=== PATIENT | female | born 1950 | race Caucasian/White ===

== ENCOUNTER 2016-12-02 14:44 | Observation (INO) | payer MEDICARE, BC ==
[2016-12-02] MEDS: DILAUDID 2 MG INJECTION IV PRN ×2 (15:20→20:28)
[2016-12-02] MEDS ORDERED: Ventolin Hfa MDI IH PRN (15:27)
[2016-12-02] MEDS ORDERED: PROVENTIL COMMON CANISTER IH PRN (15:29)
[2016-12-02] MEDS: Sodium Chloride 0.9% 1000 ML 1,000 ML IV SCH (15:41)
--- NOTE | 2016-12-02 16:14 | XRAY ---
Indication: Right sciatica. Multiple contiguous axial images obtained through the lumbar spine without contrast. Sagittal and coronal reformatted images obtained. Comparison: August 28, 2012. Axial images again negative for acute fracture or suspicious bony lesions. Stable small left paracentral disc bulge at the L5-S1 level again without spinal canal or foraminal compromise. Stable minimal L5-S1 degenerative facet arthropathy. Remaining T12-L5 disc levels negative for disc herniation, spinal canal, or foraminal stenosis. Facets are symmetric. Sagittal and coronal reformatted images again demonstrate normal lumbar alignment/lordosis with mild L5-S1 disc space narrowing. Again no acute fracture, subluxation, or suspicious bony lesions. Visualized noncontrasted soft tissues again demonstrates mild aortoiliac calcifications without AAA and sigmoidectomy diverticulosis. Impression: 1. Again negative for acute fracture, disc herniation, or spinal canal stenosis. 2. Stable L5-S1 degenerative disc disease. 2. Stable sigmoid diverticulosis. CTDI 72.76
[2016-12-02] MEDS: Advair Hfa 115/21 Common canister IH SCH (17:00)
[2016-12-02] MEDS ORDERED: ADVAIR 250-50 DISKUS 14 DOSE IH SCH (22:00)
[2016-12-02] MEDS: Klonopin 0.5 MG PO SCH (22:23)
[2016-12-02] MEDS: Zanaflex 4 MG PO SCH (22:23)
[2016-12-02] MEDS ORDERED: NORVASC 5 MG ONE (22:37)
[2016-12-03] MEDS: DILAUDID 2 MG INJECTION IV PRN ×3 (05:15→18:00)
[2016-12-03] MEDS: Advair Hfa 115/21 Common canister IH SCH ×2 (06:45→19:36)
[2016-12-03] MEDS: Klonopin 0.5 MG PO SCH ×2 (09:57→22:35)
[2016-12-03] MEDS: Sodium Chloride 0.9% 1000 ML 1,000 ML IV SCH (09:57)
[2016-12-03] MEDS: Mobic 7.5 MG PO SCH (09:57)
[2016-12-03] MEDS: Zanaflex 4 MG PO SCH ×2 (09:57→22:35)
[2016-12-03] MEDS ORDERED: PREVNAR 13 SYRINGE IM ONE (10:00)
--- NOTE | 2016-12-03 12:26 | PCM.NOTE ---
Date and Time: 12/03/16 1225 Subjective Assessment: pain is improving - Review of Systems Constitutional: No Fever, No Chills Eyes: No Symptoms Ears, Nose, & Throat: No Symptoms Respiratory: No Cough, No Short Of Breath Cardiac: No Chest Pain, No Edema, No Syncope Abdominal/Gastrointestinal: No Abdominal Pain, No Nausea, No Vomiting, No Diarrhea Genitourinary Symptoms: No Dysuria Musculoskeletal: No Back Pain, No Neck Pain Skin: No Rash Neurological: No Dizziness, No Focal Weakness, No Sensory Changes Psychological: No Symptoms Endocrine: No Symptoms Hematologic/Lymphatic: No Symptoms Immunological/Allergic: No Symptoms Objective Exam General Appearance: no apparent distress, alert Neurologic Exam: alert, oriented x 3, cooperative, normal mood/affect, nml cerebellar function, sensation nml, No motor deficits Skin Exam: normal color, warm, dry Eye Exam: PERRL, EOMI, eyes nml inspection Ears, Nose, Throat Exam: normal ENT inspection, pharynx normal, moist mucous membranes Neck Exam: normal inspection, non-tender, supple, full range of motion Respiratory Exam: normal breath sounds, lungs clear, No respiratory distress Cardiovascular Exam: regular rate/rhythm, normal heart sounds Gastrointestinal/Abdomen Exam: soft, No tenderness, No mass Extremity Exam: normal inspection, normal range of motion Back Exam: normal inspection, normal range of motion, No CVA tenderness, No vertebral tenderness Pelvic Exam: deferred Rectal Exam: deferred OBJECTIVE DATA Vital Signs: Vital Signs - 24 hr Temp Pulse Resp BP Pulse Ox 12/03/16 07:49 98.3 F 60 20 132/58 93 L 12/03/16 06:45 73 16 96 12/03/16 04:00 98.2 F 67 18 134/60 97 12/02/16 23:48 98.4 F 66 20 98/53 96 12/02/16 20:00 98.0 F 68 22 133/72 98 12/02/16 17:25 70 20 97 12/02/16 15:46 59 L 20 95 12/02/16 15:12 98.9 F 66 20 135/81 94 L Pain Assessment - Last Documented Pain Intensity 8 Pain Scale Used 0-10 Pain Scale Intake and Output: Intake & Output 12/01/16 12/02/16 12/03/16 12/04/16 11:59 11:59 11:59 11:59 Intake Total 1429 Balance 1429 Weight 95.368 kg Radiology Exams: Radiology Procedures Category Date Time Status LUMBAR SPINE W/O [CT] Routine Exams 12/02/16 15:12 Completed Assessment/Plan (1) Sciatic neuralgia Current Visit: Yes Status: Acute Qualifiers: Laterality: right Qualified Code(s): M54.31 - Sciatica, right side Code(s): M54.30 - SCIATICA, UNSPECIFIED SIDE
--- NOTE | 2016-12-04 07:09 | PCM.DS ---
Discharge Summary Date of Admission: 12/02/16 14:44 Admitting Physician: DAVID MORFIN Primary Care Provider: DAVID MORFIN Allergies Allergies No Known Drug Allergies Allergy (Unverified 12/02/16 14:51) Hospital Summary - Hospital Course Hospital Course: Chief Complaint Diagnosis sciatic pain Allergies Allergy/AdvReac Type Severity Reaction Status Date / Time No Known Drug Allergies Allergy Unverified 12/02/16 14:51 Vital Signs (Last 24 hours) Temp Pulse Resp BP Pulse Ox 12/04/16 03:55 98.4 F 72 17 125/68 94 L 12/04/16 00:00 98.4 F 61 18 94/52 93 L 12/03/16 19:48 98.5 F 69 19 124/59 93 L 12/03/16 19:36 68 18 93 L 12/03/16 16:00 99 F 63 20 126/73 91 L 12/03/16 12:00 98.4 F 74 20 113/69 93 L 12/03/16 07:49 98.3 F 60 20 132/58 93 L Home Medications Medication Instructions Recorded Confirmed Last Taken Type Meloxicam 7.5 mg [Mobic 7.5 7.5 mg PO DAILY 12/02/16 12/02/16 12/02/16 History MG] Tizanidine HCl 4 mg [Zanaflex 4 4 mg PO BID 12/02/16 12/02/16 12/02/16 History MG] Current Medications Generic Name Dose Route Start Last Admin Trade Name Freq PRN Reason Stop Dose Admin Albuterol Sulfate 2 puff 12/02/16 15:29 Proventil Common Canister IH 01/01/17 15:28 Q4H PRN PRN BREATHING Clonazepam 0.5 mg 12/02/16 22:00 12/03/16 22:35 Klonopin 0.5 Mg PO 01/01/17 21:59 0.5 mg BID ASIYA Administration Hydromorphone HCl 0.5 mg 12/02/16 15:09 12/03/16 18:00 Dilaudid 2 Mg Injection IV 12/07/16 15:08 0.5 mg Q4H PRN PRN Administration PAIN Sodium Chloride 1,000 mls @ 40 mls/hr 12/02/16 15:15 12/03/16 09:57 Sodium Chloride 0.9% 1000 Ml IV 01/01/17 15:14 40 mls/hr .Q24H ASIYA Administration Meloxicam 7.5 mg 12/03/16 10:00 12/03/16 09:57 Mobic 7.5 Mg PO 01/02/17 09:59 7.5 mg DAILY ASIYA Administration Fluticasone/Salmeterol 2 puff 12/02/16 19:00 12/03/16 19:36 Advair Hfa 115/21 Common Canister* IH 01/01/17 18:59 2 puff BIDRT ASIYA Administration Tizanidine HCl 4 mg 12/02/16 22:00 12/03/16 22:35 Zanaflex 4 Mg PO 01/01/17 21:59 4 mg BID ASIYA Administration Discontinued Medications Generic Name Dose Route Start Last Admin Trade Name Freq PRN Reason Stop Dose Admin Pneumococcal 13-Valent Conj Vacc 0.5 ml 12/03/16 10:00 12/03/16 09:59 Prevnar 13 Syringe IM 12/03/16 10:01 0.5 ml .ONCE ONE Administration Intake & Output (Last 24 hours) 12/01/16 12/02/16 12/03/16 12/04/16 11:59 11:59 11:59 11:59 Intake Total 1429 2139 Balance 1429 2139 Weight 95.368 kg Orders (Last 24 hours) Category Date Time Status Meloxicam 7.5 mg [Mobic 7.5 MG] Med 12/03/16 10:00 Active 7.5 mg PO DAILY Pneumoc 13-Noemí Conj-Dip Crm/Pf [Prevnar 13 Syringe] Med 12/03/16 10:00 Discontinued 0.5 ml IM .ONCE ONE PT Eval & Treat ( Order) ROUTINE PT 12/03/16 10:30 Completed - Vitals & Intake/Output Vital Signs: Vital Signs Temperature 98.4 F 12/04/16 03:55 Pulse Rate 72 12/04/16 03:55 Respiratory Rate 17 12/04/16 03:55 Blood Pressure 125/68 12/04/16 03:55 O2 Sat by Pulse Oximetry 94 L 12/04/16 03:55 Intake & Output: Intake & Output 12/01/16 12/02/16 12/03/16 12/04/16 11:59 11:59 11:59 11:59 Intake Total 1429 2139 Balance 1429 2139 Weight 95.368 kg - Radiology Exams Ordered Rad Exams-Entire Visit: Radiology Procedures Category Date Time Status LUMBAR SPINE W/O [CT] Routine Exams 12/02/16 15:12 Completed - Procedures and Test Procedures and Tests throughout Hospitalization: Therapy Orders & Screens 12/02/16 15:46 Respiratory MDI UD Comment: ALBUTEROL MDI Q4PRN Diagnosis: sciatic pain 12/02/16 16:00 OT Screen per Nursing Assess ONCE Comment: Protocol Order Physician Instructions: Greater than 3 points order OT Admission Screening Reason For Exam: Triggered on Admission Diagnosis: sciatic pain Open Wound/Cellutlitis/Pressure Ulcers: No Acute Fx/ORIF/Change in wt bearing status: No Severe MUSCULOSKELETAL pain: Yes ADL Dysfunction: Yes Acute CVA w/Hemiparesis/Hemiplegia: No Decreased Functional Mobility/Strength: No Sprain/Strain: Yes Acute Post-op Mobility Dysfunction: No Total Points: 11 PT Screen per Nursing Assess ONCE Comment: Protocol Order Physician Instructions: Greater than 3 points order PT Admission Screenin Reason For Exam: Triggered on Admission Diagnosis: sciatic pain Open Wound/Cellutlitis/Pressure Ulcers: No Acute Fx/ORIF/Change in wt bearing status: No Severe MUSCULOSKELETAL pain: Yes ADL Dysfunction: Yes Acute CVA w/Hemiparesis/Hemiplegia: No Decreased Functional Mobility/Strength: No Sprain/Strain: Yes Acute Post-op Mobility Dysfunction: No Total Points: 11 12/02/16 19:00 Respiratory MDI BID Comment: ADVAIR 115/ BID Diagnosis: sciatic pain 12/02/16 22:56 BiPap/CPAP Assessment ROUTINE Comment: Diagnosis: sciatic pain 12/03/16 10:30 PT Eval & Treat (MD Order) ROUTINE Evaluate: Yes Treat: Yes Reason for Eval:: sciatic pain Diagnosis: sciatic pain Discharge Exam General Appearance: no apparent distress, alert Neurologic Exam: alert, oriented x 3, cooperative, normal mood/affect, nml cerebellar function, sensation nml, No motor deficits Skin Exam: normal color, warm, dry Eye Exam: PERRL, EOMI, eyes nml inspection Ears, Nose, Throat Exam: normal ENT inspection, pharynx normal, moist mucous membranes Neck Exam: normal inspection, non-tender, supple, full range of motion Respiratory Exam: normal breath sounds, lungs clear, No respiratory distress Cardiovascular Exam: regular rate/rhythm, normal heart sounds Gastrointestinal/Abdomen Exam: soft, No tenderness, No mass Extremity Exam: normal inspection, normal range of motion Back Exam: normal inspection, normal range of motion, No CVA tenderness, No vertebral tenderness Pelvic Exam: deferred Rectal Exam: deferred Final Diagnosis/Problem List - Final Discharge Diagnosis/Problem (1) Sciatic neuralgia Current Visit: Yes Status: Acute Assessment & Plan: Chief Complaint Diagnosis sciatic pain Allergies Allergy/AdvReac Type Severity Reaction Status Date / Time No Known Drug Allergies Allergy Unverified 12/02/16 14:51 Vital Signs (Last 24 hours) Temp Pulse Resp BP Pulse Ox 12/04/16 03:55 98.4 F 72 17 125/68 94 L 12/04/16 00:00 98.4 F 61 18 94/52 93 L 12/03/16 19:48 98.5 F 69 19 124/59 93 L 12/03/16 19:36 68 18 93 L 12/03/16 16:00 99 F 63 20 126/73 91 L 12/03/16 12:00 98.4 F 74 20 113/69 93 L 12/03/16 07:49 98.3 F 60 20 132/58 93 L Home Medications Medication Instructions Recorded Confirmed Last Taken Type Meloxicam 7.5 mg [Mobic 7.5 7.5 mg PO DAILY 12/02/16 12/02/16 12/02/16 History MG] Tizanidine HCl 4 mg [Zanaflex 4 4 mg PO BID 12/02/16 12/02/16 12/02/16 History MG] Current Medications Generic Name Dose Route Start Last Admin Trade Name Freq PRN Reason Stop Dose Admin Albuterol Sulfate 2 puff 12/02/16 15:29 Proventil Common Canister IH 01/01/17 15:28 Q4H PRN PRN BREATHING Clonazepam 0.5 mg 12/02/16 22:00 12/03/16 22:35 Klonopin 0.5 Mg PO 01/01/17 21:59 0.5 mg BID ASIYA Administration Hydromorphone HCl 0.5 mg 12/02/16 15:09 05/05/17 18:00 Dilaudid 2 Mg Injection IV 12/07/16 15:08 0.5 mg Q4H PRN PRN Administration PAIN Sodium Chloride 1,000 mls @ 40 mls/hr 12/02/16 15:15 12/03/16 09:57 Sodium Chloride 0.9% 1000 Ml IV 01/01/17 15:14 40 mls/hr .Q24H ASIYA Administration Meloxicam 7.5 mg 12/03/16 10:00 12/03/16 09:57 Mobic 7.5 Mg PO 01/02/17 09:59 7.5 mg DAILY ASIYA Administration Fluticasone/Salmeterol 2 puff 12/02/16 19:00 12/03/16 19:36 Advair Hfa 115/21 Common Canister* IH 01/01/17 18:59 2 puff BIDRT ASIYA Administration Tizanidine HCl 4 mg 12/02/16 22:00 12/03/16 22:35 Zanaflex 4 Mg PO 01/01/17 21:59 4 mg BID ASIYA Administration Discontinued Medications Generic Name Dose Route Start Last Admin Trade Name Freq PRN Reason Stop Dose Admin Pneumococcal 13-Valent Conj Vacc 0.5 ml 12/03/16 10:00 12/03/16 09:59 Prevnar 13 Syringe IM 12/03/16 10:01 0.5 ml .ONCE ONE Administration Intake & Output (Last 24 hours) 12/01/16 12/02/16 12/03/16 12/04/16 11:59 11:59 11:59 11:59 Intake Total 1429 2139 Balance 1429 2139 Weight 95.368 kg Orders (Last 24 hours) Category Date Time Status Meloxicam 7.5 mg [Mobic 7.5 MG] Med 12/03/16 10:00 Active 7.5 mg PO DAILY Pneumoc 13-Noemí Conj-Dip Crm/Pf [Prevnar 13 Syringe] Med 12/03/16 10:00 Discontinued 0.5 ml IM .ONCE ONE PT Eval & Treat ( Order) ROUTINE PT 12/03/16 10:30 Completed - Discharge Discharge Date: 12/04/16 Disposition: Home, Self-Care Condition: Stable Prescriptions: Continue Fluticasone/Salmeterol Disc [Advair 250-50 Diskus 14 Dose] 1 each IH BID Clonazepam 0.5 mg [Klonopin 0.5 MG] 0.5 mg PO BID Albuterol 8 gm Mdi Hfa [Ventolin Hfa MDI] 8 gm IH Q4-6HPRN PRN PRN Reason: Shortness Of Breath Tizanidine HCl 4 mg [Zanaflex 4 MG] 4 mg PO BID Meloxicam 7.5 mg [Mobic 7.5 MG] 7.5 mg PO DAILY Follow up with: DAVID MORFIN MD [Primary Care Provider] - 1 Week Forms: Patient Portal Information
[2016-12-04] MEDS: Advair Hfa 115/21 Common canister IH SCH (07:41)
[2016-12-04 07:59] VITALS: BP 178/84; PULSE 77; O2SAT 92
[2016-12-04] MEDS: Zanaflex 4 MG PO SCH (11:09)
[2016-12-04] MEDS: Klonopin 0.5 MG PO SCH (11:09)
[2016-12-04] MEDS: Mobic 7.5 MG PO SCH (11:10)
== END 2016-12-04 12:20 | disposition home or self-care (01) ==
LOC: MED SURG 14:44
PROVIDERS: ADMIT General Practice; ATTEND General Practice
DX: G58.8 Other specified mononeuropathies (principal); M54.31 Sciatica, right side; I10 Essential (primary) hypertension; I50.9 Heart failure, unspecified; M19.90 Unspecified osteoarthritis, unspecified site; F41.9 Anxiety disorder, unspecified; J44.9 Chronic obstructive pulmonary disease, unspecified; M79.7 Fibromyalgia; K21.9 Gastro-esophageal reflux disease without esophagitis; K44.9 Diaphragmatic hernia without obstruction or gangrene; G47.33 Obstructive sleep apnea (adult) (pediatric); Z79.899 Other long term (current) drug therapy; M54.9 Dorsalgia, unspecified; Z23 Encounter for immunization
CPT/HCPCS: 72131; 90670; 94640; 94660; 94760; G0009; G0378; J1170; 97110-GP; A9270-GY

== ENCOUNTER 2017-01-03 12:49 | Emergency (ER) | payer MEDICARE, BC ==
[2017-01-03] MEDS ORDERED: NORCO 5/325 MG ONE (14:54)
[2017-01-03] MEDS ORDERED: NORCO 5/325 MG PO ONE (14:59)
--- NOTE | 2017-01-03 15:21 | XRAY ---
Indication: Pain following fall. Comparison: None 3 views of the right knee demonstrates mild osteopenia, mild medial joint space narrowing/spurring, tiny posterior fabella, and faint vascular calcifications. No other bony, articular, or soft tissue abnormalities.
--- NOTE | 2017-01-03 15:43 | ERPHSYRPT ---
- History of Present Illness Time Seen by Provider: 01/03/17 13:30 Source: patient, family Exam Limitations: no limitations Patient Subjective Stated Complaint: pt arriver per wc for right knee pain for almost a month and getting worse, pt twisted knee about a month ago and then ago today, she has seen and has mri for tomorrow,and is taking medication with no relief Triage Nursing Assessment: pt alert, thrashing in bed, no swelling noted to knee , or brusing, pt is able to walk on knee Method of Injury: direct blow, fell Occurred: this morning Quality: constant, sharpness Severity of Pain-Max: moderate Severity of Pain-Current: moderate Lower Extremities Pain: knee: right Modifying Factors: Improves With: movement Associated Symptoms: unable to bear weight Allergies/Adverse Reactions: No Known Drug Allergies Allergy (Verified 01/03/17 13:05) Home Medications: Fluticasone/Salmeterol Disc [Advair 250-50 Diskus 14 Dose] 1 each IH BID 08/01/13 [History] Albuterol 8 gm Mdi Hfa [Ventolin Hfa MDI] 8 gm IH Q4-6HPRN PRN 07/24/15 [ History] Clonazepam 0.5 mg [Klonopin 0.5 MG] 0.5 mg PO BID 07/24/15 [History] Meloxicam 7.5 mg [Mobic 7.5 MG] 7.5 mg PO DAILY 12/02/16 [History] Tizanidine HCl 4 mg [Zanaflex 4 MG] 4 mg PO BID 12/02/16 [History] Hx Tetanus, Diphtheria Vaccination/Date Given: Yes (UP TO DATE) Hx Influenza Vaccination/Date Given: Yes Hx Pneumococcal Vaccination/Date Given: Yes Immunizations Up to Date: Yes - Review of Systems Constitutional: No Symptoms Eyes: No Symptoms Ears, Nose, & Throat: No Symptoms Respiratory: No Symptoms Cardiac: No Symptoms Abdominal/Gastrointestinal: No Symptoms Musculoskeletal: Fall, Joint Pain Skin: No Symptoms Neurological: No Symptoms Psychological: No Symptoms Endocrine: No Symptoms Hematologic/Lymphatic: No Symptoms Immunological/Allergic: No Symptoms - Past Medical History Pertinent Past Medical History: Yes Neurological History: Migraines ENT History: No Pertinent History Cardiac History: Hypertension Respiratory History: COPD, Sleep Apnea Endocrine Medical History: No Pertinent History Musculoskeletal History: Fibromyalgia, Fractures, Osteoarthritis GI Medical History: No Pertinent History History: No Pertinent History Psycho-Social History: No Pertinent History Female Reproductive Disorders: No Pertinent History - Past Surgical History Past Surgical History: Yes Neuro Surgical History: No Pertinent History Cardiac: No Pertinent History Respiratory: No Pertinent History Gastrointestinal: Cholecystectomy Genitourinary: No Pertinent History Musculoskeletal: Orthopedic Surgery Female Surgical History: Hysterectomy Other Surgical History: rotator cuff surgery,eye surgery - Social History Smoking Status: Never smoker Exposure to second hand smoke: No Drug Use: none Patient Lives Alone: No Significant Family History: no pertinent family hx - Female History Hx Last Menstrual Period: post Hx Now: No - Nursing Vital Signs Nursing Vital Signs: Initial Vital Signs Temperature 97.4 F Temperature Source Oral Pulse Rate 72 Respiratory Rate 16 Blood Pressure [Right Arm] 170/88 Pain Intensity 8 - Physical Exam General Appearance: moderate distress Eyes, Ears, Nose, Throat Exam: normal ENT inspection, TMs normal, pharynx normal Neck Exam: normal inspection, non-tender, supple, full range of motion Cardiovascular/Respiratory Exam: chest non-tender, normal breath sounds, heart sounds normal Gastrointestinal/Abdominal Exam: non-tender, soft, no organomegaly Back Exam: normal inspection, normal range of motion Hips Exam: bilateral: non-tender, normal inspection, normal range of motion Legs Exam: bilateral leg: non-tender, normal inspection, normal range of motion Knees Exam: right knee: bone tenderness, pain, soft tissue tenderness, swelling Ankle Exam: bilateral ankle: non-tender, normal inspection, normal range of motion, no evidence of injury Foot Exam: bilateral foot: non-tender, normal inspection, normal range of motion , no evidence of injury DTR - Lower Extremities Exam: ankle (R): 3+, ankle (L): 3+ Neuro/Tendon Exam: normal sensation, normal motor functions, normal tendon functions, responds to pain, no evidence tendon injury Mental Status Exam: alert, oriented x 3, cooperative Skin Exam: normal color, warm, dry SpO2 Interpretation: normal SpO2: 96 Oxygen Delivery: Room Air - Radiology Exams Knee X-ray Interpretation: Teleradiologist Report (Mild osteopenia, mild medeial joint space narrowing/spurring, tiny posterior fabella and faint vascular calcifications.) Ordered Tests: Active Orders 24 hr Category Date Time Status KNEE (3 VIEWS) Stat Exams 01/03/17 14:23 Completed Medication Summary Discontinued Medications Generic Name Dose Route Start Last Admin Trade Name Emma PRN Reason Stop Dose Admin Hydrocodone Bitart/Acetaminophen Confirm 01/03/17 14:54 [place] 5/325 Mg Administered 01/03/17 14:55 Dose 1 tab .ROUTE .STK-MED ONE Hydrocodone Bitart/Acetaminophen 1 tab 01/03/17 14:59 01/03/17 15:05 [place] 5/325 Mg PO 01/03/17 15:00 1 tab STAT ONE Administration - Progress Progress: improved Will see patient in: office (PCP 1 week for ortho referral) Counseled pt/family regarding: diagnosis, need for follow-up, rad results - Departure Time of Disposition: 15:30 Departure Disposition: Home Clinical Impression: Degenerative joint disease of knee, right Qualifiers: Osteoarthritis type: post-traumatic Qualified Code(s): M17.31 - Unilateral post -traumatic osteoarthritis, right knee Condition: Stable Critical Care Time: No Instructions: Knee Pain Prescriptions: Hydrocodone Bit/Acetaminophen [[place] 5-325 Tablet] 1 each PO Q6H PRN PRN #15 tablet PRN Reason: Pain
[2017-01-03 16:19] VITALS: BP 134/70; PULSE 84; O2SAT 100
== END 2017-01-03 16:19 | disposition home or self-care (01) ==
LOC: ED 12:49
DX: M17.31 Unilateral post-traumatic osteoarthritis, right knee (principal)
CPT/HCPCS: 73562; 99283; 99284; L1830; A9270-GY

== ENCOUNTER 2017-02-24 11:58 | Emergency (ER) | payer MEDICARE, BC ==
[2017-02-24] MEDS ORDERED: Sodium Chloride 0.9% 1000 ML 1,000 ML IV SCH (12:15)
--- NOTE | 2017-02-24 12:18 | ERPHSYRPT ---
- History of Present Illness Time Seen by Provider: 02/24/17 12:02 Source: patient, family (daughter) Exam Limitations: no limitations Patient Subjective Stated Complaint: weakness, dizziness, fell out of chair at work, vomiting today. Triage Nursing Assessment: to room per w/c, able to go to bathroom with assist from daughter. slight unsteadiness on feet. Physician History: patient awoke with post AMBROCIO- non-specific; hx of HAs; went to work; collapsed while sitting in chair at work; fell to floor; denies hx; she is unaware if passed out; general weakness; no focal weakness; hx of prior TIAs, none recent; had knee surgery in December on right meniscus; no leg pain; no SOB or CP;no palpatations; no hx dVTs or PEs; no fever; no travel; no exposures; no Hypertension; no LOC per witness; developed N&V immediately after; called daughter who brought her here. Now only complaining of general weakness and post AMBROCIO; Had a Migraine AMBROCIO yesterday with N&V; got better and went shopping; awoke with AMBROCIO today and went to work thinking the same; Hx of Migraines; no incontinence or seizures; no visual disturbance or double vision; some vertigo; AMBROCIO 6/10 Timing/Duration: today (awoke wiht AMBROCIO and went to work), yesterday (Migraine with N&V rsolved), hour(s) (one fell out of chair at work; no injury; AMBROCIO with N &V), intermittent, improved Severity: moderate Modifying Factors: Improves With: nothing Associated Symptoms: nausea, vomiting, headaches, weakness (general), other ( vertigo) Allergies/Adverse Reactions: No Known Drug Allergies Allergy (Verified 02/24/17 12:11) Home Medications: Fluticasone/Salmeterol Disc [Advair 250-50 Diskus 14 Dose] 1 each IH BID 08/01/13 [History] Albuterol 8 gm Mdi Hfa [Ventolin Hfa MDI] 8 gm IH Q4-6HPRN PRN 07/24/15 [ History] Clonazepam 0.5 mg [Klonopin 0.5 MG] 0.5 mg PO BID 07/24/15 [History] Meloxicam 7.5 mg [Mobic 7.5 MG] 7.5 mg PO DAILY 12/02/16 [History] Aspirin [Clarcona Aspirin] 81 mg PO DAILY 02/24/17 [History] Hx Tetanus, Diphtheria Vaccination/Date Given: Yes (UP TO DATE) Hx Influenza Vaccination/Date Given: Yes Hx Pneumococcal Vaccination/Date Given: Yes - Review of Systems Constitutional: Weakness, No Fever, No Night Sweats, No Weight Loss Eyes: No Symptoms Ears, Nose, & Throat: No Symptoms Respiratory: No Cough, No Dyspnea, No Wheezing Cardiac: No Chest Pain, No Palpitations, No Syncope Abdominal/Gastrointestinal: Nausea, Vomiting, No Abdominal Pain, No Diarrhea, No Constipation Genitourinary Symptoms: No Symptoms Musculoskeletal: Arthralgias, Fall (out of cahir from sitting), No Injury Skin: No Symptoms Neurological: Dizziness, Headache, Vertigo, No Focal Weakness, No Paralysis, No Seizure, No Speech Changes Psychological: No Symptoms Endocrine: No Symptoms Hematologic/Lymphatic: No Symptoms Immunological/Allergic: No Symptoms - Past Medical History Pertinent Past Medical History: Yes Neurological History: Migraines, TIA ENT History: No Pertinent History Cardiac History: No Pertinent History Respiratory History: COPD Endocrine Medical History: Hypothyroidism Musculoskeletal History: Arthritis GI Medical History: No Pertinent History History: No Pertinent History Psycho-Social History: No Pertinent History Female Reproductive Disorders: No Pertinent History - Past Surgical History Past Surgical History: Yes Neuro Surgical History: No Pertinent History Cardiac: No Pertinent History Respiratory: No Pertinent History Gastrointestinal: Cholecystectomy Genitourinary: No Pertinent History Musculoskeletal: Orthopedic Surgery Female Surgical History: Hysterectomy Other Surgical History: rotator cuff surgery,eye surgery - Social History Smoking Status: Former smoker Exposure to second hand smoke: No Alcohol Use: None Drug Use: none Patient Lives Alone: No Significant Family History: no pertinent family hx - Female History Hx Now: No - Nursing Vital Signs Nursing Vital Signs: Initial Vital Signs Temperature 98.1 F 02/24/17 12:03 Pulse Rate 66 02/24/17 12:03 Respiratory Rate 18 02/24/17 12:03 Blood Pressure 145/84 02/24/17 12:03 O2 Sat by Pulse Oximetry 98 02/24/17 12:03 Pain Scale Pain Intensity 7 - Physical Exam General Appearance: moderate distress (AMBROCIO and vertigo when moves head lateral), alert, obese Eye Exam: PERRL/EOMI, eyes nml inspection, other (fundi benign; no papiledema; no nystagmus), No photophobia Ears, Nose, Throat Exam: normal ENT inspection, TMs normal, pharynx normal, moist mucous membranes Neck Exam: normal inspection, non-tender, supple, full range of motion, No meningismus, No carotid bruit, No JVD Respiratory Exam: normal breath sounds, lungs clear, airway intact, No chest tenderness, No respiratory distress Cardiovascular Exam: regular rate/rhythm, normal heart sounds, normal peripheral pulses, capillary refill <2 sec, No murmur Gastrointestinal/Abdomen Exam: soft, normal bowel sounds, No tenderness, No guarding, No pulsatile mass, No rebound, No organomegaly Pelvic Exam: deferred Rectal Exam: deferred Back Exam: normal inspection, normal range of motion, No CVA tenderness, No vertebral tenderness, No rash Extremity Exam: normal inspection, normal range of motion, pelvis stable, other (right knee post op; non-tender; no redness; no heat; no effusion), No kelvin's sign, No pedal edema, No swelling, No tenderness Neurologic Exam: alert, oriented x 3, cooperative, tutor coordinator II-XII nml as tested, normal mood/affect, nml cerebellar function, nml station & gait, sensation nml Skin Exam: normal color, warm, dry, No rash, No petechiae, No cyanosis SpO2 Interpretation: normal SpO2: 98 Oxygen Delivery: Room Air - Course Nursing assessment & vital signs reviewed: Yes EKG Interpreted by Me: RATE (56), Sinus Frank, Left Mason Deviation, NORMAL INTERVALS, NORMAL QRS, NORMAL ST-T, Other (uncahnged from 05-16-11) Rhythm Strip: Rate (56), Sinus Bradycardia - Radiology Exams Chest X-ray Interpretation: Reviewed by me, Teleradiologist Report, Negative (acute process) - CT Exams Head CT Interpretation: Tele-radiologist Report, No/Intracranial Hemorrhag, Other ( evidence on comaprison of 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) Chest CT Interpretation: Tele-radiologist Report, No PE Ordered Tests: Active Orders 24 hr Category Date Time Status Accucheck STAT Care 02/24/17 12:09 Active Merchandising Representative STAT Care 02/24/17 12:09 Active EKG-ER Only STAT Care 02/24/17 12:09 Active IV Insertion STAT Care 02/24/17 12:09 Active Orthostatic Vital Signs STAT Care 02/24/17 12:09 Active Pulse Oximetry (ED) STAT Care 02/24/17 12:09 Active CHEST 1 VIEW (PORTABLE) Stat Exams 02/24/17 12:10 Completed CHEST WITH CONTRAST [CT] Stat Exams 02/24/17 14:29 Completed HEAD WITHOUT CONTRAST [CT] Stat Exams 02/24/17 12:10 Completed CBC W DIFF Stat Lab 02/24/17 12:20 Completed CMP Stat Lab 02/24/17 12:20 Completed CULTURE,URINE Stat Lab 02/24/17 12:20 Received D-DIMER QUANTITATION Stat Lab 02/24/17 12:20 Completed MAGNESIUM Stat Lab 02/24/17 12:20 Completed PROTIME WITH INR Stat Lab 02/24/17 12:20 Completed TROPONIN Q3H Lab 02/24/17 12:15 Completed TROPONIN Q3H Lab 02/24/17 15:15 Ordered TROPONIN Q3H Lab 02/24/17 18:15 Ordered TROPONIN Q3H Lab 02/24/17 21:15 Ordered TROPONIN Q3H Lab 02/25/17 00:15 Ordered UA W/ MICROSCOPIC Stat Lab 02/24/17 12:20 Completed Medication Summary Generic Name Dose Route Start Last Admin Trade Name Freq PRN Reason Stop Dose Admin Sodium Chloride 1,000 mls @ 50 mls/hr 02/24/17 12:15 02/24/17 12:26 Sodium Chloride 0.9% 1000 Ml IV 03/26/17 12:14 50 mls/hr .Q20H ASIYA Administration Discontinued Medications Generic Name Dose Route Start Last Admin Trade Name Freq PRN Reason Stop Dose Admin Acetaminophen 500 mg 02/24/17 12:40 02/24/17 12:56 Tylenol Extra Strength 500 Mg PO 02/24/17 12:41 500 mg STAT STA Administration Acetaminophen Confirm 02/24/17 12:46 Tylenol Extra Strength 500 Mg Administered 02/24/17 12:47 Dose 500 mg .ROUTE .STK-MED ONE Ceftriaxone Sodium/Dextrose 1 g in 50 mls @ 100 mls/hr 02/24/17 12:43 13:02 Rocephin 1 Gm-D5w 50 Ml Bag IV 02/24/17 13:12 100 mls/hr STAT ONE Administration Sodium Chloride 250 mls @ 999 mls/hr 02/24/17 12:52 02/24/17 13:15 Sodium Chloride 0.9% 1000 Ml IV 02/24/17 13:07 999 mls/hr .Q16M STA Administration Ceftriaxone Sodium/Dextrose Confirm 02/24/17 12:51 Rocephin 1 Gm-D5w 50 Ml Bag Administered 02/24/17 12:52 Dose 1 g in 50 mls @ ud IV .STK-MED ONE Ondansetron HCl 4 mg 02/24/17 12:40 02/24/17 13:01 Zofran 4 Mg/2 Ml Vial IV 02/24/17 12:41 4 mg STAT ONE Administration Ondansetron HCl Confirm 02/24/17 12:46 Zofran 4 Mg/2 Ml Vial Administered 02/24/17 12:47 Dose 4 mg .ROUTE .STK-MED ONE Scopolamine HBr 1.5 mg 02/24/17 12:41 02/24/17 12:59 Transderm Scop 1.5mg Patch TOP 02/24/17 12:42 1.5 mg STAT ONE Administration Lab/Rad Data: Laboratory Result Diagrams 02/24/17 12:20 02/24/17 12:20 Laboratory Results 02/24/17 02/24/17 02/24/17 Range/Units 12:20 12:20 12:20 WBC (4.0-10.5) K/mm3 RBC (4.1-5.4) M/mm3 Hgb (12.0-16.0) gm/dl Hct (35-47) % MCV (78-100) fl MCH (26-32) pg MCHC (32-36) g/dl RDW (11.5-14.0) % Plt Count (150-450) K/mm3 MPV (6-9.5) fl Gran % (36.0-66.0) % Lymphocytes % (24.0-44.0) % Monocytes % (0.0-12.0) % Eosinophils % (0.00-5.0) % Basophils % (0.0-0.4) % Basophils # (0-0.4) INR 1.01 (0.8-3.0) D-Dimer 876 H* (0-500) ng/mL Sodium 139 (136-145) mEq/L Potassium 4.1 (3.5-5.1) mEq/L Chloride 104 (98-107) mEq/L Carbon Dioxide 27.4 (21-32) mEq/L Anion Gap 11.8 (5-15) MEQ/L BUN 15 (9-20) mg/dL Creatinine 0.71 (0.55-1.30) mg/dl Estimated GFR > 60 ML/MIN Glucose 94 (70-110) MG/DL Calcium 9.4 (8.5-10.1) mg/dL Magnesium 2.1 (1.8-2.4) mg/dL Total Bilirubin 0.40 (0.2-1.0) mg/dL AST 17 (15-37) U/L ALT 21 (12-78) U/L Alkaline Phosphatase 114 (46-116) U/L Troponin I (0.000-0.056) ng/ml Serum Total Protein 7.0 (6.4-8.2) gm/dL Albumin 3.8 (3.4-5.0) g/dL Ur Collection Type Urine Color (YELLOW) Urine Appearance (CLEAR) Urine pH (5-6) Ur Specific [place] (1.005-1.025) Urine Protein (Negative) Urine Ketones (NEGATIVE) Urine Blood (0-5) Sergo/ul Urine Nitrite (NEGATIVE) Urine Bilirubin (NEGATIVE) Urine Urobilinogen (0-1) mg/dL Ur Leukocyte Esterase (NEGATIVE) Urine Microscopic RBC (0-2) /HPF Urine Microscopic WBC (0-5) /HPF Ur Epithelial Cells (FEW) /HPF Urine Bacteria (NEGATIVE) /HPF Urine Glucose (NEGATIVE) mg/dL Specimen Received 02/24/17 02/24/17 02/24/17 Range/Units 12:20 12:20 12:15 WBC 4.1 (4.0-10.5) K/mm3 RBC 5.37 (4.1-5.4) M/mm3 Hgb 15.1 (12.0-16.0) gm/dl Hct 45.8 (35-47) % MCV 85.3 (78-100) fl MCH 28.1 (26-32) pg MCHC 33.0 (32-36) g/dl RDW 14.8 H (11.5-14.0) % Plt Count 198 (150-450) K/mm3 MPV 11.0 H (6-9.5) fl Gran % 47.3 (36.0-66.0) % Lymphocytes % 38.0 (24.0-44.0) % Monocytes % 9.1 (0.0-12.0) % Eosinophils % 4.9 (0.00-5.0) % Basophils % 0.7 (0.0-0.4) % Basophils # 0.03 (0-0.4) INR (0.8-3.0) D-Dimer (0-500) ng/mL Sodium (136-145) mEq/L Potassium (3.5-5.1) mEq/L Chloride (98-107) mEq/L Carbon Dioxide (21-32) mEq/L Anion Gap (5-15) MEQ/L BUN (9-20) mg/dL Creatinine (0.55-1.30) mg/dl Estimated GFR ML/MIN Glucose (70-110) MG/DL Calcium (8.5-10.1) mg/dL Magnesium (1.8-2.4) mg/dL Total Bilirubin (0.2-1.0) mg/dL AST (15-37) U/L ALT (12-78) U/L Alkaline Phosphatase (46-116) U/L Troponin I < 0.017 (0.000-0.056) ng/ml Serum Total Protein (6.4-8.2) gm/dL Albumin (3.4-5.0) g/dL Ur Collection Type VOID Urine Color YELLOW (YELLOW) Urine Appearance CLOUDY (CLEAR) Urine pH 5.0 (5-6) Ur Specific [place] 1.030 (1.005-1.025) Urine Protein TRACE (Negative) Urine Ketones TRACE (NEGATIVE) Urine Blood 250 (0-5) Sergo/ul Urine Nitrite POSITIVE (NEGATIVE) Urine Bilirubin NEGATIVE (NEGATIVE) Urine Urobilinogen 1 (0-1) mg/dL Ur Leukocyte Esterase TRACE (NEGATIVE) Urine Microscopic RBC 25-50 (0-2) /HPF Urine Microscopic WBC 5-10 (0-5) /HPF Ur Epithelial Cells MANY (FEW) /HPF Urine Bacteria PACKED (NEGATIVE) /HPF Urine Glucose NEGATIVE (NEGATIVE) mg/dL Specimen Received 02/24/17 1210 reviewed - Progress Progress: improved, re-examined (after tests) Progress Note: 02/24/17 12:32 family at bedside and confirms story; EKG ok; CT head pending; labs pending; will monitor and recheck; no n&V now; post AMBROCIO 10; not dizz now 02/24/17 12:49 rechecked after RT from CT; still AMBROCIO 01/08; still Nausea without emesis; still vertigo with head motion; family at bedside; VS ok will medicate for symptoms and recheck; CBC wnl; U/a shows infection;will hydrate; labs pending trace leuk ; pos nitrite; tr prot; cloudy; will cover with ATBs and culture;patient and family notified and treatment plan dicussed; CT old changes; no acute changes; CXR chronic only; no OSVS changes; labs pending; EKG ok ; will hydrate 02/24/17 13:05 Trop WNL; BMP wnl renal fx ok; cmp ok; D Dimer and INR pending; patient improving 02/24/17 13:48 rechecked; daughter at bedside; pateint resting comfortably; no AMBROCIO, N&V or Vertigo now; awaiting results of INR and D Dimer for disposition 02/24/17 14:29 D Dimer elevated at 876 and INR n at 1.01; PT ok at 11.4; will get CT to ro PE and recheck 02/24/17 15:[address] ; VS ok; Resting comfortably with family at bedside; CT results penidng 02/24/17 15:[address] shared; instructions \given Counseled pt/family regarding: lab results, diagnosis, need for follow-up, rad results - Departure Time of Disposition: 15:28 Departure Disposition: Home Clinical Impression: Dizziness, Vertigo, Migraine headache, UTI (urinary tract infection) Condition: Stable Critical Care Time: Yes Critical Care Time(excluding separately billable procedures): 30-74 minutes Referrals: DAVID MORFIN MD [Primary Care Provider] - Instructions: Vertigo, Migraine, Urinary Tract Infection (UTI) Additional Instructions: rest; fluids; take meds wear TDS patch 3 days Follow-up with family doctor as directed. Call for appointment. Return if any problems. If you smoke please stop. Call or follow up with your family doctor for assistance if you need it to stop. Please wear your seatbelt when driving. Have a nice day. Thank you for allowing us to participate in your care today. :o) Dr Julius Herman Prescriptions: Cephalexin Mh 250 mg [Keflex 250 mg] 250 mg PO QID #40 capsule
[2017-02-24] MEDS ORDERED: Sodium Chloride 0.9% 1000 ML 1,000 ML ONE ×2 (12:20→19:39)
[2017-02-24 12:32] LABS: ADD URINE CULTURE? YES (NO); Bilirubin NEGATIVE (NEGATIVE); Blood 250 Ery/ul (0-5); COMPLETE URINE MICROSCOPIC? YES; Collection Type VOID; Glucose NEGATIVE (NEGATIVE); Leukocyte Esterase TRACE (NEGATIVE)
[2017-02-24 12:37] LABS: BASOPHIL % 0.7 % (0.0-0.4); Eosinophil % 4.9 % (0.00-5.0); Granulocytes % 47.3 % (36.0-66.0); Mean Cell Volume 85.3 fl (78-100); Mean Corpuscular Hemoglobin 28.1 pg (26-32); Monocytes % 9.1 % (0.0-12.0); Platelet Count 198 K/mm3 (150-450); Red Blood Count 5.37 M/mm3 (4.1-5.4); Red Cell Distribution Width 14.8 % (11.5-14.0); White Blood Count 4.1 K/mm3 (4.0-10.5)
[2017-02-24] MEDS ORDERED: TYLENOL EXTRA STRENGTH 500 MG PO STA ×2 (12:40→15:30)
[2017-02-24] MEDS ORDERED: Zofran 4 MG/2 ML VIAL IV ONE (12:40)
[2017-02-24] MEDS ORDERED: Transderm Scop 1.5MG Patch TOP ONE (12:41)
[2017-02-24] MEDS ORDERED: ROCEPHIN 1 Gm-D5w 50 ml Bag** 1 G/50 ML IVPB IV ONE ×2 (12:43→12:51)
[2017-02-24] MEDS ORDERED: TYLENOL EXTRA STRENGTH 500 MG ONE ×2 (12:46→15:33)
[2017-02-24] MEDS ORDERED: Zofran 4 MG/2 ML VIAL ONE (12:46)
--- NOTE | 2017-02-24 12:51 | XRAY ---
Indication: Headache and syncope. Comparison: February 27, 2014. Portable chest remains clear with incidental scattered calcified granulomas and right hemidiaphragm elevation. Heart and mediastinal structures within normal limits. Bony thorax intact again with mild osteopenia and previous right shoulder surgery. Impression: Stable nonacute chest with chronic features.
[2017-02-24 12:53] LABS: ALBUMIN 3.8 g/dL (3.4-5.0); ALKALINE PHOSPHATASE 114 U/L (46-116); ANION GAP 11.8 MEQ/L (5-15); BLOOD UREA NITROGEN 15 mg/dL (9-20); CHLORIDE 104 mEq/L (98-107); Carbon Dioxide 27.4 mEq/L (21-32); Glucose 94 MG/DL (70-110); Potassium 4.1 mEq/L (3.5-5.1); SGOT/AST 17 U/L (15-37); SGPT/ALT 21 U/L (12-78); SODIUM 139 mEq/L (136-145)
--- NOTE | 2017-02-24 12:54 | XRAY ---
Indication: Headache. Syncope. Multiple contiguous axial images obtained through the head without contrast. Comparison: July 24, 2015. Stable age-appropriate global atrophy, minimal periventricular degenerative micro-ischemia, and small old infarcts in the right cerebellum and right occipital lobe. No acute intracranial hemorrhage, abnormal extra-axial fluid collection, or mass effect. Fourth ventricle is midline without hydrocephalus. Osseous structures intact. Visualized paranasal sinuses and mastoid air cells are clear. 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 CTDI 69.90
[2017-02-24 14:11] LABS: Epithelial Cells MANY /HPF (FEW)
[2017-02-24 14:12] LABS: Bacteria PACKED /HPF (NEGATIVE)
[2017-02-24 14:14] LABS: INR 1.01 (0.8-3.0); PROTIME 11.4 SECONDS (9.95-12.35)
--- NOTE | 2017-02-24 15:23 | XRAY ---
Indication: Headache, nausea, vomiting, and dizziness. Elevated d-dimer. Multiple contiguous axial images obtained through the chest using 80 cc Isovue 370 contrast and PE protocol. Comparison: None There is satisfactory opacification of the pulmonary arteries to include the lobar and segmental branches. No filling defect or pulmonary embolus. Heart is not enlarged. Aorta is minimally arteriosclerotic without aneurysm/dissection. A few right hilar calcified lymph nodes. No pathologic mediastinal/hilar lymphadenopathy. Partially visualized enlarged heterogeneous left thyroid gland measuring 3.9 x 4.2 cm in greatest axial dimension. There is also small hiatal hernia. Examination of lung parenchyma demonstrates minimal bilateral dependent atelectasis, right middle lobe subsegmental atelectasis, and right lower lobe calcified granuloma. 7 mm noncalcified subpleural nodule in the left lower lobe probably granulomatous in this demographic. No infiltrate or effusion. Bony thorax intact with minimal degenerative changes throughout the spine and a few midthoracic Schmorl nodes. Limited upper abdomen demonstrates previous cholecystectomy. Impression: 1. Negative for pulmonary embolus. No acute cardiopulmonary abnormalities. 2. Small hiatal hernia and evidence for old granulomatous disease. 3. Incidental enlarged heterogenous left thyroid gland incompletely visualized. CT DI 23.68
[2017-02-24 15:58] VITALS: BP 134/78; PULSE 70; O2SAT 97
== END 2017-02-24 16:00 | disposition home or self-care (01) ==
LOC: ED 11:58
DX: R42 Dizziness and giddiness (principal); G43.909 Migraine, unspecified, not intractable, without status migrainosus; N39.0 Urinary tract infection, site not specified; W07.XXXA Fall from chair, initial encounter; Y92.69 Other specified industrial and construction area as the place of occurrence of the external cause; Y99.0 Civilian activity done for income or pay; R11.10 Vomiting, unspecified; Z86.73 Personal history of transient ischemic attack (TIA), and cerebral infarction without residual deficits; R11.2 Nausea with vomiting, unspecified; Z79.899 Other long term (current) drug therapy; J44.9 Chronic obstructive pulmonary disease, unspecified; E03.9 Hypothyroidism, unspecified; R53.1 Weakness
CPT/HCPCS: 36000; 36415; 70450; 71010; 71260; 80053; 81000; 82962; 83735; 84484; 85025; 85379; 85610; 87077; 87086; 87186; 93005; 93041; 96360; 96361; 96365; 96374; 99284; J0696; J2405; A9270-GY

== ENCOUNTER 2018-11-08 10:52 | Inpatient (IN) | payer MEDICARE, BC ==
[2018-11-08 13:10] LABS: BASOPHIL % 0.4 % (0.0-0.4); Basophil (Absolute #) 0.02 (0-0.4); Eosinophil % 2.7 % (0.00-5.0); Eosinophil (Absolute #) 0.14 (0-0.5); Granulocyte Absolute (ANC) 3.15 (1.4-6.9); Granulocytes % 61.6 % (36.0-66.0); Hematocrit 47.9 % (35-47); Hemoglobin 15.7 gm/dl (12.0-16.0); Lymphocytes % 27.3 % (24.0-44.0); Mean Cell Volume 86.9 fl (78-100); Mean Corpuscular Hgb Concent. 32.8 g/dl (32-36); Mean Platelet Volume 11.2 fl (6-9.5); Monocyte (Absolute #) 0.41 (0.0-1.3); Platelet Count 222 K/mm3 (150-450); Red Blood Count 5.51 M/mm3 (4.1-5.4); Red Cell Distribution Width 15.7 % (11.5-14.0); White Blood Count 5.1 K/mm3 (4.0-10.5)
[2018-11-08 13:14] LABS: ALBUMIN 4.2 g/dL (3.5-5.0); ALKALINE PHOSPHATASE 97 U/L (38-126); ANION GAP 15.4 MEQ/L (5-15); BLOOD UREA NITROGEN 21 mg/dL (7-17); CHLORIDE 109 mmol/L (98-107); Carbon Dioxide 22 mmol/L (22-30); Creatinine 1 0.63 mg/dL (0.52-1.04); Glucose 92 mg/dL (74-106); Mean Corpuscular Hemoglobin 28.4 pg (26-32); Potassium 4.8 mmol/L (3.5-5.1); SGOT/AST 30 U/L (14-36); SGPT/ALT 28 U/L (0-35); SODIUM 141 mmol/L (137-145); Total Protein 7.3 g/dL (6.3-8.2)
[2018-11-08] MEDS: Sodium Chloride 0.9% 1000 ML 1,000 ML IV SCH (13:48)
[2018-11-08] MEDS: ROCEPHIN 1 Gm-D5w 50 ml Bag** 1 G/50 ML IVPB IV SCH (13:48)
[2018-11-08] MEDS: PROVENTIL COMMON CANISTER IH SCH ×2 (14:19→17:30)
[2018-11-08] MEDS: Zanaflex 4 MG PO SCH ×2 (14:27→22:25)
[2018-11-08] MEDS: MORPHINE SULFATE 2 MG INJ IV PRN (14:48)
[2018-11-08] MEDS: FLAGYL 500 MG IVPB 500 MG/100 ML BAG IV SCH (14:50)
--- NOTE | 2018-11-08 16:30 | XRAY ---
Indication: Rectal bleeding. Multiple contiguous axial images obtained through the abdomen and pelvis prior to and following 80 cc Isovue 300 contrast only. Comparison: March 30, 2013. Lung bases demonstrates mild bibasilar dependent atelectasis. Stable right lower lobe calcified granuloma and right infrahilar calcified nodes. No infiltrate or effusion. Heart is not enlarged Noncontrasted images demonstrate stable tiny calcified splenic granuloma. No new visceral calcification/calculi. Noncontrasted stomach and bowel loops appear nonobstructed. Appendix not seen. Again mild diffuse scattered colonic fecal debris throughout including rectum. Sigmoid colon again demonstrates diverticulosis with new stranding favoring mild diverticulitis. No free fluid/air. Postcontrast images demonstrates normal vessel enhancement and renal excretion. Stable 5 mm right lower pole cortical cyst with new 5 mm left mid renal cortical cyst. Again previous cholecystectomy. Remaining liver, pancreas, spleen, adrenal glands, kidneys, ureters, and bladder appear unremarkable. Again mild aortoiliac calcifications. No AAA or pathologic retroperitoneal lymphadenopathy. Osseous structures intact with mild degenerative changes throughout the spine. No ventral or inguinal hernias. Impression: 1. Negative pathologic visceral calcifications/calculi. 2. Again sigmoid diverticulosis with new mild diverticulitis. No complications. 3. Mild fecal stasis without obstruction. 4. Incidental bilateral renal cysts and evidence for old granulomatous disease. CTDI 23.68
[2018-11-08 16:54] LABS: Appearance CLEAR (CLEAR); Bilirubin NEGATIVE (NEGATIVE); Blood LARGE Ery/ul (0-5); Glucose NEGATIVE (NEGATIVE); Ketones NEGATIVE (NEGATIVE); Leukocyte Esterase NEGATIVE (NEGATIVE); Mucus SLIGHT /HPF (NEGATIVE); Nitrite NEGATIVE (NEGATIVE); Protein,Urine Dip NEGATIVE (Negative); Specific Gravity 1.016 (1.005-1.025); Urobilinogen NEGATIVE mg/dL (0-1)
[2018-11-08] MEDS ORDERED: Ventolin Hfa MDI IH SCH (17:00)
[2018-11-08] MEDS: Advair Hfa 115/21 Common canister IH SCH (17:30)
[2018-11-08] MEDS: Zofran 4 MG/2 ML VIAL IV PRN (19:01)
[2018-11-08] MEDS ORDERED: ADVAIR 250-50 DISKUS 14 DOSE IH SCH (22:00)
[2018-11-08] MEDS: Zestril 5 MG PO SCH (22:24)
[2018-11-08] MEDS: CLARITIN 10 MG PO SCH (22:24)
[2018-11-08] MEDS: Klonopin 0.5 MG PO SCH (22:24)
[2018-11-09] MEDS: FLAGYL 500 MG IVPB 500 MG/100 ML BAG IV SCH ×4 (01:17→17:28)
[2018-11-09] MEDS: MORPHINE SULFATE 2 MG INJ IV PRN ×3 (01:23→16:10)
[2018-11-09] MEDS: Zanaflex 4 MG PO SCH ×3 (06:25→22:36)
[2018-11-09] MEDS: PROVENTIL COMMON CANISTER IH SCH ×4 (07:14→20:15)
[2018-11-09] MEDS: Advair Hfa 115/21 Common canister IH SCH ×2 (07:14→20:15)
--- NOTE | 2018-11-09 09:11 | PCM.NOTE ---
Date and Time: 11/09/18908 Subjective Assessment: has two more episodes of rectal bleed - Review of Systems Constitutional: No Fever, No Chills Eyes: No Symptoms Ears, Nose, & Throat: No Symptoms Respiratory: No Cough, No Short Of Breath Cardiac: No Chest Pain, No Edema, No Syncope Abdominal/Gastrointestinal: No Abdominal Pain, No Nausea, No Vomiting, No Diarrhea Genitourinary Symptoms: No Dysuria Musculoskeletal: No Back Pain, No Neck Pain Skin: No Rash Neurological: No Dizziness, No Focal Weakness, No Sensory Changes Psychological: No Symptoms Endocrine: No Symptoms Hematologic/Lymphatic: No Symptoms Immunological/Allergic: No Symptoms Objective Exam General Appearance: no apparent distress, alert Neurologic Exam: alert, oriented x 3, cooperative, normal mood/affect, nml cerebellar function, sensation nml, No motor deficits Skin Exam: normal color, warm, dry Eye Exam: PERRL, EOMI, eyes nml inspection Ears, Nose, Throat Exam: normal ENT inspection, pharynx normal, moist mucous membranes Neck Exam: normal inspection, non-tender, supple, full range of motion Respiratory Exam: normal breath sounds, lungs clear, No respiratory distress Cardiovascular Exam: regular rate/rhythm, normal heart sounds Gastrointestinal/Abdomen Exam: soft, No tenderness, No mass Extremity Exam: normal inspection, normal range of motion Back Exam: normal inspection, normal range of motion, No CVA tenderness, No vertebral tenderness Pelvic Exam: deferred Rectal Exam: deferred OBJECTIVE DATA Vital Signs: Vital Signs - 24 hr Temp Pulse Resp BP Pulse Ox 11/09/18 07:32 66 14 94 L 11/09/18 07:17 97.8 F 74 20 141/73 99 11/09/18 03:45 98.4 F 68 17 111/66 95 11/08/18 23:56 97.9 F 76 16 115/69 93 L 11/08/18 20:00 98.5 F 90 20 132/81 98 11/08/18 17:31 88 18 95 11/08/18 16:00 98.4 F 70 18 110/52 94 L 11/08/18 14:21 71 16 98 Pain Assessment - Last Documented Pain Intensity 9 Pain Scale Used 0-10 Pain Scale Intake and Output: Intake & Output 11/06/18 11/07/18 11/08/18 11/09/18 11:59 11:59 11:59 11:59 Intake Total 1769 Output Total 1500 Balance 269 Weight 93.1 kg Lab Results: Lab Results-Last 24 Hours 11/08/18 11/08/18 11/08/18 Range/Units 11:25 11:25 14:55 WBC 5.1 (4.0-10.5) K/mm3 RBC 5.51 H (4.1-5.4) M/mm3 Hgb 15.7 (12.0-16.0) gm/dl Hct 47.9 H (35-47) % MCV 86.9 (78-100) fl MCH 28.4 (26-32) pg MCHC 32.8 (32-36) g/dl RDW 15.7 H (11.5-14.0) % Plt Count 222 (150-450) K/mm3 MPV 11.2 H (6-9.5) fl Gran % 61.6 (36.0-66.0) % Eos # (Auto) 0.14 (0-0.5) Absolute Lymphs (auto) 1.40 (1.0-4.6) Absolute Monos (auto) 0.41 (0.0-1.3) Lymphocytes % 27.3 (24.0-44.0) % Monocytes % 8.0 (0.0-12.0) % Eosinophils % 2.7 (0.00-5.0) % Basophils % 0.4 (0.0-0.4) % Absolute Granulocytes 3.15 (1.4-6.9) Basophils # 0.02 (0-0.4) Sodium 141 (137-145) mmol/L Potassium 4.8 (3.5-5.1) mmol/L Chloride 109 H (98-107) mmol/L Carbon Dioxide 22 (22-30) mmol/L Anion Gap 15.4 H (5-15) MEQ/L BUN 21 H (7-17) mg/dL Creatinine 0.63 (0.52-1.04) mg/dL Estimated GFR > 60.0 ML/MIN Glucose 92 (74-106) mg/dL Calcium 10.0 (8.4-10.2) mg/dL Total Bilirubin 0.40 (0.2-1.3) mg/dL AST 30 (14-36) U/L ALT 28 (0-35) U/L Alkaline Phosphatase 97 (38-126) U/L Serum Total Protein 7.3 (6.3-8.2) g/dL Albumin 4.2 (3.5-5.0) g/dL Urine Color YELLOW (YELLOW) Urine Appearance CLEAR (CLEAR) Urine pH 5.0 (5-6) Ur Specific [place] 1.016 (1.005-1.025) Urine Protein NEGATIVE (Negative) Urine Ketones NEGATIVE (NEGATIVE) Urine Blood LARGE (0-5) Sergo/ul Urine Nitrite NEGATIVE (NEGATIVE) Urine Bilirubin NEGATIVE (NEGATIVE) Urine Urobilinogen NEGATIVE (0-1) mg/dL Ur Leukocyte Esterase NEGATIVE (NEGATIVE) Urine WBC (Auto) NONE (0-5) /HPF Urine RBC (Auto) 3-5 (0-2) /HPF U Epithel Cells (Auto) NONE (FEW) /HPF Urine Bacteria (Auto) NONE (NEGATIVE) /HPF Urine Mucus (Auto) SLIGHT (NEGATIVE) /HPF Urine Glucose NEGATIVE (NEGATIVE) mg/dL Stool Occult Bld Scrn (NEGATIVE) 11/08/18 Range/Units 18:50 WBC (4.0-10.5) K/mm3 RBC (4.1-5.4) M/mm3 Hgb (12.0-16.0) gm/dl Hct (35-47) % MCV (78-100) fl MCH (26-32) pg MCHC (32-36) g/dl RDW (11.5-14.0) % Plt Count (150-450) K/mm3 MPV (6-9.5) fl Gran % (36.0-66.0) % Eos # (Auto) (0-0.5) Absolute Lymphs (auto) (1.0-4.6) Absolute Monos (auto) (0.0-1.3) Lymphocytes % (24.0-44.0) % Monocytes % (0.0-12.0) % Eosinophils % (0.00-5.0) % Basophils % (0.0-0.4) % Absolute Granulocytes (1.4-6.9) Basophils # (0-0.4) Sodium (137-145) mmol/L Potassium (3.5-5.1) mmol/L Chloride (98-107) mmol/L Carbon Dioxide (22-30) mmol/L Anion Gap (5-15) MEQ/L BUN (7-17) mg/dL Creatinine (0.52-1.04) mg/dL Estimated GFR ML/MIN Glucose (74-106) mg/dL Calcium (8.4-10.2) mg/dL Total Bilirubin (0.2-1.3) mg/dL AST (14-36) U/L ALT (0-35) U/L Alkaline Phosphatase (38-126) U/L Serum Total Protein (6.3-8.2) g/dL Albumin (3.5-5.0) g/dL Urine Color (YELLOW) Urine Appearance (CLEAR) Urine pH (5-6) Ur Specific [place] (1.005-1.025) Urine Protein (Negative) Urine Ketones (NEGATIVE) Urine Blood (0-5) Sergo/ul Urine Nitrite (NEGATIVE) Urine Bilirubin (NEGATIVE) Urine Urobilinogen (0-1) mg/dL Ur Leukocyte Esterase (NEGATIVE) Urine WBC (Auto) (0-5) /HPF Urine RBC (Auto) (0-2) /HPF U Epithel Cells (Auto) (FEW) /HPF Urine Bacteria (Auto) (NEGATIVE) /HPF Urine Mucus (Auto) (NEGATIVE) /HPF Urine Glucose (NEGATIVE) mg/dL Stool Occult Bld Scrn POSITIVE A (NEGATIVE) Radiology Exams: Radiology Procedures Category Date Time Status ABDOMEN AND PELVIS W&WO CONTRA [CT] Stat Exams 11/08/18 12:54 Completed Assessment/Plan (1) Melena Current Visit: Yes Status: Acute Code(s): K92.1 - MELENA (2) Diverticul disease small and large intestine, no perforati or abscess Current Visit: Yes Status: Acute Assessment & Plan: Last Vital Signs Temp 97.8 F 11/09/18 07:17 Pulse 66 11/09/18 07:32 Resp 14 11/09/18 07:32 BP 141/73 11/09/18 07:17 Pulse Ox 94 L 11/09/18 07:32 Allergies No Known Drug Allergies Allergy (Verified 02/24/17 12:11) Active Medications Albuterol Sulfate (Proventil Common Canister) 2 puff IH QIDRT ASIYA Stop: 12/08/18 14:59 Last Admin: 11/09/18 07:14 Dose: 2 puff Aspirin (Ecotrin 81 Mg) 81 mg PO DAILY [facility] Stop: 12/09/18 09:59 Clonazepam (Klonopin 0.5 Mg) 0.5 mg PO BID [facility] Stop: 12/08/18 21:59 Last Admin: 11/08/18 22:24 Dose: 0.5 mg Ceftriaxone Sodium/Dextrose (Rocephin 1 Gm-D5w 50 Ml Bag) 1 g in 50 mls @ 100 mls/hr IV Q24H10 ASIYA Stop: 12/08/18 13:14 Last Admin: 11/08/18 13:48 Dose: 100 mls/hr Metronidazole (Flagyl 500 Mg Ivpb) 500 mg in 100 mls @ 200 mls/hr IV Q6HT [facility] Stop: 12/08/18 13:59 Last Admin: 11/09/18 06:20 Dose: 200 mls/hr Sodium Chloride (Sodium Chloride 0.9% 1000 Ml) 1,000 mls @ 50 mls/hr IV .Q20H [facility] Stop: 12/08/18 12:59 Last Admin: 11/08/18 13:48 Dose: 50 mls/hr Lisinopril (Zestril 5 Mg) 2.5 mg PO BID [facility] Stop: 12/08/18 21:59 Last Admin: 11/08/18 22:24 Dose: 2.5 mg Loratadine (Claritin 10 Mg) 10 mg PO HS [facility] Stop: 12/08/18 21:59 Last Admin: 11/08/18 22:24 Dose: 10 mg Meloxicam (Mobic 7.5 Mg) 7.5 mg PO DAILY [facility] Stop: 12/09/18 09:59 Montelukast Sodium (Singulair 10 Mg) 10 mg PO DAILY [facility] Stop: 12/09/18 09:59 Morphine Sulfate (Morphine Sulfate 2 Mg Inj) 2 mg IV Q4H PRN PRN PRN Reason: PAIN Stop: 11/13/18 14:15 Last Admin: 11/09/18 07:27 Dose: 2 mg Ondansetron HCl (Zofran 4 Mg/2 Ml Vial) 4 mg IV Q6H PRN PRN PRN Reason: NAUSEA/VOMITING Stop: 12/08/18 14:22 Last Admin: 11/08/18 19:01 Dose: 4 mg Fluticasone/Salmeterol (Advair Hfa 115/21 Common Canister*) 2 puff IH BIDRT [facility] Stop: 12/08/18 18:59 Last Admin: 11/09/18 07:14 Dose: 2 puff Tizanidine HCl (Zanaflex 4 Mg) 4 mg PO Q8HT ASIYA Stop: 12/08/18 13:59 Last Admin: 11/09/18 06:25 Dose: 4 mg Intake & Output 11/08/18 11/09/18 11:59 11:59 Intake Total 1769 Output Total 1500 Balance 269 Weight 93.1 kg Orders 11/08/18 12:50 NPO (ED) STAT Place in Observation ROUTINE 11/08/18 12:51 Up Ad Zakia TOLERATED 11/08/18 13:00 NaCl 0.9% 1000 ml [Sodium Chloride 0.9% 1000 ML] 1,000 ml IV 50 mls/hr 11/08/18 13:15 Ceftriaxone 1 GM/50 ML PREMIX* [ROCEPHIN 1 Gm-D5w 50 ml Bag] 1 g in 50 ml IV Q24H10 11/08/18 13:57 Pulse Oximetry .spot check Respiratory Therapy Assessment DAILY 11/08/18 14:00 Metronidazole 500 mg Premix [Flagyl 500 mg Ivpb] 500 mg in 100 ml IV Q6HT Tizanidine HCl 4 mg [Zanaflex 4 MG] 4 mg PO Q8HT 11/08/18 14:16 Morphine Sulfate 2 mg Inj 2 mg IV Q4H PRN PRN 11/08/18 14:23 Ondansetron HCl 4 mg/2 ml [Zofran 4 MG/2 ML VIAL] 4 mg IV Q6H PRN PRN 11/08/18 15:00 Albuterol Common Canister [Proventil Common Canister] 2 puff IH QIDRT 11/08/18 19:00 Fluticasone/Salmeterol 115/21 [Advair Hfa 115/21 Common canister*] 2 puff IH BIDRT 11/08/18 21:00 BiPap/CPAP ROUTINE 11/08/18 22:00 Clonazepam 0.5 mg [Klonopin 0.5 MG] 0.5 mg PO BID Lisinopril 5 mg [Zestril 5 MG] 2.5 mg PO BID Loratadine 10 mg [Claritin 10 mg] 10 mg PO HS 11/09/18 08:49 Consult Surgery ROUTINE 11/09/18 10:00 Aspirin EC 81 mg [Ecotrin 81 mg] 81 mg PO DAILY Meloxicam 7.5 mg [Mobic 7.5 MG] 7.5 mg PO DAILY Montelukast Sodium 10 mg [Singulair 10 MG] 10 mg PO DAILY 11/09/18 Breakfast Clear Liquid Lab Tests 11/08/18 11/08/18 11/08/18 11:25 11:25 14:55 WBC 5.1 RBC 5.51 H Hgb 15.7 Hct 47.9 H MCV 86.9 MCH 28.4 MCHC 32.8 RDW 15.7 H Plt Count 222 MPV 11.2 H Gran % 61.6 Eos # (Auto) 0.14 Absolute Lymphs (auto) 1.40 Absolute Monos (auto) 0.41 Lymphocytes % 27.3 Monocytes % 8.0 Eosinophils % 2.7 Basophils % 0.4 Absolute Granulocytes 3.15 Basophils # 0.02 Sodium 141 Potassium 4.8 Chloride 109 H Carbon Dioxide 22 Anion Gap 15.4 H BUN 21 H Creatinine 0.63 Estimated GFR > 60.0 Glucose 92 Calcium 10.0 Total Bilirubin 0.40 AST 30 ALT 28 Alkaline Phosphatase 97 Serum Total Protein 7.3 Albumin 4.2 Urine Color YELLOW Urine Appearance CLEAR Urine pH 5.0 Ur Specific [place] 1.016 Urine Protein NEGATIVE Urine Ketones NEGATIVE Urine Blood LARGE Urine Nitrite NEGATIVE Urine Bilirubin NEGATIVE Urine Urobilinogen NEGATIVE Ur Leukocyte Esterase NEGATIVE Urine WBC (Auto) NONE Urine RBC (Auto) 3-5 U Epithel Cells (Auto) NONE Urine Bacteria (Auto) NONE Urine Mucus (Auto) SLIGHT Urine Glucose NEGATIVE Stool Occult Bld Scrn 11/08/18 18:50 WBC RBC Hgb Hct MCV MCH MCHC RDW Plt Count MPV Gran % Eos # (Auto) Absolute Lymphs (auto) Absolute Monos (auto) Lymphocytes % Monocytes % Eosinophils % Basophils % Absolute Granulocytes Basophils # Sodium Potassium Chloride Carbon Dioxide Anion Gap BUN Creatinine Estimated GFR Glucose Calcium Total Bilirubin AST ALT Alkaline Phosphatase Serum Total Protein Albumin Urine Color Urine Appearance Urine pH Ur Specific [place] Urine Protein Urine Ketones Urine Blood Urine Nitrite Urine Bilirubin Urine Urobilinogen Ur Leukocyte Esterase Urine WBC (Auto) Urine RBC (Auto) U Epithel Cells (Auto) Urine Bacteria (Auto) Urine Mucus (Auto) Urine Glucose Stool Occult Bld Scrn POSITIVE A Code(s): K57.50 - DVRTCLOS OF BOTH SM AND LG INT W/O PERF OR ABSCS W/O BLEED
[2018-11-09] MEDS ORDERED: MELOXICAM SUBMICRONIZED 10 MG PO SCH (10:00)
[2018-11-09] MEDS ORDERED: ECOTRIN 81 MG PO SCH (10:00)
[2018-11-09 10:12] LABS: Hematocrit 42.7 % (35-47); Hemoglobin 13.6 gm/dl (12.0-16.0); Mean Cell Volume 88.6 fl (78-100); Mean Corpuscular Hemoglobin 28.2 pg (26-32); Mean Corpuscular Hgb Concent. 31.9 g/dl (32-36); Mean Platelet Volume 10.7 fl (6-9.5); Platelet Count 174 K/mm3 (150-450); Red Blood Count 4.82 M/mm3 (4.1-5.4); Red Cell Distribution Width 15.7 % (11.5-14.0); White Blood Count 4.6 K/mm3 (4.0-10.5)
[2018-11-09] MEDS: PROTONIX 40 MG IV IV SCH (10:51)
[2018-11-09] MEDS: Zestril 5 MG PO SCH ×2 (10:52→22:35)
[2018-11-09] MEDS: Singulair 10 MG PO SCH (10:52)
[2018-11-09] MEDS: Klonopin 0.5 MG PO SCH ×2 (10:52→22:37)
[2018-11-09] MEDS: Mobic 7.5 MG PO SCH (10:53)
[2018-11-09] MEDS: ROCEPHIN 1 Gm-D5w 50 ml Bag** 1 G/50 ML IVPB IV SCH (10:53)
[2018-11-09] MEDS: Sodium Chloride 0.9% 1000 ML 1,000 ML IV SCH (11:41)
[2018-11-09] MEDS ORDERED: Golytely Solution 4000 ML PO ONE (14:00)
[2018-11-09] MEDS: TYLENOL 325 MG PO PRN (14:15)
[2018-11-09] MEDS: Zofran 4 MG/2 ML VIAL IV PRN ×2 (17:31→21:35)
[2018-11-09] MEDS: CLARITIN 10 MG PO SCH (22:36)
[2018-11-10] MEDS: FLAGYL 500 MG IVPB 500 MG/100 ML BAG IV SCH ×5 (00:10→23:51)
[2018-11-10] MEDS: Zanaflex 4 MG PO SCH ×3 (06:33→21:46)
[2018-11-10] MEDS: MORPHINE SULFATE 2 MG INJ IV PRN ×2 (06:39→14:24)
[2018-11-10] MEDS: Sodium Chloride 0.9% 1000 ML 1,000 ML IV SCH ×2 (06:55→23:51)
[2018-11-10] MEDS: Mobic 7.5 MG PO SCH (08:36)
[2018-11-10] MEDS: Singulair 10 MG PO SCH (08:37)
[2018-11-10] MEDS: Klonopin 0.5 MG PO SCH ×2 (08:37→21:46)
[2018-11-10] MEDS: Zestril 5 MG PO SCH ×2 (08:37→21:45)
[2018-11-10] MEDS: PROTONIX 40 MG IV IV SCH (08:39)
[2018-11-10] MEDS: ROCEPHIN 1 Gm-D5w 50 ml Bag** 1 G/50 ML IVPB IV SCH (08:42)
[2018-11-10] MEDS: PROVENTIL COMMON CANISTER IH SCH ×3 (08:56→19:57)
[2018-11-10] MEDS: Advair Hfa 115/21 Common canister IH SCH ×2 (08:56→19:56)
--- NOTE | 2018-11-10 09:42 | CONS ---
CONSULT DATE: 11/09/2018 REASON FOR CONSULT: GI bleed. HISTORY: A 67 year-old presenting with lower GI bleed, bright red blood and clots. She had some nausea but no hematemesis. She has not had any recent endoscopic examination. She has been told she had diverticulosis in the past. I think this is most consistent with a diverticular bleed but there is still a chance of this being upper GI bleed. We will prep her, keep her NPO after midnight and perform both the EGD and colonoscopy tomorrow.
[2018-11-10] MEDS: TYLENOL 325 MG PO PRN (11:27)
[2018-11-10] MEDS ORDERED: Lactated Ringers 1,000 ML IV SCH (11:30)
--- NOTE | 2018-11-10 12:51 | PCM.NOTE ---
Date and Time: 11/10/18 1250 Subjective Assessment: had another episode of bloody stool today - Review of Systems Constitutional: No Fever, No Chills Eyes: No Symptoms Ears, Nose, & Throat: No Symptoms Respiratory: No Cough, No Short Of Breath Cardiac: No Chest Pain, No Edema, No Syncope Abdominal/Gastrointestinal: Hematochezia, Melena, No Abdominal Pain, No Nausea, No Vomiting, No Diarrhea Genitourinary Symptoms: No Dysuria Musculoskeletal: No Back Pain, No Neck Pain Skin: No Rash Neurological: No Dizziness, No Focal Weakness, No Sensory Changes Psychological: No Symptoms Endocrine: No Symptoms Hematologic/Lymphatic: No Symptoms Immunological/Allergic: No Symptoms Objective Exam General Appearance: no apparent distress, alert Neurologic Exam: alert, oriented x 3, cooperative, normal mood/affect, nml cerebellar function, sensation nml, No motor deficits Skin Exam: normal color, warm, dry Eye Exam: PERRL, EOMI, eyes nml inspection Ears, Nose, Throat Exam: normal ENT inspection, pharynx normal, moist mucous membranes Neck Exam: normal inspection, non-tender, supple, full range of motion Respiratory Exam: normal breath sounds, lungs clear, No respiratory distress Cardiovascular Exam: regular rate/rhythm, normal heart sounds Gastrointestinal/Abdomen Exam: soft, No tenderness, No mass Extremity Exam: normal inspection, normal range of motion Back Exam: normal inspection, normal range of motion, No CVA tenderness, No vertebral tenderness Pelvic Exam: deferred Rectal Exam: deferred OBJECTIVE DATA Vital Signs: Vital Signs - 24 hr Temp Pulse Resp BP Pulse Ox 11/10/18 08:57 83 18 97 11/10/18 08:00 98.7 F 75 18 125/59 96 11/10/18 03:47 98.1 F 72 18 114/72 94 L 11/09/18 23:58 97.9 F 74 18 102/59 96 11/09/18 23:56 97.9 F 74 18 102/59 96 11/09/18 20:15 73 22 96 11/09/18 19:48 98.5 F 59 L 17 117/55 95 11/09/18 16:17 98.3 F 61 20 109/54 97 11/09/18 15:12 62 16 93 L Pain Assessment - Last Documented Pain Intensity 9 Pain Scale Used 0-10 Pain Scale Intake and Output: Intake & Output 11/08/18 11/09/18 11/10/18 11/11/18 11:59 11:59 11:59 11:59 Intake Total 1769 5700 Output Total 1650 1950 Balance 119 3750 Weight 93.1 kg Radiology Exams: Radiology Procedures Category Date Time Status ABDOMEN AND PELVIS W&WO CONTRA [CT] Stat Exams 11/08/18 12:54 Completed Assessment/Plan (1) Melena Current Visit: Yes Status: Acute Assessment & Plan: Last Vital Signs Temp 98.7 F 11/10/18 08:00 Pulse 83 11/10/18 08:57 Resp 18 11/10/18 08:57 BP 125/59 11/10/18 08:00 Pulse Ox 97 11/10/18 08:57 Allergies No Known Drug Allergies Allergy (Verified 02/24/17 12:11) Active Medications Acetaminophen (Tylenol 325 Mg) 650 mg PO Q4H PRN PRN PRN Reason: PAIN AND/OR FEVER Stop: 12/09/18 13:53 Last Admin: 11/10/18 11:27 Dose: 650 mg Albuterol Sulfate (Proventil Common Canister) 2 puff IH QIDRT [facility] Stop: 12/08/18 14:59 Last Admin: 11/10/18 08:56 Dose: 2 puff Clonazepam (Klonopin 0.5 Mg) 0.5 mg PO BID [facility] Stop: 12/08/18 21:59 Last Admin: 11/10/18 08:37 Dose: 0.5 mg Ceftriaxone Sodium/Dextrose (Rocephin 1 Gm-D5w 50 Ml Bag) 1 g in 50 mls @ 100 mls/hr IV Q24H10 [facility] Stop: 12/08/18 13:14 Last Admin: 11/10/18 08:42 Dose: 100 mls/hr Metronidazole (Flagyl 500 Mg Ivpb) 500 mg in 100 mls @ 200 mls/hr IV Q6HT [facility] Stop: 12/08/18 13:59 Last Admin: 11/10/18 11:27 Dose: 200 mls/hr Sodium Chloride (Sodium Chloride 0.9% 1000 Ml) 1,000 mls @ 50 mls/hr IV .Q20H [facility] Stop: 12/08/18 12:59 Last Admin: 11/10/18 06:55 Dose: 50 mls/hr Lactated Ringer's (Lactated Ringers) 1,000 mls @ 50 mls/hr IV .Q20H [facility] Stop: 11/11/18 07:29 Lisinopril (Zestril 5 Mg) 2.5 mg PO BID [facility] Stop: 12/08/18 21:59 Last Admin: 11/10/18 08:37 Dose: 2.5 mg Loratadine (Claritin 10 Mg) 10 mg PO HS [facility] Stop: 12/08/18 21:59 Last Admin: 11/09/18 22:36 Dose: 10 mg Meloxicam (Mobic 7.5 Mg) 7.5 mg PO DAILY [facility] Stop: 12/09/18 09:59 Last Admin: 11/10/18 08:36 Dose: 7.5 mg Montelukast Sodium (Singulair 10 Mg) 10 mg PO DAILY [facility] Stop: 12/09/18 09:59 Last Admin: 11/10/18 08:37 Dose: 10 mg Morphine Sulfate (Morphine Sulfate 2 Mg Inj) 2 mg IV Q4H PRN PRN PRN Reason: PAIN Stop: 11/13/18 14:15 Last Admin: 11/10/18 06:39 Dose: 2 mg Ondansetron HCl (Zofran 4 Mg/2 Ml Vial) 4 mg IV Q6H PRN PRN PRN Reason: NAUSEA/VOMITING Stop: 12/08/18 14:22 Last Admin: 11/09/18 21:35 Dose: 4 mg Pantoprazole Sodium (Protonix 40 Mg Iv) 40 mg IV Q24H10 [facility] Stop: 12/09/18 09:59 Last Admin: 11/10/18 08:39 Dose: 40 mg Fluticasone/Salmeterol (Advair Hfa 115/21 Common Canister*) 2 puff IH BIDRT [facility] Stop: 12/08/18 18:59 Last Admin: 11/10/18 08:56 Dose: 2 puff Tizanidine HCl (Zanaflex 4 Mg) 4 mg PO Q8HT [facility] Stop: 12/08/18 13:59 Last Admin: 11/10/18 06:33 Dose: 4 mg Intake & Output 11/10/18 11/11/18 11:59 11:59 Intake Total 5700 Output Total 1950 Balance 3750 Orders 11/09/18 12:00 Admission Status Change [Change to Full Admit] ROUTINE 11/09/18 13:54 Acetaminophen 325 mg [Tylenol 325 mg] 650 mg PO Q4H PRN PRN Code(s): K92.1 - MELENA (2) Diverticul disease small and large intestine, no perforati or abscess Current Visit: Yes Status: Acute Code(s): K57.50 - DVRTCLOS OF BOTH SM AND LG INT W/O PERF OR ABSCS W/O BLEED
[2018-11-10 14:11] LABS: Hematocrit 40.1 % (35-47); Mean Cell Volume 88.5 fl (78-100); Mean Corpuscular Hemoglobin 28.7 pg (26-32); Mean Corpuscular Hgb Concent. 32.4 g/dl (32-36); Mean Platelet Volume 10.4 fl (6-9.5); Platelet Count 153 K/mm3 (150-450); Red Blood Count 4.53 M/mm3 (4.1-5.4); Red Cell Distribution Width 15.7 % (11.5-14.0); White Blood Count 3.8 K/mm3 (4.0-10.5)
[2018-11-10 14:28] LABS: ALBUMIN 3.6 g/dL (3.5-5.0); ALKALINE PHOSPHATASE 87 U/L (38-126); ANION GAP 13.6 MEQ/L (5-15); BLOOD UREA NITROGEN 8 mg/dL (7-17); CHLORIDE 107 mmol/L (98-107); Calcium 9.2 mg/dL (8.4-10.2); Carbon Dioxide 27 mmol/L (22-30); Creatinine 1 0.72 mg/dL (0.52-1.04); Glucose 92 mg/dL (74-106); Potassium 4.7 mmol/L (3.5-5.1); SGOT/AST 36 U/L (14-36); SGPT/ALT 46 U/L (0-35); SODIUM 143 mmol/L (137-145); Total Protein 6.3 g/dL (6.3-8.2)
[2018-11-10] MEDS: CLARITIN 10 MG PO SCH (21:46)
[2018-11-11] MEDS: FLAGYL 500 MG IVPB 500 MG/100 ML BAG IV SCH ×2 (05:38→12:12)
[2018-11-11] MEDS: Zanaflex 4 MG PO SCH (05:38)
[2018-11-11] MEDS: Advair Hfa 115/21 Common canister IH SCH (07:46)
[2018-11-11] MEDS: PROVENTIL COMMON CANISTER IH SCH ×2 (07:47→10:47)
[2018-11-11] MEDS: PROTONIX 40 MG IV IV SCH (10:01)
[2018-11-11] MEDS: Singulair 10 MG PO SCH (10:02)
[2018-11-11] MEDS: Zestril 5 MG PO SCH (10:02)
[2018-11-11] MEDS: Mobic 7.5 MG PO SCH (10:02)
[2018-11-11] MEDS: Klonopin 0.5 MG PO SCH (10:03)
[2018-11-11] MEDS: ROCEPHIN 1 Gm-D5w 50 ml Bag** 1 G/50 ML IVPB IV SCH (10:06)
[2018-11-11 10:50] VITALS: O2SAT 97
--- NOTE | 2018-11-11 11:31 | PCM.DCORD ---
- Discharge Discharge Date: 11/11/18 Disposition: Home, Self-Care Condition: Good Prescriptions: New Cefdinir 300 mg PO BID #8 capsule Metronidazole 500 mg [Flagyl 500 MG] 500 mg PO TID #12 tablet Continue Fluticasone/Salmeterol Disc [Advair 250-50 Diskus 14 Dose] 1 each IH BID Clonazepam 0.5 mg [Klonopin 0.5 MG] 0.5 mg PO BID Aspirin [[place] Aspirin EC] 81 mg PO DAILY Desloratadine [Clarinex] 5 mg PO HS Tizanidine HCl 4 mg [Zanaflex 4 MG] 4 mg PO Q8H Montelukast Sodium 10 mg [Singulair 10 MG] 10 mg PO DAILY Meloxicam, Submicronized [Vivlodex] 10 mg PO DAILY Lisinopril 5 mg [Zestril 5 MG] 2.5 mg PO BID Albuterol Sulfate [Proventil Hfa] 2 puff IH QID Follow up with: DAVID MORFIN MD [Primary Care Provider] - 1 Week
[2018-11-11 12:11] VITALS: BP 136/81; PULSE 80
[2018-11-11] MEDS ORDERED: DIPRIVAN 200 MG/20 ML IV ONE (13:04)
--- NOTE | 2018-11-13 09:47 | OP ---
SURGERY DATE/TIME: 11/10/2018 180 PREOPERATIVE DIAGNOSIS: GI bleed, probable diverticular POSTOPERATIVE DIAGNOSIS: Grade II over III gastroesophageal reflux disease, severe diverticulosis of the sigmoid. PROCEDURES: 1) EGD. 2) Colonoscopy to cecum. SURGEON: Rell La M.D. ANESTHESIA: MAC. COMPLICATIONS: None. CONDITION: Stable. INDICATION: A patient requiring evaluation. FINDINGS: A patient requiring evaluation. DESCRIPTION OF PROCEDURE: Taken to endoscopy. MAC sedation provided. Good anesthesia level present. Upper scope pharyngoesophageal junction normal. Esophagus normal. Grade II over III gastroesophageal reflux disease. No hiatal hernia. Fundus, body, antrum, pylorus, duodenal bulb, second portion normal and there was no blood. Anal digital examination satisfactory. Scope advanced. Inadequate but not exceptional prep. Base of cecum, ileocecal valve satisfactory. Ascending, hepatic, transverse, splenic, descending, sigmoid severe diverticulosis. Large appendicolith measuring 3 cm. No visible blood. I believe this probably was the site. Rectum, anus satisfactory. IMPRESSION: Probable diverticular colonic bleed. PLAN: Treatment per medical, regular diet and discharge.
--- NOTE | 2018-11-13 13:11 | PCM.DS ---
Discharge Summary Date of Admission: 11/09/18 12:00 Date of Discharge: 11/11/18 Admitting Physician: DAVID MORFIN Consults: Consults on Case 11/09/18 08:49 Consult Surgery ROUTINE Primary Care Provider: DAVID MORFIN Allergies Allergies No Known Drug Allergies Allergy (Verified 02/24/17 12:11) Hospital Summary - Hospital Course Hospital Course: Chief Complaint Diagnosis DIVERTICULITIS, FAILED OUTPATIENT Allergies Allergy/AdvReac Type Severity Reaction Status Date / Time No Known Drug Allergies Allergy Verified 02/24/17 12:11 Home Medications Medication Instructions Recorded Confirmed Last Taken Type Albuterol Sulfate [Proventil Hfa] 2 puff IH QID 11/08/18 11/08/18 11/08/18 History Desloratadine [Clarinex] 5 mg PO HS 11/08/18 11/08/18 11/07/18 History Lisinopril 5 mg [Zestril 5 2.5 mg PO BID 11/08/18 11/08/18 11/08/18 History MG] Meloxicam, Submicronized [Vivlodex] 10 mg PO DAILY 11/08/18 11/08/18 11/08/18 History Montelukast Sodium 10 mg 10 mg PO DAILY 11/08/18 11/08/18 11/08/18 History [Singulair 10 MG] Tizanidine HCl 4 mg [Zanaflex 4 4 mg PO Q8H 11/08/18 11/08/18 11/08/18 History MG] Cefdinir 300 mg PO BID #8 capsule 11/11/18 Unknown Rx Metronidazole 500 mg [Flagyl 500 mg PO TID #12 tablet 11/11/18 Unknown Rx 500 MG] Current Medications Discontinued Medications Generic Name Dose Route Start Last Admin Trade Name Freq PRN Reason Stop Dose Admin Acetaminophen 650 mg 11/09/18 13:54 11/10/18 11:27 Tylenol 325 Mg PO 12/09/18 13:53 650 mg Q4H PRN PRN Administration PAIN AND/OR FEVER Albuterol Sulfate 2 puff 11/08/18 15:00 11/11/18 10:47 Proventil Common Canister IH 12/08/18 14:59 2 puff QIDRT ASIYA Administration Aspirin 81 mg 11/09/18 10:00 11/09/18 15:50 Ecotrin 81 Mg PO 12/09/18 09:59 Not Given DAILY ASIYA Clonazepam 0.5 mg 11/08/18 22:00 11/11/18 10:03 Klonopin 0.5 Mg PO 12/08/18 21:59 0.5 mg BID ASIYA Administration Ceftriaxone Sodium/Dextrose 1 g in 50 mls @ 100 mls/hr 11/08/18 13:15 10:06 Rocephin 1 Gm-D5w 50 Ml Bag IV 12/08/18 13:14 100 mls/hr Q24H10 ASIYA Administration Metronidazole 500 mg in 100 mls @ 200 mls/hr 11/08/18 14:00 11/11/18 12:12 Flagyl 500 Mg Ivpb IV 12/08/18 13:59 Not Given Q6HT ASIYA Sodium Chloride 1,000 mls @ 50 mls/hr 11/08/18 13:00 11/10/18 23:51 Sodium Chloride 0.9% 1000 Ml IV 12/08/18 12:59 50 mls/hr .Q20H ASIYA Administration Lactated Ringer's 1,000 mls @ 50 mls/hr 11/10/18 11:30 11/10/18 17:43 Lactated Ringers IV 11/11/18 07:29 50 mls/hr .Q20H ASIYA Administration Lisinopril 2.5 mg 11/08/18 22:00 11/11/18 10:02 Zestril 5 Mg PO 12/08/18 21:59 2.5 mg BID ASIYA Administration Loratadine 10 mg 11/08/18 22:00 11/10/18 21:46 Claritin 10 Mg PO 12/08/18 21:59 10 mg HS ASIYA Administration Meloxicam 7.5 mg 11/09/18 10:00 11/11/18 10:02 Mobic 7.5 Mg PO 12/09/18 09:59 7.5 mg DAILY ASIYA Administration Montelukast Sodium 10 mg 11/09/18 10:00 11/11/18 10:02 Singulair 10 Mg PO 12/09/18 09:59 10 mg DAILY ASIYA Administration Morphine Sulfate 2 mg 11/08/18 14:16 11/10/18 14:24 Morphine Sulfate 2 Mg Inj IV 11/13/18 14:15 2 mg Q4H PRN PRN Administration PAIN Ondansetron HCl 4 mg 11/08/18 14:23 11/09/18 21:35 Zofran 4 Mg/2 Ml Vial IV 12/08/18 14:22 4 mg Q6H PRN PRN Administration NAUSEA/VOMITING Pantoprazole Sodium 40 mg 11/09/18 10:00 11/11/18 10:01 Protonix 40 Mg Iv IV 12/09/18 09:59 40 mg Q24H10 ASIYA Administration Polyethylene Glycol/Electrolytes 4,000 ml 11/09/18 14:00 11/09/18 13:43 Golytely Solution 4000 Ml PO 11/09/18 14:01 4,000 ml ONCE@1400 ONE Administration Fluticasone/Salmeterol 2 puff 11/08/18 19:00 11/11/18 07:46 Advair Hfa 115/21 Common Canister* IH 12/08/18 18:59 2 puff BIDRT ASIYA Administration Tizanidine HCl 4 mg 11/08/18 14:00 11/11/18 05:38 Zanaflex 4 Mg PO 12/08/18 13:59 4 mg Q8HT ASIYA Administration Intake & Output (Last 24 hours) 11/11/18 11/12/18 11/13/18 11/14/18 11:59 11:59 11:59 11:59 Intake Total 1916 420 Output Total 400 900 Balance 1517 -480 Weight 93.1 kg - Vitals & Intake/Output Vital Signs: Vital Signs Temperature 98.3 F 11/11/18 12:10 Pulse Rate 80 11/11/18 12:10 Respiratory Rate 20 11/11/18 12:10 Blood Pressure 136/81 11/11/18 12:10 O2 Sat by Pulse Oximetry 97 11/11/18 12:10 Intake & Output: Intake & Output 11/11/18 11/12/18 11/13/18 11/14/18 11:59 11:59 11:59 11:59 Intake Total 1916 420 Output Total 400 900 Balance 1517 -480 Weight 93.1 kg - Lab Result Diagrams: 11/10/18 14:00 11/10/18 14:05 - Procedures and Test Procedures and Tests throughout Hospitalization: Therapy Orders & Screens 11/08/18 13:57 Respiratory Therapy Assessment DAILY Comment: Diagnosis: Diverticlitus 11/08/18 21:00 BiPap/CPAP ROUTINE Comment: PER HOME SETTINGS Diagnosis: Diverticlitus Discharge Exam General Appearance: no apparent distress, alert Neurologic Exam: alert, oriented x 3, cooperative, normal mood/affect, nml cerebellar function, sensation nml, No motor deficits Skin Exam: normal color, warm, dry Eye Exam: PERRL, EOMI, eyes nml inspection Ears, Nose, Throat Exam: normal ENT inspection, pharynx normal, moist mucous membranes Neck Exam: normal inspection, non-tender, supple, full range of motion Respiratory Exam: normal breath sounds, lungs clear, No respiratory distress Cardiovascular Exam: regular rate/rhythm, normal heart sounds Gastrointestinal/Abdomen Exam: soft, No tenderness, No mass Extremity Exam: normal inspection, normal range of motion Back Exam: normal inspection, normal range of motion, No CVA tenderness, No vertebral tenderness Pelvic Exam: deferred Rectal Exam: deferred Final Diagnosis/Problem List - Final Discharge Diagnosis/Problem (1) Melena Status: Resolved Code(s): K92.1 - MELENA (2) Diverticul disease small and large intestine, no perforati or abscess Status: Acute Code(s): K57.50 - DVRTCLOS OF BOTH SM AND LG INT W/O PERF OR ABSCS W/O BLEED - Discharge Discharge Date: 11/11/18 Disposition: Home, Self-Care Condition: Good Prescriptions: New Cefdinir 300 mg PO BID #8 capsule Metronidazole 500 mg [Flagyl 500 MG] 500 mg PO TID #12 tablet Continue Fluticasone/Salmeterol Disc [Advair 250-50 Diskus 14 Dose] 1 each IH BID Clonazepam 0.5 mg [Klonopin 0.5 MG] 0.5 mg PO BID Aspirin [[place] Aspirin EC] 81 mg PO DAILY Desloratadine [Clarinex] 5 mg PO HS Tizanidine HCl 4 mg [Zanaflex 4 MG] 4 mg PO Q8H Montelukast Sodium 10 mg [Singulair 10 MG] 10 mg PO DAILY Meloxicam, Submicronized [Vivlodex] 10 mg PO DAILY Lisinopril 5 mg [Zestril 5 MG] 2.5 mg PO BID Albuterol Sulfate [Proventil Hfa] 2 puff IH QID Instructions: Acid Reflux (Gastroesophageal Reflux Disease), Adult (DC), Diverticulitis Follow up with: DAVID MORFIN MD [Primary Care Provider] - 1 Week Forms: Discharge Instructions
== END 2018-11-11 13:05 | disposition home or self-care (01) | DRG 392 ==
LOC: MED SURG 11:10 → OBSVTOIN 11-09 12:00
PROVIDERS: ADMIT General Practice; ATTEND General Practice
DX: K57.30 Diverticulosis of large intestine without perforation or abscess without bleeding (principal); K92.1 Melena; K57.10 Diverticulosis of small intestine without perforation or abscess without bleeding; K21.9 Gastro-esophageal reflux disease without esophagitis; I10 Essential (primary) hypertension; J44.9 Chronic obstructive pulmonary disease, unspecified; Z79.899 Other long term (current) drug therapy
CPT/HCPCS: 36415; 43235; 45378; 74178; 80053; 81001; 82270; 85025; 85027; 94640; 94660; 94760; G0378; J0696; J2270; J2405; J2704; A9270-GY

== ENCOUNTER 2019-04-22 11:16 | Emergency (ER) | payer MEDICARE, OTHER ==
--- NOTE | 2019-04-22 11:43 | ERPHSYRPT ---
- History of Present Illness Time Seen by Provider: 04/22/19 11:43 Source: patient Exam Limitations: no limitations Patient Subjective Stated Complaint: Pt states "I have been having a hard time breathing since yesterday. I have been couging quite a bit." Triage Nursing Assessment: Pt presented alert and oriented X 3, skin pwd. Pt ambulates with an upright steady gait, able to speak in clear full sentences. PT intermittantly coughing Timing/Duration: yesterday Cough Quality/Degree: moderate, productive cough Possible Cause: occasional episodes Modifying Factors: Improves With: activity, deep breath, exertion Associated Symptoms: denies symptoms International travel in last 2 weeks: No Allergies/Adverse Reactions: shrimp Allergy (Intermediate, Verified 04/22/19 11:23) Hives contrast dye Allergy (Intermediate, Uncoded 04/22/19 11:23) Hives Home Medications: Clonazepam 0.5 mg [Klonopin 0.5 MG] 0.5 mg PO BID 07/24/15 [History] Aspirin [[place] Aspirin EC] 81 mg PO DAILY 02/24/17 [History] Desloratadine [Clarinex] 5 mg PO HS 11/08/18 [History] Lisinopril 5 mg [Zestril 5 MG] 2.5 mg PO BID 11/08/18 [History] Montelukast Sodium 10 mg [Singulair 10 MG] 10 mg PO DAILY 11/08/18 [History] Tizanidine HCl 4 mg [Zanaflex 4 MG] 4 mg PO Q8H 11/08/18 [History] Diclofenac Sodium 75 mg PO BID 04/22/19 [History] Omeprazole 40 mg PO DAILY 04/22/19 [History] Hx Tetanus, Diphtheria Vaccination/Date Given: No Hx Influenza Vaccination/Date Given: Yes Hx Pneumococcal Vaccination/Date Given: No Immunizations Up to Date: Yes - Review of Systems Constitutional: No Symptoms Eyes: No Symptoms Ears, Nose, & Throat: No Symptoms Respiratory: Cough, Wheezing Cardiac: No Symptoms Abdominal/Gastrointestinal: No Symptoms Genitourinary Symptoms: No Symptoms Musculoskeletal: Arthralgias, Joint Pain (knee pain severe, will have TKR soon) Skin: No Symptoms Neurological: No Symptoms Psychological: No Symptoms Endocrine: No Symptoms Hematologic/Lymphatic: No Symptoms Immunological/Allergic: No Symptoms All Other Systems: Reviewed and Negative - Past Medical History Pertinent Past Medical History: Yes Neurological History: Migraines ENT History: Cataracts Cardiac History: No Pertinent History Respiratory History: COPD, Sleep Apnea Endocrine Medical History: No Pertinent History Musculoskeletal History: Osteoarthritis GI Medical History: Diverticulitis History: No Pertinent History Psycho-Social History: Anxiety Female Reproductive Disorders: No Pertinent History - Past Surgical History Past Surgical History: Yes (hysterectomy, gallbladder, cat) Neuro Surgical History: No Pertinent History Cardiac: Cardiac Catheterization Respiratory: No Pertinent History Gastrointestinal: Cholecystectomy Genitourinary: No Pertinent History Musculoskeletal: No Pertinent History Female Surgical History: Hysterectomy Other Surgical History: rotator cuff surgery,eye surgery - Social History Smoking Status: Former smoker Exposure to second hand smoke: No Alcohol Use: None Drug Use: none Patient Lives Alone: Yes Significant Family History: no pertinent family hx - Female History Hx Now: No - Nursing Vital Signs Nursing Vital Signs: Initial Vital Signs Temperature 97.4 F 04/22/19 11:17 Pulse Rate 95 H 04/22/19 11:17 Respiratory Rate 26 H 04/22/19 11:17 Blood Pressure 129/92 04/22/19 11:17 O2 Sat by Pulse Oximetry 96 04/22/19 11:17 Pain Scale Pain Intensity 0 - Physical Exam General Appearance: mild distress Eye Exam: PERRL/EOMI, eyes nml inspection Ears, Nose, Throat Exam: normal ENT inspection, pharynx normal, moist mucous membranes Neck Exam: normal inspection, non-tender Respiratory Exam: diminished breath sounds, prolonged expirations, rhonchi, wheezing Cardiovascular Exam: regular rate/rhythm, normal heart sounds Gastrointestinal/Abdomen Exam: soft, normal bowel sounds Extremity Exam: normal inspection, limited range of motion, tenderness, other ( OA, leila. knees) Neurologic Exam: alert, oriented x 3, cooperative Skin Exam: normal color SpO2 Interpretation: normal SpO2: 96 O2 Delivery: Room Air - Course Nursing assessment & vital signs reviewed: Yes Ordered Tests: Active Orders 24 hr Category Date Time Status Peak Expiratory Flow Rate ONCE RT 04/22/19 12:29 Active Respiratory Therapy Assessment DAILY RT 04/22/19 12:29 Active Medication Summary Discontinued Medications Generic Name Dose Route Start Last Admin Trade Name Freq PRN Reason Stop Dose Admin Albuterol/Ipratropium 3 ml 04/22/19 11:47 04/22/19 11:50 Duoneb 0.5-3 Mg/3 Ml Neb IH 04/22/19 11:48 3 ml STAT ONE Administration Albuterol/Ipratropium Confirm 04/22/19 11:55 Duoneb 0.5-3 Mg/3 Ml Neb Administered 04/22/19 11:56 Dose 3 ml IH .STK-MED ONE Ceftriaxone Sodium/Dextrose 1 g in 50 mls @ 100 mls/hr 04/22/19 11:47 12:50 Rocephin 1 Gm-D5w 50 Ml Bag IV 04/22/19 12:16 Infused STAT STA Infusion Ceftriaxone Sodium/Dextrose Confirm 04/22/19 12:03 Rocephin 1 Gm-D5w 50 Ml Bag Administered 04/22/19 12:04 Dose 1 g in 50 mls @ ud IV .STK-MED ONE She declined CXR or labs. - Progress Progress: improved Air Movement: good Blood Culture(s) Obtained: No Antibiotics given: Yes Counseled pt/family regarding: diagnosis, need for follow-up - Departure Departure Disposition: Home Clinical Impression: COPD exacerbation Knee osteoarthritis Qualifiers: Osteoarthritis type: primary Laterality: bilateral Qualified Code(s): M17.0 - Bilateral primary osteoarthritis of knee Condition: Stable Critical Care Time: No Referrals: DAVID MORFIN MD [Primary Care Provider] - Instructions: Chronic Obstructive Pulmonary Disease Additional Instructions: Continue your advair. Recheck if not better. Prescriptions: Albuterol 17 gm IH Q4HPRN PRN #1 aerosol PRN Reason: Shortness Of Breath/Wheezing Hydrocodone/APAP 5-325 Tab^^^ [Balsam 5-325 Tablet^^^] 1 tab PO Q6HPRN PRN #12 tablet MDD 4 PRN Reason: Pain Cefuroxime Axetil 500 mg [Ceftin 500 mg] 500 mg PO BID 10 Days #20 tablet
[2019-04-22] MEDS ORDERED: ROCEPHIN 1 Gm-D5w 50 ml Bag** 1 G/50 ML IVPB IV STA (11:47)
[2019-04-22] MEDS ORDERED: DUONEB 0.5-3 MG/3 ml Neb IH ONE ×2 (11:47→11:55)
[2019-04-22] MEDS ORDERED: ROCEPHIN 1 Gm-D5w 50 ml Bag** 1 G/50 ML IVPB IV ONE (12:03)
[2019-04-22 12:20] VITALS: BP 143/90
[2019-04-22 12:31] VITALS: PULSE 86
[2019-04-22 14:33] VITALS: O2SAT 96
== END 2019-04-22 13:16 | disposition home or self-care (01) ==
LOC: ED 11:16
DX: J44.1 Chronic obstructive pulmonary disease with (acute) exacerbation (principal); M17.0 Bilateral primary osteoarthritis of knee
CPT/HCPCS: 36000; 94150; 94640; 96365; 99284; J0696; A9270-GY

== ENCOUNTER 2021-01-15 12:27 | Observation (INO) | payer MEDICARE ==
[2021-01-15 12:45] LABS: Absolute Neutrophil Ct (ANC) 3.76 (1.4-6.9); BASOPHIL % 0.8 % (0.0-0.4); Basophil (Absolute #) 0.05 (0-0.4); Eosinophil % 2.6 % (0.00-5.0); Eosinophil (Absolute #) 0.17 (0-0.5); Hematocrit 48.9 % (35-47); Hemoglobin 15.7 gm/dl (12.0-16.0); Lymphocyte (Absolute #) 1.97 (1.0-4.6); Lymphocytes % 29.6 % (24.0-44.0); Mean Corpuscular Hemoglobin 27.3 pg (26-32); Mean Corpuscular Hgb Concent. 32.1 g/dl (32-36); Mean Platelet Volume 10.7 fl (7.5-11.0); Monocyte (Absolute #) 0.71 (0.0-1.3); Monocytes % 10.7 % (0.0-12.0); Neutrophil % 56.3 % (36.0-66.0); Platelet Count 233 K/mm3 (150-450); Red Blood Count 5.75 M/mm3 (4.1-5.4); Red Cell Distribution Width 14.2 % (11.5-14.0); White Blood Count 6.7 K/mm3 (4.0-10.5)
[2021-01-15] MEDS ORDERED: solu-MEDROL 125 MG IV ONE (13:01)
[2021-01-15] MEDS ORDERED: DUONEB 0.5-3 MG/3 ml Neb IH ONE ×2 (13:01→13:38)
[2021-01-15] MEDS ORDERED: Zithromax 500 MG/ 250 ML NaCl Premix 500 MG/250 ML IVPB IV STA (13:02)
[2021-01-15] MEDS ORDERED: ROCEPHIN 2 Gm-D5w 50ML BAG** 2 G/50 ML IVPB IV STA (13:02)
--- NOTE | 2021-01-15 13:08 | ERPHSYRPT ---
- History of Present Illness Time Seen by Provider: 01/15/21 12:45 Historian: patient Exam Limitations: no limitations Patient Subjective Stated Complaint: Chest pain Triage Nursing Assessment: Patient ambulated back to ED and transferred self to bed. Patient A+O X3. Patient's skin pink, warm and dry. Patient complains of SOB and intermittent chest pain. Patient states she started coughing last night and having trouble catching a deep breath. Patient currently denies pain or discomfort. Lungs diminished throughout. Physician History: Patient is a 70-year-old female presents to emergency department with complaints of progressive shortness of breath and intermittent chest pain. Symptoms started last night. Patient states she has been coughing more frequently over the past couple days. Patient currently has no chest pain. Patient denies associated nausea or vomiting. No diaphoresis. Patient has a history of COPD. Today symptoms are similar. Patient states that she cannot catch her breath. On exam patient's breath sounds are diminished throughout. Patient is in no acute respiratory distress. Symptoms are moderate in intensity. No specific worsening improving factors. Patient is a non-smoker. Patient drove herself in her private vehicle. Patient voices no other complaints or concerns at this time. Timing/Duration: yesterday Activities at Onset: none Quality: aching Location: substernal Severity of Pain-Max: moderate Severity of Pain-Current: mild Modifying Factors: Improves With: coughing (Patient's cough is dry nonproductive.) Associated Symptoms: shortness of breath Prior Chest Pain/Cardiac Workup: no prior chest pain Nitro Today/Relief: no nitro taken today Aspirin Treatment Today: no aspirin today Allergies/Adverse Reactions: shrimp Allergy (Intermediate, Verified 01/15/21 12:31) Hives contrast dye Allergy (Intermediate, Uncoded 01/15/21 12:31) Hives Home Medications: Clonazepam 0.5 mg [Klonopin 0.5 MG] 0.5 mg PO BID 07/24/15 [History] Aspirin [[place] Aspirin EC] 81 mg PO DAILY 02/24/17 [History] Desloratadine [Clarinex] 5 mg PO HS 11/08/18 [History] Lisinopril 5 mg [Zestril 5 MG] 2.5 mg PO BID 11/08/18 [History] Montelukast Sodium 10 mg [Singulair 10 MG] 10 mg PO DAILY 11/08/18 [History] Tizanidine HCl 4 mg [Zanaflex 4 MG] 4 mg PO Q8H 11/08/18 [History] Diclofenac Sodium 75 mg PO BID 04/22/19 [History] Omeprazole 40 mg PO DAILY 04/22/19 [History] Hx Tetanus, Diphtheria Vaccination/Date Given: No Hx Influenza Vaccination/Date Given: Yes Hx Pneumococcal Vaccination/Date Given: No Immunizations Up to Date: Yes Travel Risk - International Travel Have you traveled outside of the country in past 3 weeks: No - Coronavirus Screening Are you exhibiting any of the following symptoms?: No Close contact with a COVID-19 positive Pt in past 14-21 Days: No - Vaccine Status Have you recieved a Covid-19 vaccination: Yes [employer]: Moderna - Vaccination Dates Date of 2cond Vaccination (if applicable): October 2020 - Review of Systems Constitutional: No Symptoms, No Fever, No Chills Eyes: No Symptoms Ears, Nose, & Throat: No Symptoms Respiratory: No Symptoms, No Cough, No Dyspnea Cardiac: No Symptoms, No Chest Pain, No Edema, No Syncope Abdominal/Gastrointestinal: No Symptoms, No Abdominal Pain, No Nausea, No Vomiting, No Diarrhea Genitourinary Symptoms: No Symptoms, No Dysuria Musculoskeletal: No Symptoms, No Back Pain, No Neck Pain Skin: No Symptoms, No Rash Neurological: No Symptoms, No Dizziness, No Focal Weakness, No Sensory Changes Psychological: No Symptoms Endocrine: No Symptoms Hematologic/Lymphatic: No Symptoms Immunological/Allergic: No Symptoms All Other Systems: Reviewed and Negative - Past Medical History Pertinent Past Medical History: Yes Neurological History: TIA ENT History: Cataracts Cardiac History: Hypertension Respiratory History: COPD Endocrine Medical History: No Pertinent History Musculoskeletal History: Osteoarthritis GI Medical History: Diverticulitis History: No Pertinent History Psycho-Social History: Anxiety Female Reproductive Disorders: No Pertinent History - Past Surgical History Past Surgical History: Yes (hysterectomy, gallbladder, cat) Neuro Surgical History: No Pertinent History Cardiac: Cardiac Catheterization Respiratory: No Pertinent History Gastrointestinal: Cholecystectomy Genitourinary: No Pertinent History Musculoskeletal: No Pertinent History Female Surgical History: Hysterectomy Other Surgical History: rotator cuff surgery,eye surgery - Social History Smoking Status: Former smoker Exposure to second hand smoke: No Alcohol Use: None Drug Use: none Patient Lives Alone: Yes Significant Family History: no pertinent family hx - Nursing Vital Signs Nursing Vital Signs: Initial Vital Signs Temperature 98.5 F 01/15/21 12:32 Pulse Rate 114 H 01/15/21 12:32 Respiratory Rate 20 01/15/21 12:32 Blood Pressure 107/83 01/15/21 12:32 O2 Sat by Pulse Oximetry 96 01/15/21 12:32 Pain Scale Pain Intensity 0 - Physical Exam General Appearance: no apparent distress, alert Eye Exam: PERRL/EOMI, eyes nml inspection Ears, Nose, Throat Exam: normal ENT inspection, moist mucous membranes Neck Exam: normal inspection, non-tender, supple, full range of motion Respiratory Exam: diminished breath sounds, other (Diminished breath sounds throughout.) Cardiovascular Exam: regular rate/rhythm, normal heart sounds Gastrointestinal/Abdomen Exam: soft, No tenderness, No mass Back Exam: normal inspection, No CVA tenderness, No vertebral tenderness Extremity Exam: normal inspection, normal range of motion Neurologic Exam: alert, oriented x 3, cooperative, normal mood/affect, sensation nml, No motor deficits Skin Exam: normal color, warm, dry SpO2 Interpretation: normal SpO2: 95 O2 Delivery: Room Air - Course Nursing assessment & vital signs reviewed: Yes EKG Interpreted by Me: RATE, Sinus Tach, NORMAL AXIS, NORMAL INTERVALS - Radiology Exams Chest X-ray Interpretation: Teleradiologist Report (S unchanged. There is a right hemidiaphragm elevation with adjacent atelectasis/scarring and right lung calcified granuloma. Remaining heart and lungs are unremarkable. Bony thorax intact again with mild osteopenia and right shoulder surgery.) Ordered Tests: Active Orders 24 hr Category Date Time Status Nut Grader STAT Care 01/15/21 12:34 Active EKG-ER Only STAT Care 01/15/21 12:33 Active IV Insertion STAT Care 01/15/21 12:33 Active Pulse Oximetry (ED) STAT Care 01/15/21 12:33 Active CHEST 1 VIEW (PORTABLE) Stat Exams 01/15/21 12:34 Completed BLOOD CULTURE Stat Lab 01/15/21 13:20 Received CBC W DIFF Stat Lab 01/15/21 12:42 Completed CMP Stat Lab 01/15/21 12:42 Completed NT PRO BNP Stat Lab 01/15/21 12:42 Completed TROPONIN Q3H Lab 01/15/21 12:42 Completed TROPONIN Q3H Lab 01/15/21 15:10 Received TROPONIN Q3H Lab 01/15/21 18:45 Ordered TROPONIN Q3H Lab 01/15/21 21:45 Ordered TROPONIN Q3H Lab 01/16/21 00:45 Ordered Respiratory Therapy Assessment DAILY RT 01/15/21 13:44 Active Transfer Order Routine Transfer 01/15/21 Ordered Medication Summary Discontinued Medications Generic Name Dose Route Start Last Admin Trade Name Freq PRN Reason Stop Dose Admin Albuterol/Ipratropium 3 ml 01/15/21 13:01 01/15/21 13:41 Duoneb 0.5-3 Mg/3 Ml Neb IH 01/15/21 13:02 3 ml STAT ONE Administration Albuterol/Ipratropium Confirm 01/15/21 13:38 Duoneb 0.5-3 Mg/3 Ml Neb Administered 01/15/21 13:39 Dose 3 ml IH .STK-MED ONE Aspirin 324 mg 01/15/21 13:09 01/15/21 13:19 Baby Aspirin 81 Mg Chew PO 01/15/21 13:10 324 mg STAT ONE Administration Aspirin Confirm 01/15/21 13:18 Baby Aspirin 81 Mg Chew Administered 01/15/21 13:19 Dose 324 mg .ROUTE .STK-MED ONE Azithromycin 500 mg in 250 mls @ 250 mls/hr 01/15/21 13:02 01/15/21 13:44 Zithromax 500 Mg/ 250 Ml Nacl Premix IV 01/15/21 14:01 100 mls/hr STAT STA 100 mls/hr Administration Ceftriaxone Sodium/Dextrose 2 g in 50 mls @ 100 mls/hr 01/15/21 13:02 01/15/21 14:07 Rocephin 2 Gm-D5w 50ml Bag IV 01/15/21 13:31 Infused STAT STA Infusion Azithromycin Confirm 01/15/21 13:11 Zithromax 500 Mg/ 250 Ml Nacl Premix Administered 01/15/21 13:12 Dose 500 mg in 250 mls @ ud IV .STK-MED ONE Ceftriaxone Sodium/Dextrose Confirm 01/15/21 13:11 Rocephin 2 Gm-D5w 50ml Bag Administered 01/15/21 13:12 Dose 2 g in 50 mls @ ud IV .STK-MED ONE Methylprednisolone Sodium Succinate 125 mg 01/15/21 13:01 01/15/21 13:17 Solu-Medrol 125 Mg IV 01/15/21 13:02 125 mg STAT ONE Administration Methylprednisolone Sodium Succinate Confirm 01/15/21 13:11 Solu-Medrol 125 Mg Administered 01/15/21 13:12 Dose 125 mg .ROUTE .STK-MED ONE Nitroglycerin 1 gm 01/15/21 13:09 01/15/21 13:20 Nitro-Bid 2% Ud Packets TOP 01/15/21 13:10 1 gm STAT ONE Administration Nitroglycerin Confirm 01/15/21 13:19 Nitro-Bid 2% Ud Packets Administered 01/15/21 13:20 Dose 1 gm .ROUTE .STK-MED ONE Potassium Chloride 40 meq 01/15/21 13:39 01/15/21 14:28 Klor Con 10 Meq PO 01/15/21 13:40 40 meq STAT ONE Administration Potassium Chloride Confirm 01/15/21 14:27 Klor Con 10 Meq Administered 01/15/21 14:28 Dose 40 meq PO .STK-MED ONE Lab/Rad Data: Laboratory Result Diagrams 01/15/21 12:42 01/15/21 12:42 Laboratory Results 01/15/21 01/15/21 01/15/21 Range/Units 14:02 12:42 12:42 WBC (4.0-10.5) K/mm3 RBC (4.1-5.4) M/mm3 Hgb (12.0-16.0) gm/dl Hct (35-47) % MCV (78-100) fl MCH (26-32) pg MCHC (32-36) g/dl RDW (11.5-14.0) % Plt Count (150-450) K/mm3 MPV (7.5-11.0) fl Gran % (36.0-66.0) % Eos # (Auto) (0-0.5) Absolute Lymphs (auto) (1.0-4.6) Absolute Monos (auto) (0.0-1.3) Lymphocytes % (24.0-44.0) % Monocytes % (0.0-12.0) % Eosinophils % (0.00-5.0) % Basophils % (0.0-0.4) % Absolute Granulocytes (1.4-6.9) Basophils # (0-0.4) Sodium 134 L (137-145) mmol/L Potassium 3.4 L (3.5-5.1) mmol/L Chloride 101 (98-107) mmol/L Carbon Dioxide 22 (22-30) mmol/L Anion Gap 13.9 (5-15) MEQ/L BUN 25 H (7-17) mg/dL Creatinine 0.74 (0.52-1.04) mg/dL Estimated GFR > 60.0 ML/MIN Glucose 126 H (74-106) mg/dL Calcium 9.5 (8.4-10.2) mg/dL Total Bilirubin 0.30 (0.2-1.3) mg/dL AST 24 (14-36) U/L ALT 19 (0-35) U/L Alkaline Phosphatase 116 (38-126) U/L Troponin I < 0.012 (0.000-0.034) ng/mL NT-Pro-B Natriuret Pep 123 (0-900) pg/mL Serum Total Protein 6.9 (6.3-8.2) g/dL Albumin 4.2 (3.5-5.0) g/dL SARS-CoV-2 (PCR) NEGATIVE (NEGATIVE) 01/15/21 Range/Units 12:42 WBC 6.7 (4.0-10.5) K/mm3 RBC 5.75 H (4.1-5.4) M/mm3 Hgb 15.7 (12.0-16.0) gm/dl Hct 48.9 H (35-47) % MCV 85.0 (78-100) fl MCH 27.3 (26-32) pg MCHC 32.1 (32-36) g/dl RDW 14.2 H (11.5-14.0) % Plt Count 233 (150-450) K/mm3 MPV 10.7 (7.5-11.0) fl Gran % 56.3 (36.0-66.0) % Eos # (Auto) 0.17 (0-0.5) Absolute Lymphs (auto) 1.97 (1.0-4.6) Absolute Monos (auto) 0.71 (0.0-1.3) Lymphocytes % 29.6 (24.0-44.0) % Monocytes % 10.7 (0.0-12.0) % Eosinophils % 2.6 (0.00-5.0) % Basophils % 0.8 (0.0-0.4) % Absolute Granulocytes 3.76 (1.4-6.9) Basophils # 0.05 (0-0.4) Sodium (137-145) mmol/L Potassium (3.5-5.1) mmol/L Chloride (98-107) mmol/L Carbon Dioxide (22-30) mmol/L Anion Gap (5-15) MEQ/L BUN (7-17) mg/dL Creatinine (0.52-1.04) mg/dL Estimated GFR ML/MIN Glucose (74-106) mg/dL Calcium (8.4-10.2) mg/dL Total Bilirubin (0.2-1.3) mg/dL AST (14-36) U/L ALT (0-35) U/L Alkaline Phosphatase (38-126) U/L Troponin I (0.000-0.034) ng/mL NT-Pro-B Natriuret Pep (0-900) pg/mL Serum Total Protein (6.3-8.2) g/dL Albumin (3.5-5.0) g/dL SARS-CoV-2 (PCR) (NEGATIVE) - Progress Progress: improved Air Movement: good Progress Note: Patient reassessed. She feels better. Shortness of breath improved. Potassium 3.4. Oral potassium replacement administered. Case discussed with Dr. Morfin who accepts admission to observation. Patient is Covid negative. Plan of care discussed with patient. She agrees to admission [facility] for further evaluation and treatment. 01/15/21 15:27 01/15/21 15:28 Blood Culture(s) Obtained: Yes Antibiotics given: Yes Discussed with : Gomez Will see patient in: hospital (observation) Counseled pt/family regarding: lab results, diagnosis, rad results - Departure Departure Disposition: Home Clinical Impression: COPD exacerbation, Chest pain Condition: Stable Critical Care Time: No Referrals: DAVID MORFIN MD [Primary Care Provider] - Instructions: Chronic Obstructive Pulmonary Disease Additional Instructions: Discharge/Care Plan THEA JACINTO was seen on 01/15/21 in the Emergency Room. The patient was counseled regarding Diagnosis,Lab results, Imaging studies, need for follow up and when to return to the Emergency Room. Prescriptions given: Discharge Note I have spoken with the patient and/or caregivers. I have explained the patient's condition, diagnosis and treatment plan based on the information available to me at this time. I have answered the patient's and/or caregiver's questions and addressed any concerns. The patient and/or caregivers have as good understanding of the patient's diagnosis, condition and treatment plan as can be expected at this point. The vital signs have been stable. The patient's condition is stable and appropriate for discharge from the emergency department. The patient will pursue further outpatient evaluation with the primary care physician or other designated or consulting physician as outlined in the discharge instructions. The patient and/or caregivers are agreeable to this plan of care and follow-up instructions have been explained in detail. The patient and/or caregivers have received these instruction. The patient/and or caregivers are aware that any significant change in condition or worsening of symptoms should prompt an immediate return to this or the closest emergency department or call 911.
[2021-01-15] MEDS ORDERED: NITRO-BID 2% UD PACKETS TOP ONE (13:09)
[2021-01-15] MEDS ORDERED: BABY ASPIRIN 81 MG CHEW PO ONE (13:09)
[2021-01-15] MEDS ORDERED: Zithromax 500 MG/ 250 ML NaCl Premix 500 MG/250 ML IVPB IV ONE (13:11)
[2021-01-15] MEDS ORDERED: solu-MEDROL 125 MG ONE (13:11)
[2021-01-15] MEDS ORDERED: ROCEPHIN 2 Gm-D5w 50ML BAG** 2 G/50 ML IVPB IV ONE (13:11)
[2021-01-15 13:12] LABS: ALBUMIN 4.2 g/dL (3.5-5.0); ALKALINE PHOSPHATASE 116 U/L (38-126); ANION GAP 13.9 MEQ/L (5-15); BLOOD UREA NITROGEN 25 mg/dL (7-17); CHLORIDE 101 mmol/L (98-107); Calcium 9.5 mg/dL (8.4-10.2); Carbon Dioxide 22 mmol/L (22-30); Creatinine 1 0.74 mg/dL (0.52-1.04); EST GLOMERULAR FILTRATION RATE > 60.0 ML/MIN; Glucose 126 mg/dL (74-106); NT PRO BNP 123 pg/mL (0-900); Potassium 3.4 mmol/L (3.5-5.1); SGOT/AST 24 U/L (14-36); SGPT/ALT 19 U/L (0-35); SODIUM 134 mmol/L (137-145); Total Protein 6.9 g/dL (6.3-8.2)
--- NOTE | 2021-01-15 13:13 | XRAY ---
Indication: Short of breath and palpitations. Comparison: January 25, 2017. Portable chest unchanged again demonstrating right hemidiaphragm elevation with adjacent atelectasis/scarring and right lung calcified granulomas. Remaining heart and lungs unremarkable. Bony thorax intact again with mild osteopenia and right shoulder surgery. Impression: Continued nonacute chest with chronic features.
[2021-01-15] MEDS ORDERED: BABY ASPIRIN 81 MG CHEW ONE (13:18)
[2021-01-15] MEDS ORDERED: NITRO-BID 2% UD PACKETS ONE (13:19)
[2021-01-15] MEDS ORDERED: Klor Con 10 MEQ PO ONE ×2 (13:39→14:27)
[2021-01-15] MEDS ORDERED: Zanaflex 4 MG PO SCH (17:00)
[2021-01-15] MEDS: solu-MEDROL 125 MG IV SCH ×2 (17:30→23:13)
--- NOTE | 2021-01-15 17:34 | PCM.HP ---
History of Present Illness - Chief Complaint Chief Complaint: chest pain and shortness of breath for 2-3 days History of Present Illness: is a 70 year old female.presents to emergency department with complaints of progressive shortness of breath and intermittent chest pain. Symptoms started last night. Patient states she has been coughing more frequently over the past couple days. Patient currently has no chest pain. Patient denies associated nausea or vomiting. No diaphoresis. Patient has a history of COPD. Today symptoms are similar. Patient states that she cannot catch her breath. On exam patient's breath sounds are diminished throughout. Patient is in no acute respiratory distress. Symptoms are moderate in intensity. No specific worsening improving factors. Patient is a non-smoker. Patient drove herself in her private vehicle. Patient voices no other comp laints or concerns at this time. Timing/Duration: yesterday Activities at Onset: none Quality: aching Location: substernal Severity of Pain-Max: moderate Severity of Pain-Current: mild Modifying Factors: Improves With: coughing (Patient's cough is dry nonproductive.) Associated Symptoms: shortness of breath Prior Chest Pain/Cardiac Workup: no prior chest pain Nitro Today/Relief: no nitro taken today Aspirin Treatment Today: no aspirin today - Review of Systems Constitutional: No Fever, No Chills Eyes: No Symptoms Ears, Nose, & Throat: No Symptoms Respiratory: Cough, Orthopnea, Short Of Breath, Wheezing Cardiac: Chest Pain, No Edema, No Syncope Abdominal/Gastrointestinal: No Abdominal Pain, No Nausea, No Vomiting, No Diarrhea Genitourinary Symptoms: No Dysuria Musculoskeletal: No Back Pain, No Neck Pain Skin: No Rash Neurological: No Dizziness, No Focal Weakness, No Sensory Changes Psychological: No Symptoms Endocrine: No Symptoms Hematologic/Lymphatic: No Symptoms Immunological/Allergic: No Symptoms Medications & Allergies Home Medications: Home Medication List Clonazepam 0.5 mg [Klonopin 0.5 MG] 0.5 mg PO BID PRN 07/24/15 [History Confirmed 01/15/21] Aspirin [Comal Aspirin EC] 81 mg PO DAILY 02/24/17 [History Confirmed 01/15/21] Desloratadine [Clarinex] 5 mg PO HS 11/08/18 [History Confirmed 01/15/21] Lisinopril 5 mg [Zestril 5 MG] 2.5 mg PO BID 11/08/18 [History Confirmed 01/15/21] Montelukast Sodium 10 mg [Singulair 10 MG] 10 mg PO DAILY 11/08/18 [History Confirmed 01/15/21] Tizanidine HCl 4 mg [Zanaflex 4 MG] 4 mg PO Q8H PRN 11/08/18 [History Confirmed 01/15/21] Albuterol 17 gm IH Q4HPRN PRN #1 aerosol 04/22/19 [Rx Confirmed 01/15/21] Omeprazole 40 mg PO DAILY 04/22/19 [History Confirmed 01/15/21] Amlodipine Besylate 2.5 mg PO DAILY 01/15/21 [History Confirmed 01/15/21] Celecoxib 100 mg [celeBREX 100 MG] 100 mg PO BID 01/15/21 [History Confirmed 01/15/21] Chlorthalidone 25 mg PO DAILY 01/15/21 [History Confirmed 01/15/21] Fluticasone/Umeclidin/Vilanter [Trelegy Ellipta 100-62.5-25] 2 puffs IH DAILY 01/15/21 [History Confirmed 01/15/21] Allergies/Adverse Reactions: Allergies Allergy/AdvReac Type Severity Reaction Status Date / Time shrimp Allergy Intermediate Hives Verified 01/15/21 12:31 contrast dye Allergy Intermediate Hives Uncoded 01/15/21 12:31 - Past Medical History Past Medical History: Yes Neurological History: TIA ENT History: Cataracts Cardiac History: Hypertension Respiratory History: COPD Endocrine Medical History: No Pertinent History Musculoskelatal History: Osteoarthritis GI Medical History: Diverticulitis History: No Pertinent History Pyscho-Social History: Anxiety Reproductive Disorders: No Pertinent History - Female History Are you now?: No - Past Surgical History Past Surgical History: Yes (hysterectomy, gallbladder, cat) Neuro Surgical History: No Pertinent History Cardiac History: Cardiac Catheterization Respiratory Surgery: No Pertinent History GI Surgical History: Cholecystectomy Genitourinary Surgical Hx: No Pertinent History Musculskeletal Surgical Hx: No Pertinent History Female Surgical History: Hysterectomy Other Surgical History: rotator cuff surgery,eye surgery - Social History Smoking Status: Former smoker Exposure to second hand smoke: No Alcohol: None Drug Use: none Significant Family History: no pertinent family hx - Physical Exam Vital Signs: Vital Signs - 24 hr Temp Pulse Resp BP Pulse Ox 01/15/21 16:27 103 H 18 95 01/15/21 15:49 98.3 F 110 H 18 139/73 95 01/15/21 15:28 95 01/15/21 14:31 100 H 18 112/61 98 01/15/21 13:44 94 H 24 97 01/15/21 13:28 95 H 18 126/88 97 01/15/21 12:41 95 01/15/21 12:32 98.5 F 114 H 20 107/83 96 General Appearance: no apparent distress, alert Neurologic Exam: alert, oriented x 3, cooperative, normal mood/affect, nml cerebellar function, nml station & gait, sensation nml, No motor deficits Eye Exam: PERRL/EOMI, eyes nml inspection Ears, Nose, Throat Exam: normal ENT inspection, TMs normal, pharynx normal, moist mucous membranes Neck Exam: normal inspection, non-tender, supple, full range of motion Respiratory Exam: respiratory distress, diminished breath sounds, rhonchi, wheezing Cardiovascular Exam: regular rate/rhythm, normal heart sounds, normal peripheral pulses Gastrointestinal/Abdomen Exam: soft, normal bowel sounds, No tenderness, No mass Back Exam: normal inspection, normal range of motion, No CVA tenderness, No vertebral tenderness Extremity Exam: normal inspection, normal range of motion, pelvis stable Skin Exam: normal color, warm, dry, No rash Lymphatic Exam: No adenopathy Results - Labs Lab/Micro Results: Lab Results-Last 24 Hours 01/15/21 01/15/21 01/15/21 Range/Units 12:42 12:42 12:42 WBC 6.7 (4.0-10.5) K/mm3 RBC 5.75 H (4.1-5.4) M/mm3 Hgb 15.7 (12.0-16.0) gm/dl Hct 48.9 H (35-47) % MCV 85.0 (78-100) fl MCH 27.3 (26-32) pg MCHC 32.1 (32-36) g/dl RDW 14.2 H (11.5-14.0) % Plt Count 233 (150-450) K/mm3 MPV 10.7 (7.5-11.0) fl Gran % 56.3 (36.0-66.0) % Eos # (Auto) 0.17 (0-0.5) Absolute Lymphs (auto) 1.97 (1.0-4.6) Absolute Monos (auto) 0.71 (0.0-1.3) Lymphocytes % 29.6 (24.0-44.0) % Monocytes % 10.7 (0.0-12.0) % Eosinophils % 2.6 (0.00-5.0) % Basophils % 0.8 (0.0-0.4) % Absolute Granulocytes 3.76 (1.4-6.9) Basophils # 0.05 (0-0.4) Sodium 134 L (137-145) mmol/L Potassium 3.4 L (3.5-5.1) mmol/L Chloride 101 (98-107) mmol/L Carbon Dioxide 22 (22-30) mmol/L Anion Gap 13.9 (5-15) MEQ/L BUN 25 H (7-17) mg/dL Creatinine 0.74 (0.52-1.04) mg/dL Estimated GFR > 60.0 ML/MIN Glucose 126 H (74-106) mg/dL Calcium 9.5 (8.4-10.2) mg/dL Total Bilirubin 0.30 (0.2-1.3) mg/dL AST 24 (14-36) U/L ALT 19 (0-35) U/L Alkaline Phosphatase 116 (38-126) U/L Troponin I < 0.012 (0.000-0.034) ng/mL NT-Pro-B Natriuret Pep 123 (0-900) pg/mL Serum Total Protein 6.9 (6.3-8.2) g/dL Albumin 4.2 (3.5-5.0) g/dL SARS-CoV-2 (PCR) (NEGATIVE) 01/15/21 01/15/21 Range/Units 14:02 15:10 WBC (4.0-10.5) K/mm3 RBC (4.1-5.4) M/mm3 Hgb (12.0-16.0) gm/dl Hct (35-47) % MCV (78-100) fl MCH (26-32) pg MCHC (32-36) g/dl RDW (11.5-14.0) % Plt Count (150-450) K/mm3 MPV (7.5-11.0) fl Gran % (36.0-66.0) % Eos # (Auto) (0-0.5) Absolute Lymphs (auto) (1.0-4.6) Absolute Monos (auto) (0.0-1.3) Lymphocytes % (24.0-44.0) % Monocytes % (0.0-12.0) % Eosinophils % (0.00-5.0) % Basophils % (0.0-0.4) % Absolute Granulocytes (1.4-6.9) Basophils # (0-0.4) Sodium (137-145) mmol/L Potassium (3.5-5.1) mmol/L Chloride (98-107) mmol/L Carbon Dioxide (22-30) mmol/L Anion Gap (5-15) MEQ/L BUN (7-17) mg/dL Creatinine (0.52-1.04) mg/dL Estimated GFR ML/MIN Glucose (74-106) mg/dL Calcium (8.4-10.2) mg/dL Total Bilirubin (0.2-1.3) mg/dL AST (14-36) U/L ALT (0-35) U/L Alkaline Phosphatase (38-126) U/L Troponin I < 0.012 (0.000-0.034) ng/mL NT-Pro-B Natriuret Pep (0-900) pg/mL Serum Total Protein (6.3-8.2) g/dL Albumin (3.5-5.0) g/dL SARS-CoV-2 (PCR) NEGATIVE (NEGATIVE) - Radiology Impressions Radiology Exams & Impressions: Radiology Procedures Category Date Time Status CHEST 1 VIEW (PORTABLE) Stat Exams 01/15/21 12:34 Completed RAD/CHEST 1 VIEW (PORTABLE) Indication: Short of breath and palpitations. Comparison: January 25, 2017. Portable chest unchanged again demonstrating right hemidiaphragm elevation with adjacent atelectasis/scarring and right lung calcified granulomas. Remaining heart and lungs unremarkable. Bony thorax intact again with mild osteopenia and right shoulder surgery. Impression: Continued nonacute chest with chronic features. - Other Procedures and Tests Respiratory Therapy 01/15/21 13:44 Respiratory Therapy Assessment DAILY 01/15/21 15:47 Peak Expiratory Flow Rate BEFORE&AFTER NEB TX 01/15/21 21:00 BiPap/CPAP ROUTINE Assessment/Plan (1) COPD exacerbation Current Visit: Yes Status: Acute Assessment & Plan: Chief Complaint Diagnosis exac copd Allergies Allergy/AdvReac Type Severity Reaction Status Date / Time shrimp Allergy Intermediate Hives Verified 01/15/21 12:31 contrast dye Allergy Intermediate Hives Uncoded 01/15/21 12:31 Vital Signs (Last 24 hours) Temp Pulse Resp BP Pulse Ox 01/15/21 16:27 103 H 18 95 01/15/21 15:49 98.3 F 110 H 18 139/73 95 01/15/21 15:28 95 01/15/21 14:31 100 H 18 112/61 98 01/15/21 13:44 94 H 24 97 01/15/21 13:28 95 H 18 126/88 97 01/15/21 12:41 95 01/15/21 12:32 98.5 F 114 H 20 107/83 96 Home Medications Medication Instructions Recorded Confirmed Last Taken Type Amlodipine Besylate 2.5 mg PO DAILY 01/15/21 01/15/21 01/15/21 History Celecoxib 100 mg [celeBREX 100 100 mg PO BID 01/15/21 01/15/21 01/15/21 History MG] Chlorthalidone 25 mg PO DAILY 01/15/21 01/15/21 01/15/21 History Fluticasone/Umeclidin/Vilanter 2 puffs IH DAILY 01/15/21 01/15/21 01/15/21 History [Trelebienvenido Ellipta 100-62.5-25] Current Medications Generic Name Dose Route Start Last Admin Trade Name Freq PRN Reason Stop Dose Admin Albuterol/Ipratropium 3 ml 01/15/21 19:00 Duoneb 0.5-3 Mg/3 Ml Neb IH 02/14/21 18:59 Q4HRT [facility] Amlodipine Besylate 2.5 mg 01/16/21 10:00 Norvasc 5 Mg PO 02/15/21 09:59 DAILY ASIYA Aspirin 81 mg 01/16/21 10:00 Ecotrin 81 Mg PO 02/15/21 09:59 DAILY [facility] Celecoxib 100 mg 01/15/21 22:00 Celebrex 100 Mg PO 02/14/21 21:59 BID ASIYA Clonazepam 0.5 mg 01/15/21 22:00 Clonazepam PO 02/14/21 21:59 BID PRN PRN Lisinopril 2.5 mg 01/15/21 22:00 Zestril 5 Mg PO 02/14/21 21:59 BID ASIYA Loratadine 10 mg 01/15/21 22:00 Claritin 10 Mg PO 02/14/21 21:59 HS ASIYA Methylprednisolone Sodium Succinate 80 mg 01/15/21 18:00 01/15/21 17:30 Solu-Medrol 125 Mg IV 02/14/21 17:59 80 mg Q6HT ASIYA Administration Montelukast Sodium 10 mg 01/16/21 10:00 Singulair 10 Mg PO 02/15/21 09:59 DAILY [facility] Non-Formulary Medication 0 mg 01/16/21 10:00 Chlorthalidone [Chlorthalidone] PO 02/15/21 09:59 DAILY [facility] Pantoprazole Sodium 40 mg 01/16/21 10:00 Protonix 40mg Tablet PO 02/15/21 09:59 DAILY [facility] Fluticasone/Salmeterol 2 puff 01/15/21 19:00 Advair Hfa 115/21 Common Canister* IH 02/14/21 18:59 BIDRT [facility] Tizanidine HCl 4 mg 01/15/21 17:24 Zanaflex 4 Mg PO 02/14/21 17:23 Q8H PRN PRN MUSCLE SPASMS Discontinued Medications Generic Name Dose Route Start Last Admin Trade Name Freq PRN Reason Stop Dose Admin Albuterol Sulfate 2.5 mg 01/15/21 19:00 Proventil 2.5 Mg/3 Ml Neb IH 02/14/21 18:59 Q4HRT [facility] Albuterol/Ipratropium 3 ml 01/15/21 13:01 01/15/21 13:41 Duoneb 0.5-3 Mg/3 Ml Neb IH 01/15/21 13:02 3 ml STAT ONE Administration Albuterol/Ipratropium Confirm 01/15/21 13:38 Duoneb 0.5-3 Mg/3 Ml Neb Administered 01/15/21 13:39 Dose 3 ml IH .STK-MED ONE Aspirin 324 mg 01/15/21 13:09 01/15/21 13:19 Baby Aspirin 81 Mg Chew PO 01/15/21 13:10 324 mg STAT ONE Administration Aspirin Confirm 01/15/21 13:18 Baby Aspirin 81 Mg Chew Administered 01/15/21 13:19 Dose 324 mg .ROUTE .STK-MED ONE Azithromycin 500 mg in 250 mls @ 250 mls/hr 01/15/21 13:02 01/15/21 13:44 Zithromax 500 Mg/ 250 Ml Nacl Premix IV 01/15/21 14:01 100 mls/hr STAT STA 100 mls/hr Administration Ceftriaxone Sodium/Dextrose 2 g in 50 mls @ 100 mls/hr 01/15/21 13:02 01/15/21 14:07 Rocephin 2 Gm-D5w 50ml Bag IV 01/15/21 13:31 Infused STAT STA Infusion Azithromycin Confirm 01/15/21 13:11 Zithromax 500 Mg/ 250 Ml Nacl Premix Administered 01/15/21 13:12 Dose 500 mg in 250 mls @ ud IV .STK-MED ONE Ceftriaxone Sodium/Dextrose Confirm 01/15/21 13:11 Rocephin 2 Gm-D5w 50ml Bag Administered 01/15/21 13:12 Dose 2 g in 50 mls @ ud IV .STK-MED ONE Methylprednisolone Sodium Succinate 125 mg 01/15/21 13:01 01/15/21 13:17 Solu-Medrol 125 Mg IV 01/15/21 13:02 125 mg STAT ONE Administration Methylprednisolone Sodium Succinate Confirm 01/15/21 13:11 Solu-Medrol 125 Mg Administered 01/15/21 13:12 Dose 125 mg .ROUTE .STK-MED ONE Methylprednisolone Sodium Succinate 80 mg 01/15/21 18:00 Solu-Medrol 125 Mg IV 02/14/21 17:59 Q6HT [facility] Methylprednisolone Sodium Succinate 80 mg 01/15/21 20:00 Solu-Medrol 125 Mg IV 02/14/21 19:59 Q6HT [facility] Nitroglycerin 1 gm 01/15/21 13:09 01/15/21 13:20 Nitro-Bid 2% Ud Packets TOP 01/15/21 13:10 1 gm STAT ONE Administration Nitroglycerin Confirm 01/15/21 13:19 Nitro-Bid 2% Ud Packets Administered 01/15/21 13:20 Dose 1 gm .ROUTE .STK-MED ONE Non-Formulary Medication 2 puffs 01/16/21 10:00 Fluticasone/Umeclidin/Vilanter [Trelegy Ellipta 100-62.5-25] 02/15/21 09:59 DAILY ASIYA Patient Own Medication 1 each 01/16/21 07:00 Patient Own Medication 02/15/21 06:59 DAILY [facility] Potassium Chloride 40 meq 01/15/21 13:39 01/15/21 14:28 Klor Con 10 Meq PO 01/15/21 13:40 40 meq STAT ONE Administration Potassium Chloride Confirm 01/15/21 14:27 Klor Con 10 Meq Administered 01/15/21 14:28 Dose 40 meq PO .STK-MED ONE Tizanidine HCl 4 mg 01/15/21 17:00 01/15/21 17:24 Zanaflex 4 Mg PO 02/14/21 16:59 Not Given Q8H [facility] Intake & Output (Last 24 hours) 01/13/21 01/14/21 01/15/21 01/16/21 11:59 11:59 11:59 11:59 Weight 90.8 kg Microbiology Results (Last 24 hours) 01/15/21 13:20 Blood Blood Culture Gram Stain - Pending 01/15/21 13:20 Blood Blood Culture - Pending 01/15/21 13:15 Blood Blood Culture Gram Stain - Pending 01/15/21 13:15 Blood Blood Culture - Pending Laboratory Results (Last 24 hours) 01/15/21 01/15/21 01/15/21 15:10 14:02 12:42 WBC RBC Hgb Hct MCV MCH MCHC RDW Plt Count MPV Gran % Eos # (Auto) Absolute Lymphs (auto) Absolute Monos (auto) Lymphocytes % Monocytes % Eosinophils % Basophils % Absolute Granulocytes Basophils # Sodium Potassium Chloride Carbon Dioxide Anion Gap BUN Creatinine Estimated GFR Glucose Calcium Total Bilirubin AST ALT Alkaline Phosphatase Troponin I < 0.012 < 0.012 NT-Pro-B Natriuret Pep Serum Total Protein Albumin SARS-CoV-2 (PCR) NEGATIVE 01/15/21 01/15/21 12:42 12:42 WBC 6.7 RBC 5.75 H Hgb 15.7 Hct 48.9 H MCV 85.0 MCH 27.3 MCHC 32.1 RDW 14.2 H Plt Count 233 MPV 10.7 Gran % 56.3 Eos # (Auto) 0.17 Absolute Lymphs (auto) 1.97 Absolute Monos (auto) 0.71 Lymphocytes % 29.6 Monocytes % 10.7 Eosinophils % 2.6 Basophils % 0.8 Absolute Granulocytes 3.76 Basophils # 0.05 Sodium 134 L Potassium 3.4 L Chloride 101 Carbon Dioxide 22 Anion Gap 13.9 BUN 25 H Creatinine 0.74 Estimated GFR > 60.0 Glucose 126 H Calcium 9.5 Total Bilirubin 0.30 AST 24 ALT 19 Alkaline Phosphatase 116 Troponin I NT-Pro-B Natriuret Pep 123 Serum Total Protein 6.9 Albumin 4.2 SARS-CoV-2 (PCR) Orders (Last 24 hours) Category Date Time Status Bedrest with BRP/BSC ROUTINE Activity 01/15/21 15:47 Active Insurance Executive STAT Care 01/15/21 12:34 Completed Code Status Order ROUTINE Care 01/15/21 15:47 Active EKG-ER Only STAT Care 01/15/21 12:33 Completed IV Care Q6H Care 01/15/21 15:47 Active IV Insertion STAT Care 01/15/21 12:[address] in Observation ROUTINE Care 01/15/21 15:47 Active Pulse Oximetry (ED) STAT Care 01/15/21 12:33 Completed Selvin Tamayo ROUTINE Care 01/15/21 15:47 Active Telemetry q4h Care 01/15/21 15:47 Active Weight,Daily 0600 Care 01/15/21 15:47 Active Consistent Carbohydrate Diet 1800 Calorie Diet 01/15/21 Dinner Completed House Regular Diet Diet 01/15/21 Dinner Active CHEST 1 VIEW (PORTABLE) Stat Exams 01/15/21 12:34 Completed BLOOD CULTURE Stat Lab 01/15/21 13:20 Received CBC AM.LAB Lab 01/16/21 04:00 Ordered CBC W DIFF Stat Lab 01/15/21 12:42 Completed CMP AM.LAB Lab 01/16/21 04:00 Ordered CMP Stat Lab 01/15/21 12:42 Completed NT PRO BNP Stat Lab 01/15/21 12:42 Completed TROPONIN Q3H Lab 01/15/21 12:42 Completed TROPONIN Q3H Lab 01/15/21 15:10 Completed TROPONIN Q3H Lab 01/15/21 18:45 Ordered TROPONIN Q3H Lab 01/15/21 21:45 Ordered TROPONIN Q3H Lab 01/16/21 00:45 Ordered Albuterol 2.5 mg/3 ml Neb [Proventil 2.5 mg/3 ml Neb Med 01/15/21 19:00 Discontinued ] 2.5 mg IH Q4HRT Albuterol/Ipratropium 3ml Neb* [DUONEB 0.5-3 MG/3 ml Med 01/15/21 13:38 Discontinued Neb] 3 ml IH .STK-MED ONE Albuterol/Ipratropium 3ml Neb* [DUONEB 0.5-3 MG/3 ml Med 01/15/21 19:00 Active Neb] 3 ml IH Q4HRT Albuterol/Ipratropium 3ml Neb* [DUONEB 0.5-3 MG/3 ml Med 01/15/21 13:01 Discontinued Neb] 3 ml IH STAT ONE Amlodipine Besylate 5 mg [Norvasc 5 mg] Med 01/16/21 10:00 Active 2.5 mg PO DAILY Aspirin 81 gm Chew [Baby Aspirin 81 mg Chew] Med 01/15/21 13:18 Discontinued 324 mg .ROUTE .STK-MED ONE Aspirin 81 gm Chew [Baby Aspirin 81 mg Chew] Med 01/15/21 13:09 Discontinued 324 mg PO STAT ONE Aspirin EC 81 mg [Ecotrin 81 mg] Med 01/16/21 10:00 Active 81 mg PO DAILY Azithromycin 500 mg/250 ml [Zithromax 500 MG/ 250 ML Med 01/15/21 13:02 Discontinued NaCl Premix] 500 mg in 250 ml IV STAT Azithromycin 500 mg/250 ml [Zithromax 500 MG/ 250 ML Med 01/15/21 13:11 Discontinued NaCl Premix] 500 mg in 250 ml IV UD Ceftriaxone 2 GM/50 ML PREMIX* [ROCEPHIN 2 Gm-D5w 50ML Med 01/15/21 13:02 Discontinued BAG] 2 g in 50 ml IV STAT Ceftriaxone 2 GM/50 ML PREMIX* [ROCEPHIN 2 Gm-D5w 50ML Med 01/15/21 13:11 Discontinued BAG] 2 g in 50 ml IV UD Celecoxib 100 mg [celeBREX 100 MG] Med 01/15/21 22:00 Active 100 mg PO BID Chlorthalidone [Chlorthalidone] Med 01/16/21 10:00 Active 0 mg PO DAILY Fluticasone/Salmeterol [Advair Hfa 115/ Common Med 01/15/21 19:00 Active canister*] 2 puff IH BIDRT Fluticasone/Umeclidin/Vilanter [Trelegy Ellipta 100-62. Med 01/16/21 10:00 Discontinued 5-25] 2 puffs IH DAILY Lisinopril 5 mg [Zestril 5 MG] Med 01/15/21 22:00 Active 2.5 mg PO BID Loratadine 10 mg [Claritin 10 mg] Med 01/15/21 22:00 Active 10 mg PO HS Methylprednis Sod Succ 125 mg* [solu-MEDROL 125 MG] Med 01/15/21 13:11 Discontinued 125 mg .ROUTE .STK-MED ONE Methylprednis Sod Succ 125 mg* [solu-MEDROL 125 MG] Med 01/15/21 13:01 Discontinued 125 mg IV STAT ONE Methylprednis Sod Succ 125 mg* [solu-MEDROL 125 MG] Med 01/15/21 18:00 Active 80 mg IV Q6HT Methylprednis Sod Succ 125 mg* [solu-MEDROL 125 MG] Med 01/15/21 18:00 Discontinued 80 mg IV Q6HT Methylprednis Sod Succ 125 mg* [solu-MEDROL 125 MG] Med 01/15/21 20:00 Discontinued 80 mg IV Q6HT Montelukast Sodium 10 mg [Singulair 10 MG] Med 01/16/21 10:00 Active 10 mg PO DAILY Nitroglycerin 2 %Ointment [Nitro-Bid 2% Ud Packets Med 01/15/21 13:19 Discontinued *] 1 gm .ROUTE .STK-MED ONE Nitroglycerin 2 %Ointment [Nitro-Bid 2% Ud Packets Med 01/15/21 13:09 Discontinued *] 1 gm TOP STAT ONE PANTOPRAZOLE 40 mg Tablet [Protonix 40MG Tablet] Med 01/16/21 10:00 Active 40 mg PO DAILY Patient Own Med [Patient Own Medication] Med 01/16/21 07:00 Discontinued 1 each IH DAILY Potassium Chloride 10 Meq Tab* [Klor Con 10 MEQ] Med 01/15/21 14:27 Discontinued 40 meq PO .STK-MED ONE Potassium Chloride 10 Meq Tab* [Klor Con 10 MEQ] Med 01/15/21 13:39 Discontinued 40 meq PO STAT ONE Tizanidine HCl 4 mg [Zanaflex 4 MG] Med 01/15/21 17:00 Discontinued 4 mg PO Q8H Tizanidine HCl 4 mg [Zanaflex 4 MG] Med 01/15/21 17:24 Active 4 mg PO Q8H PRN PRN clonazePAM Med 01/15/21 22:00 Active 0.5 mg PO BID PRN PRN BiPap/CPAP ROUTINE RT 01/15/21 21:00 Active Peak Expiratory Flow Rate BEFORE&AFTER NEB TX RT 01/15/21 15:47 Active Pulse Oximetry .continuos RT 01/15/21 15:47 Active Respiratory MDI UD RT 01/16/21 07:00 Completed Respiratory Therapy Assessment DAILY RT 01/15/21 13:44 Active Transfer Order Routine Transfer 01/15/21 Completed Code(s): J44.1 - CHRONIC OBSTRUCTIVE PULMONARY DISEASE W (ACUTE) EXACERBATION (2) Chest pain Current Visit: Yes Status: Acute Qualifiers: Chest pain type: chest pain on breathing Qualified Code(s): R07.1 - Chest pain on breathing; R07.81 - Pleurodynia Assessment & Plan: Last Vital Signs Temp 98.3 F 01/15/21 15:49 Pulse 103 H 01/15/21 16:27 Resp 18 01/15/21 16:27 BP 139/73 01/15/21 15:49 Pulse Ox 95 01/15/21 16:27 Allergies shrimp Allergy (Intermediate, Verified 01/15/21 12:31) Hives contrast dye Allergy (Intermediate, Uncoded 01/15/21 12:31) Hives Active Medications Albuterol/Ipratropium (Duoneb 0.5-3 Mg/3 Ml Neb) 3 ml IH Q4HRT [facility] Stop: 02/14/21 18:59 Amlodipine Besylate (Norvasc 5 Mg) 2.5 mg PO DAILY [facility] Stop: 02/15/21 09:59 Aspirin (Ecotrin 81 Mg) 81 mg PO DAILY [facility] Stop: 02/15/21 09:59 Celecoxib (Celebrex 100 Mg) 100 mg PO BID [facility] Stop: 02/14/21 21:59 Clonazepam (Clonazepam) 0.5 mg PO BID PRN PRN Stop: 02/14/21 21:59 Lisinopril (Zestril 5 Mg) 2.5 mg PO BID [facility] Stop: 02/14/21 21:59 Loratadine (Claritin 10 Mg) 10 mg PO HS [facility] Stop: 02/14/21 21:59 Methylprednisolone Sodium Succinate (Solu-Medrol 125 Mg) 80 mg IV Q6HT [facility] Stop: 02/14/21 17:59 Last Admin: 01/15/21 17:30 Dose: 80 mg Documented by: Montelukast Sodium (Singulair 10 Mg) 10 mg PO DAILY [facility] Stop: 02/15/21 09:59 Non-Formulary Medication (Chlorthalidone [Chlorthalidone]) 0 mg PO DAILY [facility] Stop: 02/15/21 09:59 Pantoprazole Sodium (Protonix 40mg Tablet) 40 mg PO DAILY [facility] Stop: 02/15/21 09:59 Fluticasone/Salmeterol (Advair Hfa 115 Common Canister*) 2 puff IH BIDRT [facility] Stop: 02/14/21 18:59 Tizanidine HCl (Zanaflex 4 Mg) 4 mg PO Q8H PRN PRN PRN Reason: MUSCLE SPASMS Stop: 02/14/21 17:23 Intake & Output 01/15/21 01/16/21 11:59 11:59 Weight 90.8 kg Orders 01/15/21 17:24 Tizanidine HCl 4 mg [Zanaflex 4 MG] 4 mg PO Q8H PRN PRN 01/15/21 18:00 Methylprednis Sod Succ 125 mg* [solu-MEDROL 125 MG] 80 mg IV Q6HT 01/15/21 19:00 Albuterol/Ipratropium 3ml Neb* [DUONEB 0.5-3 MG/3 ml Neb] 3 ml IH Q4HRT Fluticasone/Salmeterol [Advair Hfa 115 Common canister*] 2 puff IH BIDRT 01/15/21 21:00 BiPap/CPAP ROUTINE 01/15/21 22:00 Celecoxib 100 mg [celeBREX 100 MG] 100 mg PO BID Lisinopril 5 mg [Zestril 5 MG] 2.5 mg PO BID Loratadine 10 mg [Claritin 10 mg] 10 mg PO HS clonazePAM 0.5 mg PO BID PRN PRN 01/16/21 10:00 Amlodipine Besylate 5 mg [Norvasc 5 mg] 2.5 mg PO DAILY Aspirin EC 81 mg [Ecotrin 81 mg] 81 mg PO DAILY Chlorthalidone [Chlorthalidone] 0 mg PO DAILY Montelukast Sodium 10 mg [Singulair 10 MG] 10 mg PO DAILY PANTOPRAZOLE 40 mg Tablet [Protonix 40MG Tablet] 40 mg PO DAILY Lab Tests 01/15/21 01/15/21 01/15/21 12:42 12:42 12:42 WBC 6.7 RBC 5.75 H Hgb 15.7 Hct 48.9 H MCV 85.0 MCH 27.3 MCHC 32.1 RDW 14.2 H Plt Count 233 MPV 10.7 Gran % 56.3 Eos # (Auto) 0.17 Absolute Lymphs (auto) 1.97 Absolute Monos (auto) 0.71 Lymphocytes % 29.6 Monocytes % 10.7 Eosinophils % 2.6 Basophils % 0.8 Absolute Granulocytes 3.76 Basophils # 0.05 Sodium 134 L Potassium 3.4 L Chloride 101 Carbon Dioxide 22 Anion Gap 13.9 BUN 25 H Creatinine 0.74 Estimated GFR > 60.0 Glucose 126 H Calcium 9.5 Total Bilirubin 0.30 AST 24 ALT 19 Alkaline Phosphatase 116 Troponin I < 0.012 NT-Pro-B Natriuret Pep 123 Serum Total Protein 6.9 Albumin 4.2 SARS-CoV-2 (PCR) 01/15/21 01/15/21 14:02 15:10 WBC RBC Hgb Hct MCV MCH MCHC RDW Plt Count MPV Gran % Eos # (Auto) Absolute Lymphs (auto) Absolute Monos (auto) Lymphocytes % Monocytes % Eosinophils % Basophils % Absolute Granulocytes Basophils # Sodium Potassium Chloride Carbon Dioxide Anion Gap BUN Creatinine Estimated GFR Glucose Calcium Total Bilirubin AST ALT Alkaline Phosphatase Troponin I < 0.012 NT-Pro-B Natriuret Pep Serum Total Protein Albumin SARS-CoV-2 (PCR) NEGATIVE Code(s): R07.9 - CHEST PAIN, UNSPECIFIED
[2021-01-15] MEDS ORDERED: solu-MEDROL 125 MG IV SCH ×2 (18:00→20:00)
[2021-01-15] MEDS ORDERED: PROVENTIL 2.5 MG/3 ML NEB IH SCH (19:00)
[2021-01-15] MEDS: Advair Hfa 115/21 Common canister IH SCH (19:04)
[2021-01-15] MEDS: DUONEB 0.5-3 MG/3 ml Neb IH SCH ×2 (19:04→22:17)
[2021-01-15] MEDS: Zestril 5 MG PO SCH (20:40)
[2021-01-15] MEDS: celeBREX 100 MG PO SCH (20:40)
[2021-01-15] MEDS: CLARITIN 10 MG PO SCH (20:40)
[2021-01-15] MEDS ORDERED: clonazePAM PO PRN (22:00)
[2021-01-15] MEDS: Zanaflex 4 MG PO PRN (22:36)
[2021-01-16] MEDS: DUONEB 0.5-3 MG/3 ml Neb IH SCH ×6 (02:26→22:03)
[2021-01-16 05:29] LABS: Hematocrit 45.6 % (35-47); Hemoglobin 14.4 gm/dl (12.0-16.0); Mean Cell Volume 86.9 fl (78-100); Mean Corpuscular Hemoglobin 27.4 pg (26-32); Mean Corpuscular Hgb Concent. 31.6 g/dl (32-36); Mean Platelet Volume 10.8 fl (7.5-11.0); Platelet Count 203 K/mm3 (150-450); Red Blood Count 5.25 M/mm3 (4.1-5.4); Red Cell Distribution Width 14.4 % (11.5-14.0); White Blood Count 8.4 K/mm3 (4.0-10.5)
[2021-01-16 05:59] LABS: ALBUMIN 3.9 g/dL (3.5-5.0); ALKALINE PHOSPHATASE 107 U/L (38-126); ANION GAP 18.1 MEQ/L (5-15); BLOOD UREA NITROGEN 23 mg/dL (7-17); CHLORIDE 101 mmol/L (98-107); Calcium 9.5 mg/dL (8.4-10.2); Carbon Dioxide 19 mmol/L (22-30); Creatinine 1 0.65 mg/dL (0.52-1.04); EST GLOMERULAR FILTRATION RATE > 60.0 ML/MIN; Glucose 184 mg/dL (74-106); Potassium 3.7 mmol/L (3.5-5.1); SGOT/AST 34 U/L (14-36); SODIUM 135 mmol/L (137-145); Total Protein 6.4 g/dL (6.3-8.2)
[2021-01-16] MEDS: solu-MEDROL 125 MG IV SCH ×2 (06:01→12:34)
[2021-01-16 06:12] LABS: SGPT/ALT 26 U/L (0-35)
[2021-01-16] MEDS: Advair Hfa 115/21 Common canister IH SCH ×2 (06:45→18:40)
[2021-01-16] MEDS ORDERED: PATIENT OWN MEDICATION IH SCH (07:00)
--- NOTE | 2021-01-16 08:10 | PCM.NOTE ---
Date and Time: 01/16/21 08 Subjective Assessment: doing better. breathing improved. - Review of Systems Constitutional: No Fever, No Chills Eyes: No Symptoms Ears, Nose, & Throat: No Symptoms Respiratory: No Cough, No Short Of Breath Cardiac: No Chest Pain, No Edema, No Syncope Abdominal/Gastrointestinal: No Abdominal Pain, No Nausea, No Vomiting, No Diarrhea Genitourinary Symptoms: No Dysuria Musculoskeletal: No Back Pain, No Neck Pain Skin: No Rash Neurological: No Dizziness, No Focal Weakness, No Sensory Changes Psychological: No Symptoms Endocrine: No Symptoms Hematologic/Lymphatic: No Symptoms Immunological/Allergic: No Symptoms Objective Exam General Appearance: no apparent distress, alert Neurologic Exam: alert, oriented x 3, cooperative, normal mood/affect, nml cerebellar function, sensation nml, No motor deficits Skin Exam: normal color, warm, dry Eye Exam: PERRL, EOMI, eyes nml inspection Ears, Nose, Throat Exam: normal ENT inspection, pharynx normal, moist mucous membranes Neck Exam: normal inspection, non-tender, supple, full range of motion Respiratory Exam: normal breath sounds, lungs clear, No respiratory distress Cardiovascular Exam: regular rate/rhythm, normal heart sounds Gastrointestinal/Abdomen Exam: soft, No tenderness, No mass Extremity Exam: normal inspection, normal range of motion Back Exam: normal inspection, normal range of motion, No CVA tenderness, No vertebral tenderness Pelvic Exam: deferred Rectal Exam: deferred OBJECTIVE DATA Vital Signs: Vital Signs - 24 hr Temp Pulse Resp BP Pulse Ox 01/16/21 06:50 97 H 22 95 01/16/21 04:00 97.8 F 101 H 23 139/69 96 01/16/21 02:26 97 H 16 93 L 01/15/21 23:56 98.1 F 114 H 20 139/76 96 01/15/21 22:18 114 H 20 96 01/15/21 20:59 106 H 20 96 01/15/21 19:50 97.9 F 111 H 22 128/79 96 01/15/21 16:27 103 H 18 95 01/15/21 15:49 98.3 F 110 H 18 139/73 95 01/15/21 15:28 95 01/15/21 14:31 100 H 18 112/61 98 01/15/21 13:44 94 H 24 97 01/15/21 13:28 95 H 18 126/88 97 01/15/21 12:41 95 01/15/21 12:32 98.5 F 114 H 20 107/83 96 Pain Assessment - Last Documented Pain Intensity 1 Intake and Output: Intake & Output 01/13/21 01/14/21 01/15/21 01/16/21 11:59 11:59 11:59 11:59 Intake Total 720 Output Total 900 Balance -180 Weight 90.8 kg Lab Results: Lab Results-Last 24 Hours 01/15/21 01/15/21 01/15/21 Range/Units 12:42 12:42 12:42 WBC 6.7 (4.0-10.5) K/mm3 RBC 5.75 H (4.1-5.4) M/mm3 Hgb 15.7 (12.0-16.0) gm/dl Hct 48.9 H (35-47) % MCV 85.0 (78-100) fl MCH 27.3 (26-32) pg MCHC 32.1 (32-36) g/dl RDW 14.2 H (11.5-14.0) % Plt Count 233 (150-450) K/mm3 MPV 10.7 (7.5-11.0) fl Gran % 56.3 (36.0-66.0) % Eos # (Auto) 0.17 (0-0.5) Absolute Lymphs (auto) 1.97 (1.0-4.6) Absolute Monos (auto) 0.71 (0.0-1.3) Lymphocytes % 29.6 (24.0-44.0) % Monocytes % 10.7 (0.0-12.0) % Eosinophils % 2.6 (0.00-5.0) % Basophils % 0.8 (0.0-0.4) % Absolute Granulocytes 3.76 (1.4-6.9) Basophils # 0.05 (0-0.4) Sodium 134 L (137-145) mmol/L Potassium 3.4 L (3.5-5.1) mmol/L Chloride 101 (98-107) mmol/L Carbon Dioxide 22 (22-30) mmol/L Anion Gap 13.9 (5-15) MEQ/L BUN 25 H (7-17) mg/dL Creatinine 0.74 (0.52-1.04) mg/dL Estimated GFR > 60.0 ML/MIN Glucose 126 H (74-106) mg/dL Calcium 9.5 (8.4-10.2) mg/dL Total Bilirubin 0.30 (0.2-1.3) mg/dL AST 24 (14-36) U/L ALT 19 (0-35) U/L Alkaline Phosphatase 116 (38-126) U/L Troponin I < 0.012 (0.000-0.034) ng/mL NT-Pro-B Natriuret Pep 123 (0-900) pg/mL Serum Total Protein 6.9 (6.3-8.2) g/dL Albumin 4.2 (3.5-5.0) g/dL SARS-CoV-2 (PCR) (NEGATIVE) 01/15/21 01/15/21 01/15/21 Range/Units 14:02 15:10 18:15 WBC (4.0-10.5) K/mm3 RBC (4.1-5.4) M/mm3 Hgb (12.0-16.0) gm/dl Hct (35-47) % MCV (78-100) fl MCH (26-32) pg MCHC (32-36) g/dl RDW (11.5-14.0) % Plt Count (150-450) K/mm3 MPV (7.5-11.0) fl Gran % (36.0-66.0) % Eos # (Auto) (0-0.5) Absolute Lymphs (auto) (1.0-4.6) Absolute Monos (auto) (0.0-1.3) Lymphocytes % (24.0-44.0) % Monocytes % (0.0-12.0) % Eosinophils % (0.00-5.0) % Basophils % (0.0-0.4) % Absolute Granulocytes (1.4-6.9) Basophils # (0-0.4) Sodium (137-145) mmol/L Potassium (3.5-5.1) mmol/L Chloride (98-107) mmol/L Carbon Dioxide (22-30) mmol/L Anion Gap (5-15) MEQ/L BUN (7-17) mg/dL Creatinine (0.52-1.04) mg/dL Estimated GFR ML/MIN Glucose (74-106) mg/dL Calcium (8.4-10.2) mg/dL Total Bilirubin (0.2-1.3) mg/dL AST (14-36) U/L ALT (0-35) U/L Alkaline Phosphatase (38-126) U/L Troponin I < 0.012 < 0.012 (0.000-0.034) ng/mL NT-Pro-B Natriuret Pep (0-900) pg/mL Serum Total Protein (6.3-8.2) g/dL Albumin (3.5-5.0) g/dL SARS-CoV-2 (PCR) NEGATIVE (NEGATIVE) 01/15/21 01/16/21 01/16/21 Range/Units 21:26 00:55 04:15 WBC 8.4 (4.0-10.5) K/mm3 RBC 5.25 (4.1-5.4) M/mm3 Hgb 14.4 (12.0-16.0) gm/dl Hct 45.6 (35-47) % MCV 86.9 (78-100) fl MCH 27.4 (26-32) pg MCHC 31.6 L (32-36) g/dl RDW 14.4 H (11.5-14.0) % Plt Count 203 (150-450) K/mm3 MPV 10.8 (7.5-11.0) fl Gran % (36.0-66.0) % Eos # (Auto) (0-0.5) Absolute Lymphs (auto) (1.0-4.6) Absolute Monos (auto) (0.0-1.3) Lymphocytes % (24.0-44.0) % Monocytes % (0.0-12.0) % Eosinophils % (0.00-5.0) % Basophils % (0.0-0.4) % Absolute Granulocytes (1.4-6.9) Basophils # (0-0.4) Sodium (137-145) mmol/L Potassium (3.5-5.1) mmol/L Chloride (98-107) mmol/L Carbon Dioxide (22-30) mmol/L Anion Gap (5-15) MEQ/L BUN (7-17) mg/dL Creatinine (0.52-1.04) mg/dL Estimated GFR ML/MIN Glucose (74-106) mg/dL Calcium (8.4-10.2) mg/dL Total Bilirubin (0.2-1.3) mg/dL AST (14-36) U/L ALT (0-35) U/L Alkaline Phosphatase (38-126) U/L Troponin I < 0.012 < 0.012 (0.000-0.034) ng/mL NT-Pro-B Natriuret Pep (0-900) pg/mL Serum Total Protein (6.3-8.2) g/dL Albumin (3.5-5.0) g/dL SARS-CoV-2 (PCR) (NEGATIVE) 01/16/21 Range/Units 04:15 WBC (4.0-10.5) K/mm3 RBC (4.1-5.4) M/mm3 Hgb (12.0-16.0) gm/dl Hct (35-47) % MCV (78-100) fl MCH (26-32) pg MCHC (32-36) g/dl RDW (11.5-14.0) % Plt Count (150-450) K/mm3 MPV (7.5-11.0) fl Gran % (36.0-66.0) % Eos # (Auto) (0-0.5) Absolute Lymphs (auto) (1.0-4.6) Absolute Monos (auto) (0.0-1.3) Lymphocytes % (24.0-44.0) % Monocytes % (0.0-12.0) % Eosinophils % (0.00-5.0) % Basophils % (0.0-0.4) % Absolute Granulocytes (1.4-6.9) Basophils # (0-0.4) Sodium 135 L (137-145) mmol/L Potassium 3.7 (3.5-5.1) mmol/L Chloride 101 (98-107) mmol/L Carbon Dioxide 19 L (22-30) mmol/L Anion Gap 18.1 H (5-15) MEQ/L BUN 23 H (7-17) mg/dL Creatinine 0.65 (0.52-1.04) mg/dL Estimated GFR > 60.0 ML/MIN Glucose 184 H (74-106) mg/dL Calcium 9.5 (8.4-10.2) mg/dL Total Bilirubin 0.30 (0.2-1.3) mg/dL AST 34 (14-36) U/L ALT 26 (0-35) U/L Alkaline Phosphatase 107 (38-126) U/L Troponin I (0.000-0.034) ng/mL NT-Pro-B Natriuret Pep (0-900) pg/mL Serum Total Protein 6.4 (6.3-8.2) g/dL Albumin 3.9 (3.5-5.0) g/dL SARS-CoV-2 (PCR) (NEGATIVE) Radiology Exams: Radiology Procedures Category Date Time Status CHEST 1 VIEW (PORTABLE) Stat Exams 01/15/21 12:34 Completed Assessment/Plan (1) COPD exacerbation Current Visit: Yes Status: Acute Assessment & Plan: Chief Complaint Diagnosis chest pain and shortness of breath for 2-3 days Allergies Allergy/AdvReac Type Severity Reaction Status Date / Time shrimp Allergy Intermediate Hives Verified 01/15/21 12:31 contrast dye Allergy Intermediate Hives Uncoded 01/15/21 12:31 Vital Signs (Last 24 hours) Temp Pulse Resp BP Pulse Ox 01/16/21 06:50 97 H 22 95 01/16/21 04:00 97.8 F 101 H 23 139/69 96 01/16/21 02:26 97 H 16 93 L 01/15/21 23:56 98.1 F 114 H 20 139/76 96 01/15/21 22:18 114 H 20 96 01/15/21 20:59 106 H 20 96 01/15/21 19:50 97.9 F 111 H 22 128/79 96 01/15/21 16:27 103 H 18 95 01/15/21 15:49 98.3 F 110 H 18 139/73 95 01/15/21 15:28 95 01/15/21 14:31 100 H 18 112/61 98 01/15/21 13:44 94 H 24 97 01/15/21 13:28 95 H 18 126/88 97 01/15/21 12:41 95 01/15/21 12:32 98.5 F 114 H 20 107/83 96 Home Medications Medication Instructions Recorded Confirmed Last Taken Type Amlodipine Besylate 2.5 mg PO DAILY 01/15/21 01/15/21 01/15/21 History Celecoxib 100 mg [celeBREX 100 100 mg PO BID 01/15/21 01/15/21 01/15/21 History MG] Chlorthalidone 25 mg PO DAILY 01/15/21 01/15/21 01/15/21 History Fluticasone/Umeclidin/Vilanter 2 puffs IH DAILY 01/15/21 01/15/21 01/15/21 History [Cirilo Pettitta 100-62.5-25] Current Medications Generic Name Dose Route Start Last Admin Trade Name Freq PRN Reason Stop Dose Admin Albuterol/Ipratropium 3 ml 01/15/21 19:00 01/16/21 06:45 Duoneb 0.5-3 Mg/3 Ml Neb IH 02/14/21 18:59 3 ml Q4HRT ASIYA Administration Amlodipine Besylate 2.5 mg 01/16/21 10:00 Norvasc 5 Mg PO 02/15/21 09:59 DAILY ASIYA Aspirin 81 mg 01/16/21 10:00 Ecotrin 81 Mg PO 02/15/21 09:59 DAILY ASIYA Celecoxib 100 mg 01/15/21 22:00 01/15/21 20:40 Celebrex 100 Mg PO 02/14/21 21:59 100 mg BID ASIYA Administration Clonazepam 0.5 mg 01/15/21 22:00 01/15/21 20:47 Clonazepam PO 02/14/21 21:59 0.5 mg BID PRN PRN Administration Lisinopril 2.5 mg 01/15/21 22:00 01/15/21 20:40 Zestril 5 Mg PO 02/14/21 21:59 2.5 mg BID ASIYA Administration Loratadine 10 mg 01/15/21 22:00 01/15/21 20:40 Claritin 10 Mg PO 02/14/21 21:59 10 mg HS ASIYA Administration Methylprednisolone Sodium Succinate 80 mg 01/15/21 18:00 01/16/21 06:01 Solu-Medrol 125 Mg IV 02/14/21 17:59 80 mg Q6HT ASIYA Administration Montelukast Sodium 10 mg 01/16/21 10:00 Singulair 10 Mg PO 02/15/21 09:59 DAILY ASIYA Non-Formulary Medication 0 mg 01/16/21 10:00 Chlorthalidone [Chlorthalidone] PO 02/15/21 09:59 DAILY ASIYA Pantoprazole Sodium 40 mg 01/16/21 10:00 Protonix 40mg Tablet PO 02/15/21 09:59 DAILY ASIYA Fluticasone/Salmeterol 2 puff 01/15/21 19:00 01/16/21 06:45 Advair Hfa 115/ Common Canister* IH 02/14/21 18:59 2 puff BIDRT ASIYA Administration Tizanidine HCl 4 mg 01/15/21 17:24 01/15/21 22:36 Zanaflex 4 Mg PO 02/14/21 17:23 4 mg Q8H PRN PRN Administration MUSCLE SPASMS Discontinued Medications Generic Name Dose Route Start Last Admin Trade Name Freq PRN Reason Stop Dose Admin Albuterol Sulfate 2.5 mg 01/15/21 19:00 Proventil 2.5 Mg/3 Ml Neb IH 02/14/21 18:59 Q4HRT ASIYA Albuterol/Ipratropium 3 ml 01/15/21 13:01 01/15/21 13:41 Duoneb 0.5-3 Mg/3 Ml Neb IH 01/15/21 13:02 3 ml STAT ONE Administration Albuterol/Ipratropium Confirm 01/15/21 13:38 Duoneb 0.5-3 Mg/3 Ml Neb Administered 01/15/21 13:39 Dose 3 ml IH .STK-MED ONE Aspirin 324 mg 01/15/21 13:09 01/15/21 13:19 Baby Aspirin 81 Mg Chew PO 01/15/21 13:10 324 mg STAT ONE Administration Aspirin Confirm 01/15/21 13:18 Baby Aspirin 81 Mg Chew Administered 01/15/21 13:19 Dose 324 mg .ROUTE .STK-MED ONE Azithromycin 500 mg in 250 mls @ 250 mls/hr 01/15/21 13:02 01/15/21 13:44 Zithromax 500 Mg/ 250 Ml Nacl Premix IV 01/15/21 14:01 100 mls/hr STAT STA 100 mls/hr Administration Ceftriaxone Sodium/Dextrose 2 g in 50 mls @ 100 mls/hr 01/15/21 13:02 01/15/21 14:07 Rocephin 2 Gm-D5w 50ml Bag IV 01/15/21 13:31 Infused STAT STA Infusion Azithromycin Confirm 01/15/21 13:11 Zithromax 500 Mg/ 250 Ml Nacl Premix Administered 01/15/21 13:12 Dose 500 mg in 250 mls @ ud IV .STK-MED ONE Ceftriaxone Sodium/Dextrose Confirm 01/15/21 13:11 Rocephin 2 Gm-D5w 50ml Bag Administered 01/15/21 13:12 Dose 2 g in 50 mls @ ud IV .STK-MED ONE Methylprednisolone Sodium Succinate 125 mg 01/15/21 13:01 01/15/21 13:17 Solu-Medrol 125 Mg IV 01/15/21 13:02 125 mg STAT ONE Administration Methylprednisolone Sodium Succinate Confirm 01/15/21 13:11 Solu-Medrol 125 Mg Administered 01/15/21 13:12 Dose 125 mg .ROUTE .STK-MED ONE Methylprednisolone Sodium Succinate 80 mg 01/15/21 18:00 Solu-Medrol 125 Mg IV 02/14/21 17:59 Q6HT SAIYA Methylprednisolone Sodium Succinate 80 mg 01/15/21 20:00 Solu-Medrol 125 Mg IV 02/14/21 19:59 Q6HT ASIYA Nitroglycerin 1 gm 01/15/21 13:09 01/15/21 13:20 Nitro-Bid 2% Ud Packets TOP 01/15/21 13:10 1 gm STAT ONE Administration Nitroglycerin Confirm 01/15/21 13:19 Nitro-Bid 2% Ud Packets Administered 01/15/21 13:20 Dose 1 gm .ROUTE .STK-MED ONE Non-Formulary Medication 2 puffs 01/16/21 10:00 Fluticasone/Umeclidin/Vilanter [Trelegy Ellipta 100-62.5-25] 02/15/21 09:59 DAILY ASIYA Patient Own Medication 1 each 01/16/21 07:00 Patient Own Medication 02/15/21 06:59 DAILY ASIYA Potassium Chloride 40 meq 01/15/21 13:39 01/15/21 14:28 Klor Con 10 Meq PO 06/17/21 13:40 40 meq STAT ONE Administration Potassium Chloride Confirm 01/15/21 14:27 Klor Con 10 Meq Administered 01/15/21 14:28 Dose 40 meq PO .STK-MED ONE Tizanidine HCl 4 mg 01/15/21 17:00 01/15/21 17:24 Zanaflex 4 Mg PO 02/14/21 16:59 Not Given Q8H ASIYA Intake & Output (Last 24 hours) 01/13/21 01/14/21 01/15/21 01/16/21 11:59 11:59 11:59 11:59 Intake Total 720 Output Total 900 Balance -180 Weight 90.8 kg Microbiology Results (Last 24 hours) 01/15/21 13:20 Blood Blood Culture Gram Stain - Pending 01/15/21 13:20 Blood Blood Culture - Pending 01/15/21 13:15 Blood Blood Culture Gram Stain - Pending 01/15/21 13:15 Blood Blood Culture - Pending Laboratory Results (Last 24 hours) 01/16/21 01/16/21 01/16/21 04:15 04:15 00:55 WBC 8.4 RBC 5.25 Hgb 14.4 Hct 45.6 MCV 86.9 MCH 27.4 MCHC 31.6 L RDW 14.4 H Plt Count 203 MPV 10.8 Gran % Eos # (Auto) Absolute Lymphs (auto) Absolute Monos (auto) Lymphocytes % Monocytes % Eosinophils % Basophils % Absolute Granulocytes Basophils # Sodium 135 L Potassium 3.7 Chloride 101 Carbon Dioxide 19 L Anion Gap 18.1 H BUN 23 H Creatinine 0.65 Estimated GFR > 60.0 Glucose 184 H Calcium 9.5 Total Bilirubin 0.30 AST 34 ALT 26 Alkaline Phosphatase 107 Troponin I < 0.012 NT-Pro-B Natriuret Pep Serum Total Protein 6.4 Albumin 3.9 SARS-CoV-2 (PCR) 01/15/21 01/15/21 01/15/21 21:26 18:15 15:10 WBC RBC Hgb Hct MCV MCH MCHC RDW Plt Count MPV Gran % Eos # (Auto) Absolute Lymphs (auto) Absolute Monos (auto) Lymphocytes % Monocytes % Eosinophils % Basophils % Absolute Granulocytes Basophils # Sodium Potassium Chloride Carbon Dioxide Anion Gap BUN Creatinine Estimated GFR Glucose Calcium Total Bilirubin AST ALT Alkaline Phosphatase Troponin I < 0.012 < 0.012 < 0.012 NT-Pro-B Natriuret Pep Serum Total Protein Albumin SARS-CoV-2 (PCR) 01/15/21 01/15/21 01/15/21 14:02 12:42 12:42 WBC RBC Hgb Hct MCV MCH MCHC RDW Plt Count MPV Gran % Eos # (Auto) Absolute Lymphs (auto) Absolute Monos (auto) Lymphocytes % Monocytes % Eosinophils % Basophils % Absolute Granulocytes Basophils # Sodium 134 L Potassium 3.4 L Chloride 101 Carbon Dioxide 22 Anion Gap 13.9 BUN 25 H Creatinine 0.74 Estimated GFR > 60.0 Glucose 126 H Calcium 9.5 Total Bilirubin 0.30 AST 24 ALT 19 Alkaline Phosphatase 116 Troponin I < 0.012 NT-Pro-B Natriuret Pep 123 Serum Total Protein 6.9 Albumin 4.2 SARS-CoV-2 (PCR) NEGATIVE 01/15/21 12:42 WBC 6.7 RBC 5.75 H Hgb 15.7 Hct 48.9 H MCV 85.0 MCH 27.3 MCHC 32.1 RDW 14.2 H Plt Count 233 MPV 10.7 Gran % 56.3 Eos # (Auto) 0.17 Absolute Lymphs (auto) 1.97 Absolute Monos (auto) 0.71 Lymphocytes % 29.6 Monocytes % 10.7 Eosinophils % 2.6 Basophils % 0.8 Absolute Granulocytes 3.76 Basophils # 0.05 Sodium Potassium Chloride Carbon Dioxide Anion Gap BUN Creatinine Estimated GFR Glucose Calcium Total Bilirubin AST ALT Alkaline Phosphatase Troponin I NT-Pro-B Natriuret Pep Serum Total Protein Albumin SARS-CoV-2 (PCR) Orders (Last 24 hours) Category Date Time Status Bedrest with BRP/BSC ROUTINE Activity 01/15/21 15:47 Active Sourcing Analyst STAT Care 01/15/21 12:34 Completed Code Status Order ROUTINE Care 01/15/21 15:47 Active EKG-ER Only STAT Care 01/15/21 12:33 Completed IV Care Q6H Care 01/15/21 15:47 Active IV Insertion STAT Care 01/15/21 12:[address] in Observation ROUTINE Care 01/15/21 15:47 Active Pulse Oximetry (ED) STAT Care 01/15/21 12:33 Completed Selvin Tamayo ROUTINE Care 01/15/21 15:47 Active Telemetry q4h Care 01/15/21 15:47 Active Weight,Daily 0600 Care 01/15/21 15:47 Active Consistent Carbohydrate Diet 1800 Calorie Diet 01/15/21 Dinner Completed House Regular Diet Diet 01/15/21 Dinner Active CHEST 1 VIEW (PORTABLE) Stat Exams 01/15/21 12:34 Completed BLOOD CULTURE Stat Lab 01/15/21 13:20 Received CBC AM.LAB Lab 01/16/21 04:15 Completed CBC W DIFF Stat Lab 01/15/21 12:42 Completed CMP AM.LAB Lab 01/16/21 04:15 Completed CMP Stat Lab 01/15/21 12:42 Completed NT PRO BNP Stat Lab 01/15/21 12:42 Completed TROPONIN Q3H Lab 01/15/21 12:42 Completed TROPONIN Q3H Lab 01/15/21 15:10 Completed TROPONIN Q3H Lab 01/15/21 18:15 Completed TROPONIN Q3H Lab 01/15/21 21:26 Completed TROPONIN Q3H Lab 01/16/21 00:55 Completed Albuterol 2.5 mg/3 ml Neb [Proventil 2.5 mg/3 ml Neb Med 01/15/21 19:00 Discontinued ] 2.5 mg IH Q4HRT Albuterol/Ipratropium 3ml Neb* [DUONEB 0.5-3 MG/3 ml Med 01/15/21 13:38 Discontinued Neb] 3 ml IH .STK-MED ONE Albuterol/Ipratropium 3ml Neb* [DUONEB 0.5-3 MG/3 ml Med 01/15/21 19:00 Active Neb] 3 ml IH Q4HRT Albuterol/Ipratropium 3ml Neb* [DUONEB 0.5-3 MG/3 ml Med 01/15/21 13:01 Discontinued Neb] 3 ml IH STAT ONE Amlodipine Besylate 5 mg [Norvasc 5 mg] Med 01/16/21 10:00 Active 2.5 mg PO DAILY Aspirin 81 gm Chew [Baby Aspirin 81 mg Chew] Med 01/15/21 13:18 Discontinued 324 mg .ROUTE .STK-MED ONE Aspirin 81 gm Chew [Baby Aspirin 81 mg Chew] Med 01/15/21 13:09 Discontinued 324 mg PO STAT ONE Aspirin EC 81 mg [Ecotrin 81 mg] Med 01/16/21 10:00 Active 81 mg PO DAILY Azithromycin 500 mg/250 ml [Zithromax 500 MG/ 250 ML Med 01/15/21 13:02 Discontinued NaCl Premix] 500 mg in 250 ml IV STAT Azithromycin 500 mg/250 ml [Zithromax 500 MG/ 250 ML Med 01/15/21 13:11 Discontinued NaCl Premix] 500 mg in 250 ml IV UD Ceftriaxone 2 GM/50 ML PREMIX* [ROCEPHIN 2 Gm-D5w 50ML Med 01/15/21 13:02 Discontinued BAG] 2 g in 50 ml IV STAT Ceftriaxone 2 GM/50 ML PREMIX* [ROCEPHIN 2 Gm-D5w 50ML Med 01/15/21 13:11 Discontinued BAG] 2 g in 50 ml IV UD Celecoxib 100 mg [celeBREX 100 MG] Med 01/15/21 22:00 Active 100 mg PO BID Chlorthalidone [Chlorthalidone] Med 01/16/21 10:00 Active 0 mg PO DAILY Fluticasone/Salmeterol 115/ [Advair Hfa 115/21 Common Med 01/15/21 19:00 Active canister*] 2 puff IH BIDRT Fluticasone/Umeclidin/Vilanter [Trelegy Ellipta 100-62. Med 01/16/21 10:00 Discontinued 5-25] 2 puffs IH DAILY Lisinopril 5 mg [Zestril 5 MG] Med 01/15/21 22:00 Active 2.5 mg PO BID Loratadine 10 mg [Claritin 10 mg] Med 01/15/21 22:00 Active 10 mg PO HS Methylprednis Sod Succ 125 mg* [solu-MEDROL 125 MG] Med 01/15/21 13:11 Discontinued 125 mg .ROUTE .STK-MED ONE Methylprednis Sod Succ 125 mg* [solu-MEDROL 125 MG] Med 01/15/21 13:01 Discontinued 125 mg IV STAT ONE Methylprednis Sod Succ 125 mg* [solu-MEDROL 125 MG] Med 01/15/21 18:00 Active 80 mg IV Q6HT Methylprednis Sod Succ 125 mg* [solu-MEDROL 125 MG] Med 01/15/21 18:00 Discontinued 80 mg IV Q6HT Methylprednis Sod Succ 125 mg* [solu-MEDROL 125 MG] Med 01/15/21 20:00 Discontinued 80 mg IV Q6HT Montelukast Sodium 10 mg [Singulair 10 MG] Med 01/16/21 10:00 Active 10 mg PO DAILY Nitroglycerin 2 %Ointment [Nitro-Bid 2% Ud Packets Med 01/15/21 13:19 Discontinued *] 1 gm .ROUTE .STK-MED ONE Nitroglycerin 2 %Ointment [Nitro-Bid 2% Ud Packets Med 01/15/21 13:09 Discontinued *] 1 gm TOP STAT ONE PANTOPRAZOLE 40 mg Tablet [Protonix 40MG Tablet] Med 01/16/21 10:00 Active 40 mg PO DAILY Patient Own Med [Patient Own Medication] Med 01/16/21 07:00 Discontinued 1 each IH DAILY Potassium Chloride 10 Meq Tab* [Klor Con 10 MEQ] Med 01/15/21 14:27 Discontinued 40 meq PO .STK-MED ONE Potassium Chloride 10 Meq Tab* [Klor Con 10 MEQ] Med 01/15/21 13:39 Discontinued 40 meq PO STAT ONE Tizanidine HCl 4 mg [Zanaflex 4 MG] Med 01/15/21 17:00 Discontinued 4 mg PO Q8H Tizanidine HCl 4 mg [Zanaflex 4 MG] Med 01/15/21 17:24 Active 4 mg PO Q8H PRN PRN clonazePAM Med 01/15/21 22:00 Active 0.5 mg PO BID PRN PRN BiPap/CPAP ROUTINE RT 01/15/21 21:00 Active Peak Expiratory Flow Rate BEFORE&AFTER NEB TX RT 01/15/21 15:47 Completed Pulse Oximetry .continuos RT 01/15/21 15:47 Active Respiratory MDI UD RT 01/16/21 07:00 Completed Respiratory Therapy Assessment DAILY RT 01/15/21 13:44 Active Code(s): J44.1 - CHRONIC OBSTRUCTIVE PULMONARY DISEASE W (ACUTE) EXACERBATION (2) Chest pain Current Visit: Yes Status: Resolved Qualifiers: Chest pain type: chest pain on breathing Qualified Code(s): R07.1 - Chest pain on breathing; R07.81 - Pleurodynia Code(s): R07.9 - CHEST PAIN, UNSPECIFIED
[2021-01-16] MEDS ORDERED: UMECLIDIN IH SCH (10:00)
[2021-01-16] MEDS ORDERED: NON-FORMULARY ITEM (Chlorthalidone [Chlorthalidone] 25 MG) PO SCH (10:00)
[2021-01-16] MEDS ORDERED: [UNRECOGNIZED DRUG - OTHER] IH SCH (10:00)
[2021-01-16] MEDS ORDERED: VILANTER IH SCH (10:00)
[2021-01-16] MEDS ORDERED: Protonix 40MG Tablet PO SCH (10:00)
[2021-01-16] MEDS ORDERED: FLUTICASONE IH SCH (10:00)
[2021-01-16] MEDS ORDERED: ECOTRIN 81 MG PO SCH (10:00)
[2021-01-16] MEDS ORDERED: NON-FORMULARY ITEM (Amlodipine Besylate [Amlodipine Besylate] 2.5 MG) PO SCH (10:00)
[2021-01-16] MEDS ORDERED: Singulair 10 MG PO SCH (10:00)
[2021-01-16] MEDS ORDERED: NON-FORMULARY ITEM (Omeprazole [Omeprazole] 40 MG) PO SCH (10:00)
[2021-01-16] MEDS ORDERED: NORVASC 5 MG PO SCH (10:00)
[2021-01-16] MEDS ORDERED: NON-FORMULARY ITEM (Chlorthalidone [Chlorthalidone] 0 MG) PO SCH (10:00)
[2021-01-16] MEDS: PULMICORT 0.5 MG/2 ML RESPULES IH SCH ×2 (10:10→18:39)
[2021-01-16] MEDS: celeBREX 100 MG PO SCH ×2 (10:28→22:16)
[2021-01-16] MEDS: Zestril 5 MG PO SCH ×2 (10:29→22:16)
[2021-01-16] MEDS: Zanaflex 4 MG PO PRN (10:37)
[2021-01-16] MEDS: NORCO 5/325 MG PO PRN ×2 (14:53→22:23)
[2021-01-16] MEDS ORDERED: solu-MEDROL 125 MG IV SCH ×2 (17:30→22:00)
[2021-01-16] MEDS: CLARITIN 10 MG PO SCH (22:16)
[2021-01-17] MEDS: DUONEB 0.5-3 MG/3 ml Neb IH SCH ×2 (02:55→06:47)
--- NOTE | 2021-01-17 03:10 | PCM.DS ---
Discharge Summary Date of Admission: 01/15/21 15:44 Admitting Physician: DAVID MORFIN Primary Care Provider: DAVID MORFIN Allergies Allergies shrimp Allergy (Intermediate, Verified 01/15/21 12:31) Hives contrast dye Allergy (Intermediate, Uncoded 01/15/21 12:31) [facility] Hospital Summary - Hospital Course Hospital Course: Chief Complaint Diagnosis chest pain and shortness of breath for 2-3 days Allergies Allergy/AdvReac Type Severity Reaction Status Date / Time shrimp Allergy Intermediate Hives Verified 01/15/21 12:31 contrast dye Allergy Intermediate Hives Uncoded 01/15/21 12:31 Vital Signs (Last 24 hours) Temp Pulse Resp BP Pulse Ox 01/17/21 02:57 96 H 16 95 01/17/21 00:12 98.2 F 105 H 18 102/50 94 L 01/16/21 22:00 112 H 20 96 01/16/21 19:49 98.0 F 116 H 22 135/69 94 L 01/16/21 18:44 105 H 16 95 01/16/21 16:00 98.6 F 110 H 28 H 134/60 96 01/16/21 14:30 101 H 20 95 01/16/21 12:00 98.5 F 122 H 28 H 145/69 96 01/16/21 10:13 106 H 20 95 01/16/21 08:00 97.7 F 101 H 28 H 133/79 95 01/16/21 06:50 97 H 22 95 01/16/21 04:00 97.8 F 101 H 23 139/69 96 Home Medications Medication Instructions Recorded Confirmed Last Taken Type Amlodipine Besylate 2.5 mg PO DAILY 01/15/21 01/15/21 01/15/21 History Celecoxib 100 mg [celeBREX 100 100 mg PO BID 01/15/21 01/15/21 01/15/21 History MG] Chlorthalidone 25 mg PO DAILY 01/15/21 01/15/21 01/15/21 History Fluticasone/Umeclidin/Vilanter 2 puffs IH DAILY 01/15/21 01/15/21 01/15/21 History [Trelebienvenido Ellipta 100-62.5-25] Current Medications Generic Name Dose Route Start Last Admin Trade Name Freq PRN Reason Stop Dose Admin Hydrocodone Bitart/Acetaminophen 1 tab 01/16/21 14:38 01/16/21 22:23 [place] 5/325 Mg PO 01/21/21 14:37 1 tab QID PRN PRN Administration PAIN Albuterol/Ipratropium 3 ml 01/15/21 19:00 01/17/21 02:55 Duoneb 0.5-3 Mg/3 Ml Neb IH 02/14/21 18:59 3 ml Q4HRT ASIYA Administration Amlodipine Besylate 2.5 mg 01/16/21 10:00 01/16/21 10:28 Norvasc 5 Mg PO 02/15/21 09:59 2.5 mg DAILY ASIYA Administration Aspirin 81 mg 01/16/21 10:00 01/16/21 10:28 Ecotrin 81 Mg PO 02/15/21 09:59 81 mg DAILY ASIYA Administration Budesonide 0.5 mg 01/16/21 10:00 01/16/21 18:39 Pulmicort 0.5 Mg/2 Ml Respules IH 02/15/21 09:59 0.5 mg BIDRT ASIYA Administration Celecoxib 100 mg 01/15/21 22:00 01/16/21 22:16 Celebrex 100 Mg PO 02/14/21 21:59 100 mg BID ASIYA Administration Clonazepam 0.5 mg 01/15/21 22:00 01/15/21 20:47 Clonazepam PO 02/14/21 21:59 0.5 mg BID PRN PRN Administration Lisinopril 2.5 mg 01/15/21 22:00 01/16/21 22:16 Zestril 5 Mg PO 02/14/21 21:59 2.5 mg BID ASIYA Administration Loratadine 10 mg 01/15/21 22:00 01/16/21 22:16 Claritin 10 Mg PO 02/14/21 21:59 10 mg HS ASIYA Administration Methylprednisolone Sodium Succinate 80 mg 01/16/21 22:00 01/16/21 22:16 Solu-Medrol 125 Mg IV 02/15/21 21:59 80 mg Q12H ASIYA Administration Montelukast Sodium 10 mg 01/16/21 10:00 01/16/21 10:29 Singulair 10 Mg PO 02/15/21 09:59 10 mg DAILY ASIYA Administration Non-Formulary Drug ( 0 each 01/17/21 10:00 Chlorthalidone) PO 02/16/21 09:59 DAILY ASIYA Pantoprazole Sodium 40 mg 01/16/21 10:00 01/16/21 10:29 Protonix 40mg Tablet PO 02/15/21 09:59 40 mg DAILY ASIYA Administration Fluticasone/Salmeterol 2 puff 01/15/21 19:00 01/16/21 18:40 Advair Hfa 115/ Common Canister* IH 02/14/21 18:59 2 puff BIDRT ASIYA Administration Tizanidine HCl 4 mg 01/15/21 17:24 01/16/21 10:37 Zanaflex 4 Mg PO 02/14/21 17:23 4 mg Q8H PRN PRN Administration MUSCLE SPASMS Discontinued Medications Generic Name Dose Route Start Last Admin Trade Name Freq PRN Reason Stop Dose Admin Albuterol Sulfate 2.5 mg 01/15/21 19:00 Proventil 2.5 Mg/3 Ml Neb IH 02/14/21 18:59 Q4HRT ASIYA Albuterol/Ipratropium 3 ml 01/15/21 13:01 01/15/21 13:41 Duoneb 0.5-3 Mg/3 Ml Neb IH 01/15/21 13:02 3 ml STAT ONE Administration Albuterol/Ipratropium Confirm 01/15/21 13:38 Duoneb 0.5-3 Mg/3 Ml Neb Administered 01/15/21 13:39 Dose 3 ml IH .STK-MED ONE Aspirin 324 mg 01/15/21 13:09 01/15/21 13:19 Baby Aspirin 81 Mg Chew PO 01/15/21 13:10 324 mg STAT ONE Administration Aspirin Confirm 01/15/21 13:18 Baby Aspirin 81 Mg Chew Administered 01/15/21 13:19 Dose 324 mg .ROUTE .STK-MED ONE Azithromycin 500 mg in 250 mls @ 250 mls/hr 01/15/21 13:02 01/15/21 13:44 Zithromax 500 Mg/ 250 Ml Nacl Premix IV 01/15/21 14:01 100 mls/hr STAT STA 100 mls/hr Administration Ceftriaxone Sodium/Dextrose 2 g in 50 mls @ 100 mls/hr 01/15/21 13:02 01/15/21 14:07 Rocephin 2 Gm-D5w 50ml Bag IV 01/15/21 13:31 Infused STAT STA Infusion Azithromycin Confirm 01/15/21 13:11 Zithromax 500 Mg/ 250 Ml Nacl Premix Administered 01/15/21 13:12 Dose 500 mg in 250 mls @ ud IV .STK-MED ONE Ceftriaxone Sodium/Dextrose Confirm 01/15/21 13:11 Rocephin 2 Gm-D5w 50ml Bag Administered 01/15/21 13:12 Dose 2 g in 50 mls @ ud IV .STK-MED ONE Methylprednisolone Sodium Succinate 125 mg 01/15/21 13:01 01/15/21 13:17 Solu-Medrol 125 Mg IV 01/15/21 13:02 125 mg STAT ONE Administration Methylprednisolone Sodium Succinate Confirm 01/15/21 13:11 Solu-Medrol 125 Mg Administered 01/15/21 13:12 Dose 125 mg .ROUTE .STK-MED ONE Methylprednisolone Sodium Succinate 80 mg 01/15/21 18:00 Solu-Medrol 125 Mg IV 02/14/21 17:59 Q6HT ASIYA Methylprednisolone Sodium Succinate 80 mg 01/15/21 20:00 Solu-Medrol 125 Mg IV 02/14/21 19:59 Q6HT ASIYA Methylprednisolone Sodium Succinate 80 mg 01/15/21 18:00 01/16/21 12:34 Solu-Medrol 125 Mg IV 02/14/21 17:59 80 mg Q6HT ASIYA Administration Methylprednisolone Sodium Succinate 80 mg 01/16/21 17:30 Solu-Medrol 125 Mg IV 02/15/21 17:29 Q12H ASIYA Nitroglycerin 1 gm 01/15/21 13:09 01/15/21 13:20 Nitro-Bid 2% Ud Packets TOP 01/15/21 13:10 1 gm STAT ONE Administration Nitroglycerin Confirm 01/15/21 13:19 Nitro-Bid 2% Ud Packets Administered 01/15/21 13:20 Dose 1 gm .ROUTE .STK-MED ONE Non-Formulary Medication 2 puffs 01/16/21 10:00 Fluticasone/Umeclidin/Vilanter [Trelegy Ellipta 100-62.5-25] IH 02/15/21 09:59 DAILY ASIYA Non-Formulary Medication 0 mg 01/16/21 10:00 01/16/21 10:31 Chlorthalidone [Chlorthalidone] PO 02/15/21 09:59 25 mg DAILY ASIYA Administration Patient Own Medication 1 each 01/16/21 07:00 Patient Own Medication 02/15/21 06:59 DAILY ASIYA Potassium Chloride 40 meq 01/15/21 13:39 01/15/21 14:28 Klor Con 10 Meq PO 01/15/21 13:40 40 meq STAT ONE Administration Potassium Chloride Confirm 01/15/21 14:27 Klor Con 10 Meq Administered 01/15/21 14:28 Dose 40 meq PO .STK-MED ONE Tizanidine HCl 4 mg 01/15/21 17:00 01/15/21 17:24 Zanaflex 4 Mg PO 02/14/21 16:59 Not Given Q8H ASIYA Intake & Output (Last 24 hours) 01/14/21 01/15/21 01/16/21 01/17/21 11:59 11:59 11:59 11:59 Intake Total 960 920 Output Total 900 Balance 60 920 Weight 90.8 kg Laboratory Results (Last 24 hours) 01/16/21 01/16/21 01/16/21 20:55 16:15 05:00 WBC RBC Hgb Hct MCV MCH MCHC RDW Plt Count MPV Sodium Potassium Chloride Carbon Dioxide Anion Gap BUN Creatinine Estimated GFR Glucose POC Glucometer 211 H 183 H Hemoglobin A1c 5.29 Calcium Total Bilirubin AST ALT Alkaline Phosphatase Serum Total Protein Albumin 01/16/21 01/16/21 04:15 04:15 WBC 8.4 RBC 5.25 Hgb 14.4 Hct 45.6 MCV 86.9 MCH 27.4 MCHC 31.6 L RDW 14.4 H Plt Count 203 MPV 10.8 Sodium 135 L Potassium 3.7 Chloride 101 Carbon Dioxide 19 L Anion Gap 18.1 H BUN 23 H Creatinine 0.65 Estimated GFR > 60.0 Glucose 184 H POC Glucometer Hemoglobin A1c Calcium 9.5 Total Bilirubin 0.30 AST 34 ALT 26 Alkaline Phosphatase 107 Serum Total Protein 6.4 Albumin 3.9 Orders (Last 24 hours) Category Date Time Status POCT Glucose Check ACHS Care 01/16/21 15:41 Active CBC AM.LAB Lab 01/16/21 04:15 Completed CMP AM.LAB Lab 01/16/21 04:15 Completed HEMOGLOBIN A1C Stat Lab 01/16/21 05:00 Completed POCT GLUCOSE Stat Lab 01/16/21 16:15 Completed POCT GLUCOSE Stat Lab 01/16/21 20:55 Completed Amlodipine Besylate 5 mg [Norvasc 5 mg] Med 01/16/21 10:00 Active 2.5 mg PO DAILY Aspirin EC 81 mg [Ecotrin 81 mg] Med 01/16/21 10:00 Active 81 mg PO DAILY Budesonide 0.5 mg/2 ml [Pulmicort 0.5 mg/2 ml Med 01/16/21 10:00 Active Respules] 0.5 mg IH BIDRT Chlorthalidone [Chlorthalidone] Med 01/16/21 10:00 Discontinued 0 mg PO DAILY Fluticasone/Umeclidin/Vilanter [Trelegy Ellipta 100-62. Med 01/16/21 10:00 Discontinued 5-25] 2 puffs IH DAILY Hydrocodone/APAP 5/325 [[place]wick 5/325 mg] Med 01/16/21 14:38 Active 1 tab PO QID PRN PRN Methylprednis Sod Succ 125 mg* [solu-MEDROL 125 MG] Med 01/16/21 17:30 Discontinued 80 mg IV Q12H Methylprednis Sod Succ 125 mg* [solu-MEDROL 125 MG] Med 01/16/21 22:00 Active 80 mg IV Q12H Montelukast Sodium 10 mg [Singulair 10 MG] Med 01/16/21 10:00 Active 10 mg PO DAILY Non-Formulary Drug [Non-Formulary Item] Med 01/17/21 10:00 Active 0 each PO DAILY PANTOPRAZOLE 40 mg Tablet [Protonix 40MG Tablet] Med 01/16/21 10:00 Active 40 mg PO DAILY Patient Own Med [Patient Own Medication] Med 01/16/21 07:00 Discontinued 1 each IH DAILY Respiratory MDI UD RT 01/16/21 07:00 Completed Patient Care Notes (Last 24 hours) 01/16/21 19:15 (created 01/17/21 01:49) Nursing Note by Estelle Culver Rounded with Dr. Morfin at bedside. Plan of care discussed with patient. Will dc home tomorrow. Consult respiratory regarding overnight pulse ox vs adding O2 to pt's CPAP. Respiratory notified. Initialized on 01/17/21 01:49 - END OF NOTE - Vitals & Intake/Output Vital Signs: Vital Signs Temperature 98.2 F 01/17/21 00:12 Pulse Rate 96 H 01/17/21 02:57 Respiratory Rate 16 01/17/21 02:57 Blood Pressure 102/50 01/17/21 00:12 O2 Sat by Pulse Oximetry 95 01/17/21 02:57 Intake & Output: Intake & Output 01/14/21 01/15/21 01/16/21 01/17/21 11:59 11:59 11:59 11:59 Intake Total 960 920 Output Total 900 Balance 60 920 Weight 90.8 kg - Lab Result Diagrams: 01/16/21 04:15 01/16/21 04:15 Lab Results-Last 24 Hrs: Lab Results-Last 24 Hours 01/16/21 01/16/21 01/16/21 Range/Units 04:15 04:15 05:00 WBC 8.4 (4.0-10.5) K/mm3 RBC 5.25 (4.1-5.4) M/mm3 Hgb 14.4 (12.0-16.0) gm/dl Hct 45.6 (35-47) % MCV 86.9 (78-100) fl MCH 27.4 (26-32) pg MCHC 31.6 L (32-36) g/dl RDW 14.4 H (11.5-14.0) % Plt Count 203 (150-450) K/mm3 MPV 10.8 (7.5-11.0) fl Sodium 135 L (137-145) mmol/L Potassium 3.7 (3.5-5.1) mmol/L Chloride 101 (98-107) mmol/L Carbon Dioxide 19 L (22-30) mmol/L Anion Gap 18.1 H (5-15) MEQ/L BUN 23 H (7-17) mg/dL Creatinine 0.65 (0.52-1.04) mg/dL Estimated GFR > 60.0 ML/MIN Glucose 184 H (74-106) mg/dL POC Glucometer (74 to 106) mg/dL Hemoglobin A1c 5.29 (4.5-6.0) % Calcium 9.5 (8.4-10.2) mg/dL Total Bilirubin 0.30 (0.2-1.3) mg/dL AST 34 (14-36) U/L ALT 26 (0-35) U/L Alkaline Phosphatase 107 (38-126) U/L Serum Total Protein 6.4 (6.3-8.2) g/dL Albumin 3.9 (3.5-5.0) g/dL 01/16/21 01/16/21 Range/Units 16:15 20:55 WBC (4.0-10.5) K/mm3 RBC (4.1-5.4) M/mm3 Hgb (12.0-16.0) gm/dl Hct (35-47) % MCV (78-100) fl MCH (26-32) pg MCHC (32-36) g/dl RDW (11.5-14.0) % Plt Count (150-450) K/mm3 MPV (7.5-11.0) fl Sodium (137-145) mmol/L Potassium (3.5-5.1) mmol/L Chloride (98-107) mmol/L Carbon Dioxide (22-30) mmol/L Anion Gap (5-15) MEQ/L BUN (7-17) mg/dL Creatinine (0.52-1.04) mg/dL Estimated GFR ML/MIN Glucose (74-106) mg/dL POC Glucometer 183 H 211 H (74 to 106) mg/dL Hemoglobin A1c (4.5-6.0) % Calcium (8.4-10.2) mg/dL Total Bilirubin (0.2-1.3) mg/dL AST (14-36) U/L ALT (0-35) U/L Alkaline Phosphatase (38-126) U/L Serum Total Protein (6.3-8.2) g/dL Albumin (3.5-5.0) g/dL - Radiology Exams Ordered Rad Exams-Entire Visit: Radiology Procedures Category Date Time Status CHEST 1 VIEW (PORTABLE) Stat Exams 01/15/21 12:34 Completed - Procedures and Test Procedures and Tests throughout Hospitalization: Therapy Orders & Screens 01/15/21 13:44 Respiratory Therapy Assessment DAILY Comment: 01/15/21 15:47 Peak Expiratory Flow Rate BEFORE&AFTER NEB TX Comment: Before and after nebulizer treatments Reason For Exam: 01/15/21 21:00 BiPap/CPAP ROUTINE Comment: HOME UNIT Diagnosis: exac copd 01/16/21 07:00 Respiratory MDI UD Comment: [facility] DAILY-PT OWN Diagnosis: exac copd Discharge Exam General Appearance: no apparent distress, alert Neurologic Exam: alert, oriented x 3, cooperative, normal mood/affect, nml cerebellar function, sensation nml, No motor deficits Eye Exam: PERRL, EOMI, eyes nml inspection Ears, Nose, Throat Exam: normal ENT inspection, pharynx normal, moist mucous membranes Neck Exam: normal inspection, non-tender, supple, full range of motion Respiratory Exam: normal breath sounds, lungs clear, No respiratory distress Cardiovascular Exam: regular rate/rhythm, normal heart sounds Gastrointestinal/Abdomen Exam: soft, No tenderness, No mass Pelvic Exam: deferred Rectal Exam: deferred Back Exam: normal inspection, normal range of motion, No CVA tenderness, No vertebral tenderness Extremity Exam: normal inspection, normal range of motion Skin Exam: normal color, warm, dry Final Diagnosis/Problem List - Final Discharge Diagnosis/Problem (1) COPD exacerbation Current Visit: Yes Status: Resolved Assessment & Plan: Last Vital Signs Temp 98.2 F 01/17/21 00:12 Pulse 96 H 01/17/21 02:57 Resp 16 01/17/21 02:57 BP 102/50 01/17/21 00:12 Pulse Ox 95 01/17/21 02:57 Allergies shrimp Allergy (Intermediate, Verified 01/15/21 12:31) Hives contrast dye Allergy (Intermediate, Uncoded 01/15/21 12:31) Hives Active Medications Hydrocodone Bitart/Acetaminophen ([place] 5/325 Mg) 1 tab PO QID PRN PRN PRN Reason: PAIN Stop: 01/21/21 14:37 Last Admin: 01/16/21 22:23 Dose: 1 tab Documented by: Albuterol/Ipratropium (Duoneb 0.5-3 Mg/3 Ml Neb) 3 ml IH Q4HRT ASIYA Stop: 02/14/21 18:59 Last Admin: 01/17/21 02:55 Dose: 3 ml Documented by: Amlodipine Besylate (Norvasc 5 Mg) 2.5 mg PO DAILY ASIYA Stop: 02/15/21 09:59 Last Admin: 01/16/21 10:28 Dose: 2.5 mg Documented by: Aspirin (Ecotrin 81 Mg) 81 mg PO DAILY ASIYA Stop: 02/15/21 09:59 Last Admin: 01/16/21 10:28 Dose: 81 mg Documented by: Budesonide (Pulmicort 0.5 Mg/2 Ml Respules) 0.5 mg IH BIDRT ASIYA Stop: 02/15/21 09:59 Last Admin: 01/16/21 18:39 Dose: 0.5 mg Documented by: Celecoxib (Celebrex 100 Mg) 100 mg PO BID ASIYA Stop: 02/14/21 21:59 Last Admin: 01/16/21 22:16 Dose: 100 mg Documented by: Clonazepam (Clonazepam) 0.5 mg PO BID PRN PRN Stop: 02/14/21 21:59 Last Admin: 01/15/21 20:47 Dose: 0.5 mg Documented by: Lisinopril (Zestril 5 Mg) 2.5 mg PO BID ASIYA Stop: 02/14/21 21:59 Last Admin: 01/16/21 22:16 Dose: 2.5 mg Documented by: Loratadine (Claritin 10 Mg) 10 mg PO HS ASIYA Stop: 02/14/21 21:59 Last Admin: 01/16/21 22:16 Dose: 10 mg Documented by: Methylprednisolone Sodium Succinate (Solu-Medrol 125 Mg) 80 mg IV Q12H ASIYA Stop: 02/15/21 21:59 Last Admin: 01/16/21 22:16 Dose: 80 mg Documented by: Montelukast Sodium (Singulair 10 Mg) 10 mg PO DAILY ASIYA Stop: 02/15/21 09:59 Last Admin: 01/16/21 10:29 Dose: 10 mg Documented by: Non-Formulary Drug ( (Chlorthalidone)) 0 each PO DAILY ASIYA Stop: 02/16/21 09:59 Pantoprazole Sodium (Protonix 40mg Tablet) 40 mg PO DAILY ASIYA Stop: 02/15/21 09:59 Last Admin: 01/16/21 10:29 Dose: 40 mg Documented by: Fluticasone/Salmeterol (Advair Hfa 115/ Common Canister*) 2 puff IH BIDRT ASIYA Stop: 02/14/21 18:59 Last Admin: 01/16/21 18:40 Dose: 2 puff Documented by: Tizanidine HCl (Zanaflex 4 Mg) 4 mg PO Q8H PRN PRN PRN Reason: MUSCLE SPASMS Stop: 02/14/21 17:23 Last Admin: 01/16/21 10:37 Dose: 4 mg Documented by: Intake & Output 01/16/21 01/17/21 11:59 11:59 Intake Total 960 920 Output Total 900 Balance 60 920 Weight 90.8 kg Orders 01/16/21 10:00 Amlodipine Besylate 5 mg [Norvasc 5 mg] 2.5 mg PO DAILY Aspirin EC 81 mg [Ecotrin 81 mg] 81 mg PO DAILY Budesonide 0.5 mg/2 ml [Pulmicort 0.5 mg/2 ml Respules] 0.5 mg IH BIDRT Montelukast Sodium 10 mg [Singulair 10 MG] 10 mg PO DAILY PANTOPRAZOLE 40 mg Tablet [Protonix 40MG Tablet] 40 mg PO DAILY 01/16/21 14:38 Hydrocodone/APAP 5/325 [[place] 5/325 mg] 1 tab PO QID PRN PRN 01/16/21 15:41 POCT Glucose Check ACHS 01/16/21 22:00 Methylprednis Sod Succ 125 mg* [solu-MEDROL 125 MG] 80 mg IV Q12H 01/17/21 10:00 Non-Formulary Drug [Non-Formulary Item] 0 each PO DAILY Lab Tests 01/16/21 01/16/21 01/16/21 04:15 04:15 05:00 WBC 8.4 RBC 5.25 Hgb 14.4 Hct 45.6 MCV 86.9 MCH 27.4 MCHC 31.6 L RDW 14.4 H Plt Count 203 MPV 10.8 Sodium 135 L Potassium 3.7 Chloride 101 Carbon Dioxide 19 L Anion Gap 18.1 H BUN 23 H Creatinine 0.65 Estimated GFR > 60.0 Glucose 184 H POC Glucometer Hemoglobin A1c 5.29 Calcium 9.5 Total Bilirubin 0.30 AST 34 ALT 26 Alkaline Phosphatase 107 Serum Total Protein 6.4 Albumin 3.9 01/16/21 01/16/21 16:15 20:55 WBC RBC Hgb Hct MCV MCH MCHC RDW Plt Count MPV Sodium Potassium Chloride Carbon Dioxide Anion Gap BUN Creatinine Estimated GFR Glucose POC Glucometer 183 H 211 H Hemoglobin A1c Calcium Total Bilirubin AST ALT Alkaline Phosphatase Serum Total Protein Albumin Code(s): J44.1 - CHRONIC OBSTRUCTIVE PULMONARY DISEASE W (ACUTE) EXACERBATION (2) Chest pain Current Visit: Yes Status: Resolved Code(s): R07.9 - CHEST PAIN, UNSPECIFIED - Discharge Discharge Date: 01/17/21 Disposition: Home, Self-Care Condition: Stable Prescriptions: New Methylprednisolone Packet [Medrol Dosepack] 4 mg PO UD #21 packet Azithromycin 250 mg [Zithromax 250 MG TABLET] 250 mg PO ZPACK #6 tablet Continue Clonazepam 0.5 mg [Klonopin 0.5 MG] 0.5 mg PO BID PRN PRN Reason: Anxiety Aspirin [[place] Aspirin EC] 81 mg PO DAILY Desloratadine [Clarinex] 5 mg PO HS Tizanidine HCl 4 mg [Zanaflex 4 MG] 4 mg PO Q8H PRN PRN Reason: Anxiety Montelukast Sodium 10 mg [Singulair 10 MG] 10 mg PO DAILY Lisinopril 5 mg [Zestril 5 MG] 2.5 mg PO BID Omeprazole 40 mg PO DAILY Albuterol 17 gm IH Q4HPRN PRN #1 aerosol PRN Reason: Shortness Of Breath/Wheezing Fluticasone/Umeclidin/Vilanter [Trelegy Ellipta 100-62.5-25] 2 puffs IH DAILY Amlodipine Besylate 2.5 mg PO DAILY Celecoxib 100 mg [celeBREX 100 MG] 100 mg PO BID Chlorthalidone 25 mg PO DAILY Instructions: Exacerbation of COPD (DC), Risk Factors for COPD, Breathing Exercises, COPD Diet Follow up with: DAVID MORFIN MD [Primary Care Provider] - 5 Days
[2021-01-17] MEDS: Advair Hfa 115/21 Common canister IH SCH (06:48)
[2021-01-17] MEDS: PULMICORT 0.5 MG/2 ML RESPULES IH SCH (06:48)
[2021-01-17 08:14] VITALS: BP 125/59; PULSE 108; O2SAT 95
[2021-01-17] MEDS ORDERED: NON-FORMULARY ITEM PO SCH (10:00)
== END 2021-01-17 09:45 | disposition home or self-care (01) ==
LOC: ED 12:27 → MED SURG 15:44
PROVIDERS: ADMIT General Practice; ATTEND General Practice
DX: J44.1 Chronic obstructive pulmonary disease with (acute) exacerbation (principal); R07.9 Chest pain, unspecified; Z79.899 Other long term (current) drug therapy; I10 Essential (primary) hypertension; Z86.73 Personal history of transient ischemic attack (TIA), and cerebral infarction without residual deficits; Z20.828 Contact with and (suspected) exposure to other viral communicable diseases
CPT/HCPCS: 36000; 36415; 71045; 80053; 82947; 83036; 83880; 84484; 85025; 85027; 87040; 93005; 93041; 93268; 94640; 94760; 94762; 96365; 96367; 96374; 99285; G0378; U0003; J0456; J0696; J2930; A9270-GY

== ENCOUNTER 2021-08-05 10:27 | Day surgery (SDC) | payer MEDICARE ==
[2013-04-11 11:13] VITALS: BP 138/88
[2021-08-05] MEDS ORDERED: Xylocaine 1% Vial 30 ML PF IJ ONE ×2 (10:28)
[2021-08-05] MEDS ORDERED: Depo-Medrol 40 MG/ML IM ONE ×2 (10:28)
[2021-08-05] MEDS ORDERED: Sodium Chloride 0.9% 10 ML FLUSH Syringe IJ ONE ×2 (10:28)
[2021-08-05] MEDS ORDERED: DIPRIVAN 200 MG/20 ML IV ONE (13:15)
[2021-08-05] MEDS ORDERED: Lactated Ringers 1,000 ML IV ONE (13:39)
--- NOTE | 2021-08-05 14:45 | XRAY ---
Indication: Lumbar COSTA. Intraoperative fluoroscopy provided for 17 seconds. 3 digital spot images submitted for interpretation demonstrates posterior needle tip projecting posterior to the lumbosacral junction interspace. Small amount of contrast injected for needle tip placement. Correlate with intraoperative findings/report.
--- NOTE | 2021-08-05 14:48 | XRAY ---
17 seconds fluoroscopy time in surgery for lumbar COSTA.
== END 2021-08-05 13:40 | disposition home or self-care (01) ==
LOC: SDC-PAIN 10:27
PROVIDERS: ATTEND Psychiatry & Neurology Pain Medicine
DX: M54.16 Radiculopathy, lumbar region (principal); I10 Essential (primary) hypertension; E03.9 Hypothyroidism, unspecified; Z79.899 Other long term (current) drug therapy
CPT/HCPCS: 62323; 72100; 77003; J1030; J2001; J2704; Q9966

== ENCOUNTER 2021-08-26 15:19 | Day surgery (SDC) | payer MEDICARE ==
[2013-04-11 11:13] VITALS: BP 138/88
[2021-08-26] MEDS ORDERED: Depo-Medrol 40 MG/ML IM ONE (15:20)
[2021-08-26] MEDS ORDERED: LIDOCAINE HCL 2% 100 MG/5 ML IJ ONE (15:20)
[2021-08-26] MEDS ORDERED: Lactated Ringers 1,000 ML IV ONE (17:26)
[2021-08-26] MEDS ORDERED: DIPRIVAN 200 MG/20 ML IV ONE (17:48)
--- NOTE | 2021-08-26 19:09 | XRAY ---
Indication: Bilateral L4-S1 MBB. Intraoperative fluoroscopy provided for 15 seconds. Single digital spot image submitted for interpretation demonstrates posterior needle tips projecting over the expected left and right L4-S1 nerve roots. Correlate with intraoperative findings/report.
--- NOTE | 2021-08-27 09:24 | XRAY ---
15 seconds fluoroscopy time in surgery for bilateral L4-S1 MBB.
== END 2021-08-26 18:12 | disposition home or self-care (01) ==
LOC: SDC-PAIN 15:19
PROVIDERS: ATTEND Psychiatry & Neurology Pain Medicine
DX: M47.816 Spondylosis without myelopathy or radiculopathy, lumbar region (principal); I10 Essential (primary) hypertension; Z79.899 Other long term (current) drug therapy
CPT/HCPCS: 64493; 64494; 72020; 77002; J1030; J2704

== ENCOUNTER 2021-10-15 01:28 | Observation (INO) | payer MEDICARE ==
[2021-10-15] MEDS ORDERED: BABY ASPIRIN 81 MG CHEW PO ONE (01:39)
[2021-10-15] MEDS ORDERED: MORPHINE SULFATE 4 MG INJ IV ONE (01:40)
[2021-10-15] MEDS ORDERED: NITRO-BID 2% UD PACKETS TOP ONE (01:40)
--- NOTE | 2021-10-15 01:42 | ERPHSYRPT ---
- History of Present Illness Time Seen by Provider: 10/15/21 01:40 Historian: patient Exam Limitations: no limitations Physician History: Patient is a 70-year-old female presents to emergency department for evaluation of chest pain. Patient states chest pain occurred while she was asleep. Chest pain continued upon her arrival to our ED. Test pain described as an ache that is localized substernally. Pain tends to radiate to her back. Patient feels nauseous. No vomiting. No trauma. No fever. Symptoms are constant. Symptoms are moderate in intensity. No specific worsening improving factors. Patient voices no other complaints concerns at this time. Timing/Duration: today Activities at Onset: none Quality: aching Location: substernal Chest Pain Radiation: back Severity of Pain-Max: moderate Severity of Pain-Current: mild Modifying Factors: Improves With: nothing Associated Symptoms: nausea Prior Chest Pain/Cardiac Workup: no prior chest pain Nitro Today/Relief: no nitro taken today Aspirin Treatment Today: no aspirin today Allergies/Adverse Reactions: shrimp Allergy (Intermediate, Verified 10/15/21 01:38) Hives contrast dye Allergy (Intermediate, Uncoded 10/15/21 01:38) Hives Home Medications: Clonazepam 0.5 mg [Klonopin 0.5 MG] 0.5 mg PO BID PRN 07/24/15 [History] Aspirin [[place] Aspirin EC] 81 mg PO DAILY 02/24/17 [History] Montelukast Sodium 10 mg [Singulair 10 MG] 10 mg PO DAILY 11/08/18 [History] Omeprazole 40 mg PO DAILY 04/22/19 [History] Amlodipine Besylate 2.5 mg PO DAILY 01/15/21 [History] Celecoxib 100 mg [celeBREX 100 MG] 100 mg PO BID 01/15/21 [History] Chlorthalidone 25 mg PO DAILY 01/15/21 [History] Alendronate Sodium 70 mg [Fosamax 70 MG] 70 mg PO WEEKLY 10/15/21 [History] Levothyroxine Sodium [Synthroid] 125 mcg PO DAILY 10/15/21 [History] Rosuvastatin Calcium 20 mg PO DAILY 10/15/21 [History] atenoloL [Atenolol] 25 mg PO DAILY 10/15/21 [History] Hx Tetanus, Diphtheria Vaccination/Date Given: No Hx Influenza Vaccination/Date Given: Yes Hx Pneumococcal Vaccination/Date Given: No Travel Risk - Vaccine Status Have you recieved a Covid-19 vaccination: Yes Production Control Manager: Unknown - Vaccination Dates Date of 2cond Vaccination (if applicable): october Dates if Unknown: sep and october - Review of Systems Constitutional: No Symptoms, No Fever, No Chills Eyes: No Symptoms Ears, Nose, & Throat: No Symptoms Respiratory: No Symptoms, No Cough, No Dyspnea Cardiac: No Symptoms, No Chest Pain, No Edema, No Syncope Abdominal/Gastrointestinal: No Symptoms, No Abdominal Pain, No Nausea, No Vomiting, No Diarrhea Genitourinary Symptoms: No Symptoms, No Dysuria Musculoskeletal: No Symptoms, No Back Pain, No Neck Pain Skin: No Symptoms, No Rash Neurological: No Symptoms, No Dizziness, No Focal Weakness, No Sensory Changes Psychological: No Symptoms Endocrine: No Symptoms Hematologic/Lymphatic: No Symptoms Immunological/Allergic: No Symptoms All Other Systems: Reviewed and Negative - Past Medical History Pertinent Past Medical History: Yes Neurological History: TIA ENT History: Cataracts Cardiac History: Hypertension Respiratory History: COPD Endocrine Medical History: No Pertinent History Musculoskeletal History: Osteoarthritis GI Medical History: Diverticulitis History: No Pertinent History Psycho-Social History: Anxiety Female Reproductive Disorders: No Pertinent History - Past Surgical History Past Surgical History: Yes (hysterectomy, gallbladder, cat) Neuro Surgical History: No Pertinent History Cardiac: Cardiac Catheterization Respiratory: No Pertinent History Gastrointestinal: Cholecystectomy Genitourinary: No Pertinent History Musculoskeletal: No Pertinent History Female Surgical History: Hysterectomy Other Surgical History: rotator cuff surgery,eye surgery - Social History Smoking Status: Former smoker Exposure to second hand smoke: No Alcohol Use: None Drug Use: none Patient Lives Alone: Yes Significant Family History: no pertinent family hx - Nursing Vital Signs Nursing Vital Signs: Initial Vital Signs Temperature 97.5 F 10/15/21 01:30 Pulse Rate 65 10/15/21 01:30 Respiratory Rate 15 10/15/21 01:30 Blood Pressure 117/47 10/15/21 01:30 O2 Sat by Pulse Oximetry 96 10/15/21 01:30 Pain Scale Pain Intensity 0 - Physical Exam General Appearance: no apparent distress, alert Eye Exam: PERRL/EOMI, eyes nml inspection Ears, Nose, Throat Exam: normal ENT inspection, TMs normal, pharynx normal, moist mucous membranes Neck Exam: normal inspection, non-tender, supple, full range of motion Respiratory Exam: normal breath sounds, lungs clear, airway intact, No chest tenderness, No respiratory distress Cardiovascular Exam: regular rate/rhythm, normal heart sounds, normal peripheral pulses Gastrointestinal/Abdomen Exam: soft, normal bowel sounds, No tenderness, No distention, No mass Back Exam: normal inspection, No CVA tenderness, No vertebral tenderness Extremity Exam: normal inspection, normal range of motion Neurologic Exam: alert, oriented x 3, cooperative, financial auditor II-XII nml as tested, no rmal mood/affect, nml cerebellar function, nml station & gait, sensation nml, No motor deficits Skin Exam: normal color, warm, dry Lymphatic Exam: No adenopathy SpO2 Interpretation: normal SpO2: 96 O2 Delivery: Room Air - Course Nursing assessment & vital signs reviewed: Yes EKG Interpreted by Me: RATE (63), Sinus Rhythm, NORMAL AXIS, Left [place] Deviation, NORMAL INTERVALS - Radiology Exams Chest X-ray Interpretation: Interpreted by me (Right hemidiaphragm elevation. Right lung granuloma. Heart and lung are normal. Intact bony thorax. Osteopenia. Right shoulder surgery) Ordered Tests: Active Orders 24 hr Category Date Time Status Digital Composer STAT Care 10/15/21 01:38 Active EKG-ER Only STAT Care 10/15/21 01:37 Active IV Insertion STAT Care 10/15/21 01:37 Active Pulse Oximetry (ED) STAT Care 10/15/21 01:37 Active CHEST 1 VIEW (PORTABLE) Stat Exams 10/15/21 01:38 Taken CBC W DIFF Stat Lab 10/15/21 01:51 Completed CMP Stat Lab 10/15/21 01:51 Completed NT PRO BNP Stat Lab 10/15/21 01:51 Completed TROPONIN Q3H Lab 10/15/21 01:51 Completed TROPONIN Q3H Lab 10/15/21 05:04 Received TROPONIN Q3H Lab 10/15/21 07:45 Ordered TROPONIN Q3H Lab 10/15/21 10:45 Ordered TROPONIN Q3H Lab 10/15/21 13:45 Ordered Transfer Order Routine Transfer 10/15/21 Ordered Medication Summary Discontinued Medications Generic Name Dose Route Start Last Admin Trade Name Freq PRN Reason Stop Dose Admin Aspirin 324 mg 10/15/21 01:39 10/15/21 02:05 Aspirin 81 Mg Tab.Chew PO 10/15/21 01:40 324 mg STAT ONE Administration Aspirin Confirm 10/15/21 02:06 Aspirin 81 Mg Tab.Chew Administered 10/15/21 02:07 Dose 81 mg .ROUTE .STK-MED ONE Morphine Sulfate 4 mg 10/15/21 01:40 10/15/21 02:10 Morphine Sulfate 4 Mg/Ml Injection IV 10/15/21 01:41 4 mg STAT ONE Administration Morphine Sulfate Confirm 10/15/21 02:07 Morphine Sulfate 4 Mg/Ml Injection Administered 10/15/21 02:08 Dose 4 mg .ROUTE .STK-MED ONE Nitroglycerin 1 gm 10/15/21 01:40 10/15/21 02:10 Nitroglycerin 1 Gm Packet TOP 10/15/21 01:41 1 gm STAT ONE Administration Nitroglycerin Confirm 10/15/21 02:07 Nitroglycerin 1 Gm Packet Administered 10/15/21 02:08 Dose 1 gm .ROUTE .STK-MED ONE Potassium Chloride 40 meq 10/15/21 02:28 10/15/21 02:49 Potassium Chloride 10 Meq Tablet PO 10/15/21 02:29 40 meq STAT ONE Administration Potassium Chloride Confirm 10/15/21 02:48 Potassium Chloride 10 Meq Tablet Administered 10/15/21 02:49 Dose 40 meq PO .STK-MED ONE Lab/Rad Data: Laboratory Result Diagrams 10/15/21 01:51 10/15/21 01:51 Laboratory Results 10/15/21 10/15/21 10/15/21 Range/Units 04:23 01:51 01:51 WBC (4.0-10.5) K/mm3 RBC (4.1-5.4) M/mm3 Hgb (12.0-16.0) gm/dl Hct (35-47) % MCV (78-100) fl MCH (26-32) pg MCHC (32-36) g/dl RDW (11.5-14.0) % Plt Count (150-450) K/mm3 MPV (7.5-11.0) fl Gran % (36.0-66.0) % Eos # (Auto) (0-0.5) Absolute Lymphs (auto) (1.0-4.6) Absolute Monos (auto) (0.0-1.3) Lymphocytes % (24.0-44.0) % Monocytes % (0.0-12.0) % Eosinophils % (0.00-5.0) % Basophils % (0.0-0.4) % Absolute Granulocytes (1.4-6.9) Basophils # (0-0.4) Sodium 137 (137-145) mmol/L Potassium 2.9 L* (3.5-5.1) mmol/L Chloride 99 (98-107) mmol/L Carbon Dioxide 30 (22-30) mmol/L Anion Gap 10.6 (5-15) MEQ/L BUN 23 H (7-17) mg/dL Creatinine 0.76 (0.52-1.04) mg/dL Estimated GFR > 60.0 ML/MIN Glucose 122 H (74-106) mg/dL Calcium 9.0 (8.4-10.2) mg/dL Total Bilirubin 0.70 (0.2-1.3) mg/dL AST 72 H (14-36) U/L ALT 26 (0-35) U/L Alkaline Phosphatase 125 (38-126) U/L Troponin I < 0.012 (0.000-0.034) ng/mL NT-Pro-B Natriuret Pep 302 (0-900) pg/mL Serum Total Protein 6.3 (6.3-8.2) g/dL Albumin 3.9 (3.5-5.0) g/dL Influenza Type A Ag NEGATIVE (NEGATIVE) Influenza Type B Ag NEGATIVE (NEGATIVE) RSV (PCR) NEGATIVE (Negative) SARS-CoV-2 (PCR) NEGATIVE (NEGATIVE) 10/15/21 Range/Units 01:51 WBC 8.1 (4.0-10.5) K/mm3 RBC 5.47 H (4.1-5.4) M/mm3 Hgb 15.2 (12.0-16.0) gm/dl Hct 45.5 (35-47) % MCV 83.2 (78-100) fl MCH 27.8 (26-32) pg MCHC 33.4 (32-36) g/dl RDW 15.3 H (11.5-14.0) % Plt Count 204 (150-450) K/mm3 MPV 11.1 H (7.5-11.0) fl Gran % 56.4 (36.0-66.0) % Eos # (Auto) 0.46 (0-0.5) Absolute Lymphs (auto) 2.28 (1.0-4.6) Absolute Monos (auto) 0.75 (0.0-1.3) Lymphocytes % 28.1 (24.0-44.0) % Monocytes % 9.3 (0.0-12.0) % Eosinophils % 5.7 H (0.00-5.0) % Basophils % 0.5 (0.0-0.4) % Absolute Granulocytes 4.57 (1.4-6.9) Basophils # 0.04 (0-0.4) Sodium (137-145) mmol/L Potassium (3.5-5.1) mmol/L Chloride (98-107) mmol/L Carbon Dioxide (22-30) mmol/L Anion Gap (5-15) MEQ/L BUN (7-17) mg/dL Creatinine (0.52-1.04) mg/dL Estimated GFR ML/MIN Glucose (74-106) mg/dL Calcium (8.4-10.2) mg/dL Total Bilirubin (0.2-1.3) mg/dL AST (14-36) U/L ALT (0-35) U/L Alkaline Phosphatase (38-126) U/L Troponin I (0.000-0.034) ng/mL NT-Pro-B Natriuret Pep (0-900) pg/mL Serum Total Protein (6.3-8.2) g/dL Albumin (3.5-5.0) g/dL Influenza Type A Ag (NEGATIVE) Influenza Type B Ag (NEGATIVE) RSV (PCR) (Negative) SARS-CoV-2 (PCR) (NEGATIVE) - Progress Progress: improved Air Movement: good Progress Note: Case discussed Dr. Morfin who accepts admission to observation for further evaluation and treatment of chest pain/ACS. Patient is currently comfortable. No active chest pain. Chest x-ray essentially unremarkable. Initial troponin negative. In light of patient's chest pain characteristics and risk factors patient will be admitted for further evaluation and treatment. Plan of care discussed with patient. She agrees to admission [facility] for further evaluation and treatment. Covid test pending Portions of this note were created with voice recognition technology. There may be grammatical, spelling, punctuation or sound alike errors 10/15/21 05:01 Covid test negative 10/15/21 05:43 Blood Culture(s) Obtained: No Antibiotics given: No Discussed with : Gomez Will see patient in: hospital (observation) Counseled pt/family regarding: lab results, diagnosis, rad results - Departure Departure Disposition: Observation Clinical Impression: ACS (acute coronary syndrome), Hypokalemia Condition: Stable Critical Care Time: No Referrals: DAVID MORFIN MD [Primary Care Provider] - Follow up/PCP as directed
[2021-10-15 01:55] LABS: Absolute Neutrophil Ct (ANC) 4.57 (1.4-6.9); Basophil (Absolute #) 0.04 (0-0.4); Eosinophil % 5.7 % (0.00-5.0); Eosinophil (Absolute #) 0.46 (0-0.5); Hematocrit 45.5 % (35-47); Hemoglobin 15.2 gm/dl (12.0-16.0); Lymphocyte (Absolute #) 2.28 (1.0-4.6); Lymphocytes % 28.1 % (24.0-44.0); Mean Cell Volume 83.2 fl (78-100); Mean Corpuscular Hemoglobin 27.8 pg (26-32); Mean Corpuscular Hgb Concent. 33.4 g/dl (32-36); Mean Platelet Volume 11.1 fl (7.5-11.0); Monocyte (Absolute #) 0.75 (0.0-1.3); Monocytes % 9.3 % (0.0-12.0); Neutrophil % 56.4 % (36.0-66.0); Platelet Count 204 K/mm3 (150-450); Red Blood Count 5.47 M/mm3 (4.1-5.4); Red Cell Distribution Width 15.3 % (11.5-14.0); White Blood Count 8.1 K/mm3 (4.0-10.5)
[2021-10-15] MEDS ORDERED: BABY ASPIRIN 81 MG CHEW ONE (02:06)
[2021-10-15] MEDS ORDERED: NITRO-BID 2% UD PACKETS ONE (02:07)
[2021-10-15] MEDS ORDERED: MORPHINE SULFATE 4 MG INJ ONE (02:07)
[2021-10-15 02:22] LABS: ALBUMIN 3.9 g/dL (3.5-5.0); ALKALINE PHOSPHATASE 125 U/L (38-126); ANION GAP 10.6 MEQ/L (5-15); BLOOD UREA NITROGEN 23 mg/dL (7-17); CHLORIDE 99 mmol/L (98-107); Carbon Dioxide 30 mmol/L (22-30); Creatinine 1 0.76 mg/dL (0.52-1.04); EST GLOMERULAR FILTRATION RATE > 60.0 ML/MIN; Glucose 122 mg/dL (74-106); NT PRO BNP 302 pg/mL (0-900); SGOT/AST 72 U/L (14-36); SGPT/ALT 26 U/L (0-35); SODIUM 137 mmol/L (137-145); Total Protein 6.3 g/dL (6.3-8.2)
[2021-10-15 02:26] LABS: Potassium 2.9 mmol/L (3.5-5.1)
[2021-10-15] MEDS ORDERED: Klor Con 10 MEQ PO ONE ×2 (02:28→02:48)
[2021-10-15 05:03] LABS: INFLUENZA A NEGATIVE (NEGATIVE); INFLUENZA B NEGATIVE (NEGATIVE); RESPIRATORY SYNCTIAL VIRUS NEGATIVE (Negative); SARS-CoV-2 Xpert Express NEGATIVE (NEGATIVE)
[2021-10-15] MEDS ORDERED: MAALOX ES 30 ML UNIT DOSE PO PRN (06:02)
[2021-10-15] MEDS ORDERED: MILK OF MAGNESIA 30 ML PO PRN (06:02)
[2021-10-15] MEDS ORDERED: Senokot-S Tablet PO PRN (06:02)
[2021-10-15] MEDS ORDERED: Zofran 4 MG/2 ML VIAL IV ONE (06:13)
--- NOTE | 2021-10-15 09:00 | XRAY ---
Indication: Chest pain. Comparison: January 15, 2021. Portable chest unchanged again demonstrating chronic right hemidiaphragm elevation with adjacent atelectasis/scarring and small right lung calcified granulomas. Remaining heart and lungs unremarkable. Bony thorax intact again with osteopenia and right shoulder surgery. Impression: Continued nonacute chest with chronic features.
[2021-10-15] MEDS: TYLENOL 325 MG PO PRN ×2 (09:03→13:13)
--- NOTE | 2021-10-15 09:53 | PCM.HP ---
History of Present Illness - Chief Complaint Chief Complaint: chest pain for 1 day History of Present Illness: is a 70 year old female.presents to emergency department for evaluation of chest pain. Patient states chest pain occurred while she was asleep. Chest pain continued upon her arrival to our ED. Test pain described as an ache that is localized substernally. Pain tends to radiate to her back. Patient feels nauseous. No vomiting. No trauma. No fever. Symptoms are constant. Symptoms are moderate in intensity. No specific worsening improving factors. Patient voices no other complaints concerns at this time. - Review of Systems Constitutional: No Fever, No Chills Eyes: No Symptoms Ears, Nose, & Throat: No Symptoms Respiratory: No Cough, No Short Of Breath Cardiac: Chest Pain, No Edema, No Syncope Abdominal/Gastrointestinal: No Abdominal Pain, No Nausea, No Vomiting, No Diarrhea Genitourinary Symptoms: No Dysuria Musculoskeletal: No Back Pain, No Neck Pain Skin: No Rash Neurological: No Dizziness, No Focal Weakness, No Sensory Changes Psychological: No Symptoms Endocrine: No Symptoms Hematologic/Lymphatic: No Symptoms Immunological/Allergic: No Symptoms Medications & Allergies Home Medications: Home Medication List Clonazepam 0.5 mg [Klonopin 0.5 MG] 0.5 mg PO BID PRN 07/24/15 [History Confirmed 10/15/21] Aspirin [[place] Aspirin EC] 81 mg PO DAILY 02/24/17 [History Confirmed 10/15/21] Montelukast Sodium 10 mg [Singulair 10 MG] 10 mg PO DAILY 11/08/18 [History Confirmed 10/15/21] Omeprazole 40 mg PO DAILY 04/22/19 [History Confirmed 10/15/21] Amlodipine Besylate 2.5 mg PO DAILY 01/15/21 [History Confirmed 10/15/21] Celecoxib 100 mg [celeBREX 100 MG] 100 mg PO BID 01/15/21 [History Confirmed 10/15/21] Chlorthalidone 25 mg PO DAILY 01/15/21 [History Confirmed 10/15/21] Alendronate Sodium 70 mg [Fosamax 70 MG] 70 mg PO WEEKLY 10/15/21 [History Confirmed 10/15/21] Levothyroxine Sodium [Synthroid] 125 mcg PO DAILY 10/15/21 [History Confirmed 10/15/21] Rosuvastatin Calcium 20 mg PO DAILY 10/15/21 [History Confirmed 10/15/21] atenoloL [Atenolol] 25 mg PO DAILY 10/15/21 [History Confirmed 10/15/21] Allergies/Adverse Reactions: Allergies Allergy/AdvReac Type Severity Reaction Status Date / Time shrimp Allergy Intermediate Hives Verified 10/15/21 06:26 contrast dye Allergy Intermediate Hives Uncoded 10/15/21 01:38 - Past Medical History Past Medical History: Yes Neurological History: TIA ENT History: Cataracts Cardiac History: Hypertension Respiratory History: COPD Endocrine Medical History: No Pertinent History Musculoskelatal History: Osteoarthritis GI Medical History: Diverticulitis History: No Pertinent History Pyscho-Social History: Anxiety Reproductive Disorders: No Pertinent History - Female History Are you now?: No - Past Surgical History Past Surgical History: Yes Neuro Surgical History: No Pertinent History Cardiac History: Cardiac Catheterization Respiratory Surgery: No Pertinent History GI Surgical History: Cholecystectomy Genitourinary Surgical Hx: No Pertinent History Musculskeletal Surgical Hx: Joint Replacement Female Surgical History: Hysterectomy Other Surgical History: right total knee replacement, rotator cuff surgery, eye surgery, thyroidectomy 09/11/21 - Social History Smoking Status: Former smoker Exposure to second hand smoke: No Alcohol: None Drug Use: none Significant Family History: no pertinent family hx - Physical Exam Vital Signs: Vital Signs - 24 hr Temp Pulse Pulse Resp BP Pulse Ox 10/15/21 07:44 97.1 F 70 18 133/64 93 L 10/15/21 06:38 97.1 F 70 18 133/64 93 L 10/15/21 06:32 97.1 F 70 18 133/64 93 L 10/15/21 05:45 96 10/15/21 05:14 82 18 103/59 94 L 10/15/21 04:28 83 15 114/74 90 L 10/15/21 03:09 66 16 109/62 93 L 10/15/21 01:53 97 10/15/21 01:39 59 L 10/15/21 01:30 97.5 F 65 15 117/47 96 General Appearance: no apparent distress, alert Neurologic Exam: alert, oriented x 3, cooperative, normal mood/affect, nml cerebellar function, nml station & gait, sensation nml, No motor deficits Eye Exam: PERRL/EOMI, eyes nml inspection Ears, Nose, Throat Exam: normal ENT inspection, TMs normal, pharynx normal, moist mucous membranes Neck Exam: normal inspection, non-tender, supple, full range of motion Respiratory Exam: normal breath sounds, lungs clear, No respiratory distress Cardiovascular Exam: regular rate/rhythm, normal heart sounds, normal peripheral pulses Gastrointestinal/Abdomen Exam: soft, normal bowel sounds, No tenderness, No mass Back Exam: normal inspection, normal range of motion, No CVA tenderness, No vertebral tenderness Extremity Exam: normal inspection, normal range of motion, pelvis stable Skin Exam: normal color, warm, dry, No rash Lymphatic Exam: No adenopathy Results - Labs Lab/Micro Results: Lab Results-Last 24 Hours 10/15/21 10/15/21 10/15/21 Range/Units 01:51 01:51 01:51 WBC 8.1 (4.0-10.5) K/mm3 RBC 5.47 H (4.1-5.4) M/mm3 Hgb 15.2 (12.0-16.0) gm/dl Hct 45.5 (35-47) % MCV 83.2 (78-100) fl MCH 27.8 (26-32) pg MCHC 33.4 (32-36) g/dl RDW 15.3 H (11.5-14.0) % Plt Count 204 (150-450) K/mm3 MPV 11.1 H (7.5-11.0) fl Gran % 56.4 (36.0-66.0) % Eos # (Auto) 0.46 (0-0.5) Absolute Lymphs (auto) 2.28 (1.0-4.6) Absolute Monos (auto) 0.75 (0.0-1.3) Lymphocytes % 28.1 (24.0-44.0) % Monocytes % 9.3 (0.0-12.0) % Eosinophils % 5.7 H (0.00-5.0) % Basophils % 0.5 (0.0-0.4) % Absolute Granulocytes 4.57 (1.4-6.9) Basophils # 0.04 (0-0.4) Sodium 137 (137-145) mmol/L Potassium 2.9 L* (3.5-5.1) mmol/L Chloride 99 (98-107) mmol/L Carbon Dioxide 30 (22-30) mmol/L Anion Gap 10.6 (5-15) MEQ/L BUN 23 H (7-17) mg/dL Creatinine 0.76 (0.52-1.04) mg/dL Estimated GFR > 60.0 ML/MIN Glucose 122 H (74-106) mg/dL Calcium 9.0 (8.4-10.2) mg/dL Total Bilirubin 0.70 (0.2-1.3) mg/dL AST 72 H (14-36) U/L ALT 26 (0-35) U/L Alkaline Phosphatase 125 (38-126) U/L Troponin I < 0.012 (0.000-0.034) ng/mL NT-Pro-B Natriuret Pep 302 (0-900) pg/mL Serum Total Protein 6.3 (6.3-8.2) g/dL Albumin 3.9 (3.5-5.0) g/dL Influenza Type A Ag (NEGATIVE) Influenza Type B Ag (NEGATIVE) RSV (PCR) (Negative) SARS-CoV-2 (PCR) (NEGATIVE) 10/15/21 10/15/21 10/15/21 Range/Units 04:23 05:04 07:15 WBC (4.0-10.5) K/mm3 RBC (4.1-5.4) M/mm3 Hgb (12.0-16.0) gm/dl Hct (35-47) % MCV (78-100) fl MCH (26-32) pg MCHC (32-36) g/dl RDW (11.5-14.0) % Plt Count (150-450) K/mm3 MPV (7.5-11.0) fl Gran % (36.0-66.0) % Eos # (Auto) (0-0.5) Absolute Lymphs (auto) (1.0-4.6) Absolute Monos (auto) (0.0-1.3) Lymphocytes % (24.0-44.0) % Monocytes % (0.0-12.0) % Eosinophils % (0.00-5.0) % Basophils % (0.0-0.4) % Absolute Granulocytes (1.4-6.9) Basophils # (0-0.4) Sodium (137-145) mmol/L Potassium (3.5-5.1) mmol/L Chloride (98-107) mmol/L Carbon Dioxide (22-30) mmol/L Anion Gap (5-15) MEQ/L BUN (7-17) mg/dL Creatinine (0.52-1.04) mg/dL Estimated GFR ML/MIN Glucose (74-106) mg/dL Calcium (8.4-10.2) mg/dL Total Bilirubin (0.2-1.3) mg/dL AST (14-36) U/L ALT (0-35) U/L Alkaline Phosphatase (38-126) U/L Troponin I < 0.012 < 0.012 (0.000-0.034) ng/mL NT-Pro-B Natriuret Pep (0-900) pg/mL Serum Total Protein (6.3-8.2) g/dL Albumin (3.5-5.0) g/dL Influenza Type A Ag NEGATIVE (NEGATIVE) Influenza Type B Ag NEGATIVE (NEGATIVE) RSV (PCR) NEGATIVE (Negative) SARS-CoV-2 (PCR) NEGATIVE (NEGATIVE) - Radiology Impressions Radiology Exams & Impressions: Radiology Procedures Category Date Time Status CHEST 1 VIEW (PORTABLE) Stat Exams 10/15/21 01:38 Completed - Other Procedures and Tests Respiratory Therapy 10/16/21 05:00 EKG ROUTINE 10/17/21 05:00 EKG ROUTINE 10/18/21 05:00 EKG ROUTINE Assessment/Plan (1) ACS (acute coronary syndrome) Current Visit: Yes Status: Acute Assessment & Plan: Chief Complaint Diagnosis ACS Allergies Allergy/AdvReac Type Severity Reaction Status Date / Time shrimp Allergy Intermediate Hives Verified 10/15/21 06:26 contrast dye Allergy Intermediate Hives Uncoded 10/15/21 01:38 Vital Signs (Last 24 hours) Temp Pulse Pulse Resp BP Pulse Ox 10/15/21 07:44 97.1 F 70 18 133/64 93 L 10/15/21 06:38 97.1 F 70 18 133/64 93 L 10/15/21 06:32 97.1 F 70 18 133/64 93 L 10/15/21 05:45 96 10/15/21 05:14 82 18 103/59 94 L 10/15/21 04:28 83 15 114/74 90 L 10/15/21 03:09 66 16 109/62 93 L 10/15/21 01:53 97 10/15/21 01:39 59 L 10/15/21 01:30 97.5 F 65 15 117/47 96 Home Medications Medication Instructions Recorded Confirmed Last Taken Type Alendronate Sodium 70 mg 70 mg PO WEEKLY 10/15/21 10/15/21 10/12/21 08:00 History [Fosamax 70 MG] Levothyroxine Sodium [Synthroid] 125 mcg PO DAILY 10/15/21 10/15/21 10/14/21 08:00 History Rosuvastatin Calcium 20 mg PO DAILY 10/15/21 10/15/21 10/14/21 10:00 History atenoloL [Atenolol] 25 mg PO DAILY 10/15/21 10/15/21 10/14/21 10:00 History Current Medications Generic Name Dose Route Start Last Admin Trade Name Emma PRN Reason Stop Dose Admin Acetaminophen 650 mg 10/15/21 06:02 10/15/21 09:03 Acetaminophen 325 Mg Tablet PO 11/14/21 06:01 650 mg Q4H PRN PRN Administration PAIN AND/OR FEVER Al Hydrox/Mg Hydrox/Simethicone 30 ml 10/15/21 06:02 Mag Hydrox/Al Hydrox/Simeth 30 Ml Udcup PO 11/14/21 06:01 Q4H PRN PRN INDIGESTION Magnesium Hydroxide 30 - 60 ml 10/15/21 06:02 Magnesium Hydroxide 30 Ml Udcup PO 11/14/21 06:01 QDP PRN CONSTIPATION Senna/Docusate Sodium 2 udtab 10/15/21 06:02 Senna/Docusate Sodium 1 Udtab Tablet PO 11/14/21 06:01 BID PRN PRN CONSTIPATION Discontinued Medications Generic Name Dose Route Start Last Admin Trade Name Freannette PRN Reason Stop Dose Admin Aspirin 324 mg 10/15/21 01:39 10/15/21 02:05 Aspirin 81 Mg Tab.Chew PO 10/15/21 01:40 324 mg STAT ONE Administration Aspirin Confirm 10/15/21 02:06 Aspirin 81 Mg Tab.Chew Administered 10/15/21 02:07 Dose 81 mg .ROUTE .STK-MED ONE Morphine Sulfate 4 mg 10/15/21 01:40 10/15/21 02:10 Morphine Sulfate 4 Mg/Ml Injection IV 10/15/21 01:41 4 mg STAT ONE Administration Morphine Sulfate Confirm 10/15/21 02:07 Morphine Sulfate 4 Mg/Ml Injection Administered 10/15/21 02:08 Dose 4 mg .ROUTE .STK-MED ONE Nitroglycerin 1 gm 10/15/21 01:40 10/15/21 02:10 Nitroglycerin 1 Gm Packet TOP 10/15/21 01:41 1 gm STAT ONE Administration Nitroglycerin Confirm 10/15/21 02:07 Nitroglycerin 1 Gm Packet Administered 10/15/21 02:08 Dose 1 gm .ROUTE .STK-MED ONE Ondansetron HCl 4 mg 10/15/21 06:13 10/15/21 06:16 Ondansetron Hcl 4 Mg/2 Ml Vial IV 10/15/21 06:14 4 mg ONCE ONE Administration Potassium Chloride 40 meq 10/15/21 02:28 10/15/21 02:49 Potassium Chloride 10 Meq Tablet PO 10/15/21 02:29 40 meq STAT ONE Administration Potassium Chloride Confirm 10/15/21 02:48 Potassium Chloride 10 Meq Tablet Administered 10/15/21 02:49 Dose 40 meq PO .STK-MED ONE Intake & Output (Last 24 hours) 10/12/21 10/13/21 10/14/21 10/15/21 11:59 11:59 11:59 11:59 Intake Total 120 Balance 120 Weight 92.9 kg Laboratory Results (Last 24 hours) 10/15/21 10/15/21 10/15/21 07:15 05:04 04:23 WBC RBC Hgb Hct MCV MCH MCHC RDW Plt Count MPV Gran % Eos # (Auto) Absolute Lymphs (auto) Absolute Monos (auto) Lymphocytes % Monocytes % Eosinophils % Basophils % Absolute Granulocytes Basophils # Sodium Potassium Chloride Carbon Dioxide Anion Gap BUN Creatinine Estimated GFR Glucose Calcium Total Bilirubin AST ALT Alkaline Phosphatase Troponin I < 0.012 < 0.012 NT-Pro-B Natriuret Pep Serum Total Protein Albumin Influenza Type A Ag NEGATIVE Influenza Type B Ag NEGATIVE RSV (PCR) NEGATIVE SARS-CoV-2 (PCR) NEGATIVE 10/15/21 10/15/21 10/15/21 01:51 01:51 01:51 WBC 8.1 RBC 5.47 H Hgb 15.2 Hct 45.5 MCV 83.2 MCH 27.8 MCHC 33.4 RDW 15.3 H Plt Count 204 MPV 11.1 H Gran % 56.4 Eos # (Auto) 0.46 Absolute Lymphs (auto) 2.28 Absolute Monos (auto) 0.75 Lymphocytes % 28.1 Monocytes % 9.3 Eosinophils % 5.7 H Basophils % 0.5 Absolute Granulocytes 4.57 Basophils # 0.04 Sodium 137 Potassium 2.9 L* Chloride 99 Carbon Dioxide 30 Anion Gap 10.6 BUN 23 H Creatinine 0.76 Estimated GFR > 60.0 Glucose 122 H Calcium 9.0 Total Bilirubin 0.70 AST 72 H ALT 26 Alkaline Phosphatase 125 Troponin I < 0.012 NT-Pro-B Natriuret Pep 302 Serum Total Protein 6.3 Albumin 3.9 Influenza Type A Ag Influenza Type B Ag RSV (PCR) SARS-CoV-2 (PCR) Orders (Last 24 hours) Category Date Time Status Bedrest with BRP/BSC ROUTINE Activity 10/15/21 06:02 Active Ice Hockey Coach STAT Care 10/15/21 01:38 Completed Code Status Order ROUTINE Care 10/15/21 06:02 Active EKG-ER Only STAT Care 10/15/21 01:37 Completed IV Care Q6H Care 10/15/21 06:02 Active IV Insertion STAT Care 10/15/21 01:37 Completed Implement Chest Pain Pathway ROUTINE Care 10/15/21 06:[address] in Observation ROUTINE Care 10/15/21 06:02 Active Pulse Oximetry (ED) STAT Care 10/15/21 01:37 Completed Selvin Tamayo ROUTINE Care 10/15/21 06:02 Active Telemetry q6h Care 10/15/21 06:02 Active Weight,Daily 0600 Care 10/15/21 06:02 Active Heart-Healthy Diet Diet 10/15/21 Breakfast Active CHEST 1 VIEW (PORTABLE) Stat Exams 10/15/21 01:38 Completed CBC W DIFF Stat Lab 10/15/21 01:51 Completed CMP Stat Lab 10/15/21 01:51 Completed LIPID PROFILE AM.LAB Lab 10/16/21 04:00 Ordered NT PRO BNP Stat Lab 10/15/21 01:51 Completed TROPONIN Q3H Lab 10/15/21 01:51 Completed TROPONIN Q3H Lab 10/15/21 05:04 Completed TROPONIN Q3H Lab 10/15/21 07:15 Completed TROPONIN Q3H Lab 10/15/21 10:45 Ordered TROPONIN Q3H Lab 10/15/21 13:45 Ordered Acetaminophen 325 mg [Tylenol 325 mg] Med 10/15/21 06:02 Active 650 mg PO Q4H PRN PRN Aspirin 81 gm Chew [Baby Aspirin 81 mg Chew] Med 10/15/21 01:39 Discontinued 324 mg PO STAT ONE Aspirin 81 gm Chew [Baby Aspirin 81 mg Chew] Med 10/15/21 02:06 Discontinued 81 mg .ROUTE .STK-MED ONE Mag Hydrox/Al Hydrox/Simeth [Maalox Es 30 ml Unit Med 10/15/21 06:02 Active Dose] 30 ml PO Q4H PRN PRN Magnesium Hydroxide 30 ml [Milk of Magnesia 30 ml Med 10/15/21 06:02 Active ] 30 - 60 ml PO QDP PRN Morphine Sulfate 4 mg Inj Med 10/15/21 02:07 Discontinued 4 mg .ROUTE .STK-MED ONE Morphine Sulfate 4 mg Inj Med 10/15/21 01:40 Discontinued 4 mg IV STAT ONE Nitroglycerin 2 %Ointment [Nitro-Bid 2% Ud Packets Med 10/15/21 02:07 Discontinued *] 1 gm .ROUTE .STK-MED ONE Nitroglycerin 2 %Ointment [Nitro-Bid 2% Ud Packets Med 10/15/21 01:40 Discontinued *] 1 gm TOP STAT ONE Ondansetron HCl 4 mg/2 ml [Zofran 4 MG/2 ML VIAL] Med 10/15/21 06:13 Discontinued 4 mg IV ONCE ONE Potassium Chloride 10 Meq Tab* [Klor Con 10 MEQ] Med 10/15/21 02:48 Discontinued 40 meq PO .STK-MED ONE Potassium Chloride 10 Meq Tab* [Klor Con 10 MEQ] Med 10/15/21 02:28 Discontinued 40 meq PO STAT ONE Senna/Docusate Sodium Tab [Senokot-S Tablet] Med 10/15/21 06:02 Active 2 udtab PO BID PRN PRN EKG Q8HX2,QAMX3,PRN RT 10/15/21 06:02 Completed EKG ROUTINE RT 10/15/21 09:35 Completed EKG ROUTINE RT 10/16/21 05:00 Active EKG ROUTINE RT 10/17/21 05:00 Active EKG ROUTINE RT 10/18/21 05:00 Active Pulse Oximetry Q4H RT 10/15/21 06:02 Completed Transfer Order Routine Transfer 10/15/21 Completed Code(s): I24.9 - ACUTE ISCHEMIC HEART DISEASE, UNSPECIFIED
[2021-10-15] MEDS ORDERED: clonazePAM PO PRN (12:21)
[2021-10-15] MEDS ORDERED: Protonix 40MG Tablet PO SCH (13:00)
[2021-10-15] MEDS ORDERED: ECOTRIN 81 MG PO SCH (13:00)
[2021-10-15] MEDS ORDERED: CHLORTHALIDONE PO SCH (13:00)
[2021-10-15] MEDS ORDERED: SYNTHROID 125 MCG PO SCH (13:00)
[2021-10-15] MEDS ORDERED: ZOCOR 20MG PO SCH (13:00)
[2021-10-15] MEDS ORDERED: Singulair 10 MG PO SCH (13:00)
[2021-10-15] MEDS ORDERED: TENORMIN 50 MG PO SCH (13:00)
[2021-10-15] MEDS ORDERED: NORVASC 5 MG PO SCH (13:00)
[2021-10-15] MEDS: celeBREX 100 MG PO SCH ×2 (13:13→22:15)
[2021-10-15] MEDS ORDERED: TORAdol 30 mg Injection IM ONE (13:45)
[2021-10-16 05:29] LABS: Hematocrit 45.6 % (35-47); Hemoglobin 15.2 gm/dl (12.0-16.0); Mean Cell Volume 83.4 fl (78-100); Mean Corpuscular Hemoglobin 27.8 pg (26-32); Mean Corpuscular Hgb Concent. 33.3 g/dl (32-36); Platelet Count 199 K/mm3 (150-450); Red Blood Count 5.47 M/mm3 (4.1-5.4); Red Cell Distribution Width 15.4 % (11.5-14.0); White Blood Count 9.7 K/mm3 (4.0-10.5)
[2021-10-16 05:59] LABS: ALBUMIN 3.8 g/dL (3.5-5.0); ALKALINE PHOSPHATASE 128 U/L (38-126); ANION GAP 10.2 MEQ/L (5-15); BLOOD UREA NITROGEN 28 mg/dL (7-17); CHLORIDE 97 mmol/L (98-107); Calcium 8.9 mg/dL (8.4-10.2); Carbon Dioxide 32 mmol/L (22-30); Creatinine 1 0.69 mg/dL (0.52-1.04); EST GLOMERULAR FILTRATION RATE > 60.0 ML/MIN; Glucose 102 mg/dL (74-106); Potassium 3.3 mmol/L (3.5-5.1); SGOT/AST 44 U/L (14-36); SGPT/ALT 42 U/L (0-35); SODIUM 136 mmol/L (137-145); Total Protein 6.5 g/dL (6.3-8.2)
[2021-10-16 06:06] LABS: Risk Ratio 2.5
--- NOTE | 2021-10-16 07:54 | PCM.DS ---
Discharge Summary Date of Admission: 10/15/21 06:01 Admitting Physician: DAVID MORFIN Primary Care Provider: DAVID MORFIN Allergies Allergies shrimp Allergy (Intermediate, Verified 10/15/21 06:26) Hives contrast dye Allergy (Intermediate, Uncoded 10/15/21 01:38) [facility] Summary - Hospital Course Hospital Course: Chief Complaint Diagnosis chest pain for 1 day Allergies Allergy/AdvReac Type Severity Reaction Status Date / Time shrimp Allergy Intermediate Hives Verified 10/15/21 06:26 contrast dye Allergy Intermediate Hives Uncoded 10/15/21 01:38 Vital Signs (Last 24 hours) Temp Pulse Resp BP Pulse Ox 10/16/21 04:00 97.8 F 62 22 108/50 94 L 10/16/21 00:00 98.0 F 61 20 117/58 94 L 10/15/21 20:00 97.1 F 78 18 111/53 95 10/15/21 16:00 97.5 F 69 22 109/51 96 10/15/21 12:00 97.5 F 68 13 114/59 94 L Home Medications Medication Instructions Recorded Confirmed Last Taken Type Alendronate Sodium 70 mg 70 mg PO WEEKLY 10/15/21 10/15/21 10/12/21 08:00 History [Fosamax 70 MG] Levothyroxine Sodium [Synthroid] 125 mcg PO DAILY 10/15/21 10/15/21 10/14/21 08:00 History Rosuvastatin Calcium 20 mg PO DAILY 10/15/21 10/15/21 10/14/21 10:00 History atenoloL [Atenolol] 25 mg PO DAILY 10/15/21 10/15/21 10/14/21 10:00 History Current Medications Generic Name Dose Route Start Last Admin Trade Name Freq PRN Reason Stop Dose Admin Acetaminophen 650 mg 10/15/21 06:02 10/15/21 13:13 Acetaminophen 325 Mg Tablet PO 11/14/21 06:01 650 mg Q4H PRN PRN Administration PAIN AND/OR FEVER Al Hydrox/Mg Hydrox/Simethicone 30 ml 10/15/21 06:02 Mag Hydrox/Al Hydrox/Simeth 30 Ml Udcup PO 11/14/21 06:01 Q4H PRN PRN INDIGESTION Alendronate Sodium 70 mg 10/19/21 06:00 Alendronate Sodium 70 Mg Tablet PO 11/18/21 05:59 WEEKLY ASIYA Amlodipine Besylate 2.5 mg 10/15/21 13:00 10/15/21 13:12 Amlodipine Besylate 5 Mg Tablet PO 11/14/21 12:59 2.5 mg DAILY ASIYA Administration Aspirin 81 mg 10/15/21 13:00 10/15/21 13:12 Aspirin 81 Mg Tablet.Ec PO 11/14/21 12:59 81 mg DAILY ASIYA Administration Atenolol 25 mg 10/15/21 13:00 10/15/21 13:13 Atenolol 50 Mg Tablet PO 11/14/21 12:59 25 mg DAILY ASIYA Administration Celecoxib 100 mg 10/15/21 13:00 10/15/21 22:15 Celecoxib 100 Mg Capsule PO 11/14/21 12:59 100 mg BID ASIYA Administration Chlorthalidone 25 mg 10/15/21 13:00 10/15/21 13:14 Chlorthalidone 25 Mg Tablet PO 11/14/21 12:59 25 mg DAILY ASIYA Administration Clonazepam 0.5 mg 10/15/21 12:21 Clonazepam 0.5 Mg Tablet PO 11/14/21 12:20 BID PRN PRN ANXIETY Levothyroxine Sodium 125 mcg 10/15/21 13:00 10/15/21 13:12 Levothyroxine Sodium 125 Mcg Tablet PO 11/14/21 12:59 125 mcg DAILY ASIYA Administration Magnesium Hydroxide 30 - 60 ml 10/15/21 06:02 Magnesium Hydroxide 30 Ml Udcup PO 11/14/21 06:01 QDP PRN CONSTIPATION Montelukast Sodium 10 mg 10/15/21 13:00 10/15/21 13:12 Montelukast Sodium 10 Mg Tablet PO 11/14/21 12:59 10 mg DAILY ASIYA Administration Pantoprazole Sodium 40 mg 10/15/21 13:00 10/15/21 13:13 Protonix (Pantoprazole) 40 Mg Tablet PO 11/14/21 12:59 40 mg DAILY ASIYA Administration Senna/Docusate Sodium 2 udtab 10/15/21 06:02 Senna/Docusate Sodium 1 Udtab Tablet PO 11/14/21 06:01 BID PRN PRN CONSTIPATION Simvastatin 40 mg 10/15/21 13:00 10/15/21 13:13 Simvastatin 20 Mg Tablet PO 11/14/21 12:59 40 mg DAILY ASIYA Administration Discontinued Medications Generic Name Dose Route Start Last Admin Trade Name Emma GAMBOA Reason Stop Dose Admin Aspirin 324 mg 10/15/21 01:39 10/15/21 02:05 Aspirin 81 Mg Tab.Chew PO 10/15/21 01:40 324 mg STAT ONE Administration Aspirin Confirm 10/15/21 02:06 Aspirin 81 Mg Tab.Chew Administered 10/15/21 02:07 Dose 81 mg .ROUTE .STK-MED ONE Ketorolac Tromethamine 30 mg 10/15/21 13:45 10/15/21 14:21 Ketorolac Tromethamine 30 Mg/Ml Inj IM 10/15/21 13:46 30 mg ONCE ONE Administration Morphine Sulfate 4 mg 10/15/21 01:40 10/15/21 02:10 Morphine Sulfate 4 Mg/Ml Injection IV 10/15/21 01:41 4 mg STAT ONE Administration Morphine Sulfate Confirm 10/15/21 02:07 Morphine Sulfate 4 Mg/Ml Injection Administered 10/15/21 02:08 Dose 4 mg .ROUTE .STK-MED ONE Nitroglycerin 1 gm 10/15/21 01:40 10/15/21 02:10 Nitroglycerin 1 Gm Packet TOP 10/15/21 01:41 1 gm STAT ONE Administration Nitroglycerin Confirm 10/15/21 02:07 Nitroglycerin 1 Gm Packet Administered 10/15/21 02:08 Dose 1 gm .ROUTE .STK-MED ONE Ondansetron HCl 4 mg 10/15/21 06:13 10/15/21 06:16 Ondansetron Hcl 4 Mg/2 Ml Vial IV 10/15/21 06:14 4 mg ONCE ONE Administration Potassium Chloride 40 meq 10/15/21 02:28 10/15/21 02:49 Potassium Chloride 10 Meq Tablet PO 10/15/21 02:29 40 meq STAT ONE Administration Potassium Chloride Confirm 10/15/21 02:48 Potassium Chloride 10 Meq Tablet Administered 10/15/21 02:49 Dose 40 meq PO .STK-MED ONE Intake & Output (Last 24 hours) 10/13/21 10/14/21 10/15/21 10/16/21 11:59 11:59 11:59 11:59 Intake Total 120 760 Output Total 400 Balance 120 360 Weight 92.9 kg 92.6 kg Laboratory Results (Last 24 hours) 10/16/21 10/16/21 10/16/21 05:05 05:05 05:05 WBC 9.7 RBC 5.47 H Hgb 15.2 Hct 45.6 MCV 83.4 MCH 27.8 MCHC 33.3 RDW 15.4 H Plt Count 199 MPV 11.0 Sodium 136 L Potassium 3.3 L Chloride 97 L Carbon Dioxide 32 H Anion Gap 10.2 BUN 28 H Creatinine 0.69 Estimated GFR > 60.0 Glucose 102 Calcium 8.9 Total Bilirubin 0.70 AST 44 H ALT 42 H Alkaline Phosphatase 128 H Troponin I Serum Total Protein 6.5 Albumin 3.8 Triglycerides 109 Cholesterol 135 LDL Cholesterol 68 HDL Cholesterol 53 Heart Disease Risk Ratio 2.5 10/15/21 10/15/21 10/15/21 13:15 10:50 07:15 WBC RBC Hgb Hct MCV MCH MCHC RDW Plt Count MPV Sodium Potassium 3.1 L Chloride Carbon Dioxide Anion Gap BUN Creatinine Estimated GFR Glucose Calcium Total Bilirubin AST ALT Alkaline Phosphatase Troponin I < 0.012 < 0.012 Serum Total Protein Albumin Triglycerides Cholesterol LDL Cholesterol HDL Cholesterol Heart Disease Risk Ratio Orders (Last 24 hours) Category Date Time Status Heart-Healthy Diet Diet 10/15/21 Breakfast Active CBC AM.LAB Lab 10/16/21 05:05 Completed CMP AM.LAB Lab 10/16/21 05:05 Completed LIPID PROFILE AM.LAB Lab 10/16/21 05:05 Completed Potassium Urgent Lab 10/15/21 13:15 Completed TROPONIN Q3H Lab 10/15/21 07:15 Completed TROPONIN Q3H Lab 10/15/21 10:50 Completed Alendronate Sodium 70 mg [Fosamax 70 MG] Med 10/19/21 06:00 Active 70 mg PO WEEKLY Amlodipine Besylate 5 mg [Norvasc 5 mg] Med 10/15/21 13:00 Active 2.5 mg PO DAILY Aspirin EC 81 mg [Ecotrin 81 mg] Med 10/15/21 13:00 Active 81 mg PO DAILY Atenolol 50 mg [Tenormin 50 mg] Med 10/15/21 13:00 Active 25 mg PO DAILY Celecoxib 100 mg [celeBREX 100 MG] Med 10/15/21 13:00 Active 100 mg PO BID Chlorthalidone Med 10/15/21 13:00 Active 25 mg PO DAILY KETOROLAC trometh 30 mg Inj [TORAdol 30 mg Injection Med 10/15/21 13:45 Discontinued ] 30 mg IM ONCE ONE Levothyroxine Sodium 125 Mcg [Synthroid 125 Mcg] Med 10/15/21 13:00 Active 125 mcg PO DAILY Montelukast Sodium 10 mg [Singulair 10 MG] Med 10/15/21 13:00 Active 10 mg PO DAILY PANTOPRAZOLE 40 mg Tablet [Protonix 40MG Tablet] Med 10/15/21 13:00 Active 40 mg PO DAILY Simvastatin 20Mg [Zocor 20Mg] Med 10/15/21 13:00 Active 40 mg PO DAILY clonazePAM Med 10/15/21 12:21 Active 0.5 mg PO BID PRN PRN EKG ROUTINE RT 10/15/21 09:35 Completed EKG ROUTINE RT 10/16/21 05:00 Completed EKG ROUTINE RT 10/17/21 05:00 Active EKG ROUTINE RT 10/18/21 05:00 Active - Vitals & Intake/Output Vital Signs: Vital Signs Temperature 97.8 F 10/16/21 04:00 Pulse Rate 62 10/16/21 04:00 Respiratory Rate 22 10/16/21 04:00 Blood Pressure 108/50 10/16/21 04:00 O2 Sat by Pulse Oximetry 94 L 10/16/21 04:00 Intake & Output: Intake & Output 10/13/21 10/14/21 10/15/21 10/16/21 11:59 11:59 11:59 11:59 Intake Total 120 760 Output Total 400 Balance 120 360 Weight 92.9 kg 92.6 kg - Lab Result Diagrams: 10/16/21 05:05 10/16/21 05:05 Lab Results-Last 24 Hrs: Lab Results-Last 24 Hours 10/15/21 10/15/21 10/15/21 Range/Units 07:15 10:50 13:15 WBC (4.0-10.5) K/mm3 RBC (4.1-5.4) M/mm3 Hgb (12.0-16.0) gm/dl Hct (35-47) % MCV (78-100) fl MCH (26-32) pg MCHC (32-36) g/dl RDW (11.5-14.0) % Plt Count (150-450) K/mm3 MPV (7.5-11.0) fl Sodium (137-145) mmol/L Potassium 3.1 L (3.5-5.1) mmol/L Chloride (98-107) mmol/L Carbon Dioxide (22-30) mmol/L Anion Gap (5-15) MEQ/L BUN (7-17) mg/dL Creatinine (0.52-1.04) mg/dL Estimated GFR ML/MIN Glucose (74-106) mg/dL Calcium (8.4-10.2) mg/dL Total Bilirubin (0.2-1.3) mg/dL AST (14-36) U/L ALT (0-35) U/L Alkaline Phosphatase (38-126) U/L Troponin I < 0.012 < 0.012 (0.000-0.034) ng/mL Serum Total Protein (6.3-8.2) g/dL Albumin (3.5-5.0) g/dL Triglycerides (30-150) mg/dL Cholesterol (50-200) mg/dL LDL Cholesterol (30-100) mg/dL HDL Cholesterol (40-60) mg/dL Heart Disease Risk Ratio 10/16/21 10/16/21 10/16/21 Range/Units 05:05 05:05 05:05 WBC 9.7 (4.0-10.5) K/mm3 RBC 5.47 H (4.1-5.4) M/mm3 Hgb 15.2 (12.0-16.0) gm/dl Hct 45.6 (35-47) % MCV 83.4 (78-100) fl MCH 27.8 (26-32) pg MCHC 33.3 (32-36) g/dl RDW 15.4 H (11.5-14.0) % Plt Count 199 (150-450) K/mm3 MPV 11.0 (7.5-11.0) fl Sodium 136 L (137-145) mmol/L Potassium 3.3 L (3.5-5.1) mmol/L Chloride 97 L (98-107) mmol/L Carbon Dioxide 32 H (22-30) mmol/L Anion Gap 10.2 (5-15) MEQ/L BUN 28 H (7-17) mg/dL Creatinine 0.69 (0.52-1.04) mg/dL Estimated GFR > 60.0 ML/MIN Glucose 102 (74-106) mg/dL Calcium 8.9 (8.4-10.2) mg/dL Total Bilirubin 0.70 (0.2-1.3) mg/dL AST 44 H (14-36) U/L ALT 42 H (0-35) U/L Alkaline Phosphatase 128 H (38-126) U/L Troponin I (0.000-0.034) ng/mL Serum Total Protein 6.5 (6.3-8.2) g/dL Albumin 3.8 (3.5-5.0) g/dL Triglycerides 109 (30-150) mg/dL Cholesterol 135 (50-200) mg/dL LDL Cholesterol 68 (30-100) mg/dL HDL Cholesterol 53 (40-60) mg/dL Heart Disease Risk Ratio 2.5 - Radiology Exams Ordered Rad Exams-Entire Visit: Radiology Procedures Category Date Time Status CHEST 1 VIEW (PORTABLE) Stat Exams 10/15/21 01:38 Completed - Procedures and Test Procedures and Tests throughout Hospitalization: Therapy Orders & Screens 10/15/21 06:02 EKG Q8HX2,QAMX3,PRN Comment: 10/15/21 09:35 EKG ROUTINE Comment: Diagnosis: ACS 10/16/21 05:00 EKG ROUTINE Comment: Diagnosis: ACS 10/17/21 05:00 EKG ROUTINE Comment: Diagnosis: ACS 10/18/21 05:00 EKG ROUTINE Comment: Diagnosis: ACS Discharge Exam General Appearance: no apparent distress, alert Neurologic Exam: alert, oriented x 3, cooperative, normal mood/affect, nml cerebellar function, sensation nml, No motor deficits Eye Exam: PERRL, EOMI, eyes nml inspection Ears, Nose, Throat Exam: normal ENT inspection, pharynx normal, moist mucous membranes Neck Exam: normal inspection, non-tender, supple, full range of motion Respiratory Exam: normal breath sounds, lungs clear, No respiratory distress Cardiovascular Exam: regular rate/rhythm, normal heart sounds Gastrointestinal/Abdomen Exam: soft, No tenderness, No mass Pelvic Exam: deferred Rectal Exam: deferred Back Exam: normal inspection, normal range of motion, No CVA tenderness, No vertebral tenderness Extremity Exam: normal inspection, normal range of motion Skin Exam: normal color, warm, dry Final Diagnosis/Problem List - Final Discharge Diagnosis/Problem (1) ACS (acute coronary syndrome) Current Visit: Yes Status: Resolved Code(s): I24.9 - ACUTE ISCHEMIC HEART DISEASE, UNSPECIFIED - Discharge Discharge Date: 10/16/21 Disposition: Home, Self-Care Condition: Stable Prescriptions: Continue Clonazepam 0.5 mg [Klonopin 0.5 MG] 0.5 mg PO BID PRN PRN Reason: Anxiety Aspirin [[place] Aspirin EC] 81 mg PO DAILY Montelukast Sodium 10 mg [Singulair 10 MG] 10 mg PO DAILY Omeprazole 40 mg PO DAILY Amlodipine Besylate 2.5 mg PO DAILY Celecoxib 100 mg [celeBREX 100 MG] 100 mg PO BID Chlorthalidone 25 mg PO DAILY Levothyroxine Sodium [Synthroid] 125 mcg PO DAILY Rosuvastatin Calcium 20 mg PO DAILY Alendronate Sodium 70 mg [Fosamax 70 MG] 70 mg PO WEEKLY atenoloL [Atenolol] 25 mg PO DAILY Follow up with: DAVID MORFIN MD [Primary Care Provider] - 7 Days
[2021-10-16 08:46] VITALS: BP 130/61; PULSE 64; O2SAT 93
[2021-10-16] MEDS ORDERED: NON-FORMULARY ITEM (Rosuvastatin Calcium [Rosuvastatin Calcium] 20 MG Tablet) PO SCH (10:00)
[2021-10-16] MEDS ORDERED: NON-FORMULARY ITEM (Atenolol [Atenolol] 25 MG Tablet) PO SCH (10:00)
[2021-10-16] MEDS ORDERED: NON-FORMULARY ITEM (Amlodipine Besylate [Amlodipine Besylate] 2.5 MG Tablet) PO SCH (10:00)
[2021-10-16] MEDS ORDERED: NON-FORMULARY ITEM (Omeprazole [Omeprazole] 40 MG Capsule.Dr) PO SCH (10:00)
[2021-10-19] MEDS ORDERED: Fosamax 70 MG PO SCH (06:00)
== END 2021-10-16 09:15 | disposition home or self-care (01) ==
LOC: ED 01:28 → MED SURG 06:01
PROVIDERS: ADMIT General Practice; ATTEND General Practice
DX: I24.9 Acute ischemic heart disease, unspecified (principal); I10 Essential (primary) hypertension; J44.9 Chronic obstructive pulmonary disease, unspecified; Z79.899 Other long term (current) drug therapy; Z20.828 Contact with and (suspected) exposure to other viral communicable diseases
CPT/HCPCS: 0241U; 36000; 36415; 71045; 80053; 80061; 83721; 83880; 84132; 84484; 85025; 85027; 93005; 93041; 93268; 94760; 96374; 99285; G0378; J1885; J2270; J2405; A9270-GY

== ENCOUNTER 2021-10-25 11:09 | Emergency (ER) | payer MEDICARE ==
[2021-10-25] MEDS ORDERED: Sodium Chloride 0.9% 1000 ML 1,000 ML ONE (11:28)
[2021-10-25] MEDS ORDERED: Sodium Chloride 0.9% 1000 ML 1,000 ML IV SCH (11:30)
[2021-10-25 11:51] LABS: Hematocrit 47.1 % (35-47); Hemoglobin 15.1 gm/dl (12.0-16.0); Mean Cell Volume 85.2 fl (78-100); Mean Corpuscular Hemoglobin 27.3 pg (26-32); Mean Corpuscular Hgb Concent. 32.1 g/dl (32-36); Mean Platelet Volume 10.8 fl (7.5-11.0); Platelet Count 231 K/mm3 (150-450); Red Blood Count 5.53 M/mm3 (4.1-5.4); Red Cell Distribution Width 15.1 % (11.5-14.0); White Blood Count 10.6 K/mm3 (4.0-10.5)
[2021-10-25 11:55] LABS: ALKALINE PHOSPHATASE 129 U/L (38-126); ANION GAP 5.3 MEQ/L (5-15); BLOOD UREA NITROGEN 21 mg/dL (7-17); CHLORIDE 98 mmol/L (98-107); Calcium 8.3 mg/dL (8.4-10.2); Carbon Dioxide 33 mmol/L (22-30); Creatinine 1 0.66 mg/dL (0.52-1.04); EST GLOMERULAR FILTRATION RATE > 60.0 ML/MIN; Glucose 124 mg/dL (74-106); LIPASE 82 U/L (23-300); MAGNESIUM 2.4 mg/dL (1.6-2.3); NT PRO BNP 356 pg/mL (0-900); Potassium 3.4 mmol/L (3.5-5.1); SGOT/AST 387 U/L (14-36); SGPT/ALT 260 U/L (0-35); SODIUM 133 mmol/L (137-145); Total Protein 6.7 g/dL (6.3-8.2)
--- NOTE | 2021-10-25 11:55 | ERPHSYRPT ---
- History of Present Illness Time Seen by Provider: 10/25/21 11:09 Patient Subjective Stated Complaint: Patient states she was having chest pain this morning. States she went to [employer] and became very weak and thought she was going to pass out. Triage Nursing Assessment: Patient to ED with chest pain and low heart rate. Patient VS WNL. Physician History: 70 years old female with history of COPD/hypertension, GERD presented in the ER with chief complaint of feeling dizzy lightheaded, near syncopal while sitting in the [employer] prior to arrival. Patient reports she was feeling as if she was going to pass out and weak all over with no energy. Denies any chest pain p alpitations or shortness of breath during the episode. On the way to the ER via EMS patient heart rate dropped in 40s and was given atropine and currently in 70s. Patient also reports she woke up around 3 AM with substernal dull aching chest pain with radiation to without any significant aggravating or relieving factor and improved on its own within an hour. Currently she is chest pain- free. Denies shortness of breath/fever chills etc. denies any headache, numbness tingling or focal weakness. Denies any visual disturbance or difficulty speech. Timing/Duration: today, sudden, improved Severity: moderate Associated Symptoms: chest pain, weakness Allergies/Adverse Reactions: shrimp Allergy (Intermediate, Verified 10/25/21 11:20) Hives contrast dye Allergy (Intermediate, Uncoded 10/25/21 11:20) Hives Home Medications: Clonazepam 0.5 mg [Klonopin 0.5 MG] 0.5 mg PO BID PRN 07/24/15 [History] Aspirin [[place] Aspirin EC] 81 mg PO DAILY 02/24/17 [History] Montelukast Sodium 10 mg [Singulair 10 MG] 10 mg PO DAILY 11/08/18 [History] Omeprazole 40 mg PO DAILY 04/22/19 [History] Amlodipine Besylate 2.5 mg PO DAILY 01/15/21 [History] Celecoxib 100 mg [celeBREX 100 MG] 100 mg PO BID 01/15/21 [History] Chlorthalidone 25 mg PO DAILY 01/15/21 [History] Alendronate Sodium 70 mg [Fosamax 70 MG] 70 mg PO WEEKLY 10/15/21 [History] Levothyroxine Sodium [Synthroid] 125 mcg PO DAILY 10/15/21 [History] Rosuvastatin Calcium 20 mg PO DAILY 10/15/21 [History] atenoloL [Atenolol] 25 mg PO DAILY 10/15/21 [History] Hx Tetanus, Diphtheria Vaccination/Date Given: No Hx Influenza Vaccination/Date Given: Yes Hx Pneumococcal Vaccination/Date Given: No Immunizations Up to Date: Yes Travel Risk - International Travel Have you traveled outside of the country in past 3 weeks: No - Coronavirus Screening Are you exhibiting any of the following symptoms?: No Close contact with a COVID-19 positive Pt in past 14-21 Days: No - Vaccine Status Have you recieved a Covid-19 vaccination: Yes Recycling Manager: Moderna - Vaccination Dates Date of 2cond Vaccination (if applicable): unknown - Review of Systems Constitutional: Fatigue, Weakness Eyes: No Symptoms Ears, Nose, & Throat: No Symptoms Respiratory: No Symptoms Cardiac: No Symptoms Abdominal/Gastrointestinal: No Symptoms Genitourinary Symptoms: No Symptoms Musculoskeletal: No Symptoms Neurological: Dizziness Psychological: No Symptoms Endocrine: No Symptoms Hematologic/Lymphatic: No Symptoms Immunological/Allergic: No Symptoms - Past Medical History Pertinent Past Medical History: Yes Neurological History: TIA ENT History: Cataracts Cardiac History: Hypertension Respiratory History: COPD Endocrine Medical History: No Pertinent History Musculoskeletal History: Osteoarthritis GI Medical History: Diverticulitis History: No Pertinent History Psycho-Social History: Anxiety Female Reproductive Disorders: No Pertinent History - Past Surgical History Past Surgical History: Yes Neuro Surgical History: No Pertinent History Cardiac: Cardiac Catheterization Respiratory: No Pertinent History Gastrointestinal: Cholecystectomy Genitourinary: No Pertinent History Musculoskeletal: Joint Replacement Female Surgical History: Hysterectomy Other Surgical History: right total knee replacement, rotator cuff surgery, eye surgery, thyroidectomy 09/11/21 - Social History Smoking Status: Former smoker Exposure to second hand smoke: No Alcohol Use: None Drug Use: none Patient Lives Alone: Yes Significant Family History: no pertinent family hx - Nursing Vital Signs Nursing Vital Signs: Initial Vital Signs Temperature 97.9 F 10/25/21 11:09 Pulse Rate 61 10/25/21 11:09 Respiratory Rate 18 10/25/21 11:09 Blood Pressure 146/88 10/25/21 11:09 O2 Sat by Pulse Oximetry 97 10/25/21 11:09 Pain Scale Pain Intensity 0 - Physical Exam General Appearance: no apparent distress, alert, anxiety Eye Exam: PERRL/EOMI, eyes nml inspection Ears, Nose, Throat Exam: normal ENT inspection, TMs normal, pharynx normal, moist mucous membranes Neck Exam: normal inspection, non-tender, supple, full range of motion Respiratory Exam: normal breath sounds, lungs clear Cardiovascular Exam: regular rate/rhythm, normal heart sounds Gastrointestinal/Abdomen Exam: soft, normal bowel sounds, No tenderness Back Exam: normal inspection, normal range of motion Extremity Exam: normal inspection, normal range of motion, pelvis stable Neurologic Exam: alert, oriented x 3, cooperative, credit control manager II-XII nml as tested, normal mood/affect, nml cerebellar function, sensation nml, motor deficits Skin Exam: normal color SpO2 Interpretation: normal SpO2: 97 O2 Delivery: Room Air - Course EKG Interpreted by Me: RATE (62), Sinus Rhythm, NORMAL AXIS, NORMAL INTERVALS, NORMAL QRS Ordered Tests: Active Orders 24 hr Category Date Time Status Welt Cutter STAT Care 10/25/21 11:18 Active EKG-ER Only STAT Care 10/25/21 11:17 Active IV Insertion STAT Care 10/25/21 11:17 Active IV Insertion-2nd Peripheral STAT Care 10/25/21 11:30 Active Orthostatic Vital Signs STAT Care 10/25/21 11:18 Active CHEST 1 VIEW (PORTABLE) Stat Exams 10/25/21 11:17 Taken HEAD WITHOUT CONTRAST [CT] Stat Exams 10/25/21 12:14 Taken CBC W DIFF Stat Lab 10/25/21 11:20 Completed CMP Stat Lab 10/25/21 11:20 Completed LIPASE Stat Lab 10/25/21 11:20 Completed MAGNESIUM Stat Lab 10/25/21 11:20 Completed Manual Differential NC Stat Lab 10/25/21 11:20 Completed NT PRO BNP Stat Lab 10/25/21 11:20 Completed TROPONIN Q3H Lab 10/25/21 11:20 Completed TROPONIN Q3H Lab 10/25/21 14:30 Ordered TROPONIN Q3H Lab 10/25/21 17:30 Ordered TROPONIN Q3H Lab 10/25/21 20:30 Ordered TROPONIN Q3H Lab 10/25/21 23:30 Ordered TSH [TSH, 3RD Generation] Stat Lab 10/25/21 12:55 Ordered Medication Summary Generic Name Dose Route Start Last Admin Trade Name Freq PRN Reason Stop Dose Admin Sodium Chloride 1,000 mls @ 100 mls/hr 10/25/21 11:30 10/25/21 11:31 Sodium Chloride 0.9% 1000 Ml IV 11/24/21 11:29 100 mls/hr .Q10H ASIYA Administration Lab/Rad Data: Laboratory Result Diagrams 10/25/21 11:20 10/25/21 11:20 Laboratory Results 10/25/21 10/25/21 10/25/21 Range/Units 12:20 11:20 11:20 WBC (4.0-10.5) K/mm3 RBC (4.1-5.4) M/mm3 Hgb (12.0-16.0) gm/dl Hct (35-47) % MCV (78-100) fl MCH (26-32) pg MCHC (32-36) g/dl RDW (11.5-14.0) % Plt Count (150-450) K/mm3 MPV (7.5-11.0) fl Sodium 133 L (137-145) mmol/L Potassium 3.4 L (3.5-5.1) mmol/L Chloride 98 (98-107) mmol/L Carbon Dioxide 33 H (22-30) mmol/L Anion Gap 5.3 (5-15) MEQ/L BUN 21 H (7-17) mg/dL Creatinine 0.66 (0.52-1.04) mg/dL Estimated GFR > 60.0 ML/MIN Glucose 124 H (74-106) mg/dL Calcium 8.3 L (8.4-10.2) mg/dL Magnesium 2.4 H (1.6-2.3) mg/dL Total Bilirubin 0.60 (0.2-1.3) mg/dL AST 387 H (14-36) U/L ALT 260 H (0-35) U/L Alkaline Phosphatase 129 H (38-126) U/L Troponin I < 0.012 (0.000-0.034) ng/mL NT-Pro-B Natriuret Pep 356 (0-900) pg/mL Serum Total Protein 6.7 (6.3-8.2) g/dL Albumin 4.0 (3.5-5.0) g/dL Lipase 82 (23-300) U/L Urinalys Dipstick Clnc Pending Urine Color YELLOW (YELLOW) Urine Appearance CLEAR (CLEAR) Urine pH 7.5 (5-6) Ur Specific [place] 1.015 (1.005-1.025) POC Urine Protein Conf NEGATIVE (Negative) Urine Ketones NEGATIVE (NEGATIVE) Urine Nitrite NEGATIVE (NEGATIVE) Urine Bilirubin NEGATIVE (NEGATIVE) Urine Urobilinogen 0.2 (0-1) mg/dL Urine Leukocytes NEGATIVE (NEGATIVE) Urine RBC (Auto) 3-5 (0-2) /HPF U Epithel Cells (Auto) NONE (FEW) /HPF Urine RBC SMALL (0-5) Sergo/ul Ur Culture Indicated? NO Urine Glucose NEGATIVE (NEGATIVE) mg/dL 10/25/21 Range/Units 11:20 WBC 10.6 H (4.0-10.5) K/mm3 RBC 5.53 H (4.1-5.4) M/mm3 Hgb 15.1 (12.0-16.0) gm/dl Hct 47.1 H (35-47) % MCV 85.2 (78-100) fl MCH 27.3 (26-32) pg MCHC 32.1 (32-36) g/dl RDW 15.1 H (11.5-14.0) % Plt Count 231 (150-450) K/mm3 MPV 10.8 (7.5-11.0) fl Sodium (137-145) mmol/L Potassium (3.5-5.1) mmol/L Chloride (98-107) mmol/L Carbon Dioxide (22-30) mmol/L Anion Gap (5-15) MEQ/L BUN (7-17) mg/dL Creatinine (0.52-1.04) mg/dL Estimated GFR ML/MIN Glucose (74-106) mg/dL Calcium (8.4-10.2) mg/dL Magnesium (1.6-2.3) mg/dL Total Bilirubin (0.2-1.3) mg/dL AST (14-36) U/L ALT (0-35) U/L Alkaline Phosphatase (38-126) U/L Troponin I (0.000-0.034) ng/mL NT-Pro-B Natriuret Pep (0-900) pg/mL Serum Total Protein (6.3-8.2) g/dL Albumin (3.5-5.0) g/dL Lipase (23-300) U/L Urinalys Dipstick Clnc Urine Color (YELLOW) Urine Appearance (CLEAR) Urine pH (5-6) Ur Specific [place] (1.005-1.025) POC Urine Protein Conf (Negative) Urine Ketones (NEGATIVE) Urine Nitrite (NEGATIVE) Urine Bilirubin (NEGATIVE) Urine Urobilinogen (0-1) mg/dL Urine Leukocytes (NEGATIVE) Urine RBC (Auto) (0-2) /HPF U Epithel Cells (Auto) (FEW) /HPF Urine RBC (0-5) Sergo/ul Ur Culture Indicated? Urine Glucose (NEGATIVE) mg/dL - Progress Progress: improved, re-examined Progress Note: 10/25/21 13:16 70-year-old is evaluated for dizziness prior to arrival while sitting and later drop in heart rate and also chest pain this morning. EKG showed sinus rhythm with rate in 60s. No ST elevation and negative initial troponin. She has a positive orthostatics, given fluid bolus, feeling some improvement but not complete resolution of dizziness. CT head is negative for any acute findings. Chest x-ray no acute finding reviewed by me, official report is pending. Chem istry profile showed elevated transaminases and elevated magnesium of 2.4. White count of 10. No obvious focus of infection. While in the ER her heart rate is dropping again in 40s while resting. This could be secondary to atenolol or patient's hypothyroidism. Discussed with Dr. Coleman, reviewed history, work-up, recommended transfer to facility with cardiology services to see if patient might need pacemaker placement. Discussed with Dr. Duarte at [facility], reviewed history, work-up and current management, agreed with transfer. Plan discussed with patient and family and they are okay with that. Discussed with : Ainsley, Other (Dr. Duarte [facility]) Counseled pt/family regarding: lab results, diagnosis, need for follow-up, rad results - Departure Departure Disposition: Transfer Clinical Impression: Symptomatic bradycardia, Dizziness Condition: Fair Critical Care Time: Yes Critical Care Time(excluding separately billable procedures): Critical 30-74 mins Referrals: DAVID MORFIN MD [Primary Care Provider] - Follow up/PCP as directed
[2021-10-25 12:47] VITALS: PULSE 50
[2021-10-25 12:52] LABS: Appearance CLEAR (CLEAR); Bilirubin NEGATIVE (NEGATIVE); Glucose NEGATIVE (NEGATIVE); Ketones NEGATIVE (NEGATIVE); RBC SMALL Ery/ul (0-5); Specific Gravity 1.015 (1.005-1.025)
[2021-10-25 12:53] LABS: Dipstick done @ ? MAIN LAB; Nitrite NEGATIVE (NEGATIVE); Ph 7.5 (5-6); Protein,Urine Dip NEGATIVE (Negative); Urobilinogen 0.2 mg/dL (0-1)
[2021-10-25 13:16] VITALS: BP 123/70
[2021-10-25 13:19] VITALS: O2SAT 97
[2021-10-25 13:56] LABS: Eosinophil 1 % (0.00-3.0); Lymphocytes 7 % (24-44); Monocyte 9 % (0.0-12.0); Neutrophils 83 % (36.0-66.0); Total Cells Counted 100
[2021-10-25 13:57] LABS: Platelet Estimate NORMAL (NORMAL)
--- NOTE | 2021-10-25 18:17 | XRAY ---
Indication: Chest pain and dizziness. Comparison: October 15, 2021. Portable chest unchanged again demonstrating chronic right hemidiaphragm elevation with adjacent atelectasis/scarring and scattered right lung calcified granulomas. Remaining heart and lungs unremarkable. No new/acute findings.
--- NOTE | 2021-10-25 18:19 | XRAY ---
Indication: Dizziness. Multiple contiguous axial images obtained through the head without contrast. Comparison: February 24, 2017. 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 No acute intracranial hemorrhage, abnormal extra-axial fluid collection, or mass effect. Fourth ventricle is midline without hydrocephalus. Carvajal-white matter differentiation preserved. Bony calvarium intact. Visualized paranasal sinuses and mastoid air cells are clear. 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 Comment: Preliminary interpretation made by [facility]. No critical discrepancy.
== END 2021-10-25 13:24 | disposition short-term general hospital (02) ==
LOC: ED 11:09
DX: R00.1 Bradycardia, unspecified (principal); R42 Dizziness and giddiness; R07.9 Chest pain, unspecified; I10 Essential (primary) hypertension; J44.9 Chronic obstructive pulmonary disease, unspecified; Z79.899 Other long term (current) drug therapy
CPT/HCPCS: 36000; 36415; 70450; 71045; 80053; 81015; 83690; 83735; 83880; 84443; 84484; 85025; 93005; 93041; 99285; 99291

== ENCOUNTER 2021-10-30 10:50 | Observation (INO) | payer MEDICARE ==
[2021-10-30] MEDS ORDERED: Reglan 10 MG/2 ML IV ONE (11:16)
[2021-10-30] MEDS ORDERED: DECADRON 10MG INJ. IV ONE (11:16)
[2021-10-30] MEDS ORDERED: BENADRYL 50 MG/ML IV ONE (11:17)
[2021-10-30] MEDS ORDERED: TORAdol 30 mg Injection IV ONE (11:17)
[2021-10-30] MEDS ORDERED: DECADRON 10MG INJ. ONE (11:24)
[2021-10-30] MEDS ORDERED: TORAdol 30 mg Injection ONE (11:24)
[2021-10-30] MEDS ORDERED: BENADRYL 50 MG/ML ONE (11:24)
[2021-10-30] MEDS ORDERED: Reglan 10 MG/2 ML ONE (11:25)
[2021-10-30] MEDS ORDERED: Sodium Chloride 0.9% 1000 ML 1,000 ML IV STA (11:27)
[2021-10-30 11:42] LABS: Absolute Neutrophil Ct (ANC) 6.43 (1.4-6.9); Basophil (Absolute #) 0.03 (0-0.4); Eosinophil % 4.1 % (0.00-5.0); Eosinophil (Absolute #) 0.36 (0-0.5); Hematocrit 44.7 % (35-47); Hemoglobin 14.6 gm/dl (12.0-16.0); Lymphocyte (Absolute #) 1.33 (1.0-4.6); Lymphocytes % 15.1 % (24.0-44.0); Mean Cell Volume 83.7 fl (78-100); Mean Corpuscular Hemoglobin 27.3 pg (26-32); Mean Corpuscular Hgb Concent. 32.7 g/dl (32-36); Mean Platelet Volume 10.7 fl (7.5-11.0); Monocyte (Absolute #) 0.65 (0.0-1.3); Monocytes % 7.4 % (0.0-12.0); Neutrophil % 73.1 % (36.0-66.0); Platelet Count 216 K/mm3 (150-450); Red Blood Count 5.34 M/mm3 (4.1-5.4); Red Cell Distribution Width 15.2 % (11.5-14.0); White Blood Count 8.8 K/mm3 (4.0-10.5)
--- NOTE | 2021-10-30 11:45 | XRAY ---
Indication: Short of breath. Headache. Comparison: October 25, 2021. PA/lateral chest unchanged again demonstrate chronic right hemidiaphragm elevation with adjacent atelectasis/scarring and scattered calcified granulomas. Remaining heart and lungs unremarkable. No new/acute findings.
[2021-10-30] MEDS ORDERED: Sodium Chloride 0.9% 1000 ML 1,000 ML ONE ×2 (11:54→16:43)
[2021-10-30 11:59] LABS: ALBUMIN 3.9 g/dL (3.5-5.0); ALKALINE PHOSPHATASE 100 U/L (38-126); ANION GAP 12.4 MEQ/L (5-15); BLOOD UREA NITROGEN 18 mg/dL (7-17); CHLORIDE 95 mmol/L (98-107); Calcium 8.5 mg/dL (8.4-10.2); Carbon Dioxide 28 mmol/L (22-30); Creatinine 1 0.58 mg/dL (0.52-1.04); EST GLOMERULAR FILTRATION RATE > 60.0 ML/MIN; Glucose 113 mg/dL (74-106); NT PRO BNP 239 pg/mL (0-900); SGOT/AST 22 U/L (14-36); SGPT/ALT 32 U/L (0-35); SODIUM 133 mmol/L (137-145); Total Protein 6.5 g/dL (6.3-8.2)
[2021-10-30 12:00] LABS: Potassium 2.9 mmol/L (3.5-5.1)
--- NOTE | 2021-10-30 12:01 | XRAY ---
Indication: Worsening headache. Multiple contiguous axial images obtained through the head without contrast. Comparison: October 25, 2021. 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 Again no acute intracranial hemorrhage, abnormal extra-axial fluid collection, or mass effect. Fourth ventricle is midline without hydrocephalus. Carvajal-white matter differentiation preserved. Bony calvarium intact. Visualized paranasal sinuses and mastoid air cells are clear. 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
[2021-10-30] MEDS ORDERED: K-LYTE 25 MEQ PO ONE (12:12)
[2021-10-30] MEDS ORDERED: K-LYTE 25 MEQ ONE (12:30)
--- NOTE | 2021-10-30 12:35 | ERPHSYRPT ---
- History of Present Illness Time Seen by Provider: 10/30/21 10:59 Source: patient Exam Limitations: no limitations Patient Subjective Stated Complaint: Pt states "I have had a headache for the past three days and my vision is a little blurry. I went to Dr. Morfin yester day and he gave me a couple of shots and a prescription for oxy that did nothing." Triage Nursing Assessment: Pt presented alert and oriented X 3, skin pwd. Pt ambulates with an upright steady gait, able to speak in clear full sentences. Pt in no apparent respiratory distress. Physician History: Patient here with headache. Has been going on for few days. Recently admitted for chest pains and near syncope earlier this week. Started on nitrates. Saw her PCP yesterday. Prescribed oxycodone going home. No falls no trauma. Worsening headache today. Describes it as a 10 out of 10. Patient does have a contrast dye allergy. Location: posterior scalp Quality: sharp Radiation: throughout head Severity: moderate Duration: 1 week Timing: Gradual, not thunderclap Modifying factors/associated signs and symptoms: No neurological symptoms, no numbness, tingling, weakness. Allergies/Adverse Reactions: shrimp Allergy (Intermediate, Verified 10/25/21 11:20) Hives contrast dye Allergy (Intermediate, Uncoded 10/25/21 11:20) Hives Home Medications: Aspirin [[place] Aspirin EC] 81 mg PO DAILY 02/24/17 [History] Montelukast Sodium 10 mg [Singulair 10 MG] 10 mg PO DAILY 11/08/18 [History] Omeprazole 40 mg PO DAILY 04/22/19 [History] Amlodipine Besylate 2.5 mg PO DAILY 01/15/21 [History] Celecoxib 100 mg [celeBREX 100 MG] 100 mg PO BID 01/15/21 [History] Levothyroxine Sodium [Synthroid] 125 mcg PO DAILY 10/15/21 [History] Rosuvastatin Calcium 20 mg PO DAILY 10/15/21 [History] Chlorthalidone 25 mg PO DAILY 10/30/21 [History] Isosorbide Mononitrate 30 mg [Imdur 30 MG] 30 mg PO DAILY 10/30/21 [History] Oxycodone/APAP 5 mg/325 mg [Percocet Tablet 5/325Mg] 1 tab PO DAILY 10/30/21 [History] Hx Tetanus, Diphtheria Vaccination/Date Given: No Hx Influenza Vaccination/Date Given: Yes Hx Pneumococcal Vaccination/Date Given: No Immunizations Up to Date: Yes Travel Risk - International Travel Have you traveled outside of the country in past 3 weeks: No - Coronavirus Screening Are you exhibiting any of the following symptoms?: No Close contact with a COVID-19 positive Pt in past 14-21 Days: No - Vaccine Status Have you recieved a Covid-19 vaccination: Yes Director Bioinformatics: Moderna - Vaccination Dates Date of 2cond Vaccination (if applicable): unknown - Review of Systems Constitutional: No Fever, No Chills Eyes: No Symptoms Ears, Nose, & Throat: No Symptoms Respiratory: No Cough, No Dyspnea Cardiac: No Chest Pain, No Edema, No Syncope Abdominal/Gastrointestinal: No Abdominal Pain, No Nausea, No Vomiting, No Diarrhea Genitourinary Symptoms: No Dysuria Musculoskeletal: No Back Pain, No Neck Pain Skin: No Rash Neurological: Headache, No Dizziness, No Focal Weakness, No Sensory Changes Psychological: No Symptoms Endocrine: No Symptoms All Other Systems: Reviewed and Negative - Past Medical History Pertinent Past Medical History: Yes Neurological History: TIA ENT History: Cataracts Cardiac History: Hypertension Respiratory History: COPD Endocrine Medical History: No Pertinent History Musculoskeletal History: Osteoarthritis GI Medical History: Diverticulitis History: No Pertinent History Psycho-Social History: Anxiety Female Reproductive Disorders: No Pertinent History - Past Surgical History Past Surgical History: Yes Neuro Surgical History: No Pertinent History Cardiac: Cardiac Catheterization Respiratory: No Pertinent History Gastrointestinal: Cholecystectomy Genitourinary: No Pertinent History Musculoskeletal: Joint Replacement Female Surgical History: Hysterectomy Other Surgical History: right total knee replacement, rotator cuff surgery, eye surgery, thyroidectomy 09/11/21 - Social History Smoking Status: Former smoker Exposure to second hand smoke: No Alcohol Use: None Drug Use: none Patient Lives Alone: Yes Significant Family History: no pertinent family hx - Nursing Vital Signs Nursing Vital Signs: Initial Vital Signs Temperature 97.7 F 10/30/21 10:56 Pulse Rate 71 10/30/21 10:56 Respiratory Rate 10/30/21 10:56 Blood Pressure 141/73 10/30/21 10:56 O2 Sat by Pulse Oximetry 95 10/30/21 10:56 Pain Scale Pain Intensity 7 - Physical Exam General Appearance: no apparent distress, alert Eye Exam: PERRL/EOMI, eyes nml inspection Ears, Nose, Throat Exam: normal ENT inspection, TMs normal, pharynx normal, moist mucous membranes Neck Exam: normal inspection, non-tender, supple, full range of motion Respiratory Exam: normal breath sounds, lungs clear, No respiratory distress Cardiovascular Exam: regular rate/rhythm, normal heart sounds, normal peripheral pulses Gastrointestinal/Abdomen Exam: soft, normal bowel sounds, No tenderness, No mass Back Exam: normal inspection, normal range of motion, No CVA tenderness, No vertebral tenderness Extremity Exam: normal inspection, normal range of motion, pelvis stable Neurologic Exam: alert, oriented x 3, cooperative, normal mood/affect, nml cerebellar function, nml station & gait, sensation nml, No motor deficits Skin Exam: normal color, warm, dry, No rash Lymphatic Exam: No adenopathy SpO2: 95 Comments: 10/30/21 12:33 Mental status:The patient is alert, attentive, and oriented. Speech: clear and fluent with good repetition, comprehension, and naming. Motor: There is no pronator drift of out-stretched arms. Muscle bulk and tone are normal. Strength is full bilaterally. Reflexes: Reflexes are 2+ and symmetric at the biceps, triceps, knees, and ankles. Plantar responses are flexor. Sensory: Light touch sense are intact in bilateral upper and lower extremities. There is no sign of neglect. Coordination: Rapid alternating movements are intact. There is no dysmetria on [id number] and [id number]. There are no abnormal or extraneous movements. Romberg is absent. Gait/Stance: Posture is normal. Gait is steady with normal steps, base, arm swing, and turning. Heel and toe walking are normal. Tandem gait is normal. - Course Nursing assessment & vital signs reviewed: Yes EKG Interpreted by Me: Sinus Rhythm Ordered Tests: Active Orders 24 hr Category Date Time Status Social Services Technician STAT Care 10/30/21 11:28 Active Code Status Order ROUTINE Care 10/30/21 12:19 Active EKG-ER Only STAT Care 10/30/21 11:27 Active IV Care Q6H Care 10/30/21 12:19 Active IV Insertion STAT Care 10/30/21 11:[address] in Observation ROUTINE Care 10/30/21 12:20 Active Heart-Healthy Diet Diet 10/30/21 Breakfast Active CHEST 2 VIEWS (PA AND LAT) Stat Exams 10/30/21 11:28 Completed HEAD WITHOUT CONTRAST [CT] Stat Exams 10/30/21 11:18 Completed CBC W DIFF AM.LAB Lab 10/31/21 04:00 Ordered CBC W DIFF Stat Lab 10/30/21 11:31 Completed CMP Stat Lab 10/30/21 11:31 Completed NT PRO BNP Stat Lab 10/30/21 11:31 Completed TROPONIN Q3H Lab 10/30/21 11:31 Completed TROPONIN Q3H Lab 10/30/21 14:30 Ordered TROPONIN Q3H Lab 10/30/21 17:30 Ordered TROPONIN Q3H Lab 10/30/21 20:30 Ordered TROPONIN Q3H Lab 10/30/21 23:30 Ordered Medication Summary Generic Name Dose Route Start Last Admin Trade Name Freq PRN Reason Stop Dose Admin Potassium Chloride 20 meq in 100 mls @ 50 mls/hr 10/30/21 12:15 Potassium Chloride 20 Meq In Water 100ml IV 10/30/21 16:14 Q2H ASIYA Discontinued Medications Generic Name Dose Route Start Last Admin Trade Name Freq PRN Reason Stop Dose Admin Dexamethasone Sodium Phosphate 8 mg 10/30/21 11:16 10/30/21 11:48 Dexamethasone Sod Phosphate 10 Mg/Ml IV 10/30/21 11:17 8 mg STAT ONE Administration Dexamethasone Sodium Phosphate Confirm 10/30/21 11:24 Dexamethasone Sod Phosphate 10 Mg/Ml Administered 10/30/21 11:25 Dose 10 mg .ROUTE .STK-MED ONE Diphenhydramine HCl 25 mg 10/30/21 11:17 10/30/21 11:46 Diphenhydramine Hcl 50 Mg/Ml Vial IV 10/30/21 11:18 25 mg STAT ONE Administration Diphenhydramine HCl Confirm 10/30/21 11:24 Diphenhydramine Hcl 50 Mg/Ml Vial Administered 10/30/21 11:25 Dose 50 mg .ROUTE .STK-MED ONE Sodium Chloride 1,000 mls @ 999 mls/hr 10/30/21 11:27 10/30/21 11:56 Sodium Chloride 0.9% 1000 Ml IV 10/30/21 12:27 999 mls/hr .Q1H1M STA Administration Sodium Chloride Confirm 10/30/21 11:54 Sodium Chloride 0.9% 1000 Ml Administered 10/30/21 11:55 Dose 1,000 mls @ ud .ROUTE .STK-MED ONE Ketorolac Tromethamine 30 mg 10/30/21 11:17 10/30/21 11:40 Ketorolac Tromethamine 30 Mg/Ml Inj IV 10/30/21 11:18 30 mg STAT ONE Administration Ketorolac Tromethamine Confirm 10/30/21 11:24 Ketorolac Tromethamine 30 Mg/Ml Inj Administered 10/30/21 11:25 Dose 30 mg .ROUTE .STK-MED ONE Metoclopramide HCl 10 mg 10/30/21 11:16 10/30/21 11:43 Metoclopramide Hcl 10 Mg/2 Ml Vial IV 10/30/21 11:17 10 mg STAT ONE Administration Metoclopramide HCl Confirm 10/30/21 11:25 Metoclopramide Hcl 10 Mg/2 Ml Vial Administered 10/30/21 11:26 Dose 10 mg .ROUTE .STK-MED ONE Potassium Bicarbonate 50 meq 10/30/21 12:12 Potassium Bicarbonate 25 Meq Tab PO 10/30/21 12:13 STAT ONE Lab/Rad Data: Laboratory Result Diagrams 10/30/21 11:31 10/30/21 11:31 Laboratory Results 10/30/21 10/30/21 10/30/21 Range/Units 11:31 11:31 11:31 WBC 8.8 (4.0-10.5) K/mm3 RBC 5.34 (4.1-5.4) M/mm3 Hgb 14.6 (12.0-16.0) gm/dl Hct 44.7 (35-47) % MCV 83.7 (78-100) fl MCH 27.3 (26-32) pg MCHC 32.7 (32-36) g/dl RDW 15.2 H (11.5-14.0) % Plt Count 216 (150-450) K/mm3 MPV 10.7 (7.5-11.0) fl Gran % 73.1 H (36.0-66.0) % Eos # (Auto) 0.36 (0-0.5) Absolute Lymphs (auto) 1.33 (1.0-4.6) Absolute Monos (auto) 0.65 (0.0-1.3) Lymphocytes % 15.1 L (24.0-44.0) % Monocytes % 7.4 (0.0-12.0) % Eosinophils % 4.1 (0.00-5.0) % Basophils % 0.3 (0.0-0.4) % Absolute Granulocytes 6.43 (1.4-6.9) Basophils # 0.03 (0-0.4) Sodium 133 L (137-145) mmol/L Potassium 2.9 L* (3.5-5.1) mmol/L Chloride 95 L (98-107) mmol/L Carbon Dioxide 28 (22-30) mmol/L Anion Gap 12.4 (5-15) MEQ/L BUN 18 H (7-17) mg/dL Creatinine 0.58 (0.52-1.04) mg/dL Estimated GFR > 60.0 ML/MIN Glucose 113 H (74-106) mg/dL Calcium 8.5 (8.4-10.2) mg/dL Total Bilirubin 0.70 (0.2-1.3) mg/dL AST 22 (14-36) U/L ALT 32 (0-35) U/L Alkaline Phosphatase 100 (38-126) U/L Troponin I < 0.012 (0.000-0.034) ng/mL NT-Pro-B Natriuret Pep 239 (0-900) pg/mL Serum Total Protein 6.5 (6.3-8.2) g/dL Albumin 3.9 (3.5-5.0) g/dL - Progress Progress: improved Progress Note: 10/30/21 12:33 Normal neurological exam. We repeated a head CT from 6 days ago. This was negative for new or acute changes. Patient's potassium was 2.9. Headache went from a 10 to a 5 with a migraine cocktail. I did discuss over the phone with patient's on-call PCP. He recommended admission to the hospital. He is also on-call today therefore patient was admitted to him, Dr. Reynoso. We will start potassium replacement in the emergency department. We discussed admission with the patient. She felt comfortable with this plan. - Departure Departure Disposition: Observation Clinical Impression: Hypokalemia Condition: Stable Critical Care Time: No Referrals: DAVID MORFIN MD [Primary Care Provider] - Follow up/PCP as directed
[2021-10-30] MEDS: POTASSIUM CHLORIDE 20 mEq IN WATER 100ML 20 MEQ/100 ML BAG IV SCH ×2 (12:46→16:41)
[2021-10-30 13:05] LABS: INFLUENZA A NEGATIVE (NEGATIVE); INFLUENZA B NEGATIVE (NEGATIVE); RESPIRATORY SYNCTIAL VIRUS NEGATIVE (Negative); SARS-CoV-2 Xpert Express NEGATIVE (NEGATIVE)
[2021-10-30] MEDS ORDERED: Hydromorphone 1 mg/ml Injection IV PRN (16:50)
--- NOTE | 2021-10-30 21:54 | PCM.HP ---
History of Present Illness - Chief Complaint Chief Complaint: c/o headqache for 2-3 days History of Present Illness: is a 70 year old female.Patient here with headache. Has been going on for few days. Recently admitted for chest pains and near syncope earlier this week. Started on nitrates. Saw her PCP yesterday. Prescribed oxycodone going home. No falls no trauma. Worsening headache today. Describes it as a 10 out of 10. Patient does have a contrast dye allergy. Location: posterior scalp Quality: sharp Radiation: throughout head Severity: moderate Duration: 1 week Timing: Gradual, not thunderclap Modifying factors/associated signs and symptoms: No neurological symptoms, no numbness, tingling, weakness. - Review of Systems Constitutional: No Fever, No Chills Eyes: No Symptoms Ears, Nose, & Throat: No Symptoms Respiratory: No Cough, No Short Of Breath Cardiac: No Chest Pain, No Edema, No Syncope Abdominal/Gastrointestinal: No Abdominal Pain, No Nausea, No Vomiting, No Diarrhea Genitourinary Symptoms: No Dysuria Musculoskeletal: No Back Pain, No Neck Pain Skin: No Rash Neurological: Headache, No Dizziness, No Focal Weakness, No Sensory Changes Psychological: No Symptoms Endocrine: No Symptoms Hematologic/Lymphatic: No Symptoms Immunological/Allergic: No Symptoms Medications & Allergies Home Medications: Home Medication List Aspirin [[place] Aspirin EC] 81 mg PO DAILY 02/24/17 [History Confirmed 10/30/21] Montelukast Sodium 10 mg [Singulair 10 MG] 10 mg PO DAILY 11/08/18 [History Confirmed 10/30/21] Omeprazole 40 mg PO DAILY 04/22/19 [History Confirmed 10/30/21] Amlodipine Besylate 2.5 mg PO DAILY 01/15/21 [History Confirmed 10/30/21] Celecoxib 100 mg [celeBREX 100 MG] 100 mg PO BID 01/15/21 [History Confirmed 10/30/21] Levothyroxine Sodium [Synthroid] 125 mcg PO DAILY 10/15/21 [History Confirmed 10/30/21] Rosuvastatin Calcium 20 mg PO DAILY 10/15/21 [History Confirmed 10/30/21] Isosorbide Mononitrate 30 mg [Imdur 30 MG] 30 mg PO DAILY 10/30/21 [History Confirmed 10/30/21] Oxycodone/APAP 5 mg/325 mg [Percocet Tablet 5/325Mg] 1 tab PO Q8H 10/30/21 [History Confirmed 10/30/21] Allergies/Adverse Reactions: Allergies Allergy/AdvReac Type Severity Reaction Status Date / Time shrimp Allergy Intermediate Hives Verified 10/25/21 11:20 contrast dye Allergy Intermediate Hives Uncoded 10/25/21 11:20 - Past Medical History Past Medical History: Yes Neurological History: TIA ENT History: Cataracts Cardiac History: Hypertension Respiratory History: COPD Endocrine Medical History: No Pertinent History Musculoskelatal History: Osteoarthritis GI Medical History: Diverticulitis History: No Pertinent History Pyscho-Social History: Anxiety Reproductive Disorders: No Pertinent History Comment: bradycardia - Female History Are you now?: No - Past Surgical History Past Surgical History: Yes Neuro Surgical History: No Pertinent History Cardiac History: Cardiac Catheterization Respiratory Surgery: No Pertinent History GI Surgical History: Cholecystectomy Genitourinary Surgical Hx: No Pertinent History Musculskeletal Surgical Hx: Joint Replacement Female Surgical History: Hysterectomy Other Surgical History: right total knee replacement, rotator cuff surgery, eye surgery, thyroidectomy 09/11/21 - Social History Smoking Status: Former smoker Exposure to second hand smoke: No Alcohol: None Drug Use: none Significant Family History: no pertinent family hx - Physical Exam Vital Signs: Vital Signs - 24 hr Temp Pulse Resp BP Pulse Ox 10/30/21 21:22 98.6 F 76 18 118/65 94 L 10/30/21 19:38 98.6 F 76 18 118/65 94 L 10/30/21 14:52 97.7 F 68 16 120/56 91 L 10/30/21 14:47 76 97 10/30/21 13:06 77 20 116/72 98 10/30/21 12:35 95 10/30/21 12:03 95 H 17 116/73 95 10/30/21 10:56 97.7 F 71 22 141/73 95 General Appearance: no apparent distress, alert Neurologic Exam: alert, oriented x 3, cooperative, normal mood/affect, nml cerebellar function, nml station & gait, sensation nml, No motor deficits Eye Exam: PERRL/EOMI, eyes nml inspection Ears, Nose, Throat Exam: normal ENT inspection, TMs normal, pharynx normal, moist mucous membranes Neck Exam: normal inspection, non-tender, supple, full range of motion Respiratory Exam: normal breath sounds, lungs clear, No respiratory distress Cardiovascular Exam: regular rate/rhythm, normal heart sounds, normal peripheral pulses Gastrointestinal/Abdomen Exam: soft, normal bowel sounds, No tenderness, No mass Back Exam: normal inspection, normal range of motion, No CVA tenderness, No vertebral tenderness Extremity Exam: normal inspection, normal range of motion, pelvis stable Skin Exam: normal color, warm, dry, No rash Lymphatic Exam: No adenopathy Results - Labs Lab/Micro Results: Lab Results-Last 24 Hours 10/30/21 10/30/21 10/30/21 Range/Units 11:31 11:31 11:31 WBC 8.8 (4.0-10.5) K/mm3 RBC 5.34 (4.1-5.4) M/mm3 Hgb 14.6 (12.0-16.0) gm/dl Hct 44.7 (35-47) % MCV 83.7 (78-100) fl MCH 27.3 (26-32) pg MCHC 32.7 (32-36) g/dl RDW 15.2 H (11.5-14.0) % Plt Count 216 (150-450) K/mm3 MPV 10.7 (7.5-11.0) fl Gran % 73.1 H (36.0-66.0) % Eos # (Auto) 0.36 (0-0.5) Absolute Lymphs (auto) 1.33 (1.0-4.6) Absolute Monos (auto) 0.65 (0.0-1.3) Lymphocytes % 15.1 L (24.0-44.0) % Monocytes % 7.4 (0.0-12.0) % Eosinophils % 4.1 (0.00-5.0) % Basophils % 0.3 (0.0-0.4) % Absolute Granulocytes 6.43 (1.4-6.9) Basophils # 0.03 (0-0.4) Sodium 133 L (137-145) mmol/L Potassium 2.9 L* (3.5-5.1) mmol/L Chloride 95 L (98-107) mmol/L Carbon Dioxide 28 (22-30) mmol/L Anion Gap 12.4 (5-15) MEQ/L BUN 18 H (7-17) mg/dL Creatinine 0.58 (0.52-1.04) mg/dL Estimated GFR > 60.0 ML/MIN Glucose 113 H (74-106) mg/dL Calcium 8.5 (8.4-10.2) mg/dL Total Bilirubin 0.70 (0.2-1.3) mg/dL AST 22 (14-36) U/L ALT 32 (0-35) U/L Alkaline Phosphatase 100 (38-126) U/L Troponin I < 0.012 (0.000-0.034) ng/mL NT-Pro-B Natriuret Pep 239 (0-900) pg/mL Serum Total Protein 6.5 (6.3-8.2) g/dL Albumin 3.9 (3.5-5.0) g/dL Influenza Type A Ag (NEGATIVE) Influenza Type B Ag (NEGATIVE) RSV (PCR) (Negative) SARS-CoV-2 (PCR) (NEGATIVE) 10/30/21 10/30/21 Range/Units 12:25 13:55 WBC (4.0-10.5) K/mm3 RBC (4.1-5.4) M/mm3 Hgb (12.0-16.0) gm/dl Hct (35-47) % MCV (78-100) fl MCH (26-32) pg MCHC (32-36) g/dl RDW (11.5-14.0) % Plt Count (150-450) K/mm3 MPV (7.5-11.0) fl Gran % (36.0-66.0) % Eos # (Auto) (0-0.5) Absolute Lymphs (auto) (1.0-4.6) Absolute Monos (auto) (0.0-1.3) Lymphocytes % (24.0-44.0) % Monocytes % (0.0-12.0) % Eosinophils % (0.00-5.0) % Basophils % (0.0-0.4) % Absolute Granulocytes (1.4-6.9) Basophils # (0-0.4) Sodium (137-145) mmol/L Potassium (3.5-5.1) mmol/L Chloride (98-107) mmol/L Carbon Dioxide (22-30) mmol/L Anion Gap (5-15) MEQ/L BUN (7-17) mg/dL Creatinine (0.52-1.04) mg/dL Estimated GFR ML/MIN Glucose (74-106) mg/dL Calcium (8.4-10.2) mg/dL Total Bilirubin (0.2-1.3) mg/dL AST (14-36) U/L ALT (0-35) U/L Alkaline Phosphatase (38-126) U/L Troponin I < 0.012 (0.000-0.034) ng/mL NT-Pro-B Natriuret Pep (0-900) pg/mL Serum Total Protein (6.3-8.2) g/dL Albumin (3.5-5.0) g/dL Influenza Type A Ag NEGATIVE (NEGATIVE) Influenza Type B Ag NEGATIVE (NEGATIVE) RSV (PCR) NEGATIVE (Negative) SARS-CoV-2 (PCR) NEGATIVE (NEGATIVE) - Radiology Impressions Radiology Exams & Impressions: Radiology Procedures Category Date Time Status CHEST 2 VIEWS (PA AND LAT) Stat Exams 10/30/21 11:28 Completed HEAD WITHOUT CONTRAST [CT] Stat Exams 10/30/21 11:[address]/HEAD WITHOUT CONTRAST Indication: Worsening headache. Multiple contiguous axial images obtained through the head without contrast. Comparison: October 25, 2021. 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 Again no acute intracranial hemorrhage, abnormal extra-axial fluid collection, or mass effect. Fourth ventricle is midline without hydrocephalus. Carvajal-white matter differentiation preserved. Bony calvarium intact. Visualized paranasal sinuses and mastoid air cells are clear. 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 Assessment/Plan (1) Hypokalemia Current Visit: Yes Status: Acute Assessment & Plan: Chief Complaint Diagnosis hypokalemia Allergies Allergy/AdvReac Type Severity Reaction Status Date / Time shrimp Allergy Intermediate Hives Verified 10/25/21 11:20 contrast dye Allergy Intermediate Hives Uncoded 10/25/21 11:20 Vital Signs (Last 24 hours) Temp Pulse Resp BP Pulse Ox 10/30/21 21:22 98.6 F 76 18 118/65 94 L 10/30/21 19:38 98.6 F 76 18 118/65 94 L 10/30/21 14:52 97.7 F 68 16 120/56 91 L 10/30/21 14:47 76 97 10/30/21 13:06 77 20 116/72 98 10/30/21 12:35 95 10/30/21 12:03 95 H 17 116/73 95 10/30/21 10:56 97.7 F 71 22 141/73 95 Home Medications Medication Instructions Recorded Confirmed Last Taken Type Isosorbide Mononitrate 30 mg 30 mg PO DAILY 10/30/21 10/30/21 10/30/21 History [Imdur 30 MG] Oxycodone/APAP 5 mg/325 mg 1 tab PO Q8H 10/30/21 10/30/21 10/30/21 History [Percocet Tablet 5/325Mg] Current Medications Generic Name Dose Route Start Last Admin Trade Name Freq PRN Reason Stop Dose Admin Amlodipine Besylate 2.5 mg 10/31/21 10:00 Amlodipine Besylate 5 Mg Tablet PO 11/30/21 09:59 DAILY ASIYA Aspirin 81 mg 10/31/21 10:00 Aspirin 81 Mg Tablet.Ec PO 11/30/21 09:59 DAILY ASIYA Celecoxib 100 mg 10/30/21 22:00 Celecoxib 100 Mg Capsule PO 11/29/21 21:59 BID ASIYA Hydromorphone HCl 0.5 mg 10/30/21 16:50 10/30/21 17:01 Hydromorphone 1 Mg/1ml Inj 1 Mg/Ml Syringe IV 11/04/21 16:49 0.5 mg Q4H PRN PRN Administration PAIN Isosorbide Mononitrate 30 mg 10/31/21 10:00 Isosorbide Mononitrate 30 Mg Tab PO 11/30/21 09:59 DAILY ASIYA Levothyroxine Sodium 125 mcg 10/31/21 10:00 Levothyroxine Sodium 125 Mcg Tablet PO 11/30/21 09:59 DAILY ASIYA Montelukast Sodium 10 mg 10/31/21 10:00 Montelukast Sodium 10 Mg Tablet PO 11/30/21 09:59 DAILY ASIYA Oxycodone/Acetaminophen 1 tab 10/30/21 22:00 Oxycodone Hcl/Apap 5 Mg/325 Mg Tablet PO 11/04/21 21:59 Q8HT ASIYA Pantoprazole Sodium 40 mg 10/31/21 10:00 Protonix (Pantoprazole) 40 Mg Tablet PO 11/30/21 09:59 DAILY ASIYA Simvastatin 40 mg 10/31/21 10:00 Simvastatin 20 Mg Tablet PO 11/30/21 09:59 DAILY ASIYA Discontinued Medications Generic Name Dose Route Start Last Admin Trade Name Emma PRN Reason Stop Dose Admin Dexamethasone Sodium Phosphate 8 mg 10/30/21 11:16 10/30/21 11:48 Dexamethasone Sod Phosphate 10 Mg/Ml IV 10/30/21 11:17 8 mg STAT ONE Administration Dexamethasone Sodium Phosphate Confirm 10/30/21 11:24 Dexamethasone Sod Phosphate 10 Mg/Ml Administered 10/30/21 11:25 Dose 10 mg .ROUTE .STK-MED ONE Diphenhydramine HCl 25 mg 10/30/21 11:17 10/30/21 11:46 Diphenhydramine Hcl 50 Mg/Ml Vial IV 10/30/21 11:18 25 mg STAT ONE Administration Diphenhydramine HCl Confirm 10/30/21 11:24 Diphenhydramine Hcl 50 Mg/Ml Vial Administered 10/30/21 11:25 Dose 50 mg .ROUTE .STK-MED ONE Sodium Chloride 1,000 mls @ 999 mls/hr 10/30/21 11:27 10/30/21 13:19 Sodium Chloride 0.9% 1000 Ml IV 10/30/21 12:27 Infused .Q1H1M STA Infusion Sodium Chloride Confirm 10/30/21 11:54 Sodium Chloride 0.9% 1000 Ml Administered 10/30/21 11:55 Dose 1,000 mls @ ud .ROUTE .STK-MED ONE Potassium Chloride 20 meq in 100 mls @ 50 mls/hr 10/30/21 12:15 10/30/21 16:41 Potassium Chloride 20 Meq In Water 100ml IV 10/30/21 16:14 50 mls/hr Q2H ASIYA Administration Sodium Chloride Confirm 10/30/21 16:43 Sodium Chloride 0.9% 1000 Ml Administered 10/30/21 16:44 Dose 1,000 mls @ ud .ROUTE .STK-MED ONE Ketorolac Tromethamine 30 mg 10/30/21 11:17 10/30/21 11:40 Ketorolac Tromethamine 30 Mg/Ml Inj IV 10/30/21 11:18 30 mg STAT ONE Administration Ketorolac Tromethamine Confirm 10/30/21 11:24 Ketorolac Tromethamine 30 Mg/Ml Inj Administered 10/30/21 11:25 Dose 30 mg .ROUTE .STK-MED ONE Metoclopramide HCl 10 mg 10/30/21 11:16 10/30/21 11:43 Metoclopramide Hcl 10 Mg/2 Ml Vial IV 10/30/21 11:17 10 mg STAT ONE Administration Metoclopramide HCl Confirm 10/30/21 11:25 Metoclopramide Hcl 10 Mg/2 Ml Vial Administered 10/30/21 11:26 Dose 10 mg .ROUTE .STK-MED ONE Potassium Bicarbonate 50 meq 10/30/21 12:12 10/30/21 12:33 Potassium Bicarbonate 25 Meq Tab PO 10/30/21 12:13 50 meq STAT ONE Administration Potassium Bicarbonate Confirm 10/30/21 12:30 Potassium Bicarbonate 25 Meq Tab Administered 10/30/21 12:31 Dose 50 meq .ROUTE .STK-MED ONE Intake & Output (Last 24 hours) 10/28/21 10/29/21 10/30/21 10/31/21 11:59 11:59 11:59 11:59 Intake Total 1300 Balance 1300 Weight 100.9 kg 93.4 kg Laboratory Results (Last 24 hours) 10/30/21 10/30/21 10/30/21 13:55 12:25 11:31 WBC RBC Hgb Hct MCV MCH MCHC RDW Plt Count MPV Gran % Eos # (Auto) Absolute Lymphs (auto) Absolute Monos (auto) Lymphocytes % Monocytes % Eosinophils % Basophils % Absolute Granulocytes Basophils # Sodium Potassium Chloride Carbon Dioxide Anion Gap BUN Creatinine Estimated GFR Glucose Calcium Total Bilirubin AST ALT Alkaline Phosphatase Troponin I < 0.012 < 0.012 NT-Pro-B Natriuret Pep Serum Total Protein Albumin Influenza Type A Ag NEGATIVE Influenza Type B Ag NEGATIVE RSV (PCR) NEGATIVE SARS-CoV-2 (PCR) NEGATIVE 10/30/21 10/30/21 11:31 11:31 WBC 8.8 RBC 5.34 Hgb 14.6 Hct 44.7 MCV 83.7 MCH 27.3 MCHC 32.7 RDW 15.2 H Plt Count 216 MPV 10.7 Gran % 73.1 H Eos # (Auto) 0.36 Absolute Lymphs (auto) 1.33 Absolute Monos (auto) 0.65 Lymphocytes % 15.1 L Monocytes % 7.4 Eosinophils % 4.1 Basophils % 0.3 Absolute Granulocytes 6.43 Basophils # 0.03 Sodium 133 L Potassium 2.9 L* Chloride 95 L Carbon Dioxide 28 Anion Gap 12.4 BUN 18 H Creatinine 0.58 Estimated GFR > 60.0 Glucose 113 H Calcium 8.5 Total Bilirubin 0.70 AST 22 ALT 32 Alkaline Phosphatase 100 Troponin I NT-Pro-B Natriuret Pep 239 Serum Total Protein 6.5 Albumin 3.9 Influenza Type A Ag Influenza Type B Ag RSV (PCR) SARS-CoV-2 (PCR) Orders (Last 24 hours) Category Date Time Status Workers Compensation Claims Specialist STAT Care 10/30/21 11:28 Active Code Status Order ROUTINE Care 10/30/21 12:19 Active EKG-ER Only STAT Care 10/30/21 11:27 Active IV Care Q6H Care 10/30/21 12:19 Completed IV Insertion STAT Care 10/30/21 11:[address] in Observation ROUTINE Care 10/30/21 12:20 Active Post K level [Order K Level 2 hours post-inf] 2 HRS Care 10/30/21 18:37 Active POST K-INFUSED Post K level [Order K Level 2 hours post-inf] 2 HRS Care 10/30/21 21:31 Active POST K-INFUSED Heart-Healthy Diet Diet 10/30/21 Breakfast Active CHEST 2 VIEWS (PA AND LAT) Stat Exams 10/30/21 11:28 Completed HEAD WITHOUT CONTRAST [CT] Stat Exams 10/30/21 11:18 Completed CBC W DIFF AM.LAB Lab 10/31/21 04:00 Ordered CBC W DIFF Stat Lab 10/30/21 11:31 Completed CMP Stat Lab 10/30/21 11:31 Completed NT PRO BNP Stat Lab 10/30/21 11:31 Completed TROPONIN Q3H Lab 10/30/21 11:31 Completed TROPONIN Q3H Lab 10/30/21 13:55 Completed Amlodipine Besylate 5 mg [Norvasc 5 mg] Med 10/31/21 10:00 Active 2.5 mg PO DAILY Aspirin EC 81 mg [Ecotrin 81 mg] Med 10/31/21 10:00 Active 81 mg PO DAILY Celecoxib 100 mg [celeBREX 100 MG] Med 10/30/21 22:00 Active 100 mg PO BID Dexamethasone Sod Phosphate [Decadron 10Mg Inj.] Med 10/30/21 11:24 Discontinued 10 mg .ROUTE .STK-MED ONE Dexamethasone Sod Phosphate [Decadron 10Mg Inj.] Med 10/30/21 11:16 Discontinued 8 mg IV STAT ONE Diphenhydramine HCl 50 mg/ml [Benadryl 50 mg/ml] Med 10/30/21 11:17 Discontinued 25 mg IV STAT ONE Diphenhydramine HCl 50 mg/ml [Benadryl 50 mg/ml] Med 10/30/21 11:24 Discontinued 50 mg .ROUTE .STK-MED ONE Hydromorphone 1 mg/1Ml Inj [Hydromorphone 1 mg/ml Med 10/30/21 16:50 Active Injection] 0.5 mg IV Q4H PRN PRN Isosorbide Mononitrate 30 mg [Imdur 30 MG] Med 10/31/21 10:00 Active 30 mg PO DAILY KETOROLAC trometh 30 mg Inj [TORAdol 30 mg Injection Med 10/30/21 11:24 Discontinued ] 30 mg .ROUTE .STK-MED ONE KETOROLAC trometh 30 mg Inj [TORAdol 30 mg Injection Med 10/30/21 11:17 Discontinued ] 30 mg IV STAT ONE Levothyroxine Sodium 125 Mcg [Synthroid 125 Mcg] Med 10/31/21 10:00 Active 125 mcg PO DAILY Metoclopramide HCl 10 mg/2 ml* [Reglan 10 MG/2 ML] Med 10/30/21 11:25 Discontinued 10 mg .ROUTE .STK-MED ONE Metoclopramide HCl 10 mg/2 ml* [Reglan 10 MG/2 ML] Med 10/30/21 11:16 Discontinued 10 mg IV STAT ONE Montelukast Sodium 10 mg [Singulair 10 MG] Med 10/31/21 10:00 Active 10 mg PO DAILY NaCl 0.9% 1000 ml [Sodium Chloride 0.9% 1000 ML] 1,000 Med 10/30/21 11:54 Discontinued ml .ROUTE UD NaCl 0.9% 1000 ml [Sodium Chloride 0.9% 1000 ML] 1,000 Med 10/30/21 16:43 Discontinued ml .ROUTE UD NaCl 0.9% 1000 ml [Sodium Chloride 0.9% 1000 ML] 1,000 Med 10/30/21 11:27 Discontinued ml IV 999 mls/hr Oxycodone/APAP 5 mg/325 mg [Percocet Tablet 5/325Mg Med 10/30/21 22:00 Active *] 1 tab PO Q8HT PANTOPRAZOLE 40 mg Tablet [Protonix 40MG Tablet] Med 10/31/21 10:00 Active 40 mg PO DAILY Potassium Bicarbonate 25 MEQ [K-Lyte 25 Meq] Med 10/30/21 12:30 Discontinued 50 meq .ROUTE .STK-MED ONE Potassium Bicarbonate 25 MEQ [K-Lyte 25 Meq] Med 10/30/21 12:12 Discontinued 50 meq PO STAT ONE Potassium Chloride 20Meq/100Ml [POTASSIUM CHLORIDE 20 Med 10/30/21 12:15 Discontinued mEq IN WATER 100ML] 20 meq in 100 ml IV Q2H Simvastatin 20Mg [Zocor 20Mg] Med 10/31/21 10:00 Active 40 mg PO DAILY Code(s): E87.6 - HYPOKALEMIA (2) Headache, acute Current Visit: Yes Status: Acute Qualifiers: Headache type: unspecified Code(s): R51.9 - HEADACHE, UNSPECIFIED
[2021-10-30] MEDS ORDERED: celeBREX 100 MG PO SCH (22:00)
[2021-10-30] MEDS ORDERED: PERCOCET TABLET 5/325MG PO SCH (22:00)
[2021-10-31 05:44] VITALS: O2SAT 95
[2021-10-31 06:16] LABS: Absolute Neutrophil Ct (ANC) 8.23 (1.4-6.9); Basophil (Absolute #) 0.01 (0-0.4); Eosinophil (Absolute #) 0 (0-0.5); Hematocrit 41.9 % (35-47); Hemoglobin 13.7 gm/dl (12.0-16.0); Lymphocyte (Absolute #) 0.98 (1.0-4.6); Lymphocytes % 10.2 % (24.0-44.0); Mean Corpuscular Hemoglobin 27.8 pg (26-32); Mean Corpuscular Hgb Concent. 32.7 g/dl (32-36); Mean Platelet Volume 10.7 fl (7.5-11.0); Monocyte (Absolute #) 0.35 (0.0-1.3); Monocytes % 3.7 % (0.0-12.0); Platelet Count 193 K/mm3 (150-450); Red Blood Count 4.93 M/mm3 (4.1-5.4); Red Cell Distribution Width 14.9 % (11.5-14.0); White Blood Count 9.6 K/mm3 (4.0-10.5)
[2021-10-31 07:28] VITALS: BP 135/73; PULSE 66
--- NOTE | 2021-10-31 09:25 | PCM.DS ---
Discharge Summary Date of Admission: 10/30/21 14:36 Admitting Physician: DAVID MORFIN Primary Care Provider: DAVID MORFIN Allergies Allergies shrimp Allergy (Intermediate, Verified 10/25/21 11:20) Hives contrast dye Allergy (Intermediate, Uncoded 10/25/21 11:20) [facility] Summary - Hospital Course Hospital Course: Chief Complaint Diagnosis c/o headqache for 2-3 days Allergies Allergy/AdvReac Type Severity Reaction Status Date / Time shrimp Allergy Intermediate Hives Verified 10/25/21 11:20 contrast dye Allergy Intermediate Hives Uncoded 10/25/21 11:20 Vital Signs (Last 24 hours) Temp Pulse Resp BP BP Pulse Ox 10/31/21 07:27 97.3 F 66 20 135/73 95 10/31/21 05:00 98.2 F 74 18 128/67 95 10/31/21 00:30 98.2 F 74 18 118/64 94 L 10/30/21 21:22 98.6 F 76 18 118/65 94 L 10/30/21 19:38 98.6 F 76 18 118/65 94 L 10/30/21 14:52 97.7 F 68 16 120/56 91 L 10/30/21 14:47 76 97 10/30/21 13:06 77 20 116/72 98 10/30/21 12:35 95 10/30/21 12:03 95 H 17 116/73 95 10/30/21 10:56 97.7 F 71 22 141/73 95 Home Medications Medication Instructions Recorded Confirmed Last Taken Type Isosorbide Mononitrate 30 mg 30 mg PO DAILY 10/30/21 10/30/21 10/30/21 History [Imdur 30 MG] Oxycodone/APAP 5 mg/325 mg 1 tab PO Q8H 10/30/21 10/30/21 10/30/21 History [Percocet Tablet 5/325Mg] Potassium Chloride 10 meq PO DAILY 60 Days #60 10/31/21 Unknown Rx Current Medications Generic Name Dose Route Start Last Admin Trade Name Freq PRN Reason Stop Dose Admin Amlodipine Besylate 2.5 mg 10/31/21 10:00 Amlodipine Besylate 5 Mg Tablet PO 11/30/21 09:59 DAILY ASIYA Aspirin 81 mg 10/31/21 10:00 Aspirin 81 Mg Tablet.Ec PO 11/30/21 09:59 DAILY ASIYA Celecoxib 100 mg 10/30/21 22:00 10/30/21 21:59 Celecoxib 100 Mg Capsule PO 11/29/21 21:59 100 mg BID ASIYA Administration Hydromorphone HCl 0.5 mg 10/30/21 16:50 10/30/21 17:01 Hydromorphone 1 Mg/1ml Inj 1 Mg/Ml Syringe IV 11/04/21 16:49 0.5 mg Q4H PRN PRN Administration PAIN Isosorbide Mononitrate 30 mg 10/31/21 10:00 Isosorbide Mononitrate 30 Mg Tab PO 11/30/21 09:59 DAILY [facility] Levothyroxine Sodium 125 mcg 10/31/21 10:00 Levothyroxine Sodium 125 Mcg Tablet PO 11/30/21 09:59 DAILY ASIYA Montelukast Sodium 10 mg 10/31/21 10:00 Montelukast Sodium 10 Mg Tablet PO 11/30/21 09:59 DAILY [facility] Oxycodone/Acetaminophen 1 tab 10/30/21 22:00 10/30/21 21:59 Oxycodone Hcl/Apap 5 Mg/325 Mg Tablet PO 11/04/21 21:59 1 tab Q8HT ASIYA Administration Pantoprazole Sodium 40 mg 10/31/21 10:00 Protonix (Pantoprazole) 40 Mg Tablet PO 11/30/21 09:59 DAILY ASIYA Simvastatin 40 mg 10/31/21 10:00 Simvastatin 20 Mg Tablet PO 11/30/21 09:59 DAILY [facility] Discontinued Medications Generic Name Dose Route Start Last Admin Trade Name Freq PRN Reason Stop Dose Admin Dexamethasone Sodium Phosphate 8 mg 10/30/21 11:16 10/30/21 11:48 Dexamethasone Sod Phosphate 10 Mg/Ml IV 10/30/21 11:17 8 mg STAT ONE Administration Dexamethasone Sodium Phosphate Confirm 10/30/21 11:24 Dexamethasone Sod Phosphate 10 Mg/Ml Administered 10/30/21 11:25 Dose 10 mg .ROUTE .STK-MED ONE Diphenhydramine HCl 25 mg 10/30/21 11:17 10/30/21 11:46 Diphenhydramine Hcl 50 Mg/Ml Vial IV 10/30/21 11:18 25 mg STAT ONE Administration Diphenhydramine HCl Confirm 10/30/21 11:24 Diphenhydramine Hcl 50 Mg/Ml Vial Administered 10/30/21 11:25 Dose 50 mg .ROUTE .STK-MED ONE Sodium Chloride 1,000 mls @ 999 mls/hr 10/30/21 11:27 10/30/21 13:19 Sodium Chloride 0.9% 1000 Ml IV 10/30/21 12:27 Infused .Q1H1M STA Infusion Sodium Chloride Confirm 10/30/21 11:54 Sodium Chloride 0.9% 1000 Ml Administered 10/30/21 11:55 Dose 1,000 mls @ ud .ROUTE .STK-MED ONE Potassium Chloride 20 meq in 100 mls @ 50 mls/hr 10/30/21 12:15 10/30/21 16:41 Potassium Chloride 20 Meq In Water 100ml IV 10/30/21 16:14 50 mls/hr Q2H ASIYA Administration Sodium Chloride Confirm 10/30/21 16:43 Sodium Chloride 0.9% 1000 Ml Administered 10/30/21 16:44 Dose 1,000 mls @ ud .ROUTE .STK-MED ONE Ketorolac Tromethamine 30 mg 10/30/21 11:17 10/30/21 11:40 Ketorolac Tromethamine 30 Mg/Ml Inj IV 10/30/21 11:18 30 mg STAT ONE Administration Ketorolac Tromethamine Confirm 10/30/21 11:24 Ketorolac Tromethamine 30 Mg/Ml Inj Administered 10/30/21 11:25 Dose 30 mg .ROUTE .STK-MED ONE Metoclopramide HCl 10 mg 10/30/21 11:16 10/30/21 11:43 Metoclopramide Hcl 10 Mg/2 Ml Vial IV 10/30/21 11:17 10 mg STAT ONE Administration Metoclopramide HCl Confirm 10/30/21 11:25 Metoclopramide Hcl 10 Mg/2 Ml Vial Administered 10/30/21 11:26 Dose 10 mg .ROUTE .STK-MED ONE Potassium Bicarbonate 50 meq 10/30/21 12:12 10/30/21 12:33 Potassium Bicarbonate 25 Meq Tab PO 10/30/21 12:13 50 meq STAT ONE Administration Potassium Bicarbonate Confirm 10/30/21 12:30 Potassium Bicarbonate 25 Meq Tab Administered 10/30/21 12:31 Dose 50 meq .ROUTE .STK-MED ONE Intake & Output (Last 24 hours) 10/28/21 10/29/21 10/30/21 10/31/21 11:59 11:59 11:59 11:59 Intake Total 2400 Balance 2400 Weight 100.9 kg 93.4 kg Laboratory Results (Last 24 hours) 10/31/21 10/30/21 10/30/21 05:30 23:08 13:55 WBC 9.6 RBC 4.93 Hgb 13.7 Hct 41.9 MCV 85.0 MCH 27.8 MCHC 32.7 RDW 14.9 H Plt Count 193 MPV 10.7 Gran % 86.0 H Eos # (Auto) 0 Absolute Lymphs (auto) 0.98 L Absolute Monos (auto) 0.35 Lymphocytes % 10.2 L Monocytes % 3.7 Eosinophils % 0.0 Basophils % 0.1 Absolute Granulocytes 8.23 H Basophils # 0.01 Sodium Potassium 3.8 D Chloride Carbon Dioxide Anion Gap BUN Creatinine Estimated GFR Glucose Calcium Total Bilirubin AST ALT Alkaline Phosphatase Troponin I < 0.012 NT-Pro-B Natriuret Pep Serum Total Protein Albumin Influenza Type A Ag Influenza Type B Ag RSV (PCR) SARS-CoV-2 (PCR) 10/30/21 10/30/21 10/30/21 12:25 11:31 11:31 WBC RBC Hgb Hct MCV MCH MCHC RDW Plt Count MPV Gran % Eos # (Auto) Absolute Lymphs (auto) Absolute Monos (auto) Lymphocytes % Monocytes % Eosinophils % Basophils % Absolute Granulocytes Basophils # Sodium 133 L Potassium 2.9 L* Chloride 95 L Carbon Dioxide 28 Anion Gap 12.4 BUN 18 H Creatinine 0.58 Estimated GFR > 60.0 Glucose 113 H Calcium 8.5 Total Bilirubin 0.70 AST 22 ALT 32 Alkaline Phosphatase 100 Troponin I < 0.012 NT-Pro-B Natriuret Pep 239 Serum Total Protein 6.5 Albumin 3.9 Influenza Type A Ag NEGATIVE Influenza Type B Ag NEGATIVE RSV (PCR) NEGATIVE SARS-CoV-2 (PCR) NEGATIVE 10/30/21 11:31 WBC 8.8 RBC 5.34 Hgb 14.6 Hct 44.7 MCV 83.7 MCH 27.3 MCHC 32.7 RDW 15.2 H Plt Count 216 MPV 10.7 Gran % 73.1 H Eos # (Auto) 0.36 Absolute Lymphs (auto) 1.33 Absolute Monos (auto) 0.65 Lymphocytes % 15.1 L Monocytes % 7.4 Eosinophils % 4.1 Basophils % 0.3 Absolute Granulocytes 6.43 Basophils # 0.03 Sodium Potassium Chloride Carbon Dioxide Anion Gap BUN Creatinine Estimated GFR Glucose Calcium Total Bilirubin AST ALT Alkaline Phosphatase Troponin I NT-Pro-B Natriuret Pep Serum Total Protein Albumin Influenza Type A Ag Influenza Type B Ag RSV (PCR) SARS-CoV-2 (PCR) Orders (Last 24 hours) Category Date Time Status [employer] STAT Care 10/30/21 11:28 Active Code Status Order ROUTINE Care 10/30/21 12:19 Active EKG-ER Only STAT Care 10/30/21 11:27 Active IV Care Q6H Care 10/30/21 12:19 Completed IV Insertion STAT Care 10/30/21 11:[address] in Observation ROUTINE Care 10/30/21 12:20 Active Post K level [Order K Level 2 hours post-inf] 2 HRS Care 10/30/21 18:37 Active POST K-INFUSED Post K level [Order K Level 2 hours post-inf] 2 HRS Care 10/30/21 21:31 Active POST K-INFUSED Discharge Routine Discharge 10/31/21 Ordered Discharge/Telephone Order Routine Discharge 10/31/21 Active CHEST 2 VIEWS (PA AND LAT) Stat Exams 10/30/21 11:28 Completed HEAD WITHOUT CONTRAST [CT] Stat Exams 10/30/21 11:18 Completed CBC W DIFF AM.LAB Lab 10/31/21 05:30 Completed CBC W DIFF Stat Lab 10/30/21 11:31 Completed CMP Stat Lab 10/30/21 11:31 Completed NT PRO BNP Stat Lab 10/30/21 11:31 Completed Pot [Potassium] Stat Lab 10/30/21 23:08 Completed TROPONIN Q3H Lab 10/30/21 11:31 Completed TROPONIN Q3H Lab 10/30/21 13:55 Completed Amlodipine Besylate 5 mg [Norvasc 5 mg] Med 10/31/21 10:00 Active 2.5 mg PO DAILY Aspirin EC 81 mg [Ecotrin 81 mg] Med 10/31/21 10:00 Active 81 mg PO DAILY Celecoxib 100 mg [celeBREX 100 MG] Med 10/30/21 22:00 Active 100 mg PO BID Dexamethasone Sod Phosphate [Decadron 10Mg Inj.] Med 10/30/21 11:24 Discontinued 10 mg .ROUTE .STK-MED ONE Dexamethasone Sod Phosphate [Decadron 10Mg Inj.] Med 10/30/21 11:16 Discontinued 8 mg IV STAT ONE Diphenhydramine HCl 50 mg/ml [Benadryl 50 mg/ml] Med 10/30/21 11:17 Discontinued 25 mg IV STAT ONE Diphenhydramine HCl 50 mg/ml [Benadryl 50 mg/ml] Med 10/30/21 11:24 Discontinued 50 mg .ROUTE .STK-MED ONE Hydromorphone 1 mg/1Ml Inj [Hydromorphone 1 mg/ml Med 10/30/21 16:50 Active Injection] 0.5 mg IV Q4H PRN PRN Isosorbide Mononitrate 30 mg [Imdur 30 MG] Med 10/31/21 10:00 Active 30 mg PO DAILY KETOROLAC trometh 30 mg Inj [TORAdol 30 mg Injection Med 10/30/21 11:24 Discontinued ] 30 mg .ROUTE .STK-MED ONE KETOROLAC trometh 30 mg Inj [TORAdol 30 mg Injection Med 10/30/21 11:17 Discontinued ] 30 mg IV STAT ONE Levothyroxine Sodium 125 Mcg [Synthroid 125 Mcg] Med 10/31/21 10:00 Active 125 mcg PO DAILY Metoclopramide HCl 10 mg/2 ml* [Reglan 10 MG/2 ML] Med 10/30/21 11:25 Discontinued 10 mg .ROUTE .STK-MED ONE Metoclopramide HCl 10 mg/2 ml* [Reglan 10 MG/2 ML] Med 10/30/21 11:16 Discontinued 10 mg IV STAT ONE Montelukast Sodium 10 mg [Singulair 10 MG] Med 10/31/21 10:00 Active 10 mg PO DAILY NaCl 0.9% 1000 ml [Sodium Chloride 0.9% 1000 ML] 1,000 Med 10/30/21 11:54 Discontinued ml .ROUTE UD NaCl 0.9% 1000 ml [Sodium Chloride 0.9% 1000 ML] 1,000 Med 10/30/21 16:43 Discontinued ml .ROUTE UD NaCl 0.9% 1000 ml [Sodium Chloride 0.9% 1000 ML] 1,000 Med 10/30/21 11:27 Discontinued ml IV 999 mls/hr Oxycodone/APAP 5 mg/325 mg [Percocet Tablet 5/325Mg Med 10/30/21 22:00 Active *] 1 tab PO Q8HT PANTOPRAZOLE 40 mg Tablet [Protonix 40MG Tablet] Med 10/31/21 10:00 Active 40 mg PO DAILY Potassium Bicarbonate 25 MEQ [K-Lyte 25 Meq] Med 10/30/21 12:30 Discontinued 50 meq .ROUTE .STK-MED ONE Potassium Bicarbonate 25 MEQ [K-Lyte 25 Meq] Med 10/30/21 12:12 Discontinued 50 meq PO STAT ONE Potassium Chloride 20Meq/100Ml [POTASSIUM CHLORIDE 20 Med 10/30/21 12:15 Discontinued mEq IN WATER 100ML] 20 meq in 100 ml IV Q2H Simvastatin 20Mg [Zocor 20Mg] Med 10/31/21 10:00 Active 40 mg PO DAILY Patient Care Notes (Last 24 hours) 10/31/21 09:08 Nursing Note by Jigna Balderas MEDICARE PART B PAPERWORK HAS BEEN SIGNED 10-31-21 SUJEY Initialized on 10/31/21 09:08 - END OF NOTE 10/31/21 07:10 Nursing Note by Joy Edge ROUNDED WITH DR. MORFIN D/Yoshi TODAY WITH PO POTASSIUM Initialized on 10/31/21 07:10 - END OF NOTE - Vitals & Intake/Output Vital Signs: Vital Signs Temperature 97.3 F 10/31/21 07:27 Pulse Rate 66 10/31/21 07:27 Respiratory Rate 20 10/31/21 07:27 Blood Pressure 135/73 10/31/21 07:27 O2 Sat by Pulse Oximetry 95 10/31/21 07:27 Intake & Output: Intake & Output 10/28/21 10/29/21 10/30/21 10/31/21 11:59 11:59 11:59 11:59 Intake Total 2400 Balance 2400 Weight 100.9 kg 93.4 kg - Lab Result Diagrams: 10/31/21 05:30 10/30/21 23:08 Lab Results-Last 24 Hrs: Lab Results-Last 24 Hours 10/30/21 10/30/21 10/30/21 Range/Units 11:31 11:31 11:31 WBC 8.8 (4.0-10.5) K/mm3 RBC 5.34 (4.1-5.4) M/mm3 Hgb 14.6 (12.0-16.0) gm/dl Hct 44.7 (35-47) % MCV 83.7 (78-100) fl MCH 27.3 (26-32) pg MCHC 32.7 (32-36) g/dl RDW 15.2 H (11.5-14.0) % Plt Count 216 (150-450) K/mm3 MPV 10.7 (7.5-11.0) fl Gran % 73.1 H (36.0-66.0) % Eos # (Auto) 0.36 (0-0.5) Absolute Lymphs (auto) 1.33 (1.0-4.6) Absolute Monos (auto) 0.65 (0.0-1.3) Lymphocytes % 15.1 L (24.0-44.0) % Monocytes % 7.4 (0.0-12.0) % Eosinophils % 4.1 (0.00-5.0) % Basophils % 0.3 (0.0-0.4) % Absolute Granulocytes 6.43 (1.4-6.9) Basophils # 0.03 (0-0.4) Sodium 133 L (137-145) mmol/L Potassium 2.9 L* (3.5-5.1) mmol/L Chloride 95 L (98-107) mmol/L Carbon Dioxide 28 (22-30) mmol/L Anion Gap 12.4 (5-15) MEQ/L BUN 18 H (7-17) mg/dL Creatinine 0.58 (0.52-1.04) mg/dL Estimated GFR > 60.0 ML/MIN Glucose 113 H (74-106) mg/dL Calcium 8.5 (8.4-10.2) mg/dL Total Bilirubin 0.70 (0.2-1.3) mg/dL AST 22 (14-36) U/L ALT 32 (0-35) U/L Alkaline Phosphatase 100 (38-126) U/L Troponin I < 0.012 (0.000-0.034) ng/mL NT-Pro-B Natriuret Pep 239 (0-900) pg/mL Serum Total Protein 6.5 (6.3-8.2) g/dL Albumin 3.9 (3.5-5.0) g/dL Influenza Type A Ag (NEGATIVE) Influenza Type B Ag (NEGATIVE) RSV (PCR) (Negative) SARS-CoV-2 (PCR) (NEGATIVE) 10/30/21 10/30/21 10/30/21 Range/Units 12:25 13:55 23:08 WBC (4.0-10.5) K/mm3 RBC (4.1-5.4) M/mm3 Hgb (12.0-16.0) gm/dl Hct (35-47) % MCV (78-100) fl MCH (26-32) pg MCHC (32-36) g/dl RDW (11.5-14.0) % Plt Count (150-450) K/mm3 MPV (7.5-11.0) fl Gran % (36.0-66.0) % Eos # (Auto) (0-0.5) Absolute Lymphs (auto) (1.0-4.6) Absolute Monos (auto) (0.0-1.3) Lymphocytes % (24.0-44.0) % Monocytes % (0.0-12.0) % Eosinophils % (0.00-5.0) % Basophils % (0.0-0.4) % Absolute Granulocytes (1.4-6.9) Basophils # (0-0.4) Sodium (137-145) mmol/L Potassium 3.8 D (3.5-5.1) mmol/L Chloride (98-107) mmol/L Carbon Dioxide (22-30) mmol/L Anion Gap (5-15) MEQ/L BUN (7-17) mg/dL Creatinine (0.52-1.04) mg/dL Estimated GFR ML/MIN Glucose (74-106) mg/dL Calcium (8.4-10.2) mg/dL Total Bilirubin (0.2-1.3) mg/dL AST (14-36) U/L ALT (0-35) U/L Alkaline Phosphatase (38-126) U/L Troponin I < 0.012 (0.000-0.034) ng/mL NT-Pro-B Natriuret Pep (0-900) pg/mL Serum Total Protein (6.3-8.2) g/dL Albumin (3.5-5.0) g/dL Influenza Type A Ag NEGATIVE (NEGATIVE) Influenza Type B Ag NEGATIVE (NEGATIVE) RSV (PCR) NEGATIVE (Negative) SARS-CoV-2 (PCR) NEGATIVE (NEGATIVE) 10/31/21 Range/Units 05:30 WBC 9.6 (4.0-10.5) K/mm3 RBC 4.93 (4.1-5.4) M/mm3 Hgb 13.7 (12.0-16.0) gm/dl Hct 41.9 (35-47) % MCV 85.0 (78-100) fl MCH 27.8 (26-32) pg MCHC 32.7 (32-36) g/dl RDW 14.9 H (11.5-14.0) % Plt Count 193 (150-450) K/mm3 MPV 10.7 (7.5-11.0) fl Gran % 86.0 H (36.0-66.0) % Eos # (Auto) 0 (0-0.5) Absolute Lymphs (auto) 0.98 L (1.0-4.6) Absolute Monos (auto) 0.35 (0.0-1.3) Lymphocytes % 10.2 L (24.0-44.0) % Monocytes % 3.7 (0.0-12.0) % Eosinophils % 0.0 (0.00-5.0) % Basophils % 0.1 (0.0-0.4) % Absolute Granulocytes 8.23 H (1.4-6.9) Basophils # 0.01 (0-0.4) Sodium (137-145) mmol/L Potassium (3.5-5.1) mmol/L Chloride (98-107) mmol/L Carbon Dioxide (22-30) mmol/L Anion Gap (5-15) MEQ/L BUN (7-17) mg/dL Creatinine (0.52-1.04) mg/dL Estimated GFR ML/MIN Glucose (74-106) mg/dL Calcium (8.4-10.2) mg/dL Total Bilirubin (0.2-1.3) mg/dL AST (14-36) U/L ALT (0-35) U/L Alkaline Phosphatase (38-126) U/L Troponin I (0.000-0.034) ng/mL NT-Pro-B Natriuret Pep (0-900) pg/mL Serum Total Protein (6.3-8.2) g/dL Albumin (3.5-5.0) g/dL Influenza Type A Ag (NEGATIVE) Influenza Type B Ag (NEGATIVE) RSV (PCR) (Negative) SARS-CoV-2 (PCR) (NEGATIVE) - Radiology Exams Ordered Rad Exams-Entire Visit: Radiology Procedures Category Date Time Status CHEST 2 VIEWS (PA AND LAT) Stat Exams 10/30/21 11:28 Completed HEAD WITHOUT CONTRAST [CT] Stat Exams 10/30/21 11:18 Completed Discharge Exam General Appearance: no apparent distress, alert Neurologic Exam: alert, oriented x 3, cooperative, normal mood/affect, nml cerebellar function, sensation nml, No motor deficits Eye Exam: PERRL, EOMI, eyes nml inspection Ears, Nose, Throat Exam: normal ENT inspection, pharynx normal, moist mucous membranes Neck Exam: normal inspection, non-tender, supple, full range of motion Respiratory Exam: normal breath sounds, lungs clear, No respiratory distress Cardiovascular Exam: regular rate/rhythm, normal heart sounds Gastrointestinal/Abdomen Exam: soft, No tenderness, No mass Pelvic Exam: deferred Rectal Exam: deferred Back Exam: normal inspection, normal range of motion, No CVA tenderness, No vertebral tenderness Extremity Exam: normal inspection, normal range of motion Skin Exam: normal color, warm, dry Final Diagnosis/Problem List - Final Discharge Diagnosis/Problem (1) Hypokalemia Current Visit: Yes Status: Resolved Code(s): E87.6 - HYPOKALEMIA (2) Headache, acute Current Visit: Yes Status: Resolved Code(s): R51.9 - HEADACHE, UNSPECIFIED - Discharge Discharge Date: 10/31/21 Disposition: Home, Self-Care Condition: Stable Prescriptions: New Potassium Chloride 10 meq PO DAILY 60 Days #60 Continue Aspirin [[place] Aspirin EC] 81 mg PO DAILY Montelukast Sodium 10 mg [Singulair 10 MG] 10 mg PO DAILY Omeprazole 40 mg PO DAILY Amlodipine Besylate 2.5 mg PO DAILY Celecoxib 100 mg [celeBREX 100 MG] 100 mg PO BID Levothyroxine Sodium [Synthroid] 125 mcg PO DAILY Rosuvastatin Calcium 20 mg PO DAILY Oxycodone/APAP 5 mg/325 mg [Percocet Tablet 5/325Mg] 1 tab PO Q8H Isosorbide Mononitrate 30 mg [Imdur 30 MG] 30 mg PO DAILY Instructions: Hypokalemia (DC) Additional Instructions: Make an appointment with your primary doctor in 1 week. Forms: Discharge Instructions
[2021-10-31] MEDS ORDERED: NON-FORMULARY ITEM (Omeprazole [Omeprazole] 40 MG Capsule.Dr) PO SCH (10:00)
[2021-10-31] MEDS ORDERED: NON-FORMULARY ITEM (Rosuvastatin Calcium [Rosuvastatin Calcium] 20 MG Tablet) PO SCH (10:00)
[2021-10-31] MEDS ORDERED: ECOTRIN 81 MG PO SCH (10:00)
[2021-10-31] MEDS ORDERED: ZOCOR 20MG PO SCH (10:00)
[2021-10-31] MEDS ORDERED: Protonix 40MG Tablet PO SCH (10:00)
[2021-10-31] MEDS ORDERED: NORVASC 5 MG PO SCH (10:00)
[2021-10-31] MEDS ORDERED: SYNTHROID 125 MCG PO SCH (10:00)
[2021-10-31] MEDS ORDERED: Singulair 10 MG PO SCH (10:00)
[2021-10-31] MEDS ORDERED: Imdur 30 MG PO SCH (10:00)
[2021-10-31] MEDS ORDERED: NON-FORMULARY ITEM (Amlodipine Besylate [Amlodipine Besylate] 2.5 MG Tablet) PO SCH (10:00)
== END 2021-10-31 09:45 | disposition home or self-care (01) ==
LOC: ED 10:50 → MED SURG 14:36
PROVIDERS: ADMIT General Practice; ATTEND General Practice
DX: E87.6 Hypokalemia (principal); R51.9 Headache, unspecified; I10 Essential (primary) hypertension; J44.9 Chronic obstructive pulmonary disease, unspecified; Z79.899 Other long term (current) drug therapy; Z20.828 Contact with and (suspected) exposure to other viral communicable diseases
CPT/HCPCS: 0241U; 36000; 36415; 70450; 71046; 80053; 83880; 84132; 84484; 85025; 93005; 93041; 93268; 96360; 96374; 96375; 99285; G0378; J1100; J1170; J1200; J1885; J3480; A9270-GY

== ENCOUNTER 2021-11-19 10:36 | Day surgery (SDC) | payer MEDICARE ==
[2013-04-11 11:13] VITALS: BP 138/88
[2021-11-19] MEDS ORDERED: BUPIVACAINE 0.5% VIAL IJ ONE (10:37)
[2021-11-19] MEDS ORDERED: DIPRIVAN 200 MG/20 ML IV ONE (12:59)
--- NOTE | 2021-11-19 13:39 | XRAY ---
Indication: Bilateral L4-S1 MBB. Intraoperative fluoroscopy provided for 8 seconds. Single digital spot image submitted for interpretation demonstrates posterior needle tips projecting over the expected left and right L4-S1 nerve roots. Correlate with intraoperative findings/report.
--- NOTE | 2021-11-19 13:45 | XRAY ---
8 seconds fluoroscopy time in surgery for bilateral L4-S1 MBB.
[2021-11-19] MEDS ORDERED: Lactated Ringers 1,000 ML IV ONE (14:05)
== END 2021-11-19 13:25 | disposition home or self-care (01) ==
LOC: SDC-PAIN 10:36
PROVIDERS: ATTEND Psychiatry & Neurology Pain Medicine
DX: M47.816 Spondylosis without myelopathy or radiculopathy, lumbar region (principal); I10 Essential (primary) hypertension; Z79.899 Other long term (current) drug therapy
CPT/HCPCS: 64493; 64494; 72020; 77002; J2704

== ENCOUNTER 2021-12-09 15:12 | Day surgery (SDC) | payer MEDICARE ==
[2013-04-11 11:13] VITALS: BP 138/88
[2021-12-09] MEDS ORDERED: Depo-Medrol 40 MG/ML IM ONE (15:13)
[2021-12-09] MEDS ORDERED: BUPIVACAINE 0.5% VIAL IJ ONE (15:13)
[2021-12-09] MEDS ORDERED: Xylocaine 1% Vial 30 ML PF IJ ONE (15:13)
[2021-12-09] MEDS ORDERED: DIPRIVAN 200 MG/20 ML IV ONE (18:44)
[2021-12-09] MEDS ORDERED: Lactated Ringers 1,000 ML IV ONE (19:32)
--- NOTE | 2021-12-09 20:34 | XRAY ---
Indication: Left L4-S1 RFA. Intraoperative fluoroscopy provided for 29 seconds. 3 digital spot images submitted for interpretation demonstrates posterior needle tips projecting over the expected left L4-S1 nerve roots. Correlate with intraoperative findings/report.
--- NOTE | 2021-12-10 08:55 | XRAY ---
29 seconds fluoroscopy time in surgery for left L4-S1 RFA.
== END 2021-12-09 19:15 | disposition home or self-care (01) ==
LOC: SDC-PAIN 15:12
PROVIDERS: ATTEND Psychiatry & Neurology Pain Medicine
DX: M47.816 Spondylosis without myelopathy or radiculopathy, lumbar region (principal); I10 Essential (primary) hypertension; Z79.899 Other long term (current) drug therapy
CPT/HCPCS: 64635; 64636; 72100; 77002; 99100; J1030; J2001; J2704

== ENCOUNTER 2021-12-16 13:01 | Day surgery (SDC) | payer MEDICARE ==
[2013-04-11 11:13] VITALS: BP 138/88
[2021-12-16] MEDS ORDERED: Depo-Medrol 40 MG/ML IM ONE (13:02)
[2021-12-16] MEDS ORDERED: Xylocaine 1% Vial 30 ML PF IJ ONE (13:02)
[2021-12-16] MEDS ORDERED: Marcaine Mpf 0.5% Vial 30 Ml IJ ONE (13:02)
[2021-12-16] MEDS ORDERED: DIPRIVAN 200 MG/20 ML IV ONE (15:35)
[2021-12-16] MEDS ORDERED: Lactated Ringers 1,000 ML IV ONE (15:54)
--- NOTE | 2021-12-16 16:34 | XRAY ---
Indication: Right L4-S1 RFA. Intraoperative fluoroscopy provided for 30 seconds. 5 digital spot images submitted for interpretation demonstrates posterior needle tips projecting over the expected right L4-S1 nerve roots. Correlate with intraoperative findings/report.
--- NOTE | 2021-12-16 16:55 | XRAY ---
30 seconds of fluoroscopy was used in surgery for a right L4-S1 RFA.
== END 2021-12-16 16:03 | disposition home or self-care (01) ==
LOC: SDC-PAIN 13:01
PROVIDERS: ATTEND Psychiatry & Neurology Pain Medicine
DX: M47.816 Spondylosis without myelopathy or radiculopathy, lumbar region (principal); Z79.899 Other long term (current) drug therapy
CPT/HCPCS: 64635; 64636; 72100; 77002; 99100; J1030; J2001; J2704

== ENCOUNTER 2022-08-12 14:01 | Emergency (ER) | payer MEDICARE ==
[2022-08-12] MEDS ORDERED: BABY ASPIRIN 81 MG CHEW PO ONE (14:36)
[2022-08-12 14:56] LABS: Absolute Neutrophil Ct (ANC) 3.78 x10^3/uL (1.4-6.9); Basophil (Absolute #) 0.04 x10^3/uL (0-0.4); Eosinophil % 3.7 % (0.00-5.0); Eosinophil (Absolute #) 0.21 x10^3/uL (0-0.5); Hematocrit 45.2 % (35-47); Hemoglobin 14.3 g/dL (12.0-16.0); Lymphocyte (Absolute #) 1.01 x10^3/uL (1.0-4.6); Lymphocytes % 17.9 % (24.0-44.0); Mean Cell Volume 85.8 fL (78-100); Mean Corpuscular Hemoglobin 27.1 pg (26-32); Mean Corpuscular Hgb Concent. 31.6 g/dL (32-36); Mean Platelet Volume 11.2 fL (7.5-11.0); Monocyte (Absolute #) 0.55 x10^3/uL (0.0-1.3); Monocytes % 9.8 % (0.0-12.0); Neutrophil % 67.2 % (36.0-66.0); Platelet Count 219 x10^3/uL (150-450); Red Blood Count 5.27 x10^6/uL (4.1-5.4); Red Cell Distribution Width 14.6 % (11.5-14.0); White Blood Count 5.6 x10^3/uL (4.0-10.5)
--- NOTE | 2022-08-12 14:58 | XRAY ---
Indication: Chest pain. Comparison: April 16, 2022 Portable chest unchanged again demonstrating chronic focal eventration right hemidiaphragm, right base atelectasis/scarring, and a few bilateral calcified granulomas. Remaining heart and lungs unremarkable. Bony thorax intact again with osteopenia, degenerative changes, and right shoulder surgery. No new/acute findings.
[2022-08-12 15:20] LABS: ALKALINE PHOSPHATASE 109 U/L (38-126); ANION GAP 11.5 MEQ/L (5-15); BLOOD UREA NITROGEN 16 mg/dL (7-17); CHLORIDE 107 mmol/L (98-107); CK-Creatinine Phosphokinase 62 U/L (30-135); Calcium 9.2 mg/dL (8.4-10.2); Carbon Dioxide 24 mmol/L (22-30); EST GLOMERULAR FILTRATION RATE > 60.0 ML/MIN; Glucose 99 mg/dL (74-106); NT PRO BNP 204 pg/mL (0-900); Potassium 4.4 mmol/L (3.5-5.1); SGOT/AST 21 U/L (14-36); SGPT/ALT 15 U/L (0-35); SODIUM 138 mmol/L (137-145); Total Protein 6.4 g/dL (6.3-8.2)
--- NOTE | 2022-08-12 15:35 | ERPHSYRPT ---
- History of Present Illness Time Seen by Provider: 08/12/22 14:23 Historian: patient Exam Limitations: no limitations Patient Subjective Stated Complaint: Pt c/o of chest pain for the past 3 nights that has awaken her in the middle of the night, the pain is in her left chest and it radiates to her left shoulder and up her left neck, she has had it some in the daytime but not as intense, pt sees Dr Lopez for cardiology, rates the pain as a 10/10 when it does come Triage Nursing Assessment: Pt brought self to the ER but can get a ride home if needed, hypertensive, denies pain at this time but when she does have chest pain it is a 10/10, no edema noted, pulses normal, skin n/w/d, no difficulty with berathing, doesn't appear to be in any distress Physician History: 71-year-old female presented in the ER with chief complaint of off-and-on left- sided chest pain for the last 3 days waking her up from sleep with some radiation to the left shoulder/neck/jaw, moderate to severe sharp, lasting for few minutes and improves on its own without any difficulty breathing. This happened earlier today as well. Currently she does not have any chest pain. No history of previous stenting. Has minimal nonproductive cough but no shortness of breath. No fever or chills reported. Timing/Duration: day(s) (3), intermittent, improved Activities at Onset: rest, sleep Quality: sharpness Chest Pain Radiation: neck, arm Severity of Pain-Max: severe Severity of Pain-Current: none Modifying Factors: Improves With: nothing Associated Symptoms: denies symptoms Nitro Today/Relief: no nitro taken today Aspirin Treatment Today: 81 mg x 1 Allergies/Adverse Reactions: shrimp Allergy (Intermediate, Verified 08/12/22 14:18) Hives contrast dye Allergy (Intermediate, Uncoded 08/12/22 14:18) Hives Home Medications: Aspirin [[place] Aspirin EC] 81 mg PO DAILY 02/24/17 [History] Montelukast Sodium 10 mg [Singulair 10 MG] 10 mg PO DAILY 11/08/18 [History] Omeprazole 40 mg PO DAILY 04/22/19 [History] Celecoxib 100 mg [celeBREX 100 MG] 100 mg PO BID 01/15/21 [History] Levothyroxine Sodium [Synthroid] 88 mcg PO DAILY 10/15/21 [History] Rosuvastatin Calcium 20 mg PO DAILY 10/15/21 [History] Albuterol Sulfate 0.63 mg IH UD 08/12/22 [History] Albuterol Sulfate [Proair Respiclick] 2 puffs IH Q6H 08/12/22 [History] Fluticasone Propionate [Flonase NASAL] 1 spray NS DAILY 08/12/22 [History] Fluticasone/Umeclidin/Vilanter [Trelegy Ellipta 100-62.5-25] 1 each IH DAILY 08/12/22 [History] Gabapentin [Neurontin ] 300 mg PO BID 08/12/22 [History] Metoprolol Succinate 25 mg Xl* [Toprol-Xl 25MG Tablets] 25 mg PO DAILY 08/12/22 [History] Ranolazine 500 MG [Ranexa 500 MG] 500 mg PO BID 08/12/22 [History] Hx Tetanus, Diphtheria Vaccination/Date Given: No Hx Influenza Vaccination/Date Given: Yes Hx Pneumococcal Vaccination/Date Given: No Travel Risk - International Travel Have you traveled outside of the country in past 3 weeks: No - Coronavirus Screening Are you exhibiting any of the following symptoms?: No - Vaccine Status Have you recieved a Covid-19 vaccination: Yes 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[employer] - Vaccination Dates Date of 2cond Vaccination (if applicable): october 2020 Comment: booster - Review of Systems Constitutional: No Symptoms Eyes: No Symptoms Ears, Nose, & Throat: No Symptoms Cardiac: Chest Pain Abdominal/Gastrointestinal: No Symptoms Genitourinary Symptoms: No Symptoms Musculoskeletal: Arthralgias Skin: No Symptoms Neurological: No Symptoms Psychological: No Symptoms Endocrine: No Symptoms Hematologic/Lymphatic: No Symptoms - Past Medical History Pertinent Past Medical History: Yes Neurological History: TIA ENT History: Cataracts Cardiac History: Hypertension Respiratory History: COPD Endocrine Medical History: No Pertinent History Musculoskeletal History: Osteoarthritis GI Medical History: Diverticulitis History: No Pertinent History Psycho-Social History: Anxiety Female Reproductive Disorders: No Pertinent History Other Medical History: bradycardia - Past Surgical History Past Surgical History: Yes Neuro Surgical History: No Pertinent History Cardiac: Cardiac Catheterization Respiratory: No Pertinent History Gastrointestinal: Cholecystectomy Genitourinary: No Pertinent History Musculoskeletal: Joint Replacement Female Surgical History: Hysterectomy Other Surgical History: right total knee replacement, rotator cuff surgery, eye surgery, thyroidectomy 09/11/21 - Social History Smoking Status: Former smoker Exposure to second hand smoke: No Alcohol Use: None Drug Use: none Patient Lives Alone: Yes Significant Family History: no pertinent family hx - Nursing Vital Signs Nursing Vital Signs: Initial Vital Signs Pulse Rate 70 08/12/22 14:06 Blood Pressure 145/75 08/12/22 14:06 O2 Sat by Pulse Oximetry 95 08/12/22 14:06 Pain Scale Pain Intensity 0 - Physical Exam General Appearance: no apparent distress, alert Eye Exam: PERRL/EOMI Ears, Nose, Throat Exam: normal ENT inspection, pharynx normal Neck Exam: normal inspection, full range of motion Respiratory Exam: normal breath sounds, lungs clear Cardiovascular Exam: regular rate/rhythm, normal heart sounds Gastrointestinal/Abdomen Exam: soft, normal bowel sounds, No tenderness Back Exam: normal inspection, normal range of motion Extremity Exam: normal inspection, normal range of motion Neurologic Exam: alert, oriented x 3, cooperative Skin Exam: normal color SpO2 Interpretation: normal SpO2: 95 O2 Delivery: Room Air - Course EKG Interpreted by Me: RATE Ordered Tests: Active Orders 24 hr Category Date Time Status Rider Ticket Worker STAT Care 08/12/22 14:36 Completed EKG-ER Only STAT Care 08/12/22 14:36 Completed IV Insertion STAT Care 08/12/22 14:36 Completed CHEST 1 VIEW (PORTABLE) Stat Exams 08/12/22 14:36 Completed CBC W DIFF Stat Lab 08/12/22 14:36 Completed CK-Creatinine Phosphokinase Stat Lab 08/12/22 14:30 Completed CMP Stat Lab 08/12/22 14:30 Completed NT PRO BNP Stat Lab 08/12/22 14:30 Completed TROPONIN Q4H Lab 08/12/22 14:30 Completed TROPONIN Q4H Lab 08/12/22 18:11 Completed Medication Summary Discontinued Medications Generic Name Dose Route Start Last Admin Trade Name Freq PRN Reason Stop Dose Admin Aspirin 324 mg 08/12/22 14:36 08/12/22 14:43 Aspirin 81 Mg Tab.Chew PO 08/12/22 14:37 243 mg STAT ONE Administration Lab/Rad Data: Laboratory Result Diagrams 08/12/22 14:36 08/12/22 14:30 Laboratory Results 08/12/22 08/12/22 08/12/22 Range/Units 18:11 14:36 14:30 WBC 5.6 (4.0-10.5) x10^3/uL RBC 5.27 (4.1-5.4) x10^6/uL Hgb 14.3 (12.0-16.0) g/dL Hct 45.2 (35-47) % MCV 85.8 (78-100) fL MCH 27.1 (26-32) pg MCHC 31.6 L (32-36) g/dL RDW 14.6 H (11.5-14.0) % Plt Count 219 (150-450) x10^3/uL MPV 11.2 H (7.5-11.0) fL Gran % 67.2 H (36.0-66.0) % Immature Gran % (Auto) 0.7 H (0.00-0.4) % Nucleat RBC Rel Count 0.0 (0.00-0.1) % Eos # (Auto) 0.21 (0-0.5) x10^3/uL Immature Gran # (Auto) 0.04 H (0.00-0.03) x10^3u/L Absolute Lymphs (auto) 1.01 (1.0-4.6) x10^3/uL Absolute Monos (auto) 0.55 (0.0-1.3) x10^3/uL Absolute Nucleated RBC 0.00 (0.00-0.01) x10^3u/L Lymphocytes % 17.9 L (24.0-44.0) % Monocytes % 9.8 (0.0-12.0) % Eosinophils % 3.7 (0.00-5.0) % Basophils % 0.7 (0.0-0.4) % Absolute Granulocytes 3.78 (1.4-6.9) x10^3/uL Basophils # 0.04 (0-0.4) x10^3/uL Sodium (137-145) mmol/L Potassium (3.5-5.1) mmol/L Chloride (98-107) mmol/L Carbon Dioxide (22-30) mmol/L Anion Gap (5-15) MEQ/L BUN (7-17) mg/dL Creatinine (0.52-1.04) mg/dL Estimated GFR ML/MIN Glucose (74-106) mg/dL Calcium (8.4-10.2) mg/dL Total Bilirubin (0.2-1.3) mg/dL AST (14-36) U/L ALT (0-35) U/L Alkaline Phosphatase (38-126) U/L Creatine Kinase (30-135) U/L Troponin I < 0.012 < 0.012 (0.000-0.034) ng/mL NT-Pro-B Natriuret Pep (0-900) pg/mL Serum Total Protein (6.3-8.2) g/dL Albumin (3.5-5.0) g/dL 08/12/22 Range/Units 14:30 WBC (4.0-10.5) x10^3/uL RBC (4.1-5.4) x10^6/uL Hgb (12.0-16.0) g/dL Hct (35-47) % MCV (78-100) fL MCH (26-32) pg MCHC (32-36) g/dL RDW (11.5-14.0) % Plt Count (150-450) x10^3/uL MPV (7.5-11.0) fL Gran % (36.0-66.0) % Immature Gran % (Auto) (0.00-0.4) % Nucleat RBC Rel Count (0.00-0.1) % Eos # (Auto) (0-0.5) x10^3/uL Immature Gran # (Auto) (0.00-0.03) x10^3u/L Absolute Lymphs (auto) (1.0-4.6) x10^3/uL Absolute Monos (auto) (0.0-1.3) x10^3/uL Absolute Nucleated RBC (0.00-0.01) x10^3u/L Lymphocytes % (24.0-44.0) % Monocytes % (0.0-12.0) % Eosinophils % (0.00-5.0) % Basophils % (0.0-0.4) % Absolute Granulocytes (1.4-6.9) x10^3/uL Basophils # (0-0.4) x10^3/uL Sodium 138 (137-145) mmol/L Potassium 4.4 (3.5-5.1) mmol/L Chloride 107 (98-107) mmol/L Carbon Dioxide 24 (22-30) mmol/L Anion Gap 11.5 (5-15) MEQ/L BUN 16 (7-17) mg/dL Creatinine 0.90 (0.52-1.04) mg/dL Estimated GFR > 60.0 ML/MIN Glucose 99 (74-106) mg/dL Calcium 9.2 (8.4-10.2) mg/dL Total Bilirubin 0.40 (0.2-1.3) mg/dL AST 21 (14-36) U/L ALT 15 (0-35) U/L Alkaline Phosphatase 109 (38-126) U/L Creatine Kinase 62 (30-135) U/L Troponin I (0.000-0.034) ng/mL NT-Pro-B Natriuret Pep 204 (0-900) pg/mL Serum Total Protein 6.4 (6.3-8.2) g/dL Albumin 4.0 (3.5-5.0) g/dL - Progress Progress: improved, re-examined Air Movement: good Progress Note: 08/12/22 19:04 1-year-old is evaluated for left-sided chest pain off and on for the last 3 days happening especially at night and did happen earlier today. Patient is chest pain-free throughout stay in the ER. EKG did not show any acute ST L occlusions. Chest x-ray negative for any acute cardiopulmonary findings. Negative troponins x2. Fairly unremarkable chemistries. Patient is a low heart score, recommended outpatient follow-up with her campus manager. Do not think patient needs to be admitted and can be discharged. Her symptoms been going on for the last 3 days and with negative troponins x2 I think it rules out ACS. She might need further evaluation by cardiology. Discussed signs symptoms of worsening needing return to ER which she seems understanding. Stable for discharge. 08/12/22 19:05 Blood Culture(s) Obtained: No Antibiotics given: No Counseled pt/family regarding: lab results, diagnosis, need for follow-up, rad results - Departure Departure Disposition: Home Clinical Impression: Atypical chest pain Condition: Stable Critical Care Time: No Referrals: TARA MACE DO [Primary Care Provider] - Follow up/PCP as directed (1-2 days for reevaluation) SUZI FAN [CONSULTING PHYSICIAN] - Follow up/PCP as directed (Call in the morning for appointment for reevaluation) Instructions: Angina (DC), Chest Pain (DC) Additional Instructions: Follow-up with your primary care and campus manager for reevaluation. Take Tylenol as needed. Return to ER for worsening chest pain or if having difficulty breathing, palpitations etc.
[2022-08-12 19:03] VITALS: O2SAT 95
[2022-08-12 19:12] VITALS: BP 116/77; PULSE 61
== END 2022-08-12 19:21 | disposition home or self-care (01) ==
LOC: ED 14:01
DX: R07.89 Other chest pain (principal); I10 Essential (primary) hypertension; Z79.899 Other long term (current) drug therapy
CPT/HCPCS: 36000; 36415; 71045; 80053; 82550; 83880; 84484; 85025; 93005; 93041; 99284; A9270-GY

== ENCOUNTER 2022-09-15 07:59 | Day surgery (SDC) | payer MEDICARE ==
[2013-04-11 11:13] VITALS: BP 138/88
[2022-09-15] MEDS ORDERED: Sodium Chloride 0.9(Preservative Free) 10 ML IJ ONE (08:00)
[2022-09-15] MEDS ORDERED: LIDOCAINE HCL 1% 50 MG/5 ML VL PF IJ ONE (08:00)
[2022-09-15] MEDS ORDERED: Depo-Medrol 40 MG/ML IM ONE (08:00)
[2022-09-15] MEDS ORDERED: DIPRIVAN 200 MG/20 ML IV ONE (10:10)
--- NOTE | 2022-09-15 12:24 | XRAY ---
44 seconds of fluoroscopy was used in surgery for a lumbar COSTA.
[2022-09-15] MEDS ORDERED: Lactated Ringers 1,000 ML IV ONE (13:26)
--- NOTE | 2022-09-15 14:22 | XRAY ---
Indication: Lumbar COSTA. Intraoperative fluoroscopy provided for 44 seconds. 3 digital spot image submitted for interpretation demonstrates posterior needle tip projecting posterior to lumbosacral junction. Small amount of contrast injected for needle tip placement. Correlate with intraoperative findings/report.
== END 2022-09-15 10:39 | disposition home or self-care (01) ==
LOC: SDC-PAIN 07:59
PROVIDERS: ATTEND Psychiatry & Neurology Pain Medicine
DX: M54.16 Radiculopathy, lumbar region (principal); Z79.899 Other long term (current) drug therapy
CPT/HCPCS: 62323; 72100; 77003; J1030; J2001; J2704; Q9966

== ENCOUNTER 2022-12-15 09:34 | Emergency (ER) | payer MEDICARE ==
--- NOTE | 2022-12-15 10:08 | ERPHSYRPT ---
- History of Present Illness Historian: patient, EMS Exam Limitations: no limitations Patient Subjective Stated Complaint: pt here for vomiting and lower left abd pain for a week, co some weakness today, she also states she thinks there is stool coming from her vaginal area for a week, no fever Triage Nursing Assessment: pt alert, resp easy, skin w/d/p, abd soft, moves all ext well, Physician History: 72 yo Wf w LLQ pain x 1week. Pain is sharp and 6/10. She has had N/V and states that emesis might be bilious or bloody. Nothing makes the pain better or worse. She denies diarrhea/melena/hematochezia/dysuria/hematuria but might be having some vaginal discharge. Surgeries include TAHBSO/Leighann/Appy w TAHBSO. Chest pain/cough/coryza all denied. Timing/Duration: other (1week) Activities at Onset: rest Quality: sharpness Abdominal Pain Onset Location: LLQ Pain Radiation: no radiation Severity of Pain-Max: severe Severity of Pain-Current: moderate Modifying Factors: Improves With: nothing Associated Symptoms: denies symptoms Previous symptoms: no prior history Allergies/Adverse Reactions: shrimp Allergy (Intermediate, Verified 12/15/22 09:43) Hives contrast dye Allergy (Intermediate, Uncoded 12/15/22 09:43) Hives Home Medications: Aspirin [[place] Aspirin EC] 81 mg PO DAILY 02/24/17 [History] Montelukast Sodium 10 mg [Singulair 10 MG] 10 mg PO DAILY 11/08/18 [History] Omeprazole 40 mg PO DAILY 04/22/19 [History] Celecoxib 100 mg [celeBREX 100 MG] 100 mg PO BID 01/15/21 [History] Levothyroxine Sodium [Synthroid] 75 mcg PO DAILY 10/15/21 [History] Rosuvastatin Calcium 20 mg PO DAILY 10/15/21 [History] Albuterol Sulfate 0.63 mg IH UD 08/12/22 [History] Albuterol Sulfate [Proair Respiclick] 2 puffs IH Q6H 08/12/22 [History] Fluticasone Propionate [Flonase NASAL] 1 spray NS DAILY 08/12/22 [History] Fluticasone/Umeclidin/Vilanter [Trelegy Ellipta 100-62.5-25] 1 each IH DAILY 08/12/22 [History] Gabapentin [Neurontin ] 300 mg PO BID 08/12/22 [History] Metoprolol Succinate 25 mg Xl* [Toprol-Xl 25MG Tablets] 25 mg PO DAILY 08/12/22 [History] Ranolazine 500 MG [Ranexa 500 MG] 1,000 mg PO BID 08/12/22 [History] Alendronate Sodium 70 mg PO UD 12/15/22 [History] Hx Tetanus, Diphtheria Vaccination/Date Given: No Hx Influenza Vaccination/Date Given: Yes Hx Pneumococcal Vaccination/Date Given: No Immunizations Up to Date: Yes Travel Risk - International Travel Have you traveled outside of the country in past 3 weeks: No - Coronavirus Screening Close contact with a COVID-19 positive Pt in past 14-21 Days: No - Vaccine Status Have you recieved a Covid-19 vaccination: 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[employer] - Vaccination Dates Date of 2cond Vaccination (if applicable): october 2020 - Review of Systems Constitutional: No Symptoms, Malaise Eyes: No Symptoms Ears, Nose, & Throat: No Symptoms Respiratory: No Symptoms Cardiac: No Symptoms Abdominal/Gastrointestinal: No Symptoms, Abdominal Pain, Nausea, Vomiting Genitourinary Symptoms: No Symptoms, Vaginal Discharge Musculoskeletal: No Symptoms Skin: No Symptoms Neurological: No Symptoms Psychological: No Symptoms Endocrine: No Symptoms Hematologic/Lymphatic: No Symptoms Immunological/Allergic: No Symptoms - Past Medical History Pertinent Past Medical History: Yes Neurological History: TIA ENT History: Cataracts Cardiac History: Hypertension Respiratory History: COPD Endocrine Medical History: No Pertinent History Musculoskeletal History: Osteoarthritis GI Medical History: Diverticulitis History: No Pertinent History Psycho-Social History: Anxiety Female Reproductive Disorders: No Pertinent History Other Medical History: bradycardia - Past Surgical History Past Surgical History: Yes Neuro Surgical History: No Pertinent History Cardiac: Cardiac Catheterization Respiratory: No Pertinent History Gastrointestinal: Cholecystectomy Genitourinary: No Pertinent History Musculoskeletal: Joint Replacement Female Surgical History: Hysterectomy Other Surgical History: right total knee replacement, rotator cuff surgery, eye surgery, thyroidectomy 09/11/21 - Social History Smoking Status: Former smoker Exposure to second hand smoke: No Alcohol Use: None Drug Use: none Patient Lives Alone: Yes Significant Family History: no pertinent family hx - Nursing Vital Signs Nursing Vital Signs: Initial Vital Signs Temperature 97.6 F 12/15/22 09:38 Pulse Rate 62 12/15/22 09:38 Respiratory Rate 18 12/15/22 09:38 Blood Pressure 147/86 12/15/22 09:38 O2 Sat by Pulse Oximetry 98 12/15/22 09:38 Pain Scale Pain Intensity 6 Hypertensive - Physical Exam General Appearance: no apparent distress Eye Exam: PERRL/EOMI, eyes nml inspection Ears, Nose, Throat Exam: normal ENT inspection, TMs normal, pharynx normal, moist mucous membranes Neck Exam: normal inspection, non-tender, supple, full range of motion, No meningismus, No mass, No Brudzinski, No Kernig's Respiratory Exam: normal breath sounds, lungs clear, airway intact, No respiratory distress Cardiovascular Exam: regular rate/rhythm, normal heart sounds, normal peripheral pulses, capillary refill <2 sec, No murmur Gastrointestinal/Abdomen Exam: soft, tenderness (LLQ moderately TTP wo guarding or rebound) Pelvic Exam: vaginal discharge (Dark vaginal discharge) Back Exam: normal inspection, normal range of motion, No CVA tenderness Extremity Exam: normal inspection, normal range of motion Neurologic Exam: alert, oriented x 3, cooperative, international organizer II-XII nml as tested, normal mood/affect, nml cerebellar function, nml station & gait, sensation nml Skin Exam: normal color, warm, dry Lymphatic Exam: No adenopathy SpO2 Interpretation: normal SpO2: 98 O2 Delivery: Room Air - Course Nursing assessment & vital signs reviewed: Yes - CT Exams Abdomen/Pelvis CT Interpretation: Discussed w/radiologist (Moderate sigmoid diverticulitis/Small Free Air/Diffuse fecal stasis) Ordered Tests: Active Orders 24 hr Category Date Time Status ABDOMEN AND PELVIS W/0 CONTRAS [CT] Stat Exams 12/15/22 10:02 Taken AMYLASE Stat Lab 12/15/22 10:10 Completed BLOOD CULTURE Stat Lab 12/15/22 12:10 Received CBC W DIFF Stat Lab 12/15/22 10:10 Completed CMP Stat Lab 12/15/22 10:10 Completed CULTURE,URINE Stat Lab 12/15/22 10:20 Received LIPASE Stat Lab 12/15/22 10:10 Completed Lactic Acid Stat Lab 12/15/22 10:10 Completed Manual Differential NC Stat Lab 12/15/22 10:10 Completed UA W/RFX UR CULTURE Stat Lab 12/15/22 10:20 Completed Medication Summary Discontinued Medications Generic Name Dose Route Start Last Admin Trade Name Emma PRN Reason Stop Dose Admin Levofloxacin/Dextrose 750 mg in 150 mls @ 100 mls/hr 12/15/22 11:25 12/15/22 11:29 Levofloxacin 750mg/150ml D5w IV 12/15/22 12:54 100 ml/hr STAT STA 100 mls/hr Administration Levofloxacin/Dextrose Confirm 12/15/22 11:28 Levofloxacin 750mg/150ml D5w Administered 12/15/22 11:29 Dose 750 mg in 150 mls @ ud IV .STK-MED ONE Metronidazole 500 mg in 100 mls @ 200 mls/hr 12/15/22 12:06 12/15/22 12:45 Flagyl 500 Mg Ivpb IV 12/15/22 12:35 Not Given STAT STA Lactated Ringer's 1,000 mls @ 999 mls/hr 12/15/22 12:09 12/15/22 12:46 Lactated Ringers IV 12/15/22 13:09 Not Given .Q1H1M ONE Lab/Rad Data: Laboratory Result Diagrams 12/15/22 10:10 12/15/22 10:10 Laboratory Results 12/15/22 12/15/22 12/15/22 Range/Units 10:20 10:10 10:10 WBC (4.0-10.5) x10^3/uL RBC (4.1-5.4) x10^6/uL Hgb (12.0-16.0) g/dL Hct (35-47) % MCV (78-100) fL MCH (26-32) pg MCHC (32-36) g/dL RDW (11.5-14.0) % Plt Count (150-450) x10^3/uL MPV (7.5-11.0) fL Gran % (36.0-66.0) % Immature Gran % (Auto) (0.00-0.4) % Nucleat RBC Rel Count (0.00-0.1) % Eos # (Auto) (0-0.5) x10^3/uL Immature Gran # (Auto) (0.00-0.03) x10^3u/L Absolute Lymphs (auto) (1.0-4.6) x10^3/uL Absolute Monos (auto) (0.0-1.3) x10^3/uL Absolute Nucleated RBC (0.00-0.01) x10^3u/L Lymphocytes % (24.0-44.0) % Monocytes % (0.0-12.0) % Eosinophils % (0.00-5.0) % Basophils % (0.0-0.4) % Absolute Granulocytes (1.4-6.9) x10^3/uL Segmented Neutrophils (36.0-66.0) % Lymphocytes (Manual) (24-44) % Monocytes (Manual) (0.0-12.0) % Eosinophils (Manual) (0.00-3.0) % Basophils (Manual) (0.0-1.0) % Basophils # (0-0.4) x10^3/uL Platelet Estimate (NORMAL) RBC Morphology Sodium 137 (137-145) mmol/L Potassium 4.8 (3.5-5.1) mmol/L Chloride 101 (98-107) mmol/L Carbon Dioxide 29 (22-30) mmol/L Anion Gap 11.9 (5-15) MEQ/L BUN 14 (7-17) mg/dL Creatinine 0.91 (0.52-1.04) mg/dL Estimated GFR > 60.0 ML/MIN Glucose 102 (74-106) mg/dL Lactic Acid 0.9 (0.4-2.0) Calcium 8.9 (8.4-10.2) mg/dL Total Bilirubin 0.40 (0.2-1.3) mg/dL AST 21 (14-36) U/L ALT 18 (0-35) U/L Alkaline Phosphatase 121 (38-126) U/L Serum Total Protein 6.6 (6.3-8.2) g/dL Albumin 3.5 (3.5-5.0) g/dL Amylase 83 (30-110) U/L Lipase 126 (23-300) U/L Urine Color Yellow (Yellow) Urine Appearance Clear (Clear) Urine pH 6.5 (4.6-8.0) Ur Specific Duff <=1.005 (1.005-1.030) Urine Protein Negative (Negative) Urine Glucose (UA) Negative (Negative) mg/dL Urine Ketones Negative (Negative) Urine Blood Small A (Negative) Urine Nitrite Negative (Negative) Urine Bilirubin Negative (Negative) Urine Urobilinogen 1.0 A (0.2) mg/dL Ur Leukocyte Esterase Large A (Negative) U Hyaline Cast (Auto) NONE SEEN (0-2) /LPF Urine Microscopic RBC 3-5 (0-5) /HPF Urine Microscopic WBC >100 A (0-5) /HPF Ur Epithelial Cells None Seen (None Seen) /HPF Urine Bacteria None Seen (None Seen) /HPF Urine Culture Reflexed YES (NO) 12/15/22 Range/Units 10:10 WBC 4.6 (4.0-10.5) x10^3/uL RBC 4.86 (4.1-5.4) x10^6/uL Hgb 13.2 (12.0-16.0) g/dL Hct 41.3 (35-47) % MCV 85.0 (78-100) fL MCH 27.2 (26-32) pg MCHC 32.0 (32-36) g/dL RDW 16.3 H (11.5-14.0) % Plt Count 292 (150-450) x10^3/uL MPV 9.3 (7.5-11.0) fL Gran % 56.1 (36.0-66.0) % Immature Gran % (Auto) 5.2 H (0.00-0.4) % Nucleat RBC Rel Count 0.0 (0.00-0.1) % Eos # (Auto) 0.22 (0-0.5) x10^3/uL Immature Gran # (Auto) 0.24 H (0.00-0.03) x10^3u/L Absolute Lymphs (auto) 1.07 (1.0-4.6) x10^3/uL Absolute Monos (auto) 0.43 (0.0-1.3) x10^3/uL Absolute Nucleated RBC 0.00 (0.00-0.01) x10^3u/L Lymphocytes % 23.3 L (24.0-44.0) % Monocytes % 9.3 (0.0-12.0) % Eosinophils % 4.8 (0.00-5.0) % Basophils % 1.3 (0.0-0.4) % Absolute Granulocytes 2.58 (1.4-6.9) x10^3/uL Segmented Neutrophils 59 (36.0-66.0) % Lymphocytes (Manual) 19 L (24-44) % Monocytes (Manual) 12 (0.0-12.0) % Eosinophils (Manual) 9 H (0.00-3.0) % Basophils (Manual) 1 (0.0-1.0) % Basophils # 0.06 (0-0.4) x10^3/uL Platelet Estimate NORMAL (NORMAL) RBC Morphology NORMAL Sodium (137-145) mmol/L Potassium (3.5-5.1) mmol/L Chloride (98-107) mmol/L Carbon Dioxide (22-30) mmol/L Anion Gap (5-15) MEQ/L BUN (7-17) mg/dL Creatinine (0.52-1.04) mg/dL Estimated GFR ML/MIN Glucose (74-106) mg/dL Lactic Acid (0.4-2.0) Calcium (8.4-10.2) mg/dL Total Bilirubin (0.2-1.3) mg/dL AST (14-36) U/L ALT (0-35) U/L Alkaline Phosphatase (38-126) U/L Serum Total Protein (6.3-8.2) g/dL Albumin (3.5-5.0) g/dL Amylase (30-110) U/L Lipase (23-300) U/L Urine Color (Yellow) Urine Appearance (Clear) Urine pH (4.6-8.0) Ur Specific Duff (1.005-1.030) Urine Protein (Negative) Urine Glucose (UA) (Negative) mg/dL Urine Ketones (Negative) Urine Blood (Negative) Urine Nitrite (Negative) Urine Bilirubin (Negative) Urine Urobilinogen (0.2) mg/dL Ur Leukocyte Esterase (Negative) U Hyaline Cast (Auto) (0-2) /LPF Urine Microscopic RBC (0-5) /HPF Urine Microscopic WBC (0-5) /HPF Ur Epithelial Cells (None Seen) /HPF Urine Bacteria (None Seen) /HPF Urine Culture Reflexed (NO) - Progress Progress Note: 12/15/22 10:15 Pt refused pain meds after exam 12/15/22 11:29 Nursing note and vital signs reviewed No food or housing insecurities noted All labs reviewed and shared w pt CT results reviewed and shared w pt Blood cultures x2 750mg IV Levaquin 12/15/22 11:[address] De Leon 12/15/22 12:[address] Chandler at [facility](Surgeon), wants pt to go to Hospitalist and wants to start Flagyl, also. Pt accepted by Dr. Duarte at [facility] 500mg IV Flagyl 1L LR bolus Additional history per Daughter 12/15/22 13:23 12/15/22 13:24 Counseled pt/family regarding: lab results, diagnosis, rad results Medical Desision Making - Discussion of managment Care discussed with:: on-call "doc" Reviewed:: Test results, Need for additional workup - Diagnostic Testing Diagnostic test were ordered, analyzed, and reviewed by me: Yes - Risk of complications The pt has a high risk of morbidity or mortality based on: Drug therapy requiring intensive monitoring for toxicity - Departure Clinical Impression: Diverticulitis of colon with perforation, UTI (urinary tract infection), Rectovaginal fistula Condition: Stable Critical Care Time: Yes Critical Care Time(excluding separately billable procedures): Critical 30-74 mins Referrals: TARA MACE DO [Primary Care Provider] - Follow up/PCP as directed
[2022-12-15 10:14] LABS: Absolute Neutrophil Ct (ANC) 2.58 x10^3/uL (1.4-6.9); BASOPHIL % 1.3 % (0.0-0.4); Basophil (Absolute #) 0.06 x10^3/uL (0-0.4); Eosinophil % 4.8 % (0.00-5.0); Eosinophil (Absolute #) 0.22 x10^3/uL (0-0.5); Hematocrit 41.3 % (35-47); Hemoglobin 13.2 g/dL (12.0-16.0); IMMATURE GRAN # 0.24 x10^3u/L (0.00-0.03); IMMATURE GRAN % 5.2 % (0.00-0.4); Lymphocyte (Absolute #) 1.07 x10^3/uL (1.0-4.6); Lymphocytes % 23.3 % (24.0-44.0); Mean Corpuscular Hemoglobin 27.2 pg (26-32); Mean Platelet Volume 9.3 fL (7.5-11.0); Monocyte (Absolute #) 0.43 x10^3/uL (0.0-1.3); Monocytes % 9.3 % (0.0-12.0); Neutrophil % 56.1 % (36.0-66.0); Platelet Count 292 x10^3/uL (150-450); Red Blood Count 4.86 x10^6/uL (4.1-5.4); Red Cell Distribution Width 16.3 % (11.5-14.0); White Blood Count 4.6 x10^3/uL (4.0-10.5)
[2022-12-15 10:28] LABS: ALBUMIN 3.5 g/dL (3.5-5.0); ALKALINE PHOSPHATASE 121 U/L (38-126); AMYLASE 83 U/L (30-110); ANION GAP 11.9 MEQ/L (5-15); BLOOD UREA NITROGEN 14 mg/dL (7-17); CHLORIDE 101 mmol/L (98-107); Calcium 8.9 mg/dL (8.4-10.2); Carbon Dioxide 29 mmol/L (22-30); Creatinine 1 0.91 mg/dL (0.52-1.04); EST GLOMERULAR FILTRATION RATE > 60.0 ML/MIN; Glucose 102 mg/dL (74-106); LIPASE 126 U/L (23-300); Potassium 4.8 mmol/L (3.5-5.1); SGOT/AST 21 U/L (14-36); SGPT/ALT 18 U/L (0-35); SODIUM 137 mmol/L (137-145); Total Protein 6.6 g/dL (6.3-8.2)
[2022-12-15 10:56] LABS: Basophil 1 % (0.0-1.0); Eosinophil 9 % (0.00-3.0); Lymphocytes 19 % (24-44); Monocyte 12 % (0.0-12.0); Neutrophils 59 % (36.0-66.0); Total Cells Counted 100
[2022-12-15 10:57] LABS: Platelet Estimate NORMAL (NORMAL)
[2022-12-15 11:03] LABS: Appearance Clear (Clear); Bacteria None Seen /HPF (None Seen); Bilirubin Negative (Negative); Blood Small (Negative); Epithelial Cells None Seen /HPF (None Seen); Glucose, Urine Negative (Negative); Hyaline Casts NONE SEEN /LPF (0-2); Ketones Negative (Negative); Leukocyte Esterase Large (Negative); Nitrite Negative (Negative); Ph 6.5 (4.6-8.0); Protein,Urine Dip Negative (Negative); Specific Gravity <=1.005 (1.005-1.030); WBC >100 /HPF (0-5)
[2022-12-15 11:04] LABS: ADD URINE CULTURE? YES (NO)
[2022-12-15] MEDS ORDERED: LEVOFLOXACIN 750MG/150ML D5W 750 MG/150 ML BAG IV STA (11:25)
[2022-12-15] MEDS ORDERED: LEVOFLOXACIN 750MG/150ML D5W 750 MG/150 ML BAG IV ONE (11:28)
[2022-12-15] MEDS ORDERED: FLAGYL 500 MG IVPB 500 MG/100 ML BAG IV STA ×2 (12:04→12:06)
[2022-12-15] MEDS ORDERED: Lactated Ringers 1,000 ML IV ONE (12:09)
[2022-12-15 12:41] VITALS: BP 137/82
[2022-12-15 12:47] VITALS: PULSE 78
[2022-12-15 13:25] VITALS: O2SAT 98
--- NOTE | 2022-12-15 16:08 | XRAY ---
Indication: Abdomen pain, nausea, vomiting, and diarrhea. Multiple contiguous axial images obtained through the abdomen and pelvis without contrast. Comparison: June 24, 2021 Lung bases again demonstrates right hemidiaphragm elevation, mild bibasilar subsegmental atelectasis/scarring, and bibasilar calcified granulomas. Heart not enlarged again with right infrahilar calcified nodes. Again small hiatal hernia. Noncontrasted stomach and bowel loops nonobstructed. There is again mild diffuse scattered colonic fecal debris throughout, less than before. Again scattered sigmoid diverticulosis with new moderate mid sigmoid diverticulitis. Also new small free fluid and new 2.7 cm free air anterior to diverticulitis. No walled off fluid collection or abscess. Again cholecystectomy and hysterectomy. Remaining liver, pancreas, spleen, adrenal glands, kidneys, ureters, and bladder are unremarkable for noncontrast exam. There remains mild aortoiliac calcifications without AAA. Osseous structures intact again with osteopenia and mild degenerative changes throughout the spine. New left lower back generator with single lead terminating presacral. Impression: 1. New moderate sigmoid diverticulitis with small free fluid and small free air. No walled off fluid collection/abscess. 2. Again mild diffuse fecal stasis. 3. Again chronic findings including right hemidiaphragm elevation, hiatal hernia, arteriosclerotic disease, chronic bony findings, and old granulomatous disease.
== END 2022-12-15 12:47 | disposition short-term general hospital (02) ==
LOC: ED 09:34
DX: K57.20 Diverticulitis of large intestine with perforation and abscess without bleeding (principal); N39.0 Urinary tract infection, site not specified; N82.3 Fistula of vagina to large intestine; R10.32 Left lower quadrant pain; R11.2 Nausea with vomiting, unspecified; I10 Essential (primary) hypertension; Z79.899 Other long term (current) drug therapy
CPT/HCPCS: 36000; 36415; 74176; 80053; 81001; 82150; 83605; 83690; 85025; 87040; 87077; 87086; 87186; 96365; 99285; 99291; J1956

== ENCOUNTER 2023-01-01 07:06 | Observation (INO) | payer MEDICARE ==
[2023-01-01] MEDS ORDERED: BABY ASPIRIN 81 MG CHEW PO ONE (07:18)
--- NOTE | 2023-01-01 07:34 | ERPHSYRPT ---
- History of Present Illness Time Seen by Provider: 01/01/23 07:29 Source: patient, family Exam Limitations: no limitations Physician History: 72-year-old female presents the emergency room from the [facility] center after presenting this morning with left-sided weakness. Last known normal was approximately 5:30 AM. Patient reports getting out of bed and being unable to u se her left leg. She denies changes in speech. She reports a headache at this time. She has a history of multiple TIAs. She is noncompliant with her daily aspirin. Patient recently had a colostomy placed 1 week ago and was just discharged from the hospital on . She had been on Lovenox during the hospital stay. Patient is alert and oriented x4 on exam today. Timing/Duration: today (last normal 530) Severity: moderate Character of Deficits: new weakness, LLE Deficits: falling, decrease ability to stand, decrease ability to walk Baseline/Normal Cognition: alert oriented x 3 Current Cognition: alert oriented x 3 Baseline Gait: walks w/o assistance Associated Symptoms: weakness (LLE), trouble walking, headache, No confusion, No fatigue, No fever, No chills, No loss of consciousness, No nausea, No vomiting, No paresthesia, No slurred speech, No vision changes, No chest pain Allergies/Adverse Reactions: shrimp Allergy (Intermediate, Verified 01/01/23 07:13) Hives contrast dye Allergy (Intermediate, Uncoded 01/01/23 07:13) Hives Home Medications: Aspirin [Streetman Aspirin EC] 81 mg PO DAILY 02/24/17 [History] Montelukast Sodium 10 mg [Singulair 10 MG] 10 mg PO DAILY 11/08/18 [History] Omeprazole 40 mg PO DAILY 04/22/19 [History] Celecoxib 100 mg [celeBREX 100 MG] 100 mg PO BID 01/15/21 [History] Levothyroxine Sodium [Synthroid] 75 mcg PO DAILY 10/15/21 [History] Rosuvastatin Calcium 20 mg PO DAILY 10/15/21 [History] Albuterol Sulfate 0.63 mg IH UD 08/12/22 [History] Albuterol Sulfate [Proair Respiclick] 2 puffs IH Q6H 08/12/22 [History] Fluticasone Propionate [Flonase NASAL] 1 spray NS DAILY 08/12/22 [History] Fluticasone/Umeclidin/Vilanter [Trelegy Ellipta 100-62.5-25] 1 each IH DAILY 08/12/22 [History] Gabapentin [Neurontin ] 300 mg PO BID 08/12/22 [History] Metoprolol Succinate 25 mg Xl* [Toprol-Xl 25MG Tablets] 25 mg PO DAILY 08/12/22 [History] Ranolazine 500 MG [Ranexa 500 MG] 1,000 mg PO BID 08/12/22 [History] Alendronate Sodium 70 mg PO UD 12/15/22 [History] Meclizine HCl 25 mg [Antivert 25 mg] 25 mg PO TID PRN 01/04/23 [History] Hx Tetanus, Diphtheria Vaccination/Date Given: No Hx Influenza Vaccination/Date Given: Yes Hx Pneumococcal Vaccination/Date Given: No Travel Risk - Vaccine Status Have you recieved a Covid-19 vaccination: Yes 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 - Vaccination Dates Date of 2cond Vaccination (if applicable): october 2020 - Review of Systems Constitutional: No Symptoms Eyes: No Symptoms Ears, Nose, & Throat: No Symptoms Respiratory: No Symptoms Cardiac: No Symptoms Abdominal/Gastrointestinal: No Symptoms Genitourinary Symptoms: No Symptoms Musculoskeletal: No Symptoms Skin: No Symptoms Neurological: Focal Weakness (LLE), Headache, No Parasthesia, No Sensory Changes, No Speech Changes Psychological: No Symptoms - Past Medical History Pertinent Past Medical History: Yes Neurological History: TIA ENT History: Cataracts Cardiac History: Hypertension Respiratory History: COPD Endocrine Medical History: No Pertinent History Musculoskeletal History: Osteoarthritis GI Medical History: Diverticulitis, Diverticulosis, Other History: No Pertinent History Psycho-Social History: Anxiety Female Reproductive Disorders: No Pertinent History Other Medical History: bradycardia - Past Surgical History Past Surgical History: Yes Neuro Surgical History: No Pertinent History Cardiac: Cardiac Catheterization Respiratory: No Pertinent History Gastrointestinal: Cholecystectomy, Colon Resection Genitourinary: No Pertinent History Musculoskeletal: Joint Replacement Female Surgical History: Hysterectomy Other Surgical History: right total knee replacement, rotator cuff surgery, eye surgery, thyroidectomy 09/11/21, colon resection with ostomy - Social History Smoking Status: Former smoker Exposure to second hand smoke: No Alcohol Use: None Drug Use: none Patient Lives Alone: Yes Significant Family History: no pertinent family hx - Nursing Vital Signs Nursing Vital Signs: Initial Vital Signs Temperature 96.6 F 01/01/23 07:22 Pulse Rate 61 01/01/23 07:22 Respiratory Rate 18 01/01/23 07:22 Blood Pressure 145/84 01/01/23 07:22 O2 Sat by Pulse Oximetry 95 01/01/23 07:22 Pain Scale Pain Intensity 3 - Jose Coma Scale Best Eye Response (Johnston): (4) open spontaneously Best Verbal Response (Jose): (5) oriented Best Motor Response (Jose): (6) obeys commands Johnston Total: 15 - Physical Exam General Appearance: no apparent distress, alert Eye Exam: bilateral eye: normal inspection, PERRL, EOMI Neck Exam: normal inspection, supple, full range of motion Respiratory: normal breath sounds, lungs clear, airway intact, No respiratory distress Cardiovascular: regular rate/rhythm, normal heart sounds, capillary refill <2 sec, No edema Gastrointestinal: soft, tenderness (appropriate tenderness s/p colostomy), other (midline laparotomy scar w/ hernan in place, ostomy present w/out evidence of infection) Extremity Exam: normal inspection, normal range of motion, No swelling, No tenderness Peripheral Pulses: carotid (R): 2+, carotid (L): 2+ Mental Status: alert, oriented x 3, cooperative nursing home physician Exam: normal hearing, normal speech, PERRL, tongue midline Coordination/Gait: normal finger to nose, normal cerebellar function Motor/Sensory: no motor deficit, no sensory deficit, pronator drift (L) (+1 on NIH for upper and lower extremities on the left) Skin Exam: normal color, warm, dry, No rash SpO2 Interpretation: normal O2 Delivery: Room Air - Course Nursing assessment & vital signs reviewed: Yes EKG Interpreted by Me: RATE (60), Sinus Rhythm, NORMAL AXIS, prolonged QT interval (505) - CT Exams Head CT Interpretation: Tele-radiologist Report, No/Intracranial Hemorrhag, Other (CTA head - minimal mural calcifications of b/l vertebral arteries, cavernous and supra clinoid portion of intracranial arteries, no significant luminal na rrowing, chronic microvascular changes, redomonstration of chronic infarct vs encephalomalacia changes in the right cerebellar hemishpere) Soft Tissue Neck CT Interpretation: Tele-radiologist Report, Other (CTA neck - abnormal course of cervical portion of the b/l ICA in the retropharyngeal space, no significant luminal narrowing) Ordered Tests: Medication Summary Discontinued Medications Generic Name Dose Route Start Last Admin Trade Name Freq PRN Reason Stop Dose Admin Acetaminophen 325 mg 01/03/23 10:21 01/03/23 10:48 Acetaminophen 325 Mg Tablet PO 02/02/23 10:20 325 mg Q4H PRN PRN Administration PAIN, FEVER, HEADACHE Albuterol Sulfate 4 puff 01/01/23 16:42 Albuterol Common Canister Inhaler IH 01/31/23 16:41 Q4H PRN PRN SHORTNESS OF BREATH/WHEEZING Alendronate Sodium 70 mg 01/07/23 06:00 Alendronate Sodium 70 Mg Tablet PO 02/06/23 05:59 Q7D ASIYA Aspirin 81 mg 01/01/23 07:18 01/01/23 07:56 Aspirin 81 Mg Tab.Chew PO 01/01/23 07:19 81 mg STAT ONE Administration Aspirin 81 mg 01/02/23 10:00 01/03/23 10:47 Aspirin 81 Mg Tablet.Ec PO 02/01/23 09:59 81 mg DAILY ASIYA Administration Celecoxib 100 mg 01/01/23 22:00 01/03/23 10:47 Celecoxib 100 Mg Capsule PO 01/31/23 21:59 100 mg BID ASIYA Administration Diphenhydramine HCl 50 mg 01/01/23 09:03 01/01/23 10:29 Diphenhydramine Hcl 50 Mg/Ml Vial IV 01/01/23 09:04 50 mg STAT ONE Administration Diphenhydramine HCl Confirm 01/01/23 10:28 Diphenhydramine Hcl 50 Mg/Ml Vial Administered 01/01/23 10:29 Dose 50 mg .ROUTE .STK-MED ONE Fluticasone Propionate 0 gm 01/02/23 10:00 Fluticasone Propionate 16 Gm Bottle Nasal [place] NS 02/01/23 09:59 DAILY PRN PRN allergies Gabapentin 300 mg 01/01/23 22:00 01/03/23 10:47 Gabapentin 300 Mg Capsule PO 01/31/23 21:59 300 mg BID ASIYA Administration Ertapenem 1 g/ Sodium Chloride 100 mls @ 200 mls/hr 01/03/23 13:00 01/03/23 13:36 IV 02/02/23 12:59 200 mls/hr DAILY ASIYA Administration Levothyroxine Sodium 75 mcg 01/01/23 16:00 01/03/23 10:48 Levothyroxine Sodium 75 Mcg Tablet PO 01/31/23 15:59 75 mcg DAILY ASIYA Administration Meclizine HCl 25 mg 01/02/23 20:07 01/02/23 20:19 Meclizine Hcl 25 Mg Tablet PO 02/01/23 21:59 25 mg TID PRN Administration DIZZINESS Meclizine HCl 25 mg 01/03/23 07:15 01/03/23 17:10 Meclizine Hcl 25 Mg Tablet PO 02/01/23 20:06 25 mg TID PRN PRN Administration DIZZINESS Metoprolol Succinate 25 mg 01/01/23 16:00 01/03/23 10:48 Metoprolol Succinate 25 Mg Xl Tab PO 01/31/23 15:59 25 mg DAILY ASIYA Administration Montelukast Sodium 10 mg 01/01/23 16:00 01/03/23 10:48 Montelukast Sodium 10 Mg Tablet PO 01/31/23 15:59 10 mg DAILY ASIYA Administration Pantoprazole Sodium 40 mg 01/01/23 16:00 01/03/23 10:47 Protonix (Pantoprazole) 40 Mg Tablet PO 01/31/23 15:59 40 mg DAILY ASIYA Administration Potassium Chloride 10 meq 01/01/23 16:00 01/03/23 10:47 Potassium Chloride Tab 10 Meq Tab PO 01/31/23 15:59 10 meq DAILY ASIYA Administration Ranolazine 1,000 mg 01/01/23 22:00 01/03/23 10:47 Ranolazine 500 Mg Tab.Sr.12h PO 01/31/23 21:59 1,000 mg BID ASIYA Administration Simvastatin 40 mg 01/02/23 16:00 01/03/23 10:48 Simvastatin 20 Mg Tablet PO 02/01/23 15:59 40 mg DAILY ASIYA Administration Lab/Rad Data: Laboratory Result Diagrams 01/01/23 07:42 01/01/23 07:42 Laboratory Results 01/01/23 01/01/23 01/01/23 Range/Units 09:19 09:16 08:13 WBC (4.0-10.5) x10^3/uL RBC (4.1-5.4) x10^6/uL Hgb (12.0-16.0) g/dL Hct (35-47) % MCV (78-100) fL MCH (26-32) pg MCHC (32-36) g/dL RDW (11.5-14.0) % Plt Count (150-450) x10^3/uL MPV (7.5-11.0) fL Gran % (36.0-66.0) % Immature Gran % (Auto) (0.00-0.4) % Nucleat RBC Rel Count (0.00-0.1) % Eos # (Auto) (0-0.5) x10^3/uL Immature Gran # (Auto) (0.00-0.03) x10^3u/L Absolute Lymphs (auto) (1.0-4.6) x10^3/uL Absolute Monos (auto) (0.0-1.3) x10^3/uL Absolute Nucleated RBC (0.00-0.01) x10^3u/L Lymphocytes % (24.0-44.0) % Monocytes % (0.0-12.0) % Eosinophils % (0.00-5.0) % Basophils % (0.0-0.4) % Absolute Granulocytes (1.4-6.9) x10^3/uL Basophils # (0-0.4) x10^3/uL PT (9.4-12.5) SECONDS INR (0.8-3.0) APTT (25.1-36.5) SECONDS Sodium (137-145) mmol/L Potassium (3.5-5.1) mmol/L Chloride (98-107) mmol/L Carbon Dioxide (22-30) mmol/L Anion Gap (5-15) MEQ/L BUN (7-17) mg/dL Creatinine (0.52-1.04) mg/dL Estimated GFR ML/MIN Glucose (74-106) mg/dL POC Glucometer (74 to 106) mg/dL Hemoglobin A1c 4.81 (4.5-6.0) % Calcium (8.4-10.2) mg/dL Phosphorus 3.3 (2.5-4.5) mg/dL Magnesium 2.0 (1.6-2.3) mg/dL Total Bilirubin (0.2-1.3) mg/dL AST (14-36) U/L ALT (0-35) U/L Alkaline Phosphatase (38-126) U/L Serum Total Protein (6.3-8.2) g/dL Albumin (3.5-5.0) g/dL Triglycerides 126 (30-150) mg/dL Cholesterol 138 (50-200) mg/dL LDL Cholesterol 82 (30-100) mg/dL HDL Cholesterol 42 (40-60) mg/dL Heart Disease Risk Ratio 3.3 Urine Color Dark Yellow A (Yellow) Urine Appearance Clear (Clear) Urine pH 5.5 (4.6-8.0) Ur Specific [place] 1.025 (1.005-1.030) Urine Protein 30 (Negative) Urine Glucose (UA) Negative (Negative) mg/dL Urine Ketones Negative (Negative) Urine Blood Negative (Negative) Urine Nitrite Negative (Negative) Urine Bilirubin Small A (Negative) Urine Urobilinogen 1.0 A (0.2) mg/dL Ur Leukocyte Esterase Trace A (Negative) U Hyaline Cast (Auto) NONE SEEN (0-2) /LPF Urine Microscopic RBC 3-5 (0-5) /HPF Urine Microscopic WBC 0-2 (0-5) /HPF Ur Epithelial Cells None Seen (None Seen) /HPF Urine Bacteria None Seen (None Seen) /HPF Urine Culture Reflexed NO (NO) 01/01/23 01/01/23 01/01/23 Range/Units 07:42 07:42 07:42 WBC 11.1 H (4.0-10.5) x10^3/uL RBC 3.87 L (4.1-5.4) x10^6/uL Hgb 10.4 L (12.0-16.0) g/dL Hct 34.9 L (35-47) % MCV 90.2 (78-100) fL MCH 26.9 (26-32) pg MCHC 29.8 L (32-36) g/dL RDW 18.5 H (11.5-14.0) % Plt Count 657 H (150-450) x10^3/uL MPV 9.2 (7.5-11.0) fL Gran % 70.8 H (36.0-66.0) % Immature Gran % (Auto) 1.3 H (0.00-0.4) % Nucleat RBC Rel Count 0.0 (0.00-0.1) % Eos # (Auto) 0.62 H (0-0.5) x10^3/uL Immature Gran # (Auto) 0.14 H (0.00-0.03) x10^3u/L Absolute Lymphs (auto) 1.30 (1.0-4.6) x10^3/uL Absolute Monos (auto) 1.03 (0.0-1.3) x10^3/uL Absolute Nucleated RBC 0.00 (0.00-0.01) x10^3u/L Lymphocytes % 11.7 L (24.0-44.0) % Monocytes % 9.3 (0.0-12.0) % Eosinophils % 5.6 H (0.00-5.0) % Basophils % 1.3 (0.0-0.4) % Absolute Granulocytes 7.89 H (1.4-6.9) x10^3/uL Basophils # 0.14 (0-0.4) x10^3/uL PT 10.9 (9.4-12.5) SECONDS INR 1.00 (0.8-3.0) APTT 23.0 L (25.1-36.5) SECONDS Sodium 139 (137-145) mmol/L Potassium 4.9 (3.5-5.1) mmol/L Chloride 104 (98-107) mmol/L Carbon Dioxide 26 (22-30) mmol/L Anion Gap 14.2 (5-15) MEQ/L BUN 17 (7-17) mg/dL Creatinine 0.67 (0.52-1.04) mg/dL Estimated GFR > 60.0 ML/MIN Glucose 112 H (74-106) mg/dL POC Glucometer (74 to 106) mg/dL Hemoglobin A1c (4.5-6.0) % Calcium 8.6 (8.4-10.2) mg/dL Phosphorus (2.5-4.5) mg/dL Magnesium (1.6-2.3) mg/dL Total Bilirubin 0.50 (0.2-1.3) mg/dL AST 21 (14-36) U/L ALT 14 (0-35) U/L Alkaline Phosphatase 105 (38-126) U/L Serum Total Protein 5.8 L (6.3-8.2) g/dL Albumin 3.1 L (3.5-5.0) g/dL Triglycerides (30-150) mg/dL Cholesterol (50-200) mg/dL LDL Cholesterol (30-100) mg/dL HDL Cholesterol (40-60) mg/dL Heart Disease Risk Ratio Urine Color (Yellow) Urine Appearance (Clear) Urine pH (4.6-8.0) Ur Specific [place] (1.005-1.030) Urine Protein (Negative) Urine Glucose (UA) (Negative) mg/dL Urine Ketones (Negative) Urine Blood (Negative) Urine Nitrite (Negative) Urine Bilirubin (Negative) Urine Urobilinogen (0.2) mg/dL Ur Leukocyte Esterase (Negative) U Hyaline Cast (Auto) (0-2) /LPF Urine Microscopic RBC (0-5) /HPF Urine Microscopic WBC (0-5) /HPF Ur Epithelial Cells (None Seen) /HPF Urine Bacteria (None Seen) /HPF Urine Culture Reflexed (NO) 01/01/23 Range/Units 07:39 WBC (4.0-10.5) x10^3/uL RBC (4.1-5.4) x10^6/uL Hgb (12.0-16.0) g/dL Hct (35-47) % MCV (78-100) fL MCH (26-32) pg MCHC (32-36) g/dL RDW (11.5-14.0) % Plt Count (150-450) x10^3/uL MPV (7.5-11.0) fL Gran % (36.0-66.0) % Immature Gran % (Auto) (0.00-0.4) % Nucleat RBC Rel Count (0.00-0.1) % Eos # (Auto) (0-0.5) x10^3/uL Immature Gran # (Auto) (0.00-0.03) x10^3u/L Absolute Lymphs (auto) (1.0-4.6) x10^3/uL Absolute Monos (auto) (0.0-1.3) x10^3/uL Absolute Nucleated RBC (0.00-0.01) x10^3u/L Lymphocytes % (24.0-44.0) % Monocytes % (0.0-12.0) % Eosinophils % (0.00-5.0) % Basophils % (0.0-0.4) % Absolute Granulocytes (1.4-6.9) x10^3/uL Basophils # (0-0.4) x10^3/uL PT (9.4-12.5) SECONDS INR (0.8-3.0) APTT (25.1-36.5) SECONDS Sodium (137-145) mmol/L Potassium (3.5-5.1) mmol/L Chloride (98-107) mmol/L Carbon Dioxide (22-30) mmol/L Anion Gap (5-15) MEQ/L BUN (7-17) mg/dL Creatinine (0.52-1.04) mg/dL Estimated GFR ML/MIN Glucose (74-106) mg/dL POC Glucometer 105 (74 to 106) mg/dL Hemoglobin A1c (4.5-6.0) % Calcium (8.4-10.2) mg/dL Phosphorus (2.5-4.5) mg/dL Magnesium (1.6-2.3) mg/dL Total Bilirubin (0.2-1.3) mg/dL AST (14-36) U/L ALT (0-35) U/L Alkaline Phosphatase (38-126) U/L Serum Total Protein (6.3-8.2) g/dL Albumin (3.5-5.0) g/dL Triglycerides (30-150) mg/dL Cholesterol (50-200) mg/dL LDL Cholesterol (30-100) mg/dL HDL Cholesterol (40-60) mg/dL Heart Disease Risk Ratio Urine Color (Yellow) Urine Appearance (Clear) Urine pH (4.6-8.0) Ur Specific [place] (1.005-1.030) Urine Protein (Negative) Urine Glucose (UA) (Negative) mg/dL Urine Ketones (Negative) Urine Blood (Negative) Urine Nitrite (Negative) Urine Bilirubin (Negative) Urine Urobilinogen (0.2) mg/dL Ur Leukocyte Esterase (Negative) U Hyaline Cast (Auto) (0-2) /LPF Urine Microscopic RBC (0-5) /HPF Urine Microscopic WBC (0-5) /HPF Ur Epithelial Cells (None Seen) /HPF Urine Bacteria (None Seen) /HPF Urine Culture Reflexed (NO) - Progress Progress Note: CT head negative for acute intracranial hemorrhage. Patient has surgery last week so she is not a candidate for tPA at this time. Teleneurology was consulted and his evaluation is completed. Recommendation is to admit for further evaluation with MRI brain. 01/01/23 09:04 Teleneurology recommended CTA head neck, MRI brain, ammonia level, magnesium, phosphorus, lipid panel, A1c. After order was placed for CTA head and neck it was brought to my attention that the patient is allergic to contrast. After this I discussed with the patient what her symptoms were she reports she had some throat tingling in the past, but has successfully had contrast with pretreatment. I did discuss the risks and benefits of proceeding with the CTA and patient elected to proceed with the exam. 50 mg of diphenhydramine will be given prior to contrast. We will be unable to perform a full pretreatment course due to the time sensitivity of the study. CTA head/neck neg for acute pathology. Ammonia, Mg, Phos, LP and A1c wnl. Repeat exam showed resolved asterixis and normal strength, NIH 0 Patient was accepted for admission by Dr. Duarte at 1325. Discussed with .: Moncho Will see patient in: hospital (observation) Counseled pt/family regarding: lab results, diagnosis, need for follow-up, rad results Medical Desision Making - Independent Historian Additional History obtained from: Family - Discussion of managment Care discussed with:: on-call "doc" Reviewed:: Test results Agreed on:: Treatment plan, place in obs Will see patient: in hospital - Diagnostic Testing Diagnostic test were ordered, analyzed, and reviewed by me: Yes Radiological Interpretation: Interpreted by me, Reviewed by me, Teleradiologist Report - Risk of complications The pt has a high risk of morbidity or mortality based on: Decision regarding hospitilization or escalation of hosp level of care - Departure Departure Disposition: Observation Clinical Impression: Left-sided weakness, Anemia, TIA (transient ischemic attack), Headache Condition: Good Critical Care Time: No
[2023-01-01 07:54] LABS: Absolute Neutrophil Ct (ANC) 7.89 x10^3/uL (1.4-6.9); BASOPHIL % 1.3 % (0.0-0.4); Basophil (Absolute #) 0.14 x10^3/uL (0-0.4); Eosinophil % 5.6 % (0.00-5.0); Eosinophil (Absolute #) 0.62 x10^3/uL (0-0.5); Hematocrit 34.9 % (35-47); Hemoglobin 10.4 g/dL (12.0-16.0); IMMATURE GRAN # 0.14 x10^3u/L (0.00-0.03); IMMATURE GRAN % 1.3 % (0.00-0.4); Lymphocytes % 11.7 % (24.0-44.0); Mean Cell Volume 90.2 fL (78-100); Mean Corpuscular Hemoglobin 26.9 pg (26-32); Mean Corpuscular Hgb Concent. 29.8 g/dL (32-36); Mean Platelet Volume 9.2 fL (7.5-11.0); Monocyte (Absolute #) 1.03 x10^3/uL (0.0-1.3); Monocytes % 9.3 % (0.0-12.0); Neutrophil % 70.8 % (36.0-66.0); Platelet Count 657 x10^3/uL (150-450); Red Blood Count 3.87 x10^6/uL (4.1-5.4); Red Cell Distribution Width 18.5 % (11.5-14.0); White Blood Count 11.1 x10^3/uL (4.0-10.5)
--- NOTE | 2023-01-01 07:55 | XRAY ---
CLINICAL HISTORY:weakness COMPARISON:Previous CT scan dated 10/30/2021 was compared; TECHNIQUES:Multiple unenhanced axial sections were acquired from the base of the skull to the vertex without intravenous contrast administration. Coronal and sagittal images were acquired; FINDINGS: Normal amezquita and white matter differentiation. No established territorial infarction was seen. No evidence of subdural, epidural, or subarachnoid collection. No intra-parenchymal or intra-ventricular hemorrhage was seen. No hydrocephalus or midline shift was identified. Redemonstration of the area of small chronic infarction/encephalomalacia in the region of the right cerebellar hemisphere. Age-proportionate involutional changes are seen as evident by the prominence of intra-and extra-axial CSF spaces. Multifocal areas of hypodensities were noted in the bilateral periventricular region and subcortical deep white matter representing microvascular ischemic changes. Visualized para-nasal sinuses, mastoid air cells, and orbits show no gross abnormality. On bone window settings, no fracture was seen in the skull vault. Atheromatous calcification was noted in intracranial arteries. IMPRESSION: 1-No evidence of established territorial infarction, intra-parenchymal or intra-ventricular hemorrhage was seen. 2-Redemonstration of the small area of encephalomalacia in the right cerebellar hemisphere, likely sequelae of previous/old vascular event. 9-[id number] involutional changes with microvascular ischemic changes were noted. 4-In comparison to the previous CT scan dated 10/30/2021, no significant interval change was noted. [facility] ER was called at 7:35 AM EST, 01/01/2023 and results were verbally communicated to Dr. Mckoy. Electronically Signed by: Rene Hernandez MD. (01/01/2023 06:49:49 COMMERCIAL OR [employer]STITUTIONAL CLEANER)
[2023-01-01 08:09] LABS: ALBUMIN 3.1 g/dL (3.5-5.0); ALKALINE PHOSPHATASE 105 U/L (38-126); ANION GAP 14.2 MEQ/L (5-15); BLOOD UREA NITROGEN 17 mg/dL (7-17); CHLORIDE 104 mmol/L (98-107); Calcium 8.6 mg/dL (8.4-10.2); Carbon Dioxide 26 mmol/L (22-30); Creatinine 1 0.67 mg/dL (0.52-1.04); EST GLOMERULAR FILTRATION RATE > 60.0 ML/MIN; Glucose 112 mg/dL (74-106); PROTIME 10.9 SECONDS (9.4-12.5); Potassium 4.9 mmol/L (3.5-5.1); SGOT/AST 21 U/L (14-36); SGPT/ALT 14 U/L (0-35); SODIUM 139 mmol/L (137-145); Total Protein 5.8 g/dL (6.3-8.2)
[2023-01-01] MEDS ORDERED: BENADRYL 50 MG/ML IV ONE (09:03)
[2023-01-01 10:02] LABS: PHOSPHOROUS 3.3 mg/dL (2.5-4.5); Risk Ratio 3.3
[2023-01-01] MEDS ORDERED: BENADRYL 50 MG/ML ONE (10:28)
--- NOTE | 2023-01-01 12:55 | XRAY ---
CLINICAL HISTORY:left sided weakness COMPARISON:None; TECHNIQUES:Carotid angiogram was performed after bolus injection. Images were acquired in multiple planes. Total DLP is 672.93mgy-cm and CTDL is 50.63. 80cc of isovue 370 contrast is given; FINDINGS: The aortic arch presents smooth villalobos and normal configuration. The brachio-cephalic trunk arises normally and under goes a normal division into the subclavian artery and common carotid artery. The left common carotid artery arises directly from the aortic arch. Both common carotid arteries have normal caliber and shows no luminal narrowing. Abnormal course of the cervical portion of the bilateral ICA in the retropharyngeal space noted, the vessels shifted medially almost to midline location and, then returned to its normal location before entering the skull base. Both carotid bifurcation occurs at the normal level. The external carotid artery and internal carotid artery on both sides have no caliber irregularity. There is no evidence of circumscribed narrowing or expansion. The vessels show homogeneous intraluminal enhancement. Minimal atheromatous mural calcification in both vertebral arteries in its proximal portion without causing significant luminal narrowing or stenosis. The rest of visualized vertebral arteries appear unremarkable. The visualized vertebral arteries are symmetrically disposed and take a normal course. They show normal luminal diameter with no filling defect or caliber irregularities as far as basilar artery. On bone window settings, Degenerative changes noted in cervical spine. IMPRESSION: 1. No significant shows no luminal narrowing detected and carotid angiogram. 2. 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 Electronically Signed by: Rene Hernandez MD. (01/01/2023 11:51:13 BLOGS MANAGER)
[2023-01-01 12:59] LABS: Appearance Clear (Clear); Bilirubin Small (Negative); Blood Negative (Negative); Glucose, Urine Negative (Negative); Ketones Negative (Negative); Leukocyte Esterase Trace (Negative); Nitrite Negative (Negative); Ph 5.5 (4.6-8.0); Protein,Urine Dip 30 (Negative); Specific Gravity 1.025 (1.005-1.030)
--- NOTE | 2023-01-01 12:59 | XRAY ---
CLINICAL HISTORY:left sided weakness COMPARISON:Recent CT scan brain(same day) was reviewed; TECHNIQUES:Contrast-enhanced CT scan of the brain was obtained with the angiographic protocol. Total DLP is 672.93mgy-cm and CTDL is 50.63. 80cc of isovue 370 contrast is given; FINDINGS: There is mild atheromatous mural calcification seen involving the bilateral cavernous and supra clinoid portion of the internal carotid artery without causing significant narrowing. The internal carotid, and cerebral arteries show normal caliber. Each carotid siphon is normal, showing no displacement or extrinsic compression. The middle and anterior cerebral arteries arise normally from the internal carotid artery on each side appear unremarkable. There is minimal atheromatous mural calcification also noted in bilateral vertebral arteries without causing significant luminal narrowing. Bilateral vertebral, basilar and posterior cerebral arteries show normal caliber. No significant area of vascular narrowing or dilatation noted. No evidence of anterovenous malformation or fistulous communication noted. Abnormal course of the cervical portion of the bilateral ICA in the retropharyngeal space noted, the vessels shifted medially almost to midline location and, then returned to its normal location before entering the skull base. Redemonstration of the area of small chronic infarction/encephalomalacia in the region of the right cerebellar hemisphere. Age-proportionate involutional changes are seen as evident by the prominence of intra-and extra-axial CSF spaces. Multifocal areas of hypodensities were noted in the bilateral periventricular region and subcortical deep white matter representing microvascular ischemic changes. IMPRESSION: 1. Minimal atheromatous mural calcification involving bilateral vertebral arteries, cavernous and supra clinoid portion of intracranial arteries,Without causing significant luminal narrowing. 2. Redemonstration of age proportionate involutional changes along with few microvascular ischemic changes. 3. Redemonstration of chronic infarction/encephalomalacia changes in the right cerebellar hemisphere. 4. 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 5. No other significant abnormality was seen in Cranial Angiogram. Electronically Signed by: Rene Hernandez MD. ( 01/01/2023 11:52:32 CLIENT ACCOUNT ASSISTANT)
[2023-01-01 13:10] LABS: Bacteria None Seen /HPF (None Seen); Epithelial Cells None Seen /HPF (None Seen); Hyaline Casts NONE SEEN /LPF (0-2); WBC 0-2 /HPF (0-5)
[2023-01-01 13:11] LABS: ADD URINE CULTURE? NO (NO)
[2023-01-01 15:35] LABS: Hematocrit 34.5 % (35-47); Hemoglobin 10.6 g/dL (12.0-16.0); Mean Cell Volume 87.1 fL (78-100); Mean Corpuscular Hemoglobin 26.8 pg (26-32); Mean Corpuscular Hgb Concent. 30.7 g/dL (32-36); Mean Platelet Volume 8.7 fL (7.5-11.0); Platelet Count 736 x10^3/uL (150-450); Red Blood Count 3.96 x10^6/uL (4.1-5.4); Red Cell Distribution Width 17.8 % (11.5-14.0)
[2023-01-01] MEDS ORDERED: NON-FORMULARY ITEM (Albuterol Sulfate [Proair Respiclick] 90 MCG Aer.Pow.Ba) IH SCH (16:00)
[2023-01-01] MEDS ORDERED: ALBUTEROL SULFATE 0.63 MG/3 ML IH SCH (16:00)
[2023-01-01 16:29] LABS: ANION GAP 14.9 MEQ/L (5-15); BLOOD UREA NITROGEN 13 mg/dL (7-17); CHLORIDE 101 mmol/L (98-107); Calcium 8.8 mg/dL (8.4-10.2); Carbon Dioxide 25 mmol/L (22-30); Creatinine 1 0.58 mg/dL (0.52-1.04); EST GLOMERULAR FILTRATION RATE > 60.0 ML/MIN; Glucose 96 mg/dL (74-106); PREALBUMIN 16.42 mg/dL (17.6-36.0); Potassium 4.6 mmol/L (3.5-5.1); SODIUM 136 mmol/L (137-145)
[2023-01-01] MEDS ORDERED: VENTOLIN COMMON CANISTER IH PRN (16:42)
[2023-01-01] MEDS: SYNTHROID 75 MCG PO SCH (17:41)
[2023-01-01] MEDS: Singulair 10 MG PO SCH (17:42)
[2023-01-01] MEDS: Toprol-Xl 25MG Tablets PO SCH (17:42)
[2023-01-01] MEDS: Protonix 40MG Tablet PO SCH (17:42)
[2023-01-01] MEDS: Klor Con PO SCH (17:51)
[2023-01-01] MEDS: Ranexa 500 MG PO SCH (22:49)
[2023-01-01] MEDS: celeBREX 100 MG PO SCH (22:50)
[2023-01-01] MEDS: NEURONTIN PO SCH (22:50)
[2023-01-02] MEDS: Ranexa 500 MG PO SCH ×2 (08:44→21:32)
[2023-01-02] MEDS: Klor Con PO SCH (08:44)
[2023-01-02] MEDS: Protonix 40MG Tablet PO SCH (08:44)
[2023-01-02] MEDS: Singulair 10 MG PO SCH (08:44)
[2023-01-02] MEDS: Toprol-Xl 25MG Tablets PO SCH (08:44)
[2023-01-02] MEDS: SYNTHROID 75 MCG PO SCH (08:44)
[2023-01-02] MEDS: celeBREX 100 MG PO SCH ×2 (08:44→21:32)
[2023-01-02] MEDS: NEURONTIN PO SCH ×2 (08:44→21:32)
[2023-01-02] MEDS: ECOTRIN 81 MG PO SCH (08:44)
[2023-01-02] MEDS ORDERED: SYNTHROID 125 MCG PO SCH (10:00)
[2023-01-02] MEDS ORDERED: NON-FORMULARY ITEM (Fluticasone/Umeclidin/Vilanter [Trelegy Ellipta 100-62.5-25] 1 EACH Bl IH SCH (10:00)
[2023-01-02] MEDS ORDERED: NON-FORMULARY ITEM (Omeprazole [Omeprazole] 40 MG Capsule.Dr) PO SCH (10:00)
[2023-01-02] MEDS ORDERED: Flonase NASAL NS PRN (10:00)
[2023-01-02] MEDS ORDERED: NON-FORMULARY ITEM (Rosuvastatin Calcium [Rosuvastatin Calcium] 20 MG Tablet) PO SCH (10:00)
--- NOTE | 2023-01-02 12:35 | PCM.HP ---
History of Present Illness - Chief Complaint Chief Complaint: TIA History of Present Illness: is a 72-year-old female [facility] presenting this morning with left-sided weakness. Last known normal was approximately 5:30 AM. Patient reports getting out of bed and being unable to use her left leg. She denies changes in speech. She reports a headache at this time. She has a history of multiple TIAs. She is noncompliant with her daily aspirin. Patient recently had a colostomy placed 1 week ago and was just discharged from the hospital on . She had been on Lovenox during the hospital stay. Patient is alert and oriented x4 on exam today. Teleneuro evaluation - no anticoagulation recent surgery. Plan MRI Tuesday. PT. Medications & Allergies Home Medications: Home Medication List Aspirin [[place] Aspirin EC] 81 mg PO DAILY 02/24/17 [History Confirmed 01/01/23] Montelukast Sodium 10 mg [Singulair 10 MG] 10 mg PO DAILY 11/08/18 [History Confirmed 01/01/23] Omeprazole 40 mg PO DAILY 04/22/19 [History Confirmed 01/01/23] Celecoxib 100 mg [celeBREX 100 MG] 100 mg PO BID 01/15/21 [History Confirmed 01/01/23] Levothyroxine Sodium [Synthroid] 75 mcg PO DAILY 10/15/21 [History Confirmed 01/01/23] Rosuvastatin Calcium 20 mg PO DAILY 10/15/21 [History Confirmed 01/01/23] Potassium Chloride 10 meq PO DAILY 60 Days #60 10/31/21 [Rx Confirmed 01/01/23] Albuterol Sulfate 0.63 mg IH UD 08/12/22 [History Confirmed 01/01/23] Albuterol Sulfate [Proair Respiclick] 2 puffs IH Q6H 08/12/22 [History Confirmed 01/01/23] Fluticasone Propionate [Flonase NASAL] 1 spray NS DAILY 08/12/22 [History Confirmed 01/01/23] Fluticasone/Umeclidin/Vilanter [Trelegy Ellipta 100-62.5-25] 1 each IH DAILY 08/12/22 [History Confirmed 01/01/23] Gabapentin [Neurontin ] 300 mg PO BID 08/12/22 [History Confirmed 01/01/23] Metoprolol Succinate 25 mg Xl* [Toprol-Xl 25MG Tablets] 25 mg PO DAILY 08/12/22 [History Confirmed 01/01/23] Ranolazine 500 MG [Ranexa 500 MG] 1,000 mg PO BID 08/12/22 [History Confirmed 01/01/23] Alendronate Sodium 70 mg PO UD 12/15/22 [History Confirmed 01/01/23] Allergies/Adverse Reactions: Allergies Allergy/AdvReac Type Severity Reaction Status Date / Time shrimp Allergy Intermediate Hives Verified 01/01/23 07:13 contrast dye Allergy Intermediate Hives Uncoded 01/01/23 07:13 - Past Medical History Past Medical History: Yes Neurological History: TIA ENT History: Cataracts Cardiac History: Hypertension Respiratory History: COPD Endocrine Medical History: No Pertinent History Musculoskelatal History: Osteoarthritis GI Medical History: Diverticulitis, Diverticulosis, Other History: No Pertinent History Pyscho-Social History: Anxiety Reproductive Disorders: No Pertinent History Comment: bradycardia , - Female History Are you now?: No - Past Surgical History Past Surgical History: Yes Neuro Surgical History: No Pertinent History Cardiac History: Cardiac Catheterization Respiratory Surgery: No Pertinent History GI Surgical History: Cholecystectomy, Colon Resection Genitourinary Surgical Hx: No Pertinent History Musculskeletal Surgical Hx: Joint Replacement Female Surgical History: Hysterectomy Other Surgical History: right total knee replacement, rotator cuff surgery, eye surgery, thyroidectomy 09/11/21, colon resection with ostomy. Colostomy november 2022, Spleen removed november 2022. - Social History Smoking Status: Former smoker Exposure to second hand smoke: No Alcohol: None Drug Use: none Significant Family History: no pertinent family hx - Physical Exam Vital Signs: Vital Signs - 24 hr Temp Pulse Resp BP BP Pulse Ox 01/02/23 11:46 97.2 F 68 18 124/64 95 01/02/23 08:34 68 16 98 01/02/23 07:02 97.1 F 61 28 H 112/57 96 01/02/23 04:00 98.3 F 71 17 119/87 98 01/02/23 00:00 97.6 F 71 18 127/66 95 01/01/23 20:00 97.1 F 63 18 137/68 95 06/03/23 19:45 79 18 95 01/01/23 16:44 72 18 96 01/01/23 14:03 97.7 F 60 18 165/74 97 01/01/23 13:56 97.6 F 62 18 135/69 96 01/01/23 12:36 61 20 101/62 98 Results - Labs Lab/Micro Results: Lab Results-Last 24 Hours 01/01/23 01/01/23 01/01/23 Range/Units 08:13 15:27 15:27 WBC 10.0 (4.0-10.5) x10^3/uL RBC 3.96 L (4.1-5.4) x10^6/uL Hgb 10.6 L (12.0-16.0) g/dL Hct 34.5 L (35-47) % MCV 87.1 (78-100) fL MCH 26.8 (26-32) pg MCHC 30.7 L (32-36) g/dL RDW 17.8 H (11.5-14.0) % Plt Count 736 H (150-450) x10^3/uL MPV 8.7 (7.5-11.0) fL Sodium 136 L (137-145) mmol/L Potassium 4.6 (3.5-5.1) mmol/L Chloride 101 (98-107) mmol/L Carbon Dioxide 25 (22-30) mmol/L Anion Gap 14.9 (5-15) MEQ/L BUN 13 (7-17) mg/dL Creatinine 0.58 (0.52-1.04) mg/dL Estimated GFR > 60.0 ML/MIN Glucose 96 (74-106) mg/dL Calcium 8.8 (8.4-10.2) mg/dL Prealbumin 16.42 L (17.6-36.0) mg/dL Urine Color Dark Yellow A (Yellow) Urine Appearance Clear (Clear) Urine pH 5.5 (4.6-8.0) Ur Specific [place] 1.025 (1.005-1.030) Urine Protein 30 (Negative) Urine Glucose (UA) Negative (Negative) mg/dL Urine Ketones Negative (Negative) Urine Blood Negative (Negative) Urine Nitrite Negative (Negative) Urine Bilirubin Small A (Negative) Urine Urobilinogen 1.0 A (0.2) mg/dL Ur Leukocyte Esterase Trace A (Negative) U Hyaline Cast (Auto) NONE SEEN (0-2) /LPF Urine Microscopic RBC 3-5 (0-5) /HPF Urine Microscopic WBC 0-2 (0-5) /HPF Ur Epithelial Cells None Seen (None Seen) /HPF Urine Bacteria None Seen (None Seen) /HPF Urine Culture Reflexed NO (NO) - Radiology Impressions Radiology Exams & Impressions: Radiology Procedures Category Date Time Status CT ANGIOGRAPHY NECK [CT] Stat Exams 01/01/23 08:50 Completed CTA HEAD W AND/OR WO CONTRAST [CT] Stat Exams 01/01/23 08:50 Completed HEAD WITHOUT CONTRAST [CT] Stat Exams 01/01/23 07:11 Completed - Other Procedures and Tests Respiratory Therapy 01/01/23 16:42 Respiratory Therapy Assessment DAILY 01/01/23 16:43 BiPap/CPAP ROUTINE
[2023-01-02] MEDS: ZOCOR 20MG PO SCH (16:12)
[2023-01-02] MEDS ORDERED: ANTIVERT 25 MG PO PRN (20:07)
[2023-01-03] MEDS ORDERED: TYLENOL 325 MG PO PRN (10:21)
[2023-01-03] MEDS: ECOTRIN 81 MG PO SCH (10:47)
[2023-01-03] MEDS: ANTIVERT 25 MG PO PRN ×2 (10:47→17:10)
[2023-01-03] MEDS: Ranexa 500 MG PO SCH (10:47)
[2023-01-03] MEDS: NEURONTIN PO SCH (10:47)
[2023-01-03] MEDS: Protonix 40MG Tablet PO SCH (10:47)
[2023-01-03] MEDS: celeBREX 100 MG PO SCH (10:47)
[2023-01-03] MEDS: Klor Con PO SCH (10:47)
[2023-01-03] MEDS: ZOCOR 20MG PO SCH (10:48)
[2023-01-03] MEDS: SYNTHROID 75 MCG PO SCH (10:48)
[2023-01-03] MEDS: Singulair 10 MG PO SCH (10:48)
[2023-01-03] MEDS: Toprol-Xl 25MG Tablets PO SCH (10:48)
[2023-01-03] MEDS ORDERED: Invanz *** 1 G in Sodium Chloride 100ML MINI-BAG PLUS 100 ML IV SCH (13:00)
[2023-01-03 13:30] LABS: Absolute Neutrophil Ct (ANC) 8.15 x10^3/uL (1.4-6.9); BASOPHIL % 1.1 % (0.0-0.4); Basophil (Absolute #) 0.12 x10^3/uL (0-0.4); Eosinophil % 7.6 % (0.00-5.0); Eosinophil (Absolute #) 0.84 x10^3/uL (0-0.5); Hematocrit 36.2 % (35-47); Hemoglobin 11.4 g/dL (12.0-16.0); IMMATURE GRAN # 0.09 x10^3u/L (0.00-0.03); IMMATURE GRAN % 0.8 % (0.00-0.4); Lymphocyte (Absolute #) 1.19 x10^3/uL (1.0-4.6); Lymphocytes % 10.8 % (24.0-44.0); Mean Cell Volume 86.2 fL (78-100); Mean Corpuscular Hemoglobin 27.1 pg (26-32); Mean Corpuscular Hgb Concent. 31.5 g/dL (32-36); Mean Platelet Volume 8.9 fL (7.5-11.0); Monocyte (Absolute #) 0.63 x10^3/uL (0.0-1.3); Monocytes % 5.7 % (0.0-12.0); Platelet Count 744 x10^3/uL (150-450)
[2023-01-03 13:46] LABS: ALBUMIN 3.5 g/dL (3.5-5.0); ALKALINE PHOSPHATASE 120 U/L (38-126); ANION GAP 12.7 MEQ/L (5-15); BLOOD UREA NITROGEN 15 mg/dL (7-17); CHLORIDE 99 mmol/L (98-107); Calcium 8.9 mg/dL (8.4-10.2); Carbon Dioxide 29 mmol/L (22-30); Creatinine 1 0.64 mg/dL (0.52-1.04); EST GLOMERULAR FILTRATION RATE > 60.0 ML/MIN; Glucose 119 mg/dL (74-106); Potassium 4.4 mmol/L (3.5-5.1); SGOT/AST 22 U/L (14-36); SGPT/ALT 14 U/L (0-35); SODIUM 136 mmol/L (137-145); Total Protein 6.8 g/dL (6.3-8.2)
--- NOTE | 2023-01-03 14:11 | XRAY ---
CLINICAL HISTORY:TIA. COMPARISON:To Previous CT and CTA done on 01/01/2023. TECHNIQUES:Different pulse sequences were performed in different planes without and with contrast/ GD-DTPA injection for the brain. Images were sent through PACs for interpretation. FINDINGS: Bilateral periventricular small foci of the abnormal signal are seen with high T2 /FLAIR and iso to low signal in T1 with no diffusion restriction, likely representing old ischemic foci. Right cerebellar and right occipital cortical areas with high T2, Low T1, and FLAIR signal with mild surrounding hyperintensity in FLAIR, likely representing encephalomalacia due to old ischemic insult. Moderate prominence of the ventricular system and extra-axial CSF spaces, Likely representing involutional changes. No hyperacute or acute infarctions could be depicted. No enhanced mass lesions could be seen. Normal MRI appearance of different anatomical parts of the brain stem namely the midbrain, Nora, medulla oblongata. Normal MRI appearance of the petrous temporal bones, brainstem, vestibule cochlear nerves, and cerebellopontine angles with no definite masses. No shift of midline structures. No intracerebral or extra-axial hematomas or enhanced masses. Normal MRI appearance of orbital structures, both globes, optic nerves, optic chiasm, optic tracts, and optic radiations. No abnormal post-contrast enhancement. IMPRESSION: 1. Chronic microvascular ischemic changes with scattered white matter chronic ischemic foci. 2. Right occipital and right cerebellar areas of encephalomalacia, likely due to old ischemic insult. 3.Moderate involutional changes are seen. 4. No significant changes compared to the last study. Electronically Signed by: Rene Hernandez MD. (01/03/2023 13:01:13 RISK INVESTIGATOR)
--- NOTE | 2023-01-03 15:36 | PCM.DS ---
Discharge Summary Date of Admission: 01/01/23 13:50 Date of Discharge: Patient admitted with presumed TIA with weakness (left more than right). MRI of the brain is negative for an acute ischemic injury. Dizziness is improved with meclizine (Rx to be sent to pharmacy). Patient will be discharged to home with f/u with Dr. Duarte before end of the week and home health to start on 01/08/23 The patient was examined on the date of discharge. The entirety of this encounter was performed via telemedicine. The patient consented to this telemedicine encounter. Admitting Physician: TARA DUARTE DO Consults: Consults on Case 01/01/23 07:49 Tele-Health Consult ROUTINE 01/03/23 10:21 Social Determinants of Health Referal ONCE Primary Care Provider: TARA DUARTE DO Allergies Allergies shrimp Allergy (Intermediate, Verified 01/01/23 07:13) [facility] contrast dye Allergy (Intermediate, Uncoded 01/01/23 07:13) [facility] Summary - Vitals & Intake/Output Vital Signs: Vital Signs Temperature 97.4 F 01/03/23 11:50 Pulse Rate 80 01/03/23 11:50 Respiratory Rate 17 01/03/23 11:50 Blood Pressure 129/70 01/03/23 11:50 O2 Sat by Pulse Oximetry 94 L 01/03/23 11:50 Intake & Output: Intake & Output 01/01/23 01/02/23 01/03/23 01/04/23 11:59 11:59 11:59 11:59 Intake Total 360 540 Output Total 200 1500 900 Balance -200 -1140 -360 Weight 94.801 kg 96 kg - Lab Result Diagrams: 01/03/23 13:26 01/03/23 13:26 Lab Results-Last 24 Hrs: Lab Results-Last 24 Hours 01/03/23 01/03/23 Range/Units 13:26 13:26 WBC 11.0 H (4.0-10.5) x10^3/uL RBC 4.20 (4.1-5.4) x10^6/uL Hgb 11.4 L (12.0-16.0) g/dL Hct 36.2 (35-47) % MCV 86.2 (78-100) fL MCH 27.1 (26-32) pg MCHC 31.5 L (32-36) g/dL RDW 18.0 H (11.5-14.0) % Plt Count 744 H (150-450) x10^3/uL MPV 8.9 (7.5-11.0) fL Gran % 74.0 H (36.0-66.0) % Immature Gran % (Auto) 0.8 H (0.00-0.4) % Nucleat RBC Rel Count 0.0 (0.00-0.1) % Eos # (Auto) 0.84 H (0-0.5) x10^3/uL Immature Gran # (Auto) 0.09 H (0.00-0.03) x10^3u/L Absolute Lymphs (auto) 1.19 (1.0-4.6) x10^3/uL Absolute Monos (auto) 0.63 (0.0-1.3) x10^3/uL Absolute Nucleated RBC 0.00 (0.00-0.01) x10^3u/L Lymphocytes % 10.8 L (24.0-44.0) % Monocytes % 5.7 (0.0-12.0) % Eosinophils % 7.6 H (0.00-5.0) % Basophils % 1.1 (0.0-0.4) % Absolute Granulocytes 8.15 H (1.4-6.9) x10^3/uL Basophils # 0.12 (0-0.4) x10^3/uL Sodium 136 L (137-145) mmol/L Potassium 4.4 (3.5-5.1) mmol/L Chloride 99 (98-107) mmol/L Carbon Dioxide 29 (22-30) mmol/L Anion Gap 12.7 (5-15) MEQ/L BUN 15 (7-17) mg/dL Creatinine 0.64 (0.52-1.04) mg/dL Estimated GFR > 60.0 ML/MIN Glucose 119 H (74-106) mg/dL Calcium 8.9 (8.4-10.2) mg/dL Total Bilirubin 0.40 (0.2-1.3) mg/dL AST 22 (14-36) U/L ALT 14 (0-35) U/L Alkaline Phosphatase 120 (38-126) U/L Serum Total Protein 6.8 (6.3-8.2) g/dL Albumin 3.5 (3.5-5.0) g/dL - Radiology Exams Ordered Rad Exams-Entire Visit: Radiology Procedures Category Date Time Status MRI BRAIN W & W/O CONTRAST [MRI] Stat Exams 01/03/23 10:23 Completed - Procedures and Test Procedures and Tests throughout Hospitalization: Therapy Orders & Screens 01/01/23 16:42 Respiratory Therapy Assessment DAILY Comment: Diagnosis: TIA 01/01/23 16:43 BiPap/CPAP ROUTINE Comment: Diagnosis: TIA 01/02/23 20:07 EKG ROUTINE Comment: Dizziness Diagnosis: TIA - Discharge Disposition: Home, Self-Care Condition: Good Prescriptions: No Action Aspirin [[place] Aspirin EC] 81 mg PO DAILY Montelukast Sodium 10 mg [Singulair 10 MG] 10 mg PO DAILY Omeprazole 40 mg PO DAILY Celecoxib 100 mg [celeBREX 100 MG] 100 mg PO BID Levothyroxine Sodium [Synthroid] 75 mcg PO DAILY Rosuvastatin Calcium 20 mg PO DAILY Potassium Chloride 10 meq PO DAILY 60 Days #60 Albuterol Sulfate [Proair Respiclick] 2 puffs IH Q6H Fluticasone Propionate [Flonase NASAL] 1 spray NS DAILY Fluticasone/Umeclidin/Vilanter [Trelegy Ellipta 100-62.5-25] 1 each IH DAILY Ranolazine 500 MG [Ranexa 500 MG] 1,000 mg PO BID Metoprolol Succinate 25 mg Xl* [Toprol-Xl 25MG Tablets] 25 mg PO DAILY Gabapentin [Neurontin ] 300 mg PO BID Albuterol Sulfate 0.63 mg IH UD Alendronate Sodium 70 mg PO UD Additional Instructions: YOUR NEXT INFUSION IS SCHEDULED FOR TOMORROW 01/04/23@[address] [facility] HAS BEEN SET UP. THEY WILL PLAN TO START CARE ON Tuesday01/08/23 ( THEY CANNOT START UNTIL OTPT INFUSIONS ARE COMPLETE). THEY WILL CALL YOU TO ARRANGE A TIME TO SEE YOU. THEIR PHONE NUMBER IS [phone] Follow up with: TARA DUARTE DO [Primary Care Provider] -
[2023-01-03 16:20] VITALS: BP 142/77; PULSE 70; O2SAT 95
[2023-01-07] MEDS ORDERED: Fosamax 70 MG PO SCH (06:00)
== END 2023-01-03 17:12 | disposition home or self-care (01) ==
LOC: ED 07:06 → MED SURG 13:50
PROVIDERS: ADMIT Family Medicine; ATTEND Family Medicine
DX: G45.9 Transient cerebral ischemic attack, unspecified (principal); R51.9 Headache, unspecified; R53.1 Weakness; I10 Essential (primary) hypertension; R00.1 Bradycardia, unspecified; Z91.148 Patient's other noncompliance with medication regimen for other reason; Z79.899 Other long term (current) drug therapy; Z20.828 Contact with and (suspected) exposure to other viral communicable diseases
CPT/HCPCS: 36000; 36415; 51702; 70450; 70496; 70498; 70553; 80048; 80053; 80061; 81001; 82140; 82947; 83036; 83721; 83735; 84100; 84134; 85025; 85027; 85610; 85730; 93005; 93041; 94660; 94760; 96374; 99285; G0378; Q3014; J1200; J1335; A9270-GY

== ENCOUNTER 2023-05-04 08:42 | Day surgery (SDC) | payer MEDICARE ==
[2013-04-11 11:13] VITALS: BP 138/88
[2023-05-04] MEDS ORDERED: BUPIVACAINE 0.5% VIAL IJ ONE (08:43)
[2023-05-04] MEDS ORDERED: Depo-Medrol 40 MG/ML IM ONE (08:43)
[2023-05-04] MEDS ORDERED: DIPRIVAN 200 MG/20 ML IV ONE ×2 (09:53→10:07)
[2023-05-04] MEDS ORDERED: Lactated Ringers 1,000 ML IV ONE (11:17)
--- NOTE | 2023-05-04 12:10 | XRAY ---
Indication: Left shoulder and subacromial bursa injection. Intraoperative fluoroscopy provided for 16 seconds. 2 digital spot image submitted for interpretation demonstrates needle tip projecting over the left glenohumeral joint superiorly. Second needle tip subacromial. Small amount of contrast injected for needle tip placement. Correlate with intraoperative findings/report.
--- NOTE | 2023-05-04 12:12 | XRAY ---
16 seconds of fluoroscopy was used in surgery for a left intra-articular shoulder and subacromial bursa injection.
== END 2023-05-04 10:38 | disposition home or self-care (01) ==
LOC: SDC-PAIN 08:42
PROVIDERS: ATTEND Psychiatry & Neurology Pain Medicine
DX: M19.012 Primary osteoarthritis, left shoulder (principal); M75.52 Bursitis of left shoulder
CPT/HCPCS: 20610; 73030; 77002; J1030; J2704; Q9966

== ENCOUNTER 2023-07-15 21:35 | Emergency (ER) | payer MEDICARE ==
[2023-07-15 21:51] VITALS: TEMP 97.6
[2023-07-15] MEDS ORDERED: TORAdol 30 mg Injection IM ONE (22:05)
[2023-07-15] MEDS ORDERED: TORAdol 30 mg Injection ONE (22:07)
--- NOTE | 2023-07-15 22:10 | ERPHSYRPT ---
- History of Present Illness Source: patient Exam Limitations: no limitations Patient Subjective Stated Complaint: pt states that her cat tripped her and she fell on her back and hit her head Triage Nursing Assessment: pt came into the er via wheelchair; pt transferred self to cot; c/o back pain; pt states 10/10 pain to lower back; pt states pain to back of head; no deformity, bruising, abrasion to lower back; pupils 3 mm and PERRL; strong julio cryptologic linguist; strong pushes; hypertensive; no respiratory distress present; skin PDW Physician History: 72-year-old female with history of chronic pain who sees the pain clinic fell this evening at her house after tripping over her cat and now complains of headache, cervical pain and lumbar pain. Pain is 10 on scale. She denies any chest pain, abdominal pain, hip pain, lower extremity pain, and upper extremity pain. Patient denies LOC but was dazed. Occurred: other (1 to 2 hours before arrival) Reason for Fall: tripped (Over) Injuries/Pain Location: head, neck, back Loss of Consciousness: no loss of consciousness, dazed Quality: sharpness Severity of Pain-Max: severe Severity of Pain-Current: severe Modifying Factors: Improves With: movement Associated Symptoms (Fall): denies symptoms, back pain, headache, neck pain Allergies/Adverse Reactions: shrimp Allergy (Intermediate, Verified 07/15/23 21:42) Hives contrast dye Allergy (Intermediate, Uncoded 07/15/23 21:42) Hives Home Medications: Aspirin [[place] Aspirin EC] 81 mg PO DAILY 02/24/17 [History] Montelukast Sodium 10 mg [Singulair 10 MG] 10 mg PO DAILY 11/08/18 [History] Omeprazole 40 mg PO DAILY 04/22/19 [History] Celecoxib 100 mg [celeBREX 100 MG] 100 mg PO BID 01/15/21 [History] Levothyroxine Sodium [Synthroid] 75 mcg PO DAILY 10/15/21 [History] Rosuvastatin Calcium 20 mg PO DAILY 10/15/21 [History] Albuterol Sulfate 0.63 mg IH UD 08/12/22 [History] Albuterol Sulfate [Proair Respiclick] 2 puffs IH Q6H 08/12/22 [History] Fluticasone Propionate [Flonase NASAL] 1 spray NS DAILY 08/12/22 [History] Fluticasone/Umeclidin/Vilanter [Trelegy Ellipta 100-62.5-25] 1 each IH DAILY 08/12/22 [History] Gabapentin [Neurontin ] 300 mg PO BID 08/12/22 [History] Metoprolol Succinate 25 mg Xl* [Toprol-Xl 25MG Tablets] 25 mg PO DAILY 08/12/22 [History] Ranolazine 500 MG [Ranexa 500 MG] 1,000 mg PO BID 08/12/22 [History] Alendronate Sodium 70 mg PO UD 12/15/22 [History] Meclizine HCl 25 mg [Antivert 25 mg] 25 mg PO TID PRN 01/04/23 [History] Hx Tetanus, Diphtheria Vaccination/Date Given: No Hx Influenza Vaccination/Date Given: Yes Hx Pneumococcal Vaccination/Date Given: Yes Immunizations Up to Date: Yes Travel Risk - International Travel Have you traveled outside of the country in past 3 weeks: No - Coronavirus Screening Are you exhibiting any of the following symptoms?: No Close contact with a COVID-19 positive Pt in past 14-21 Days: No - Vaccine Status Have you recieved a Covid-19 vaccination: Yes Reception Specialist: Moderna - Vaccination Dates Date of 2cond Vaccination (if applicable): october 2020 - Review of Systems Constitutional: No Symptoms Eyes: No Symptoms Ears, Nose, & Throat: No Symptoms Respiratory: No Symptoms Cardiac: No Symptoms Abdominal/Gastrointestinal: No Symptoms Genitourinary Symptoms: No Symptoms Skin: No Symptoms Neurological: No Symptoms, Headache Psychological: No Symptoms Endocrine: No Symptoms Hematologic/Lymphatic: No Symptoms Immunological/Allergic: No Symptoms - Past Medical History Pertinent Past Medical History: Yes Neurological History: TIA ENT History: Cataracts Cardiac History: Hypertension Respiratory History: COPD Endocrine Medical History: No Pertinent History Musculoskeletal History: Osteoarthritis GI Medical History: Diverticulitis, Diverticulosis, Other History: No Pertinent History Psycho-Social History: Anxiety Female Reproductive Disorders: No Pertinent History Other Medical History: bradycardia - Past Surgical History Past Surgical History: Yes Neuro Surgical History: No Pertinent History Cardiac: Cardiac Catheterization Respiratory: No Pertinent History Gastrointestinal: Cholecystectomy, Colon Resection Genitourinary: No Pertinent History Musculoskeletal: Joint Replacement Female Surgical History: Hysterectomy Other Surgical History: right total knee replacement, rotator cuff surgery, eye surgery, thyroidectomy 09/11/21, colon resection with ostomy - Social History Smoking Status: Former smoker Exposure to second hand smoke: No Alcohol Use: None Drug Use: none Patient Lives Alone: Yes Significant Family History: no pertinent family hx - Nursing Vital Signs Nursing Vital Signs: Initial Vital Signs Temperature 97.6 F 07/15/23 21:43 Pulse Rate 69 07/15/23 21:43 Respiratory Rate 22 07/15/23 21:43 Blood Pressure 153/69 07/15/23 21:43 O2 Sat by Pulse Oximetry 98 07/15/23 21:43 Pain Scale Pain Intensity 8 Mild systolic hypertension - [place] Coma Score Best Eye Response ([place]): (4) open spontaneously Best Verbal Response (Jose): (5) oriented Best Motor Response ([place]): (6) obeys commands [place] Total: 15 - Physical Exam General Appearance: mild distress (Mild distress due to pain) Head Injury: tenderness (Occiput tenderness to palpation) Eye Exam: PERRL/EOMI, eyes nml inspection ENT Exam: airway nml, No evidence of ENT injury, No clear fluid (ears), No clear fluid (nose) Neck Exam: supple (C-spine mild tenderness palpation) Respiratory/Chest Exam: normal breath sounds, No chest tenderness, No respiratory distress Cardiovascular Exam: normal heart sounds, regular rate/rhythm, normal peripheral pulses, No murmur Gastrointestinal Exam: soft, normal bowel sounds, No tenderness Back Exam: vertebral tenderness (Lumbar spine moderately tender to palpation) Extremity Exam: normal inspection, normal range of motion, pelvis stable Neurologic Exam: alert, oriented x 3, cooperative, wire tinner II-XII nml as tested, normal mood/affect Skin Exam: normal color, warm, dry SpO2 Interpretation: normal SpO2: 98 O2 Delivery: Room Air - Course Nursing assessment & vital signs reviewed: Yes - CT Exams Head CT Interpretation: Tele-radiologist Report (No acute traumatic findings) Cervical Spine CT Interpretation: Tele-radiologist Report (No acute traumatic findings) Lumbar Spine CT Interpretation: Tele-radiologist Report (Possible small L1 anterior wedge compression fracture) Ordered Tests: Active Orders 24 hr Category Date Time Status CERVICAL SPINE WO CONTRAST [CT] Stat Exams 07/15/23 22:05 Completed HEAD WITHOUT CONTRAST [CT] Stat Exams 07/15/23 22:05 Completed LUMBAR SPINE W/O [CT] Stat Exams 07/15/23 22:05 Completed Medication Summary Discontinued Medications Generic Name Dose Route Start Last Admin Trade Name Emma PRN Reason Stop Dose Admin Ketorolac Tromethamine 30 mg 07/15/23 22:05 07/15/23 22:11 Ketorolac Tromethamine 30 Mg/Ml Inj IM 07/15/23 22:06 30 mg STAT ONE Administration Ketorolac Tromethamine Confirm 07/15/23 22:07 Ketorolac Tromethamine 30 Mg/Ml Inj Administered 07/15/23 22:08 Dose 30 mg .ROUTE .STK-MED ONE - Progress Progress: improved Progress Note: 07/16/23 00:28 Nursing note vital signs reviewed. No food or housing insecurity noted. All CT results reviewed and shared with patient. 07/16/23 00:28 30 mg IM Toradol with mild improvement pain. Patient possibly has a mild L1 anterior wedge compression fracture. Fracture is stable, there is no focal weakness, there is no incontinence, and serial neurologic symptoms negative. She is an active pain clinic patient will continue with her home pain medications which include Altheimer and gabapentin. Patient advised to follow-up with her family MD and/or pain physician. Patient discharged in stable condition. Counseled pt/family regarding: diagnosis, need for follow-up, rad results Medical Desision Making - Diagnostic Testing Radiological Interpretation: Teleradiologist Report - Risk of complications The pt has a mod risk of morbidity or mortality based on: Need for prescription drug management - Departure Departure Disposition: Home Clinical Impression: Mild closed head injury, Cervical strain, Compression fracture of L1 vertebra, Compression fracture Condition: Stable Critical Care Time: No Referrals: CORY LONG DO [Primary Care Provider] - Follow up/PCP as directed Instructions: Preventing falls in adults, Head Injury Observation (DC) Additional Instructions: Ice for 12 to 24 hours. Continue with your home pain meds per your pain clinic. Activity as tolerated. With your family MD and/or pain physician. Turn to ER as needed.
[2023-07-15 22:46] VITALS: RESP 17
--- NOTE | 2023-07-15 23:47 | XRAY ---
CLINICAL HISTORY:Fall COMPARISON:Prior CT dated 12/02/2016. TECHNIQUE:Contiguous, multislice, non-contrast CT scan of the lumbar spine was performed in the axial plane with multiplanar reconstructions. FINDINGS: Preserved lumbar lordotic curve. Degenerative changes in the lumbar spine showing anterior marginal osteophytosis. No suspicious osteolytic or sclerotic focal bony lesions. There is a mild decrease in height of L1 vertebra noted anteriorly showing anterior wedging and subtle cortical step-off deformity at the left side. Reduced L1-L2 and L5-S1 intervertebral disc space heights. Vacuum phenomenon seen at L5-S1 level. Rest of the lumbar vertebral heights appear maintained. Level by level disc analysis: At L1-L2, There is a mild posterior disc bulge indenting the thecal sac and thereby lateral recess narrowing causing mild neuroforaminal stenosis. At L2-L3 L3-L4 and L4-L5, there is posterior disc bulge indenting the thecal sac and thereby lateral recess narrowing causing bilateral neuroforaminal stenosis, more on left side. At L5-S1 there is a posterior disc bulge indenting the thecal sac and thereby lateral recess narrowing compromising neural foramina. Osteoporotic bones. Focal sclerotic area at the right iliac bone suggesting bony island No paraspinal mass or collection. Atherosclerotic calcification of the abdominal aorta and iliac vessels. IMPRESSION: 1. Mild decrease in height of L1 vertebra noted anteriorly showing anterior wedging and subtle cortical step-off deformity at the left side suspicious for acute fracture. Interval new finding when compared with prior study. 2. Mild Lumbar spondylodegenerative changes showing degenerative disc disease at multiple levels, most pronounced at L1-L2, L5-S1 levels as described above. MRI may be recommended for further evaluation if clinically needed for better characterization of disc pathology. Electronically Signed by: Rene Hernandez MD. (07/15/2023 23:43:49 EST)
--- NOTE | 2023-07-15 23:51 | XRAY ---
CLINICAL HISTORY:Fall COMPARISON:MR dated 01/03/[address] dated 01/01/2023 were reviewed. TECHNIQUE:Axial non-contrast CT of the head was performed with sagittal and coronal reconstructions. FINDINGS: No evidence of extra-axial /intra-parenchymal or intra-ventricular hemorrhage is seen. No hydrocephalus or midline shift is identified. Redemonstration of the area of small chronic infarction/encephalomalacia in the region of the right cerebellar and occipital regions. Age-proportionate involutional changes are seen as evident by the prominence of intra-and extra-axial CSF spaces. Multifocal areas of hypodensities were noted in the bilateral periventricular region and subcortical deep white matter representing microvascular ischemic changes. Visualized para-nasal sinuses, mastoid air cells, and orbits show no gross abnormality. On bone window settings, no fracture was seen in the skull vault. Atheromatous calcification was noted in intracranial arteries. IMPRESSION: 1. No evidence of traumatic intracranial abnormality in present study. 2. Redemonstration of the small area of encephalomalacia in the right cerebellar and occipital regions, likely sequelae of old vascular event. 3. Age-proportionate involutional changes with microvascular ischemic changes were noted. 4. In comparison to the previous MR dated 01/03/2023, no significant interval change is noted. Electronically Signed by: Rene Hernandez MD. (07/15/2023 23:46:40 EST)
--- NOTE | 2023-07-15 23:59 | XRAY ---
CLINICAL HISTORY:Fall COMPARISON:CT dated 06/21/2010. TECHNIQUE:Thin axial CT of the cervical spine was performed with sagittal and coronal reconstructions without contrast administration. FINDINGS: There is loss of cervical lordosis with straightening of curvature. Grade I anterolisthesis of C4 over C5 vertebral body noted with significant facetal arthropathy at C4-C5 level on left side, causing neural foraminal narrowing, impinging exiting nerve root at this level. Multilevel anterior and posterior osteophytes, uncovertebral joint hypertrophy were noted. Multilevel posterior disc osteophyte complexes seen at C5-C6 and C6-C7 levels, encroaching spinal canal, with possible impingement over nerve roots. MR is advised for further evaluation. The vertebral bodies are normal in height. No lytic or sclerotic bone lesion. The craniovertebral measures are unremarkable. Intervertebral disc spaces: Moderate reduction in height of intervertebral disc spaces between C5-C6 and C6-C7 levels noted. Mild periodontal calcification/ossification noted. The paravertebral spaces appear normal. No abnormality was detected in the prevertebral region. IMPRESSION: 1. No definite acute fracture was detected in the cervical spine. 2. Cervical spondylosis with multilevel disc osteophyte complexes at C5-C6 and C6-C7 levels, encroaching the spinal canal and significant facetal arthropathy at C4-C5 level, impinging nerve roots possibly. MR is advised for further evaluation. 3. Grade I anterolisthesis of C4 over C5 vertebral body. 4. When compared to previous study, interval increase in spodylodegenerative changes in cervical spine are noted. Electronically Signed by: Rene Hernandez MD. (07/15/2023 23:56:01 EST)
[2023-07-16 00:04] VITALS: BP 141/63; PULSE 60
[2023-07-16 00:31] VITALS: O2SAT 98
== END 2023-07-16 00:15 | disposition home or self-care (01) ==
LOC: ED 21:35
DX: S09.90XA Unspecified injury of head, initial encounter (principal); S16.1XXA Strain of muscle, fascia and tendon at neck level, initial encounter; S32.010A Wedge compression fracture of first lumbar vertebra, initial encounter for closed fracture; W01.0XXA Fall on same level from slipping, tripping and stumbling without subsequent striking against object, initial encounter; I10 Essential (primary) hypertension; Z79.899 Other long term (current) drug therapy; Z86.73 Personal history of transient ischemic attack (TIA), and cerebral infarction without residual deficits
CPT/HCPCS: 70450; 72125; 72131; 96372; 99283; J1885

== ENCOUNTER 2023-11-14 09:19 | Emergency (ER) | payer MEDICARE ==
--- NOTE | 2023-11-14 09:25 | ERPHSYRPT ---
- History of Present Illness Time Seen by Provider: 11/14/23 09:24 Source: patient, family Physician History: This is an obese 72-year-old white female patient of Dr. Long who drove herself into the emergency department secondary to falling onto her face and chest while attempting to take out the trash. Patient states that she literally tried to throw the trash into the trash can over an object and then lost her balance and fell. She did not lose consciousness. She was not dizzy prior to this occurring. She denies shortness of breath she denies chest pain. She has no abdominal pain. Patient has a history of hypothyroidism, asthma, gastroesophageal reflux disease, hypertension, hyperlipidemia, TIA and anxiety issues. She has no extremity pain Occurred: just prior to arrival, this morning Injuries/Pain Location: head, face, chest Loss of Consciousness: no loss of consciousness Quality: aching Severity of Pain-Max: mild Severity of Pain-Current: mild Modifying Factors: Improves With: nothing Associated Symptoms (Fall): chest pain (Chest wall anteriorly secondary to trauma), headache, No neck pain, No shortness of breath, No vision changes Allergies/Adverse Reactions: shrimp Allergy (Intermediate, Verified 11/14/23 09:28) Hives contrast dye Allergy (Intermediate, Uncoded 11/14/23 09:28) Hives Home Medications: Aspirin [Juncal Aspirin EC] 81 mg PO DAILY 02/24/17 [History] Montelukast Sodium 10 mg [Singulair 10 MG] 10 mg PO DAILY 11/08/18 [History] Omeprazole 40 mg PO DAILY 04/22/19 [History] Celecoxib 100 mg [celeBREX 100 MG] 100 mg PO BID 01/15/21 [History] Levothyroxine Sodium [Synthroid] 75 mcg PO DAILY 10/15/21 [History] Rosuvastatin Calcium 20 mg PO DAILY 10/15/21 [History] Albuterol Sulfate 0.63 mg IH UD 08/12/22 [History] Albuterol Sulfate [Proair Respiclick] 2 puffs IH Q6H 08/12/22 [History] Fluticasone Propionate [Flonase NASAL] 1 spray NS DAILY 08/12/22 [History] Fluticasone/Umeclidin/Vilanter [Trelegy Ellipta 100-62.5-25] 1 each IH DAILY 08/12/22 [History] Gabapentin [Neurontin ] 300 mg PO BID 08/12/22 [History] Metoprolol Succinate 25 mg Xl* [Toprol-Xl 25MG Tablets] 25 mg PO DAILY 08/12/22 [History] Ranolazine 500 MG [Ranexa 500 MG] 1,000 mg PO BID 08/12/22 [History] Alendronate Sodium 70 mg PO UD 12/15/22 [History] Meclizine HCl 25 mg [Antivert 25 mg] 25 mg PO TID PRN 01/04/23 [History] Hx Tetanus, Diphtheria Vaccination/Date Given: No Hx Influenza Vaccination/Date Given: Yes Hx Pneumococcal Vaccination/Date Given: Yes Travel Risk - International Travel Have you traveled outside of the country in past 3 weeks: No - Emerging Infectious Disease Are you exhibiting symptoms associated with any current EIDs: No - Review of Systems Constitutional: No Symptoms Eyes: No Symptoms Ears, Nose, & Throat: Other (Mild swelling upper lip) Respiratory: No Symptoms Cardiac: Chest Pain (Chest wall pain from trauma) Abdominal/Gastrointestinal: No Symptoms Genitourinary Symptoms: No Symptoms Musculoskeletal: No Symptoms Skin: No Symptoms Neurological: Headache Psychological: No Symptoms (Mild headache) Endocrine: No Symptoms Hematologic/Lymphatic: No Symptoms Immunological/Allergic: No Symptoms All Other Systems: Reviewed and Negative - Past Medical History Pertinent Past Medical History: Yes Neurological History: TIA ENT History: Cataracts Cardiac History: Hypertension Respiratory History: COPD Endocrine Medical History: No Pertinent History Musculoskeletal History: Osteoarthritis GI Medical History: Diverticulitis, Diverticulosis, Other History: No Pertinent History Psycho-Social History: Anxiety Female Reproductive Disorders: No Pertinent History Other Medical History: bradycardia - Past Surgical History Past Surgical History: Yes Neuro Surgical History: No Pertinent History Cardiac: Cardiac Catheterization Respiratory: No Pertinent History Gastrointestinal: Cholecystectomy, Colon Resection Genitourinary: No Pertinent History Musculoskeletal: Joint Replacement Female Surgical History: Hysterectomy Other Surgical History: right total knee replacement, rotator cuff surgery, eye surgery, thyroidectomy 09/11/21, colon resection with ostomy Significant Family History: no pertinent family hx - Social History Smoking Status: Former smoker Exposure to second hand smoke: No Alcohol Use: None Drug Use: none Patient Lives Alone: Yes - Nursing Vital Signs Nursing Vital Signs: Initial Vital Signs Temperature 96.4 F 11/14/23 09:29 Pulse Rate 68 11/14/23 09:29 Respiratory Rate 18 11/14/23 09:29 Blood Pressure 175/95 11/14/23 09:29 O2 Sat by Pulse Oximetry 98 11/14/23 09:29 Pain Scale Pain Intensity 0 - Jose Coma Score Best Eye Response (Jose): (4) open spontaneously Best Verbal Response (Revloc): (5) oriented Best Motor Response (Jose): (6) obeys commands Jose Total: 15 - Physical Exam General Appearance: no apparent distress, alert, obese Head Injury: no evidence of injury, No Wilhelm's Sign Eye Exam: PERRL/EOMI, post op pupil defect (L) ENT Exam: other (Mild upper lip swelling and bruising) Neck Exam: supple, trachea midline, full range of motion, normal alignment, normal inspection Respiratory/Chest Exam: chest tenderness (Chest wall tenderness), normal breath sounds, ecchymosis, No respiratory distress, No crepitus Cardiovascular Exam: normal heart sounds, regular rate/rhythm Gastrointestinal Exam: soft, normal bowel sounds, No tenderness Rectal Exam: not done Back Exam: normal inspection, normal range of motion, No CVA tenderness, No vertebral tenderness Extremity Exam: normal inspection, normal range of motion Neurologic Exam: alert, oriented x 3, cooperative, hothouse worker II-XII nml as tested, normal mood/affect, nml cerebellar function, nml station & gait, sensation nml Skin Exam: ecchymosis (Upper lip and anterior chest wall), No normal color, No warm SpO2 Interpretation: normal O2 Delivery: Room Air - Course Nursing assessment & vital signs reviewed: Yes EKG Interpreted by Me: RATE (60), Sinus Rhythm, NORMAL AXIS, NORMAL INTERVALS, NORMAL QRS, NORMAL ST-T, Other (No acute ischemic changes on today's twelve-lead EKG. No change when compared to twelve-lead EKG dated 01/01/2023.) Ordered Tests: Active Orders 24 hr Category Date Time Status ABDOMEN AND PELVIS W/0 CONTRAS [CT] Stat Exams 11/14/23 11:59 Completed CHEST WITHOUT CONTRAST [CT] Stat Exams 11/14/23 09:49 Completed FACIAL BONES WO CONTRAST [CT] Stat Exams 11/14/23 09:49 Completed HEAD WITHOUT CONTRAST [CT] Stat Exams 11/14/23 09:49 Completed WRIST (MIN 3 VIEWS) Stat Exams 11/14/23 10:54 Completed - Progress Progress: improved, re-examined Progress Note: 11/14/23 09:58 Medical decision making and assignment of this medical issue today of low to moderate complexity is based on review of the patient's past medical history, review the patient's medication list, review the patient drug allergy list, history present illness and physical findings on examination. This patient's workup includes CT scan of the face, head and chest all without contrast. Differential diagnosis includes contusions, facial fracture, intracranial abnormality, rib fractures, intrathoracic abnormalities secondary to trauma. 11/14/23 10:54 Patient told the edger technician that when she pushed herself up off of the cot onto the CT scanner and then returned, she now has pain in her left wrist. We will order an x-ray of the left wrist. 11/14/23 12:00 I interpreted the patient's left wrist x-ray. I do not appreciate an acute fracture or dislocation. The CT scan of the head was interpreted by the radiologist and I reviewed the impression. There is stable small right occipital and right cerebellar remote infarcts. There are no new or acute intracranial abnormalities. The CT scan of the facial bones without contrast was interpreted by the radiologist and I reviewed the impression. The impression states negative for acute fracture. There is incidental nasal septal deviation and multilevel cervical degenerative changes. The CT scan without contrast of the chest was interpreted by the radiologist and I reviewed the impression. There is chronic right hemidiaphragm elevation with right lung base atelectasis/scarring. There are no acute cardiopulmonary abnormalities on this noncontrast exam. There is a new, incompletely visualized left abdominal wall subcutaneous heterogeneous mass with air present. CT scan of the abdomen may yield more information. 11/14/23 13:[address] scan of the abdomen and pelvis was interpreted by the radiologist and I reviewed the impression. The new visualized subcutaneous heterogeneous mass with air present is a diverting colostomy that was not present when compared to the prior CT scan of the abdomen pelvis. No other acute intra-abdominal or intrapelvic abnormalities. Counseled pt/family regarding: diagnosis, need for follow-up, rad results Medical Desision Making - Independent Historian Additional History obtained from: Family - Diagnostic Testing Diagnostic test were ordered, analyzed, and reviewed by me: Yes Radiological Interpretation: Reviewed by me, Teleradiologist Report - Risk of complications The pt has a mod risk of morbidity or mortality based on: Need for prescription drug management - Departure Departure Disposition: Home Clinical Impression: Fall, Multiple contusions Condition: Stable Critical Care Time: No Referrals: CORY LONG DO [Primary Care Provider] - Follow up/PCP as directed Additional Instructions: Ice pack to tender areas 3 times a day for the next 48 hours. Take your medications as prescribed. Prescriptions: Oxycodone HCl/Acetaminophen [Percocet 5-325 mg Tablet] 1 each PO Q12H PRN PRN #6 tablet MDD 2 PRN Reason: Moderate To Severe Pain
[2023-11-14 09:42] VITALS: TEMP 96.4
[2023-11-14 10:59] VITALS: PULSE 56
--- NOTE | 2023-11-14 11:22 | XRAY ---
Indication: Status post fall. Multiple contiguous images obtained through the head without contrast. Comparison: July 15, 2023 Again age-appropriate global atrophy. Stable MRI proven small remote infarcts right occipital lobe and right cerebellum. No acute intracranial hemorrhage, abnormal extra-axial fluid collection, or mass effect. Fourth ventricle is midline without hydrocephalus. Carvajal-white matter differentiation preserved. Bony calvarium intact. Visualized paranasal sinuses and mastoid air cells are clear. 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 No new/acute intracranial abnormalities.
--- NOTE | 2023-11-14 11:24 | XRAY ---
Indication: Status post fall. Multiple contiguous axial images obtained through the facial bones. Sagittal and coronal reformatted images obtained. Comparison: None Patient is edentulous. No acute fracture, suspicious bony lesions, or radiopaque foreign body. Orbits including roof, villalobos, and floors are intact. Paranasal sinuses and nasal passages clear. Mild nasal septal deviation to the left. Incidental mild multilevel cervical degenerative changes greatest at C5-C7 levels. Noncontrasted soft tissues demonstrates scattered centimeter/subcentimeter cervical lymph nodes, none pathologically enlarged. Impression: 1. Negative acute fracture. 2. Incidental nasal septal deviation and multilevel cervical degenerative changes.
--- NOTE | 2023-11-14 11:33 | XRAY ---
Indication: Status post fall. Multiple contiguous axial images obtained through the chest without contrast. Comparison: July 05, 2023 Lungs again mild bilateral dependent atelectasis. Stable small bilateral lower lobe calcified granulomas and chronic right hemidiaphragm elevation with right lung base subsegmental atelectasis/scarring. No new pulmonary mass/nodule, infiltrate, effusion, or pneumothorax. Heart not enlarged again with chronic calcifications. Aorta again mildly arteriosclerotic without aneurysm. Stable small right hilar calcified nodes. No pathologic mediastinal lymphadenopathy. Bony thorax again demonstrates osteopenia, mild multilevel degenerative spondylosis, remote T7 compression fracture, small T1 bone island, and small T5/T6 Schmorl nodes. New remote-appearing inferior L1 endplate fracture with approximately 50% height loss. Limited upper abdomen again demonstrates cholecystectomy and splenectomy. Enlarging fatty ventral hernia. Left mid abdominal wall demonstrates new incompletely visualized subcutaneous heterogeneous mass with air measuring at least 4.2 x 8.6 cm. Impression: 1. Again chronic right hemidiaphragm elevation with right lung base atelectasis/scarring, arteriosclerotic disease, chronic bony findings, and old granulomatous disease. 2. No acute cardiopulmonary abnormalities on this noncontrast exam. 3. Limited upper abdomen demonstrates new incompletely visualized left abdominal wall subcutaneous heterogeneous mass with air. CT abdomen with contrast may yield further information.
--- NOTE | 2023-11-14 12:13 | XRAY ---
Indication: Pain following fall. Comparison: None 3 view left wrist demonstrates osteopenia and advanced 1st metacarpal multangular scaphoid degenerative changes with heterotopic ossifications. No other bony, articular, or soft tissue abnormalities.
--- NOTE | 2023-11-14 13:03 | XRAY ---
Indication: Abdominal wall mass. Status post fall. Multiple contiguous axial images obtained through the abdomen and pelvis without contrast. Comparison: December 15, 2022. CT chest reported separately. Noncontrasted stomach and bowel loops appear nonobstructed. There is now dense barium seen in the descending and sigmoid colon. New left mid abdomen diverting colostomy corresponding to the CT chest finding. Also interval splenectomy. Again cholecystectomy and hysterectomy. No free fluid/air. Remaining liver, pancreas, adrenal glands, kidneys, ureters, and bladder are unremarkable for noncontrast exam. There remains mild aortoiliac calcifications without AAA. Osseous structures intact again with osteopenia, mild degenerative changes throughout spine, and left lower back epidural generator with single lead. Impression: 1. New left mid abdomen diverting colostomy corresponding to CT chest finding. 2. 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 3. Again chronic findings including Ham sclerotic disease and chronic bony findings.
[2023-11-14] MEDS ORDERED: PERCOCET TABLET 5/325MG ONE (13:17)
[2023-11-14] MEDS: PERCOCET TABLET 5/325MG PO STA (13:18)
[2023-11-14 13:27] VITALS: BP 120/68; RESP 18; O2SAT 91
== END 2023-11-14 13:52 | disposition home or self-care (01) ==
LOC: ED 09:19
DX: S00.531A Contusion of lip, initial encounter (principal); S20.219A Contusion of unspecified front wall of thorax, initial encounter; W18.39XA Other fall on same level, initial encounter; Y93.H9 Activity, other involving exterior property and land maintenance, building and construction; Y92.007 Garden or yard of unspecified non-institutional (private) residence as the place of occurrence of the external cause; M25.532 Pain in left wrist; R51.9 Headache, unspecified; I10 Essential (primary) hypertension; E78.5 Hyperlipidemia, unspecified; Z79.899 Other long term (current) drug therapy
CPT/HCPCS: 70450; 70486; 71250; 73110; 74176; 99283; A9270-GY

== ENCOUNTER 2024-01-25 13:49 | Day surgery (SDC) | payer MEDICARE ==
[2013-04-11 11:13] VITALS: BP 138/88
[2024-01-25] MEDS ORDERED: LIDOCAINE HCL 1% 50 MG/5 ML VL PF IJ ONE (13:50)
[2024-01-25] MEDS ORDERED: BUPIVACAINE 0.5% VIAL IJ ONE (13:50)
[2024-01-25] MEDS ORDERED: Depo-Medrol 40 MG/ML IM ONE (13:50)
[2024-01-25] MEDS ORDERED: DIPRIVAN 200 MG/20 ML IV ONE (16:31)
[2024-01-25] MEDS ORDERED: Lactated Ringers 1,000 ML IV ONE (17:28)
--- NOTE | 2024-01-25 18:33 | XRAY ---
Indication: Left L4-S1 RFA. Intraoperative fluoroscopy provided for 17 seconds. 4 digital spot image submitted for interpretation demonstrates posterior needle tips projecting over the expected left L4-S1 nerve roots. Correlate with intraoperative findings/report.
--- NOTE | 2024-01-26 09:08 | XRAY ---
17 seconds of fluoroscopy was used in surgery for a left L4-S1 RFA.
== END 2024-01-25 17:05 | disposition home or self-care (01) ==
LOC: SDC-PAIN 13:49
PROVIDERS: ATTEND Psychiatry & Neurology Pain Medicine
DX: M47.816 Spondylosis without myelopathy or radiculopathy, lumbar region (principal)
CPT/HCPCS: 64635; 64636; 72100; 77002; 99100; J1010; J2001; J2704

== ENCOUNTER 2024-02-01 14:10 | Day surgery (SDC) | payer MEDICARE ==
[2013-04-11 11:13] VITALS: BP 138/88
[2024-02-01] MEDS ORDERED: DIPRIVAN 200 MG/20 ML IV ONE ×2 (15:30→16:12)
[2024-02-01] MEDS ORDERED: Lactated Ringers 1,000 ML IV ONE (15:32)
--- NOTE | 2024-02-01 17:12 | XRAY ---
Indication: Right L4-S1 RFA. Intraoperative fluoroscopy provided for 29 seconds. 5 digital spot images submitted for interpretation demonstrates posterior needle tips projecting over the expected right L4-S1 nerve roots. Correlate with intraoperative findings/report.
--- NOTE | 2024-02-03 07:57 | XRAY ---
29 seconds of fluoroscopy was used in surgery for a right L4-S1 RFA.
== END 2024-02-01 16:40 | disposition home or self-care (01) ==
LOC: SDC-PAIN 14:10
PROVIDERS: ATTEND Psychiatry & Neurology Pain Medicine
DX: M47.816 Spondylosis without myelopathy or radiculopathy, lumbar region (principal)
CPT/HCPCS: 64635; 64636; 72100; 77002; 99100; J2704

== ENCOUNTER 2024-02-23 03:57 | Observation (INO) | payer MEDICARE ==
[2024-02-23] MEDS ORDERED: Zofran 4 MG/2 ML VIAL ONE ×2 (04:27→07:36)
[2024-02-23] MEDS ORDERED: Sodium Chloride 0.9% 1000 ML 1,000 ML ONE (04:27)
[2024-02-23] MEDS ORDERED: MORPHINE SULFATE 4 MG INJ ONE ×2 (04:27→06:19)
[2024-02-23] MEDS: Sodium Chloride 0.9% 1000 ML 1,000 ML IV SCH ×2 (04:29→16:08)
[2024-02-23] MEDS: MORPHINE SULFATE 4 MG INJ IV ONE ×2 (04:29→06:21)
[2024-02-23] MEDS: Zofran 4 MG/2 ML VIAL IV ONE ×2 (04:29→08:23)
[2024-02-23 04:36] LABS: Absolute Neutrophil Ct (ANC) 6.56 x10^3/uL (1.56-6.13); BASOPHIL % 0.5 % (0.1-1.2); Basophil (Absolute #) 0.05 x10^3/uL (0.01-0.08); Eosinophil % 1.6 % (0.7-5.8); Eosinophil (Absolute #) 0.15 x10^3/uL (0.04-0.36); Hematocrit 43.8 % (34.1-44.9); Hemoglobin 14.5 g/dL (11.2-15.7); IMMATURE GRAN # 0.05 x10^3u/L (0.001-0.031); IMMATURE GRAN % 0.5 % (0.001-0.429); Mean Corpuscular Hemoglobin 27.5 pg (25.6-32.2); Mean Corpuscular Hgb Concent. 33.1 g/dL (32.2-35.5); Mean Platelet Volume 9.8 fL (9.4-12.3); Monocyte (Absolute #) 0.62 x10^3/uL (0.24-0.86); Monocytes % 6.5 % (4.7-12.5); Neutrophil % 68.9 % (34.0-71.1); Platelet Count 420 x10^3/uL (182-369); Red Blood Count 5.28 x10^6/uL (3.93-5.22); Red Cell Distribution Width 20.2 % (11.7-14.4); White Blood Count 9.5 x10^3/uL (3.98-10.04)
[2024-02-23 04:50] LABS: ALBUMIN 4.2 g/dL (3.5-5.0); ANION GAP 10.8 MEQ/L (5-15); BILIRUBIN,TOTAL 0.4 mg/dL (0.2-1.3); Calcium 10.5 mg/dL (8.4-10.2); Creatinine 1 0.68 mg/dL (0.52-1.04); EST GLOMERULAR FILTRATION RATE 91.9 ML/MIN; Potassium 3.9 mmol/L (3.5-5.1); Total Protein 6.9 g/dL (6.3-8.2)
--- NOTE | 2024-02-23 05:58 | ERPHSYRPT ---
- History of Present Illness Time Seen by Provider: 02/23/24 05:53 Historian: patient Exam Limitations: no limitations Patient Subjective Stated Complaint: vomiting a few times since 11pm, left sided abd pain and low back pain all across the back area Triage Nursing Assessment: pt brought back to ER room 9 in wheelchair, daughter at bedside. Pt c/o left sided abd pain and low back pain all across her back since 8pm and pt has vomited 4 times since 11pm. Abd lg, soft with active bs x4 quad, tender on palpation to LLQ and LUQ. Pt denies any diarrhea and has a colostomy. Physician History: 73-year-old female with a colostomy presents to our ED for evaluation of abdominal pain that radiates to her back. Patient states symptoms started approximately 11 PM last night. Symptoms have been progressive. Patient brent cribes a fullness bloating sensation of her abdomen. She vomited 4 times. Emesis was nonbloody nonbilious. Symptoms are moderate in intensity. No specific worsening or improving factors. Patient states she had similar symptoms during her bout of diverticulitis. She is concerned that she may have diverticulitis at this time. Patient denies fevers no rectal bleeding. Patient voices no other complaints or concerns at this time. Portions of this note were created with voice recognition technology. There may be grammatical, spelling, punctuation or sound alike errors Timing/Duration: today Activities at Onset: none Quality: aching Abdominal Pain Onset Location: other (Pain primarily in the left lower quadrant) Pain Radiation: other (Pain radiates to back) Severity of Pain-Max: moderate Severity of Pain-Current: moderate Associated Symptoms: nausea, vomiting Previous symptoms: no prior history Allergies/Adverse Reactions: shrimp Allergy (Intermediate, Verified 02/23/24 04:17) Hives contrast dye Allergy (Intermediate, Uncoded 02/23/24 04:19) Hives Home Medications: Aspirin [[place] Aspirin EC] 81 mg PO DAILY 02/24/17 [History] Montelukast Sodium 10 mg [Singulair 10 MG] 10 mg PO DAILY 11/08/18 [History] Omeprazole 40 mg PO DAILY 04/22/19 [History] Celecoxib 100 mg [celeBREX 100 MG] 100 mg PO BID 01/15/21 [History] Levothyroxine Sodium [Synthroid] 75 mcg PO DAILY 10/15/21 [History] Rosuvastatin Calcium 20 mg PO DAILY 10/15/21 [History] Albuterol Sulfate 0.63 mg IH UD 08/12/22 [History] Albuterol Sulfate [Proair Respiclick] 2 puffs IH Q6H 08/12/22 [History] Fluticasone Propionate [Flonase NASAL] 1 spray NS DAILY 08/12/22 [History] Fluticasone/Umeclidin/Vilanter [Trelegy Ellipta 100-62.5-25] 1 each IH DAILY 08/12/22 [History] Gabapentin [Neurontin ] 300 mg PO BID 08/12/22 [History] Metoprolol Succinate 25 mg Xl* [Toprol-Xl 25MG Tablets] 25 mg PO DAILY [History] Ranolazine 500 MG [Ranexa 500 MG] 1,000 mg PO BID 08/12/22 [History] Alendronate Sodium 70 mg PO UD 12/15/22 [History] Meclizine HCl 25 mg [Antivert 25 mg] 25 mg PO TID PRN 01/04/23 [History] Hx Tetanus, Diphtheria Vaccination/Date Given: Yes Hx Influenza Vaccination/Date Given: Yes Hx Pneumococcal Vaccination/Date Given: Yes Travel Risk - International Travel Have you traveled outside of the country in past 3 weeks: No - Emerging Infectious Disease Are you exhibiting symptoms associated with any current EIDs: Yes Symptoms: Abdominal Pain, Vomitting - Review of Systems Constitutional: No Symptoms, No Fever, No Chills Eyes: No Symptoms Ears, Nose, & Throat: No Symptoms Respiratory: No Symptoms, No Cough, No Dyspnea Cardiac: No Symptoms, No Chest Pain, No Edema, No Syncope Abdominal/Gastrointestinal: No Symptoms, No Abdominal Pain, No Nausea, No Vomiting, No Diarrhea Genitourinary Symptoms: No Symptoms, No Dysuria Musculoskeletal: No Symptoms, No Back Pain, No Neck Pain Skin: No Symptoms, No Rash Neurological: No Symptoms, No Dizziness, No Focal Weakness, No Sensory Changes Psychological: No Symptoms Endocrine: No Symptoms Hematologic/Lymphatic: No Symptoms Immunological/Allergic: No Symptoms All Other Systems: Reviewed and Negative - Past Medical History Pertinent Past Medical History: Yes Neurological History: TIA ENT History: Cataracts Cardiac History: Hypertension Respiratory History: COPD Endocrine Medical History: No Pertinent History Musculoskeletal History: Osteoarthritis GI Medical History: Diverticulitis, Diverticulosis, Other History: No Pertinent History Psycho-Social History: Anxiety Female Reproductive Disorders: No Pertinent History Other Medical History: bradycardia - Past Surgical History Past Surgical History: Yes Neuro Surgical History: No Pertinent History Cardiac: Cardiac Catheterization Respiratory: No Pertinent History Gastrointestinal: Cholecystectomy, Colon Resection Genitourinary: No Pertinent History Musculoskeletal: Joint Replacement Female Surgical History: Hysterectomy Other Surgical History: right total knee replacement, rotator cuff surgery, eye surgery, thyroidectomy 09/11/21, colon resection with colostomy, colonoscopy/vaginoscopy Significant Family History: no pertinent family hx - Social History Smoking Status: Former smoker Exposure to second hand smoke: No Alcohol Use: None Drug Use: none Patient Lives Alone: Yes - Social Determinants of Health Will the patient participate in the screening: Yes Do you worry about a steady place to live?: No Do you have any problems with any of the following?: No known problems In the past 12 months,have you had to go without utilities?: No Transportation Issues: No Has anyone in your support network made you feel unsafe?: No Have you or anyone in your house had to go without enough: No - Nursing Vital Signs Nursing Vital Signs: Initial Vital Signs Temperature 95.3 F 02/23/24 04:02 Pulse Rate 80 02/23/24 04:02 Respiratory Rate 20 02/23/24 04:02 Blood Pressure 146/97 02/23/24 04:02 O2 Sat by Pulse Oximetry 96 02/23/24 04:02 Pain Scale Pain Intensity 2 - Physical Exam General Appearance: no apparent distress, alert Eye Exam: PERRL/EOMI, eyes nml inspection Ears, Nose, Throat Exam: normal ENT inspection, pharynx normal, moist mucous membranes Neck Exam: normal inspection, non-tender, supple, full range of motion Respiratory Exam: normal breath sounds, lungs clear, airway intact, No respiratory distress Cardiovascular Exam: regular rate/rhythm, normal heart sounds, normal peripheral pulses Gastrointestinal/Abdomen Exam: soft, tenderness (Intact colostomy. Distended abdomen. Left lower quadrant tenderness), No mass, No pulsatile mass Back Exam: normal inspection, normal range of motion, No CVA tenderness, No vertebral tenderness Extremity Exam: normal inspection, normal range of motion, pelvis stable Neurologic Exam: alert, oriented x 3, cooperative, normal mood/affect, sensation nml, No motor deficits Skin Exam: normal color, warm, dry Lymphatic Exam: No adenopathy SpO2 Interpretation: normal SpO2: 93 O2 Delivery: Room Air - Course Nursing assessment & vital signs reviewed: Yes - CT Exams Abdomen/Pelvis CT Interpretation: Tele-radiologist Report (Left abdominal wall hernia with colostomy causing acute small bowel obstruction. Epigastric hernia passing omental fat, hernia of the linea alba passing ileal loop. Colonic diverticulosis with suspected mild sigmoid diverticulitis. Descending colectomy with a clear operative bed. Cholecystectomy) Ordered Tests: Active Orders 24 hr Category Date Time Status IV Insertion STAT Care 02/23/24 04:24 Active ABDOMEN AND PELVIS W/0 CONTRAS [CT] Stat Exams 02/23/24 04:24 Completed CBC W DIFF Stat Lab 02/23/24 04:33 Completed CMP Stat Lab 02/23/24 04:33 Completed CULTURE,URINE Stat Lab 02/23/24 06:04 Received LIPASE Stat Lab 02/23/24 04:33 Completed TROPONIN Q4H Lab 02/23/24 04:33 Completed TROPONIN Q4H Lab 02/23/24 08:30 Ordered TROPONIN Q4H Lab 02/23/24 12:30 Ordered UA W/RFX UR CULTURE Stat Lab 02/23/24 06:04 Completed Medication Summary Generic Name Dose Route Start Last Admin Trade Name Freq PRN Reason Stop Dose Admin Sodium Chloride 1,000 mls @ 100 mls/hr 02/23/24 04:30 02/23/24 04:29 Sodium Chloride 0.9% 1000 Ml IV 03/24/24 04:29 100 mls/hr .Q10H ASIYA Administration Piperacillin Sod/Tazobactam 100 mls @ 200 mls/hr 02/23/24 06:37 02/23/24 06:47 Sod 3.375 gm/ Sodium Chloride IV 02/23/24 07:06 200 mls/hr STAT ONE Administration Discontinued Medications Generic Name Dose Route Start Last Admin Trade Name Freq PRN Reason Stop Dose Admin Sodium Chloride Confirm 02/23/24 06:43 Sodium Chloride 100ml Mini-Bag Plus Administered 02/23/24 06:44 Dose 100 mls @ ud IV .STK-MED ONE Morphine Sulfate 4 mg 02/23/24 04:24 02/23/24 04:29 Morphine Sulfate 4 Mg/Ml Injection IV 02/23/24 04:25 4 mg STAT ONE Administration Morphine Sulfate Confirm 02/23/24 04:27 Morphine Sulfate 4 Mg/Ml Injection Administered 02/23/24 04:28 Dose 4 mg .ROUTE .STK-MED ONE Morphine Sulfate 4 mg 02/23/24 06:15 02/23/24 06:21 Morphine Sulfate 4 Mg/Ml Injection IV 02/23/24 06:16 4 mg STAT ONE Administration Morphine Sulfate Confirm 02/23/24 06:19 Morphine Sulfate 4 Mg/Ml Injection Administered 02/23/24 06:20 Dose 4 mg .ROUTE .STK-MED ONE Ondansetron HCl 4 mg 02/23/24 04:24 02/23/24 04:29 Ondansetron Hcl 4 Mg/2 Ml Vial IV 02/23/24 04:25 4 mg STAT ONE Administration Ondansetron HCl Confirm 02/23/24 04:27 Ondansetron Hcl 4 Mg/2 Ml Vial Administered 02/23/24 04:28 Dose 4 mg .ROUTE .STK-MED ONE Piperacillin Sod/Tazobactam Sod Confirm 02/23/24 06:42 Piperacillin/Tazobactam Sodium 3.375 Gm Vial Administered 02/23/24 06:43 Dose 3.375 gm IV .STK-MED ONE Lab/Rad Data: Laboratory Result Diagrams 02/23/24 04:33 02/23/24 04:33 Laboratory Results 02/23/24 02/23/24 02/23/24 Range/Units 06:04 04:33 04:33 WBC (3.98-10.04) x10^3/uL RBC (3.93-5.22) x10^6/uL Hgb (11.2-15.7) g/dL Hct (34.1-44.9) % MCV (79.4-94.8) fL MCH (25.6-32.2) pg MCHC (32.2-35.5) g/dL RDW (11.7-14.4) % Plt Count (182-369) x10^3/uL MPV (9.4-12.3) fL Gran % (34.0-71.1) % Immature Gran % (Auto) (0.001-0.429) % Nucleat RBC Rel Count (0.00-0.2) % Eos # (Auto) (0.04-0.36) x10^3/uL Immature Gran # (Auto) (0.001-0.031) x10^3u/L Absolute Lymphs (auto) (1.18-3.74) x10^3/uL Absolute Monos (auto) (0.24-0.86) x10^3/uL Absolute Nucleated RBC (0.00-0.012) x10^3u/L Lymphocytes % (19.3-51.7) % Monocytes % (4.7-12.5) % Eosinophils % (0.7-5.8) % Basophils % (0.1-1.2) % Absolute Granulocytes (1.56-6.13) x10^3/uL Basophils # (0.01-0.08) x10^3/uL Sodium 137 (135-145) mmol/L Potassium 3.9 (3.5-5.1) mmol/L Chloride 103 (98-107) mmol/L Carbon Dioxide 28 (22-30) mmol/L Anion Gap 10.8 (5-15) MEQ/L BUN 24 H (7-17) mg/dL Creatinine 0.68 (0.52-1.04) mg/dL Estimated GFR 91.9 ML/MIN Glucose 164 H (74-106) mg/dL Calcium 10.5 H (8.4-10.2) mg/dL Total Bilirubin 0.40 (0.2-1.3) mg/dL AST 23 (14-36) U/L ALT 23 (0-35) U/L Alkaline Phosphatase 112 (38-126) U/L Troponin I < 0.012 (0.000-0.033) ng/mL Serum Total Protein 6.9 (6.3-8.2) g/dL Albumin 4.2 (3.5-5.0) g/dL Lipase 103 (23-300) U/L Urine Color Dark Yellow A (Yellow) Urine Appearance Turbid A (Clear) Urine pH 5.0 (4.6-8.0) Ur Specific [place] >=1.030 A (1.005-1.030) Urine Protein 100 A (Negative) Urine Glucose (UA) Negative (Negative) mg/dL Urine Ketones Negative (Negative) Urine Blood Large A (Negative) Urine Nitrite Negative (Negative) Urine Bilirubin Small A (Negative) Urine Urobilinogen 1.0 A (0.2) mg/dL Ur Leukocyte Esterase Small A (Negative) U Hyaline Cast (Auto) 3-5 A (0-2) /LPF Urine Microscopic RBC >100 A (0-5) /HPF Urine Microscopic WBC >100 A (0-5) /HPF Ur Epithelial Cells Moderate A (None Seen) /HPF Amorphous Crystals Moderate A (None Seen) /HPF Urine Bacteria Moderate A (None Seen) /HPF Urine Culture Reflexed YES (NO) 02/23/24 Range/Units 04:33 WBC 9.5 (3.98-10.04) x10^3/uL RBC 5.28 H (3.93-5.22) x10^6/uL Hgb 14.5 (11.2-15.7) g/dL Hct 43.8 (34.1-44.9) % MCV 83.0 (79.4-94.8) fL MCH 27.5 (25.6-32.2) pg MCHC 33.1 (32.2-35.5) g/dL RDW 20.2 H (11.7-14.4) % Plt Count 420 H (182-369) x10^3/uL MPV 9.8 (9.4-12.3) fL Gran % 68.9 (34.0-71.1) % Immature Gran % (Auto) 0.5 H (0.001-0.429) % Nucleat RBC Rel Count 0.0 (0.00-0.2) % Eos # (Auto) 0.15 (0.04-0.36) x10^3/uL Immature Gran # (Auto) 0.05 H (0.001-0.031) x10^3u/L Absolute Lymphs (auto) 2.10 (1.18-3.74) x10^3/uL Absolute Monos (auto) 0.62 (0.24-0.86) x10^3/uL Absolute Nucleated RBC 0.00 (0.00-0.012) x10^3u/L Lymphocytes % 22.0 (19.3-51.7) % Monocytes % 6.5 (4.7-12.5) % Eosinophils % 1.6 (0.7-5.8) % Basophils % 0.5 (0.1-1.2) % Absolute Granulocytes 6.56 H (1.56-6.13) x10^3/uL Basophils # 0.05 (0.01-0.08) x10^3/uL Sodium (135-145) mmol/L Potassium (3.5-5.1) mmol/L Chloride (98-107) mmol/L Carbon Dioxide (22-30) mmol/L Anion Gap (5-15) MEQ/L BUN (7-17) mg/dL Creatinine (0.52-1.04) mg/dL Estimated GFR ML/MIN Glucose (74-106) mg/dL Calcium (8.4-10.2) mg/dL Total Bilirubin (0.2-1.3) mg/dL AST (14-36) U/L ALT (0-35) U/L Alkaline Phosphatase (38-126) U/L Troponin I (0.000-0.033) ng/mL Serum Total Protein (6.3-8.2) g/dL Albumin (3.5-5.0) g/dL Lipase (23-300) U/L Urine Color (Yellow) Urine Appearance (Clear) Urine pH (4.6-8.0) Ur Specific [place] (1.005-1.030) Urine Protein (Negative) Urine Glucose (UA) (Negative) mg/dL Urine Ketones (Negative) Urine Blood (Negative) Urine Nitrite (Negative) Urine Bilirubin (Negative) Urine Urobilinogen (0.2) mg/dL Ur Leukocyte Esterase (Negative) U Hyaline Cast (Auto) (0-2) /LPF Urine Microscopic RBC (0-5) /HPF Urine Microscopic WBC (0-5) /HPF Ur Epithelial Cells (None Seen) /HPF Amorphous Crystals (None Seen) /HPF Urine Bacteria (None Seen) /HPF Urine Culture Reflexed (NO) - Progress Progress Note: A dedicated CT scan will be required to further evaluate the left lower lobe pulmonary nodule 02/23/24 06:[address] Rell La at 7:23 AM. He accepts consultation. He a dvises admission to hospitalist IV fluids and NG tube. 02/23/24 07:23 Patient is 73-year-old female presents the emergency department for evaluation of abdominal pain that started at 11 PM yesterday night. On exam patient's abdomen is distended. Colostomy intact. CT scan reveals a left abdominal wall hernia with colostomy causing acute small bowel obstruction epigastric hernia passing omental fat hernia of linea alba passing ileal loop. Colonic diverticulosis with suspected mild sigmoid diverticulitis. L1 compression fracture. Left lower lobe pulmonary nodule which require dedicated CT chest for correlation. UA reveals urinary tract infection. Patient received a dose of Zosyn in our ED. IV fluids infusing. Patient will be kept NPO. Patient will be admitted for further evaluation and treatment. Plan of care discussed with patient. Patient agrees to admission [facility] for further evaluation and treatment. Complexity problem addressed is moderate acute complicated. No critical care time. Complex of data reviewed and analyzed is extensive. Test ordered test reviewed results analyzed and correlated clinically with history and physical exam. Management discussed with Dr. Rell La who accepts consultation. Management discussed with hospitalist who accepts admission to observation. Risk of complication and or risk of morbidity/mortality patient management is high. Patient requires hospitalization for further evaluation and treatment. Vital stable. Time spent to admit patient approximately 30 minutes. Plan of care established for shared decision making. No social determinants of health present impede follow-up. Portions of this note were created with voice recognition technology. There may be grammatical, spelling, punctuation or sound alike errors 02/23/24 07:[address] Loving at approximately 7:38 AM. Patient accepted to observation with general surgery in consultation 02/23/24 07:43 Discussed with : Tami Will see patient in: hospital (observation) Counseled pt/family regarding: lab results, diagnosis, rad results - Departure Departure Disposition: Observation Clinical Impression: Compression fracture of L1 lumbar vertebra, Left lower lobe pulmonary nodule, Colonic diverticulosis with suspected mi, Linea alba hernia, Epigastric hernia, Abdominal wall hernia, Small bowel obstruction, UTI (urinary tract infection) Condition: Stable Critical Care Time: No Referrals: CORY LONG, [Primary Care Provider] - Follow up/PCP as directed
--- NOTE | 2024-02-23 06:03 | XRAY ---
CLINICAL HISTORY: pain COMPARISON: No prior studies are available for comparison. TECHNIQUE: Non-contrast CT of the abdomen and pelvis was performed, reconstructed coronal and sagittal images. No intravenous contrast was administered. One of the following dose reduction techniques was utilized for this exam: Automated exposure control, adjustment of the mA and/or kV according to patient size, and use of iterative reconstruction. FINDINGS: Scanned chest cuts: A rounded solid pulmonary nodule noted in the posterior segment of the left lower lung lobe measures 14 x 13 mm. A calcific nodule noted in the posterior segment of the right lower lung lobe measures 7.5 x 8 mm and could be a granuloma. Tiny right hilar calcific lymphadenopathy noted. Abdomen: Liver: Normal in size, shape, and density. No focal lesions, cysts, or masses were identified. Gallbladder and Biliary System: The gallbladder is surgically removed, with surgical clips in place, a clear operative bed. Pancreas: Pancreatic head, body, and tail are visualized and appear normal in size and density. No pancreatic masses or calcifications were noted. Spleen: Normal in size, shape, and density. No splenic lesions or masses were identified. Kidneys and Adrenal Glands: Both kidneys are normal in size, shape, and position. Cortical thickness is within normal limits. No renal calculi or hydronephrosis. Adrenal glands are unremarkable. Appendix: Nonvisualzied. No evidence of appendiceal abscess or perforation. Abdominal wall: Epigastric hernial defect measures 54 mm passing omental fat. Redundant of the linear alba at the lower abdomen passing ileal loops of average caliber and wall thickness. Abdominal vessels: Aortoiliac atherosclerotic calcifications. Retroarotic left renal vein(posterior nutcracker syndrome). Pelvis: Urinary Bladder: Empty. No intraluminal lesions. Uterus: No visualized, could be surgically removed. Ovaries: Not well visualized but no gross abnormalities noted. Peritoneal and Retroperitoneal Structures: No free fluid or abnormal fluid collections were identified within the abdomen or pelvis. No lymphadenopathy was noted. Bowel: Left abdominal wall hernia, its defect measures 58 mm passing large and small bowel loops with a colostomy, there is proximal dilatation of the jejunal loops with air-fluid level measures 48 mm in maximum AP diameter. Surgically removed part of the descending colon with a clear operative bed. Multiple diverticular outpouchings are noted along the colon more evident at the sigmoid colon, with mild surrounding fat planes stranding at the sigmoid colon, there is mild sigmoid colonic wall thickening noted as well. Bones and Soft Tissues: L1 vertebral height reduction is about 40-50% with no posterior cortical retropulsion. IMPRESSION: 1. Left abdominal wall hernia with colostomy, causing acute small bowel obstruction as described. 2. Epigastirc hernia passing omental fat. 3. Hernia of linea alba passing ileal loop. 4. Colonic diverticulosis with suspected mild sigmoid diverticulitis. 5. Descending colectomy with a clear operative bed. 6. Cholecystectomy and hysterectomy with clear operative beds. 7. Left lower pulmonary nodule, A dedicated CT chest is needed for correlation. 8. L1 compression fracture. 9. Retroarotic left renal vein(posterior nutcracker syndrome). [facility] was called at [phone] at 4:56 AM [employer], 02/23/2024 and results were verbally communicated to the Maulik Escobar. Electronically Signed by: Rene Hernandez MD. (02/23/2024 05:58:18 EDT)
[2024-02-23] MEDS ORDERED: PIPERACILLIN/TAZOBACTAM IV ONE (06:42)
[2024-02-23] MEDS ORDERED: Sodium Chloride 100ML MINI-BAG PLUS 100 ML IV ONE (06:43)
[2024-02-23 06:45] LABS: Appearance Turbid (Clear); Bilirubin Small (Negative); Blood Large (Negative); Glucose, Urine Negative (Negative); Ketones Negative (Negative); Leukocyte Esterase Small (Negative); Nitrite Negative (Negative); Protein,Urine Dip 100 (Negative); RBC >100 /HPF (0-5); Specific Gravity >=1.030 (1.005-1.030); WBC >100 /HPF (0-5)
[2024-02-23] MEDS: PIPERACILLIN/TAZOBACTAM 3.375 GM in Sodium Chloride 100ML MINI-BAG PLUS 100 ML IV ONE (06:47)
[2024-02-23 06:54] LABS: ADD URINE CULTURE? YES (NO); Amourphous Crystal Moderate /HPF (None Seen); Bacteria Moderate /HPF (None Seen); Epithelial Cells Moderate /HPF (None Seen)
--- NOTE | 2024-02-23 08:53 | XRAY ---
Indication: NG tube placement. Comparison: March 07, 2023 Portable chest demonstrates new NG tube with tip in antral portion of stomach. Lungs now markedly underinflated with subsequent bibasilar subsegmental atelectasis and cardiomegaly. Stable bilateral calcified granulomas and aortic calcifications. Bony thorax intact again with osteopenia, degenerative changes, and right shoulder surgery.
--- NOTE | 2024-02-23 08:53 | PCM.CONS ---
History of Present Illness - Reason for Consult Consulting Provider: EZIO PIERRE MD History of Present Illness: is a 73 year old female. 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 did recently see tyrell pierre. got c scope. is set up for BE. considering reversal. presents with pain starting 02/21. severe. then nausea. emesis. to ED. 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 ED unable to really feel the hernia given her habitus. ng placed. ost output yesterday. "- History of Present Illness Time Seen by Provider: 02/23/24 05:53 Historian: patient Exam Limitations: no limitations Patient Subjective Stated Complaint: vomiting a few times since 11pm, left sided abd pain and low back pain all across the back area Triage Nursing Assessment: pt brought back to ER room 9 in wheelchair, daughter at bedside. Pt c/o left sided abd pain and low back pain all across her back since 8pm and pt has vomited 4 times since 11pm. Abd lg, soft with active bs x4 quad, tender on palpation to LLQ and LUQ. Pt denies any diarrhea and has a colostomy. Physician History: 73-year-old female with a colostomy presents to our ED for evaluation of abdominal pain that radiates to her back. Patient states symptoms started approximately 11 PM last night. Symptoms have been progressive. Patient describes a fullness bloating sensation of her abdomen. She vomited 4 times. Emesis was nonbloody nonbilious. Symptoms are moderate in intensity. No specific worsening or improving factors. Patient states she had similar symptoms during her bout of diverticulitis. She is concerned that she may have diverticulitis at this time. Patient denies fevers no rectal bleeding. Patient voices no other complaints or concerns at this time. Portions of this note were created with voice recognition technology. There may be grammatical, spelling, punctuation or sound alike errors Timing/Duration: today Activities at Onset: none Quality: aching Abdominal Pain Onset Location: other (Pain primarily in the left lower quadrant) Pain Radiation: other (Pain radiates to back) Severity of Pain-Max: moderate Severity of Pain-Current: moderate Associated Symptoms: nausea, vomiting Previous symptoms: no prior history Allergies/Adverse Reactions: shrimp Allergy (Intermediate, Verified 02/23/24 04:17) Hives contrast dye Allergy (Intermediate, Uncoded 02/23/24 04:19) Hives Home Medications: Aspirin [[place] Aspirin EC] 81 mg PO DAILY 02/24/17 [History] Montelukast Sodium 10 mg [Singulair 10 MG] 10 mg PO DAILY 11/08/18 [History] Omeprazole 40 mg PO DAILY 04/22/19 [History] Celecoxib 100 mg [celeBREX 100 MG] 100 mg PO BID 01/15/21 [History] Levothyroxine Sodium [Synthroid] 75 mcg PO DAILY 10/15/21 [History] Rosuvastatin Calcium 20 mg PO DAILY 10/15/21 [History] Albuterol Sulfate 0.63 mg IH UD 08/12/22 [History] Albuterol Sulfate [Proair Respiclick] 2 puffs IH Q6H 08/12/22 [History] Fluticasone Propionate [Flonase NASAL] 1 spray NS DAILY 08/12/22 [History] Fluticasone/Umeclidin/Vilanter [Trelegy Ellipta 100-62.5-25] 1 each IH DAILY 08/12/22 [History] Gabapentin [Neurontin ] 300 mg PO BID 08/12/22 [History] Metoprolol Succinate 25 mg Xl* [Toprol-Xl 25MG Tablets] 25 mg PO DAILY 08/12/22 [History] Ranolazine 500 MG [Ranexa 500 MG] 1,000 mg PO BID 08/12/22 [History] Alendronate Sodium 70 mg PO UD 12/15/22 [History] Meclizine HCl 25 mg [Antivert 25 mg] 25 mg PO TID PRN 01/04/23 [History] Hx Tetanus, Diphtheria Vaccination/Date Given: Yes Hx Influenza Vaccination/Date Given: Yes Hx Pneumococcal Vaccination/Date Given: Yes Travel Risk - International Travel Have you traveled outside of the country in past 3 weeks: No - Emerging Infectious Disease Are you exhibiting symptoms associated with any current EIDs: Yes Symptoms: Abdominal Pain, Vomitting - Review of Systems Constitutional: No Symptoms, No Fever, No Chills Eyes: No Symptoms Ears, Nose, & Throat: No Symptoms Respiratory: No Symptoms, No Cough, No Dyspnea Cardiac: No Symptoms, No Chest Pain, No Edema, No Syncope Abdominal/Gastrointestinal: No Symptoms, No Abdominal Pain, No Nausea, No Vomiting, No Diarrhea Genitourinary Symptoms: No Symptoms, No Dysuria Musculoskeletal: No Symptoms, No Back Pain, No Neck Pain Skin: No Symptoms, No Rash Neurological: No Symptoms, No Dizziness, No Focal Weakness, No Sensory Changes Psychological: No Symptoms Endocrine: No Symptoms Hematologic/Lymphatic: No Symptoms Immunological/Allergic: No Symptoms All Other Systems: Reviewed and Negative - Past Medical History Pertinent Past Medical History: Yes Neurological History: TIA ENT History: Cataracts Cardiac History: Hypertension Respiratory History: COPD Endocrine Medical History: No Pertinent History Musculoskeletal History: Osteoarthritis GI Medical History: Diverticulitis, Diverticulosis, Other History: No Pertinent History Psycho-Social History: Anxiety Female Reproductive Disorders: No Pertinent History Other Medical History: bradycardia - Past Surgical History Past Surgical History: Yes Neuro Surgical History: No Pertinent History Cardiac: Cardiac Catheterization Respiratory: No Pertinent History Gastrointestinal: Cholecystectomy, Colon Resection Genitourinary: No Pertinent History Musculoskeletal: Joint Replacement Female Surgical History: Hysterectomy Other Surgical History: right total knee replacement, rotator cuff surgery, eye surgery, thyroidectomy 09/11/21, colon resection with colostomy, colonoscopy/vaginoscopy Significant Family History: no pertinent family hx - Social History Smoking Status: Former smoker Exposure to second hand smoke: No Alcohol Use: None Drug Use: none Patient Lives Alone: Yes - Social Determinants of Health Will the patient participate in the screening: Yes Do you worry about a steady place to live?: No Do you have any problems with any of the following?: No known problems In the past 12 months,have you had to go without utilities?: No Transportation Issues: No Has anyone in your support network made you feel unsafe?: No Have you or anyone in your house had to go without enough: No " Medications & Allergies Home Medications: Home Medication List Aspirin [[place] Aspirin EC] 81 mg PO DAILY 02/24/17 [History Confirmed 01/01/23] Montelukast Sodium 10 mg [Singulair 10 MG] 10 mg PO DAILY 11/08/18 [History Confirmed 01/01/23] Omeprazole 40 mg PO DAILY 04/22/19 [History Confirmed 01/01/23] Celecoxib 100 mg [celeBREX 100 MG] 100 mg PO BID 01/15/21 [History Confirmed 01/01/23] Levothyroxine Sodium [Synthroid] 75 mcg PO DAILY 10/15/21 [History Confirmed 01/01/23] Rosuvastatin Calcium 20 mg PO DAILY 10/15/21 [History Confirmed 01/01/23] Potassium Chloride 10 meq PO DAILY 60 Days #60 10/31/21 [Rx Confirmed 01/01/23] Albuterol Sulfate 0.63 mg IH UD 08/12/22 [History Confirmed 01/01/23] Albuterol Sulfate [Proair Respiclick] 2 puffs IH Q6H 08/12/22 [History Confirmed 01/01/23] Fluticasone Propionate [Flonase NASAL] 1 spray NS DAILY 08/12/22 [History Confirmed 01/01/23] Fluticasone/Umeclidin/Vilanter [Trelegy Ellipta 100-62.5-25] 1 each IH DAILY 08/12/22 [History Confirmed 01/01/23] Gabapentin [Neurontin ] 300 mg PO BID 08/12/22 [History Confirmed 01/01/23] Metoprolol Succinate 25 mg Xl* [Toprol-Xl 25MG Tablets] 25 mg PO DAILY 08/12/22 [History Confirmed 01/01/23] Ranolazine 500 MG [Ranexa 500 MG] 1,000 mg PO BID 08/12/22 [History Confirmed 01/01/23] Alendronate Sodium 70 mg PO UD 12/15/22 [History Confirmed 01/01/23] Meclizine HCl 25 mg [Antivert 25 mg] 25 mg PO TID PRN PRN 10 Days #30 tablet 01/03/23 [Rx] Meclizine HCl 25 mg [Antivert 25 mg] 25 mg PO TID PRN 01/04/23 [History Confirmed 01/04/23] Oxycodone HCl/Acetaminophen [Percocet 5-325 mg Tablet] 1 each PO Q12H PRN PRN #6 tablet MDD 2 11/14/23 [Rx] Allergies/Adverse Reactions: Allergies Allergy/AdvReac Type Severity Reaction Status Date / Time shrimp Allergy Intermediate Hives Verified 02/23/24 04:17 contrast dye Allergy Intermediate Hives Uncoded 02/23/24 04:19 - Past Medical History Past Medical History: Yes Neurological History: TIA ENT History: Cataracts Cardiac History: Hypertension Respiratory History: COPD Endocrine Medical History: No Pertinent History Musculoskelatal History: Osteoarthritis GI Medical History: Diverticulitis, Diverticulosis, Other History: No Pertinent History Pyscho-Social History: Anxiety Reproductive Disorders: No Pertinent History Comment: bradycardia - Past Surgical History Past Surgical History: Yes Neuro Surgical History: No Pertinent History Cardiac History: Cardiac Catheterization Respiratory Surgery: No Pertinent History GI Surgical History: Cholecystectomy, Colon Resection Genitourinary Surgical Hx: No Pertinent History Musculskeletal Surgical Hx: Joint Replacement Female Surgical History: Hysterectomy Other Surgical History: right total knee replacement, rotator cuff surgery, eye surgery, thyroidectomy 09/11/21, colon resection with colostomy, colonoscopy/vaginoscopy Significant Family History: no pertinent family hx - Social History Smoking Status: Former smoker Exposure to second hand smoke: No Alcohol: None Drug Use: none - Social Determinants of Health Will the patient participate in the screening: Yes Do you worry about a steady place to live?: No Do you have any problems with any of the following?: No known problems In the past 12 months,have you had to go without utilities?: No Have you or anyone in your house had to go without enough: No Transportation Issues: No Has anyone in your support network made you feel unsafe?: No - Physical Exam Vital Signs: Vital Signs - 24 hr Temp Pulse Resp BP BP Pulse Ox 02/23/24 08:31 154/98 91 L 02/23/24 08:00 156/88 93 L 02/23/24 07:45 93 L 02/23/24 07:31 142/99 93 L 02/23/24 07:01 86 18 113/60 97 02/23/24 06:31 127/73 96 02/23/24 06:03 73 18 158/119 97 02/23/24 05:31 145/111 96 02/23/24 04:48 74 18 152/86 93 L 02/23/24 04:31 177/96 93 L 02/23/24 04:05 146/97 94 L 02/23/24 04:02 95.3 F 80 20 146/97 96 Additional Findings: 02/23/24 08:50 nad nonlabored resps rrr obese, nd, soft, parastomal hernia inferior totally reducible, midline soft reducible. mild edema Results - Labs Lab/Micro Results: Lab Results-Last 24 Hours 02/23/24 02/23/24 02/23/24 Range/Units 04:33 04:33 04:33 WBC 9.5 (3.98-10.04) x10^3/uL RBC 5.28 H (3.93-5.22) x10^6/uL Hgb 14.5 (11.2-15.7) g/dL Hct 43.8 (34.1-44.9) % MCV 83.0 (79.4-94.8) fL MCH 27.5 (25.6-32.2) pg MCHC 33.1 (32.2-35.5) g/dL RDW 20.2 H (11.7-14.4) % Plt Count 420 H (182-369) x10^3/uL MPV 9.8 (9.4-12.3) fL Gran % 68.9 (34.0-71.1) % Immature Gran % (Auto) 0.5 H (0.001-0.429) % Nucleat RBC Rel Count 0.0 (0.00-0.2) % Eos # (Auto) 0.15 (0.04-0.36) x10^3/uL Immature Gran # (Auto) 0.05 H (0.001-0.031) x10^3u/L Absolute Lymphs (auto) 2.10 (1.18-3.74) x10^3/uL Absolute Monos (auto) 0.62 (0.24-0.86) x10^3/uL Absolute Nucleated RBC 0.00 (0.00-0.012) x10^3u/L Lymphocytes % 22.0 (19.3-51.7) % Monocytes % 6.5 (4.7-12.5) % Eosinophils % 1.6 (0.7-5.8) % Basophils % 0.5 (0.1-1.2) % Absolute Granulocytes 6.56 H (1.56-6.13) x10^3/uL Basophils # 0.05 (0.01-0.08) x10^3/uL Sodium 137 (135-145) mmol/L Potassium 3.9 (3.5-5.1) mmol/L Chloride 103 (98-107) mmol/L Carbon Dioxide 28 (22-30) mmol/L Anion Gap 10.8 (5-15) MEQ/L BUN 24 H (7-17) mg/dL Creatinine 0.68 (0.52-1.04) mg/dL Estimated GFR 91.9 ML/MIN Glucose 164 H (74-106) mg/dL Calcium 10.5 H (8.4-10.2) mg/dL Total Bilirubin 0.40 (0.2-1.3) mg/dL AST 23 (14-36) U/L ALT 23 (0-35) U/L Alkaline Phosphatase 112 (38-126) U/L Troponin I < 0.012 (0.000-0.033) ng/mL Serum Total Protein 6.9 (6.3-8.2) g/dL Albumin 4.2 (3.5-5.0) g/dL Lipase 103 (23-300) U/L Urine Color (Yellow) Urine Appearance (Clear) Urine pH (4.6-8.0) Ur Specific [place] (1.005-1.030) Urine Protein (Negative) Urine Glucose (UA) (Negative) mg/dL Urine Ketones (Negative) Urine Blood (Negative) Urine Nitrite (Negative) Urine Bilirubin (Negative) Urine Urobilinogen (0.2) mg/dL Ur Leukocyte Esterase (Negative) U Hyaline Cast (Auto) (0-2) /LPF Urine Microscopic RBC (0-5) /HPF Urine Microscopic WBC (0-5) /HPF Ur Epithelial Cells (None Seen) /HPF Amorphous Crystals (None Seen) /HPF Urine Bacteria (None Seen) /HPF Urine Culture Reflexed (NO) 02/23/24 Range/Units 06:04 WBC (3.98-10.04) x10^3/uL RBC (3.93-5.22) x10^6/uL Hgb (11.2-15.7) g/dL Hct (34.1-44.9) % MCV (79.4-94.8) fL MCH (25.6-32.2) pg MCHC (32.2-35.5) g/dL RDW (11.7-14.4) % Plt Count (182-369) x10^3/uL MPV (9.4-12.3) fL Gran % (34.0-71.1) % Immature Gran % (Auto) (0.001-0.429) % Nucleat RBC Rel Count (0.00-0.2) % Eos # (Auto) (0.04-0.36) x10^3/uL Immature Gran # (Auto) (0.001-0.031) x10^3u/L Absolute Lymphs (auto) (1.18-3.74) x10^3/uL Absolute Monos (auto) (0.24-0.86) x10^3/uL Absolute Nucleated RBC (0.00-0.012) x10^3u/L Lymphocytes % (19.3-51.7) % Monocytes % (4.7-12.5) % Eosinophils % (0.7-5.8) % Basophils % (0.1-1.2) % Absolute Granulocytes (1.56-6.13) x10^3/uL Basophils # (0.01-0.08) x10^3/uL Sodium (135-145) mmol/L Potassium (3.5-5.1) mmol/L Chloride (98-107) mmol/L Carbon Dioxide (22-30) mmol/L Anion Gap (5-15) MEQ/L BUN (7-17) mg/dL Creatinine (0.52-1.04) mg/dL Estimated GFR ML/MIN Glucose (74-106) mg/dL Calcium (8.4-10.2) mg/dL Total Bilirubin (0.2-1.3) mg/dL AST (14-36) U/L ALT (0-35) U/L Alkaline Phosphatase (38-126) U/L Troponin I (0.000-0.033) ng/mL Serum Total Protein (6.3-8.2) g/dL Albumin (3.5-5.0) g/dL Lipase (23-300) U/L Urine Color Dark Yellow A (Yellow) Urine Appearance Turbid A (Clear) Urine pH 5.0 (4.6-8.0) Ur Specific [place] >=1.030 A (1.005-1.030) Urine Protein 100 A (Negative) Urine Glucose (UA) Negative (Negative) mg/dL Urine Ketones Negative (Negative) Urine Blood Large A (Negative) Urine Nitrite Negative (Negative) Urine Bilirubin Small A (Negative) Urine Urobilinogen 1.0 A (0.2) mg/dL Ur Leukocyte Esterase Small A (Negative) U Hyaline Cast (Auto) 3-5 A (0-2) /LPF Urine Microscopic RBC >100 A (0-5) /HPF Urine Microscopic WBC >100 A (0-5) /HPF Ur Epithelial Cells Moderate A (None Seen) /HPF Amorphous Crystals Moderate A (None Seen) /HPF Urine Bacteria Moderate A (None Seen) /HPF Urine Culture Reflexed YES (NO) - Radiology Impressions Radiology Exams & Impressions: Radiology Procedures Category Date Time Status ABDOMEN AND PELVIS W/0 CONTRAS [CT] Stat Exams 02/23/24 04:24 Completed CHEST 1 VIEW (PORTABLE) Stat Exams 02/23/24 07:49 Taken Assessment/Plan (1) Abdominal wall hernia Current Visit: Yes Status: Acute Assessment & Plan: 73yo difficult case colovaginal fistula hx [facility] but that doctor no longer works in the area now with parastomal reducible hernia. -OK to dc ng and start diet if having ostomy output. -we would plan on continuing with her current outpatient workup/barium enema. did get her c scope already, and consider elective dorothy reversal. -patient needs to reduce the hernia about 3 times a day. she will need to de monstrate that she herself can reduce the hernia in order to leave the hospital.
[2024-02-23] MEDS ORDERED: Zofran 4 MG/2 ML VIAL IV PRN (10:08)
[2024-02-23] MEDS: Compazine 10 MG/2 ML IV PRN (10:51)
--- NOTE | 2024-02-23 11:23 | PCM.HP ---
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 No spec ific worsening or improving factors. Colostomy output 02/22/24. CT of the abdomen and pelvis showing Left abdominal wall hernia with colostomy, causing acute small bowel obstruction as described. Surgery consulted in ED, NG placed, hernia reduced while in ER. Plan per surgery to dc NG when output in colostomy and continuing with her current outpatient workup/barium enema and consider carmen ctive dorothy reversal. Patient needs educated on how to reduce the hernia about 3 times a day and demonstrate that she herself can reduce the hernia in order to leave the hospital. Denies fever,cough, sob, cp, AMBROCIO, or dizziness. Patient also has complaints of blood in urine x 1 year, UA collected today suspicious for infection will treat with ceftriaxone and follow culture. - Review of Systems Constitutional: No Symptoms Eyes: No Symptoms Ears, Nose, & Throat: No Symptoms Respiratory: Short Of Breath Cardiac: No Symptoms Abdominal/Gastrointestinal: Abdominal Pain, Nausea, Vomiting Genitourinary Symptoms: Hematuria Musculoskeletal: No Symptoms Skin: No Symptoms Neurological: No Symptoms Psychological: No Symptoms Endocrine: No Symptoms Hematologic/Lymphatic: No Symptoms Immunological/Allergic: No Symptoms Medications & Allergies Home Medications: Home Medication List Aspirin [[place] Aspirin EC] 81 mg PO DAILY 02/24/17 [History Confirmed 01/01/23] Montelukast Sodium 10 mg [Singulair 10 MG] 10 mg PO DAILY 11/08/18 [History Confirmed 01/01/23] Omeprazole 40 mg PO DAILY 04/22/19 [History Confirmed 01/01/23] Celecoxib 100 mg [celeBREX 100 MG] 100 mg PO BID 01/15/21 [History Confirmed 01/01/23] Levothyroxine Sodium [Synthroid] 75 mcg PO DAILY 10/15/21 [History Confirmed 01/01/23] Rosuvastatin Calcium 20 mg PO DAILY 10/15/21 [History Confirmed 01/01/23] Potassium Chloride 10 meq PO DAILY 60 Days #60 10/31/21 [Rx Confirmed 01/01/23] Albuterol Sulfate 0.63 mg IH UD 08/12/22 [History Confirmed 01/01/23] Albuterol Sulfate [Proair Respiclick] 2 puffs IH Q6H 08/12/22 [History Confirmed 01/01/23] Fluticasone Propionate [Flonase NASAL] 1 spray NS DAILY 08/12/22 [History Confirmed 01/01/23] Fluticasone/Umeclidin/Vilanter [Trelegy Ellipta 100-62.5-25] 1 each IH DAILY 08/12/22 [History Confirmed 01/01/23] Gabapentin [Neurontin ] 300 mg PO BID 08/12/22 [History Confirmed 01/01/23] Metoprolol Succinate 25 mg Xl* [Toprol-Xl 25MG Tablets] 25 mg PO DAILY 08/12/22 [History Confirmed 01/01/23] Ranolazine 500 MG [Ranexa 500 MG] 1,000 mg PO BID 08/12/22 [History Confirmed 01/01/23] Alendronate Sodium 70 mg PO UD 12/15/22 [History Confirmed 01/01/23] Meclizine HCl 25 mg [Antivert 25 mg] 25 mg PO TID PRN PRN 10 Days #30 tablet 01/03/23 [Rx] Meclizine HCl 25 mg [Antivert 25 mg] 25 mg PO TID PRN 01/04/23 [History Confirmed 01/04/23] Oxycodone HCl/Acetaminophen [Percocet 5-325 mg Tablet] 1 each PO Q12H PRN PRN #6 tablet MDD 2 11/14/23 [Rx] Allergies/Adverse Reactions: Allergies Allergy/AdvReac Type Severity Reaction Status Date / Time shrimp Allergy Intermediate Hives Verified 02/23/24 10:29 contrast dye Allergy Intermediate Hives Uncoded 02/23/24 10:29 - Past Medical History Past Medical History: Yes Neurological History: TIA ENT History: Cataracts Cardiac History: High Cholesterol, Hypertension, Other Respiratory History: COPD Endocrine Medical History: No Pertinent History Musculoskelatal History: Fractures, Osteoarthritis GI Medical History: Diverticulitis, Diverticulosis, Gallbladder Disease, Hernia, Other History: No Pertinent History Pyscho-Social History: Anxiety Reproductive Disorders: Other Comment: bradycardia. toe & ankle fx. vagina fistula - Past Surgical History Past Surgical History: Yes Neuro Surgical History: No Pertinent History Cardiac History: Cardiac Catheterization Respiratory Surgery: No Pertinent History GI Surgical History: Cholecystectomy, Colon Resection Genitourinary Surgical Hx: No Pertinent History Musculskeletal Surgical Hx: Joint Replacement Female Surgical History: Hysterectomy Other Surgical History: right total knee replacement, rotator cuff surgery, eye surgery, thyroidectomy 09/11/21, colon resection with colostomy, colonoscopy/vaginoscopy Significant Family History: no pertinent family hx - Social History Smoking Status: Former smoker How long have you smoked: 10+ Exposure to second hand smoke: No Alcohol: None Drug Use: none - Social Determinants of Health Will the patient participate in the screening: Yes Do you worry about a steady place to live?: No Do you have any problems with any of the following?: No known problems In the past 12 months,have you had to go without utilities?: No Have you or anyone in your house had to go without enough: No Transportation Issues: No Has anyone in your support network made you feel unsafe?: No Does the patient want assistance with any of the above?: No - Physical Exam Vital Signs: Vital Signs - 24 hr Temp Pulse Resp BP BP Pulse Ox 02/23/24 10:11 97.3 F 84 18 182/85 94 L 02/23/24 08:31 154/98 91 L 02/23/24 08:00 156/88 93 L 02/23/24 07:45 93 L 02/23/24 07:31 142/99 93 L 02/23/24 07:01 86 18 113/60 97 02/23/24 06:31 127/73 96 02/23/24 06:03 73 18 158/119 97 02/23/24 05:31 145/111 96 02/23/24 04:48 74 18 152/86 93 L 02/23/24 04:31 177/96 93 L 02/23/24 04:05 146/97 94 L 02/23/24 04:02 95.3 F 80 20 146/97 96 General Appearance: mild distress Neurologic Exam: alert, oriented x 3, cooperative Eye Exam: PERRL/EOMI Ears, Nose, Throat Exam: normal ENT inspection, other (NG placed) Neck Exam: normal inspection Respiratory Exam: normal breath sounds, lungs clear Cardiovascular Exam: regular rate/rhythm, normal heart sounds Gastrointestinal/Abdomen Exam: tenderness, distention, hernia, other (colostomy -R) Pelvic Exam: not done Rectal Exam: deferred Back Exam: normal inspection Extremity Exam: normal inspection Skin Exam: pale Results - Labs Lab/Micro Results: Lab Results-Last 24 Hours 02/23/24 02/23/24 02/23/24 Range/Units 04:33 04:33 04:33 WBC 9.5 (3.98-10.04) x10^3/uL RBC 5.28 H (3.93-5.22) x10^6/uL Hgb 14.5 (11.2-15.7) g/dL Hct 43.8 (34.1-44.9) % MCV 83.0 (79.4-94.8) fL MCH 27.5 (25.6-32.2) pg MCHC 33.1 (32.2-35.5) g/dL RDW 20.2 H (11.7-14.4) % Plt Count 420 H (182-369) x10^3/uL MPV 9.8 (9.4-12.3) fL Gran % 68.9 (34.0-71.1) % Immature Gran % (Auto) 0.5 H (0.001-0.429) % Nucleat RBC Rel Count 0.0 (0.00-0.2) % Eos # (Auto) 0.15 (0.04-0.36) x10^3/uL Immature Gran # (Auto) 0.05 H (0.001-0.031) x10^3u/L Absolute Lymphs (auto) 2.10 (1.18-3.74) x10^3/uL Absolute Monos (auto) 0.62 (0.24-0.86) x10^3/uL Absolute Nucleated RBC 0.00 (0.00-0.012) x10^3u/L Lymphocytes % 22.0 (19.3-51.7) % Monocytes % 6.5 (4.7-12.5) % Eosinophils % 1.6 (0.7-5.8) % Basophils % 0.5 (0.1-1.2) % Absolute Granulocytes 6.56 H (1.56-6.13) x10^3/uL Basophils # 0.05 (0.01-0.08) x10^3/uL Sodium 137 (135-145) mmol/L Potassium 3.9 (3.5-5.1) mmol/L Chloride 103 (98-107) mmol/L Carbon Dioxide 28 (22-30) mmol/L Anion Gap 10.8 (5-15) MEQ/L BUN 24 H (7-17) mg/dL Creatinine 0.68 (0.52-1.04) mg/dL Estimated GFR 91.9 ML/MIN Glucose 164 H (74-106) mg/dL Calcium 10.5 H (8.4-10.2) mg/dL Total Bilirubin 0.40 (0.2-1.3) mg/dL AST 23 (14-36) U/L ALT 23 (0-35) U/L Alkaline Phosphatase 112 (38-126) U/L Troponin I < 0.012 (0.000-0.033) ng/mL Serum Total Protein 6.9 (6.3-8.2) g/dL Albumin 4.2 (3.5-5.0) g/dL Lipase 103 (23-300) U/L Urine Color (Yellow) Urine Appearance (Clear) Urine pH (4.6-8.0) Ur Specific [place] (1.005-1.030) Urine Protein (Negative) Urine Glucose (UA) (Negative) mg/dL Urine Ketones (Negative) Urine Blood (Negative) Urine Nitrite (Negative) Urine Bilirubin (Negative) Urine Urobilinogen (0.2) mg/dL Ur Leukocyte Esterase (Negative) U Hyaline Cast (Auto) (0-2) /LPF Urine Microscopic RBC (0-5) /HPF Urine Microscopic WBC (0-5) /HPF Ur Epithelial Cells (None Seen) /HPF Amorphous Crystals (None Seen) /HPF Urine Bacteria (None Seen) /HPF Urine Culture Reflexed (NO) 02/23/24 02/23/24 Range/Units 06:04 08:42 WBC (3.98-10.04) x10^3/uL RBC (3.93-5.22) x10^6/uL Hgb (11.2-15.7) g/dL Hct (34.1-44.9) % MCV (79.4-94.8) fL MCH (25.6-32.2) pg MCHC (32.2-35.5) g/dL RDW (11.7-14.4) % Plt Count (182-369) x10^3/uL MPV (9.4-12.3) fL Gran % (34.0-71.1) % Immature Gran % (Auto) (0.001-0.429) % Nucleat RBC Rel Count (0.00-0.2) % Eos # (Auto) (0.04-0.36) x10^3/uL Immature Gran # (Auto) (0.001-0.031) x10^3u/L Absolute Lymphs (auto) (1.18-3.74) x10^3/uL Absolute Monos (auto) (0.24-0.86) x10^3/uL Absolute Nucleated RBC (0.00-0.012) x10^3u/L Lymphocytes % (19.3-51.7) % Monocytes % (4.7-12.5) % Eosinophils % (0.7-5.8) % Basophils % (0.1-1.2) % Absolute Granulocytes (1.56-6.13) x10^3/uL Basophils # (0.01-0.08) x10^3/uL Sodium (135-145) mmol/L Potassium (3.5-5.1) mmol/L Chloride (98-107) mmol/L Carbon Dioxide (22-30) mmol/L Anion Gap (5-15) MEQ/L BUN (7-17) mg/dL Creatinine (0.52-1.04) mg/dL Estimated GFR ML/MIN Glucose (74-106) mg/dL Calcium (8.4-10.2) mg/dL Total Bilirubin (0.2-1.3) mg/dL AST (14-36) U/L ALT (0-35) U/L Alkaline Phosphatase (38-126) U/L Troponin I < 0.012 (0.000-0.033) ng/mL Serum Total Protein (6.3-8.2) g/dL Albumin (3.5-5.0) g/dL Lipase (23-300) U/L Urine Color Dark Yellow A (Yellow) Urine Appearance Turbid A (Clear) Urine pH 5.0 (4.6-8.0) Ur Specific [place] >=1.030 A (1.005-1.030) Urine Protein 100 A (Negative) Urine Glucose (UA) Negative (Negative) mg/dL Urine Ketones Negative (Negative) Urine Blood Large A (Negative) Urine Nitrite Negative (Negative) Urine Bilirubin Small A (Negative) Urine Urobilinogen 1.0 A (0.2) mg/dL Ur Leukocyte Esterase Small A (Negative) U Hyaline Cast (Auto) 3-5 A (0-2) /LPF Urine Microscopic RBC >100 A (0-5) /HPF Urine Microscopic WBC >100 A (0-5) /HPF Ur Epithelial Cells Moderate A (None Seen) /HPF Amorphous Crystals Moderate A (None Seen) /HPF Urine Bacteria Moderate A (None Seen) /HPF Urine Culture Reflexed YES (NO) - Radiology Impressions Radiology Exams & Impressions: Radiology Procedures Category Date Time Status ABDOMEN AND PELVIS W/0 CONTRAS [CT] Stat Exams 02/23/24 04:24 Completed CHEST 1 VIEW (PORTABLE) Stat Exams 02/23/24 07:49 Completed Assessment/Plan (1) Small bowel obstruction Current Visit: Yes Status: Acute Assessment & Plan: -NG placed, can remove once output in colostomy -Surgery consulted - hernia causing SBO- reduction performed in ED - plans to educate patient on self-reduction prior to dc- patient to follow up OP with surgery and continuing with her current outpatient workup/barium enema and consider elective dorothy reversal. -IVF Code(s): K56.609 - UNSP INTESTNL OBST, UNSP TO PARTIAL VERSUS COMPLETE OBST (2) UTI (urinary tract infection) Current Visit: Yes Status: Acute Assessment & Plan: -UA suspicious for UTI, Zosyn given in ED- will continue with ceftriaxone - follow cultures Code(s): N39.0 - URINARY TRACT INFECTION, SITE NOT SPECIFIED (3) HTN (hypertension) Current Visit: Yes Status: Acute Assessment & Plan: -continue home meds Code(s): I10 - ESSENTIAL (PRIMARY) HYPERTENSION (4) COPD (chronic obstructive pulmonary disease) Current Visit: Yes Status: Acute Assessment & Plan: -RA at baseline - Supplemental oxygen with spo2 goal >92% -RT eval -NEBs prn -continue home meds (5) Hypothyroid Current Visit: Yes Status: Acute Assessment & Plan: -Continue levothyroxine Code(s): E03.9 - HYPOTHYROIDISM, UNSPECIFIED (6) Colostomy present Current Visit: No Status: Acute Assessment & Plan: -Colostomy care VTE: Bilateral SCD PPI: omeprazole Dispo: 1-2 days Code status: SCO Code(s): Z93.3 - COLOSTOMY STATUS
[2024-02-23] MEDS ORDERED: NORCO 7.5/325 MG TAB PO PRN (12:17)
[2024-02-23] MEDS ORDERED: ALBUTEROL SULFATE 0.63 MG/3 ML IH PRN (12:17)
[2024-02-23] MEDS ORDERED: VENTOLIN COMMON CANISTER IH PRN (13:18)
[2024-02-23] MEDS ORDERED: NON-FORMULARY ITEM (Budesonide/Glycopyr/Formoterol [Breztri Aerosphere Inhaler] 10.7 GM Hf TP SCH (14:00)
[2024-02-23] MEDS: Toprol-Xl 25MG Tablets PO SCH (14:48)
[2024-02-23] MEDS: LASIX 20 MG PO SCH (14:48)
[2024-02-23] MEDS: Imdur 60MG PO SCH (14:48)
[2024-02-23] MEDS: MORPHINE SULFATE 2 MG INJ IV PRN (14:53)
[2024-02-23] MEDS ORDERED: NON-FORMULARY ITEM (Rosuvastatin Calcium [Rosuvastatin Calcium] 20 MG Tablet) PO SCH (22:00)
[2024-02-23] MEDS: Ranexa 500 MG PO SCH (22:52)
[2024-02-23] MEDS: NEURONTIN PO SCH (22:52)
[2024-02-23] MEDS: celeBREX 100 MG PO SCH (22:52)
[2024-02-23] MEDS: ZOCOR 20MG PO SCH (22:52)
[2024-02-24 05:22] LABS: Absolute Neutrophil Ct (ANC) 3.73 x10^3/uL (1.56-6.13); BASOPHIL % 0.4 % (0.1-1.2); Basophil (Absolute #) 0.03 x10^3/uL (0.01-0.08); Eosinophil % 1.2 % (0.7-5.8); Eosinophil (Absolute #) 0.09 x10^3/uL (0.04-0.36); Hematocrit 42.2 % (34.1-44.9); Hemoglobin 12.7 g/dL (11.2-15.7); IMMATURE GRAN # 0.03 x10^3u/L (0.001-0.031); IMMATURE GRAN % 0.4 % (0.001-0.429); Lymphocyte (Absolute #) 2.33 x10^3/uL (1.18-3.74); Lymphocytes % 31.7 % (19.3-51.7); Mean Cell Volume 87.9 fL (79.4-94.8); Mean Corpuscular Hemoglobin 26.5 pg (25.6-32.2); Mean Corpuscular Hgb Concent. 30.1 g/dL (32.2-35.5); Mean Platelet Volume 10.2 fL (9.4-12.3); Monocyte (Absolute #) 1.14 x10^3/uL (0.24-0.86); Monocytes % 15.5 % (4.7-12.5); Neutrophil % 50.8 % (34.0-71.1); Platelet Count 340 x10^3/uL (182-369); Red Cell Distribution Width 20.6 % (11.7-14.4); White Blood Count 7.4 x10^3/uL (3.98-10.04)
[2024-02-24 05:28] LABS: ALBUMIN 3.5 g/dL (3.5-5.0); ANION GAP 12.3 MEQ/L (5-15); BILIRUBIN,TOTAL 0.5 mg/dL (0.2-1.3); Calcium 8.5 mg/dL (8.4-10.2); Creatinine 1 0.73 mg/dL (0.52-1.04); EST GLOMERULAR FILTRATION RATE 86.8 ML/MIN; Potassium 4.6 mmol/L (3.5-5.1)
[2024-02-24 07:05] VITALS: RESP 16; TEMP 97.9
[2024-02-24] MEDS: ROCEPHIN 1 GM / 100 ML NaCl 1 GM/100 ML IVPB IV SCH (08:22)
[2024-02-24] MEDS: Protonix 40MG Tablet PO SCH (08:26)
[2024-02-24] MEDS: Singulair 10 MG PO SCH (08:26)
[2024-02-24] MEDS: Vitamin B-12 500 MCG PO SCH (08:26)
[2024-02-24] MEDS: SYNTHROID 88 MCG PO SCH (08:36)
[2024-02-24] MEDS ORDERED: NON-FORMULARY ITEM (Budesonide/Glycopyr/Formoterol [Breztri Aerosphere Inhaler] 10.7 GM Hf IH SCH (10:00)
[2024-02-24] MEDS ORDERED: NON-FORMULARY ITEM (Cyanocobalamin (Vitamin B-12) [Vitamin B-12] 1,000 MCG Tablet) PO SCH (10:00)
[2024-02-24] MEDS ORDERED: NON-FORMULARY ITEM (Omeprazole [Omeprazole] 40 MG Capsule.Dr) PO SCH (10:00)
--- NOTE | 2024-02-24 10:53 | PCM.DS ---
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 No specific worsening or improving factors. Colostomy output 02/22/24. CT of the abdomen and pelvis showing Left abdominal wall hernia with colostomy, causing acute small bowel obstruction as described. Surgery consulted in ED, NG placed, hernia reduced while in ER. Plan per surgery to dc NG when output in colostomy and continuing with her current outpatient workup/barium enema and consider elective dorothy reversal. Patient educated on how to reduce the hernia about 3 times a day and demonstrated that she herself can reduce the hernia in order to leave the hospital. UA collected today suspicious for infection, IP treament with ceftriaxone -culture negative, no need for abx. Tolerating a diet with no further N/V. Output in colostomy. Surgery has cleared for discharge. Plan for follow up as scheduled with surgery. Discharge Note New Diagnosis: SBO New Medications:none Follow Up: PCP/Surgery Latest Assessment & Plan Assessment/Plan (1) Small bowel obstruction Current Visit: Yes Status: Acute Assessment & Plan: -NG placed, can remove once output in colostomy -Surgery consulted - hernia causing SBO- reduction performed in ED - plans to educate patient on self-reduction prior to dc- patient to follow up OP with surgery and continuing with her current outpatient workup/barium enema and consider elective dorothy reversal. -IVF Code(s): K56.609 - UNSP INTESTNL OBST, UNSP TO PARTIAL VERSUS COMPLETE OBST (2) UTI (urinary tract infection) Current Visit: Yes Status: Acute Assessment & Plan: -UA suspicious for UTI, Zosyn given in ED- will continue with ceftriaxone - follow cultures 02/23 -culture negative - abx dcd Code(s): N39.0 - URINARY TRACT INFECTION, SITE NOT SPECIFIED (3) HTN (hypertension) Current Visit: Yes Status: Acute Assessment & Plan: -continue home meds Code(s): I10 - ESSENTIAL (PRIMARY) HYPERTENSION (4) COPD (chronic obstructive pulmonary disease) Current Visit: Yes Status: Acute Assessment & Plan: -RA at baseline - Supplemental oxygen with spo2 goal >92% -RT eval -NEBs prn -continue home meds (5) Hypothyroid Current Visit: Yes Status: Acute Assessment & Plan: -Continue levothyroxine Code(s): E03.9 - HYPOTHYROIDISM, UNSPECIFIED (6) Colostomy present Current Visit: No Status: Acute Assessment & Plan: -Colostomy care I spent 35 minutes [id number] with the patient on the day of discharge performing discharge exam, discussing hospital stay and discharge instructions with patient and caregivers, preparation of discharge records, prescriptions & referral forms and addressing any questions/concerns the patient had as documented above. - Vitals & Intake/Output Vital Signs: Vital Signs Temperature 97.9 F 02/24/24 07:04 Pulse Rate 78 02/24/24 07:04 Respiratory Rate 16 02/24/24 07:04 Blood Pressure 124/62 02/24/24 07:04 O2 Sat by Pulse Oximetry 97 02/24/24 07:04 Intake & Output: Intake & Output 02/21/24 02/22/24 02/23/24 02/24/24 11:59 11:59 11:59 11:59 Intake Total 3288 Balance 3288 Weight 102.3 kg - Lab Result Diagrams: 02/24/24 04:35 02/24/24 04:35 Lab Results-Last 24 Hrs: Lab Results-Last 24 Hours 02/23/24 02/24/24 02/24/24 Range/Units 12:10 04:35 04:35 WBC 7.4 (3.98-10.04) x10^3/uL RBC 4.80 (3.93-5.22) x10^6/uL Hgb 12.7 (11.2-15.7) g/dL Hct 42.2 (34.1-44.9) % MCV 87.9 (79.4-94.8) fL MCH 26.5 (25.6-32.2) pg MCHC 30.1 L (32.2-35.5) g/dL RDW 20.6 H (11.7-14.4) % Plt Count 340 (182-369) x10^3/uL MPV 10.2 (9.4-12.3) fL Gran % 50.8 (34.0-71.1) % Immature Gran % (Auto) 0.4 (0.001-0.429) % Nucleat RBC Rel Count 0.0 (0.00-0.2) % Eos # (Auto) 0.09 (0.04-0.36) x10^3/uL Immature Gran # (Auto) 0.03 (0.001-0.031) x10^3u/L Absolute Lymphs (auto) 2.33 (1.18-3.74) x10^3/uL Absolute Monos (auto) 1.14 H (0.24-0.86) x10^3/uL Absolute Nucleated RBC 0.00 (0.00-0.012) x10^3u/L Lymphocytes % 31.7 (19.3-51.7) % Monocytes % 15.5 H (4.7-12.5) % Eosinophils % 1.2 (0.7-5.8) % Basophils % 0.4 (0.1-1.2) % Absolute Granulocytes 3.73 (1.56-6.13) x10^3/uL Basophils # 0.03 (0.01-0.08) x10^3/uL Sodium 138 (135-145) mmol/L Potassium 4.6 (3.5-5.1) mmol/L Chloride 104 (98-107) mmol/L Carbon Dioxide 26 (22-30) mmol/L Anion Gap 12.3 (5-15) MEQ/L BUN 22 H (7-17) mg/dL Creatinine 0.73 (0.52-1.04) mg/dL Estimated GFR 86.8 ML/MIN Glucose 108 H (74-106) mg/dL Calcium 8.5 D (8.4-10.2) mg/dL Total Bilirubin 0.50 (0.2-1.3) mg/dL AST 34 (14-36) U/L ALT 45 H (0-35) U/L Alkaline Phosphatase 79 (38-126) U/L Troponin I < 0.012 (0.000-0.033) ng/mL Serum Total Protein 6.0 L (6.3-8.2) g/dL Albumin 3.5 (3.5-5.0) g/dL Micro Results-Entire Visit: Microbiology 02/23/24 06:04 Urine Culture - Preliminary Clean Catch Midstream <10K NORMAL SKIN CHAPO PROBABLE SKIN CONTAMINANT - Radiology Exams Ordered Rad Exams-Entire Visit: Radiology Procedures Category Date Time Status ABDOMEN AND PELVIS W/0 CONTRAS [CT] Stat Exams 02/23/24 04:24 Completed CHEST 1 VIEW (PORTABLE) Stat Exams 02/23/24 07:49 Completed - Procedures and Test Procedures and Tests throughout Hospitalization: Therapy Orders & Screens 02/23/24 12:27 Respiratory Therapy Consult ONCE Comment: Reason For Exam: Diagnosis: Small bowel obstruction, urinary tract infection 02/23/24 13:55 Oxygen Nasal Cannula 2 lpm Comment: Diagnosis: Small bowel obstruction, urinary tract infection 02/23/24 13:56 Respiratory Therapy Assessment DAILY Comment: Diagnosis: Small bowel obstruction, urinary tract infection Discharge Exam General Appearance: no apparent distress Neurologic Exam: alert, oriented x 3, cooperative Eye Exam: PERRL Ears, Nose, Throat Exam: normal ENT inspection Neck Exam: normal inspection Respiratory Exam: normal breath sounds, lungs clear Cardiovascular Exam: regular rate/rhythm, normal heart sounds Gastrointestinal/Abdomen Exam: soft, normal bowel sounds, hernia, other (colostomy) Pelvic Exam: deferred Rectal Exam: deferred Back Exam: normal inspection Extremity Exam: normal inspection Skin Exam: normal color Final Diagnosis/Problem List - Final Discharge Diagnosis/Problem (1) Small bowel obstruction Current Visit: Yes Status: Resolved Code(s): K56.609 - UNSP INTESTNL OBST, UNSP TO PARTIAL VERSUS COMPLETE OBST (2) UTI (urinary tract infection) Current Visit: Yes Status: Ruled-out Code(s): N39.0 - URINARY TRACT INFECTION, SITE NOT SPECIFIED (3) HTN (hypertension) Current Visit: Yes Status: Chronic Code(s): I10 - ESSENTIAL (PRIMARY) HYPERTENSION (4) COPD (chronic obstructive pulmonary disease) Current Visit: Yes Status: Chronic (5) Hypothyroid Current Visit: Yes Status: Chronic Code(s): E03.9 - HYPOTHYROIDISM, UNSP ECIFIED (6) Colostomy present Current Visit: No Status: Chronic Code(s): Z93.3 - COLOSTOMY STATUS - Discharge Disposition: Home, Self-Care Condition: Stable Prescriptions: Continue Montelukast Sodium 10 mg [Singulair 10 MG] 10 mg PO DAILY Omeprazole 40 mg PO DAILY Celecoxib 100 mg [celeBREX 100 MG] 100 mg PO BID Rosuvastatin Calcium 20 mg PO HS Ranolazine 500 MG [Ranexa 500 MG] 1,000 mg PO BID Metoprolol Succinate 25 mg Xl* [Toprol-Xl 25MG Tablets] 25 mg PO DAILY Gabapentin [Neurontin ] 300 mg PO BID Albuterol Sulfate 1 puff IH Q4HPRN PRN PRN Reason: Shortness Of Breath/Wheezing Alendronate Sodium 70 mg PO UD Hydrocodone/Acetaminophen [Hydrocodone-Acetamin 7.5-325] 1 each PO BIDPRN PRN PRN Reason: Pain Isosorbide Mononitrate 60 mg [Imdur 60MG] 60 mg PO DAILY Furosemide 20 mg [Lasix 20 mg] 20 mg PO DAILY Levothyroxine Sodium 88 Mcg [Synthroid 88 Mcg] 88 mcg PO DAILY Budesonide/Glycopyr/Formoterol [Breztri Aerosphere Inhaler] 1 puff IH DAILY Cyanocobalamin (Vitamin B-12) [Vitamin B-12] 1,000 mcg PO DAILY Follow up with: CORY LONG DO [Primary Care Provider] - 03/02/24 9:30 am SHANE PIERRE [ACTIVE STAFF] - 03/09/24 12:00 pm
[2024-02-24 11:18] VITALS: BP 112/65; PULSE 82; O2SAT 92
[2024-02-27] MEDS ORDERED: Fosamax 70 MG PO SCH (06:00)
== END 2024-02-24 13:00 | disposition home or self-care (01) ==
LOC: ED 03:57 → MED SURG 09:42
PROVIDERS: ADMIT Internal Medicine; ATTEND Internal Medicine
DX: K56.609 Unspecified intestinal obstruction, unspecified as to partial versus complete obstruction (principal); N39.0 Urinary tract infection, site not specified; I10 Essential (primary) hypertension; J44.9 Chronic obstructive pulmonary disease, unspecified; E03.9 Hypothyroidism, unspecified; F41.9 Anxiety disorder, unspecified; Z93.3 Colostomy status; Z79.899 Other long term (current) drug therapy; Z86.73 Personal history of transient ischemic attack (TIA), and cerebral infarction without residual deficits
CPT/HCPCS: 36000; 36415; 71045; 74176; 80053; 81001; 83690; 84484; 85025; 87086; 94760; 96374; 96375; 96376; 99285; J0696; J2270; J2405; Q3014; A9270-GY

== ENCOUNTER 2024-04-28 14:04 | Emergency (ER) | payer MEDICARE ==
[2024-04-28 14:13] VITALS: TEMP 98.2; O2SAT 95
--- NOTE | 2024-04-28 14:32 | ERPHSYRPT ---
- History of Present Illness Time Seen by Provider: 04/28/24 14:30 Source: patient Exam Limitations: no limitations Patient Subjective Stated Complaint: pt c/o of sudden weakness and dizziness and felt like she was going to pass out Triage Nursing Assessment: Pt brought to the ER by EMS, hypertensive, denies pain, pulses normal, skin n/w/d, no difficulty breathing, sudden onset of weakness and felt like she was going to pass out, denies N&V, denies LOC, "legs feel weird", denies any medication changes Physician History: pt c/o of sudden weakness and dizziness and felt like she was going to pass out denies pain,no difficulty breathing, sudden onset of weakness and felt like she was going to pass out, denies N&V, denies LOC, "legs feel weird", denies any medication changes Timing/Duration: today Severity: moderate Associated Symptoms: denies symptoms Allergies/Adverse Reactions: shrimp Allergy (Intermediate, Verified 04/28/24 14:13) Hives contrast dye Allergy (Intermediate, Uncoded 04/28/24 14:13) Hives Home Medications: Montelukast Sodium 10 mg [Singulair 10 MG] 10 mg PO DAILY 11/08/18 [History] Omeprazole 40 mg PO DAILY 04/22/19 [History] Celecoxib 100 mg [celeBREX 100 MG] 100 mg PO BID 01/15/21 [History] Rosuvastatin Calcium 20 mg PO HS 10/15/21 [History] Albuterol Sulfate 1 puff IH Q4HPRN PRN 08/12/22 [History] Gabapentin [Neurontin ] 300 mg PO BID 08/12/22 [History] Metoprolol Succinate 25 mg Xl* [Toprol-Xl 25MG Tablets] 25 mg PO DAILY [History] Ranolazine 500 MG [Ranexa 500 MG] 1,000 mg PO BID 08/12/22 [History] Cyanocobalamin (Vitamin B-12) [Vitamin B-12] 1,000 mcg PO DAILY 02/23/24 [History] Hydrocodone/Acetaminophen [Hydrocodone-Acetamin 7.5-325] 1 each PO BIDPRN PRN 02/23/24 [History] Levothyroxine Sodium 88 Mcg [Synthroid 88 Mcg] 88 mcg PO DAILY 02/23/24 [History] Aspirin EC 81 mg [Ecotrin 81 mg] 81 mg PO DAILY 04/18/24 [History] Meclizine HCl 25 mg [Antivert 25 mg] 25 mg PO UD 04/18/24 [History] Hx Tetanus, Diphtheria Vaccination/Date Given: Yes Hx Influenza Vaccination/Date Given: Yes Hx Pneumococcal Vaccination/Date Given: Yes Travel Risk - International Travel Have you traveled outside of the country in past 3 weeks: No - Emerging Infectious Disease Are you exhibiting symptoms associated with any current EIDs: No Symptoms: Abdominal Pain - Review of Systems Constitutional: Weakness, No Fever, No Chills Eyes: No Symptoms Ears, Nose, & Throat: No Symptoms Respiratory: No Cough, No Dyspnea Cardiac: No Chest Pain, No Edema, No Syncope Abdominal/Gastrointestinal: No Abdominal Pain, No Nausea, No Vomiting, No Diar lorrie Genitourinary Symptoms: No Dysuria Musculoskeletal: No Back Pain, No Neck Pain Skin: No Rash Neurological: Dizziness, No Focal Weakness, No Sensory Changes Psychological: No Symptoms Endocrine: No Symptoms All Other Systems: Reviewed and Negative - Past Medical History Pertinent Past Medical History: Yes Neurological History: TIA ENT History: Cataracts Cardiac History: High Cholesterol, Hypertension, Other Respiratory History: COPD Endocrine Medical History: No Pertinent History Musculoskeletal History: Fractures, Osteoarthritis GI Medical History: Diverticulitis, Diverticulosis, Gallbladder Disease, Hernia, Other History: No Pertinent History Psycho-Social History: Anxiety Female Reproductive Disorders: Other Other Medical History: bradycardia, heart disease, COPD, fibromyalgia, CHF, Coronary arterioscierosis, diverticulitis, HTN, hypothyroidism. toe & ankle fx. vagina fistula - Past Surgical History Past Surgical History: Yes Neuro Surgical History: No Pertinent History Cardiac: Cardiac Catheterization Respiratory: No Pertinent History Gastrointestinal: Cholecystectomy, Colon Resection Genitourinary: No Pertinent History Musculoskeletal: Joint Replacement Female Surgical History: Hysterectomy Other Surgical History: right total knee replacement, rotator cuff surgery, eye surgery, thyroidectomy 09/11/21, colon resection with colostomy, colo noscopy/vaginoscopy Significant Family History: no pertinent family hx - Social History Smoking Status: Former smoker How long have you smoked: 10+ Exposure to second hand smoke: No Alcohol Use: None Drug Use: none Patient Lives Alone: Yes - Social Determinants of Health Will the patient participate in the screening: Yes Do you worry about a steady place to live?: No Do you have any problems with any of the following?: No known problems In the past 12 months,have you had to go without utilities?: No Transportation Issues: No Has anyone in your support network made you feel unsafe?: No Have you or anyone in your house had to go without enough: No - Nursing Vital Signs Nursing Vital Signs: Initial Vital Signs Pulse Rate 62 04/28/24 14:02 Respiratory Rate 18 04/28/24 14:02 Blood Pressure 146/84 04/28/24 14:02 O2 Sat by Pulse Oximetry 94 L 04/28/24 14:02 Pain Scale Pain Intensity 0 - Physical Exam General Appearance: no apparent distress, alert Eye Exam: PERRL/EOMI, eyes nml inspection Ears, Nose, Throat Exam: normal ENT inspection, TMs normal, pharynx normal, moist mucous membranes Neck Exam: normal inspection, non-tender, supple, full range of motion Respiratory Exam: normal breath sounds, lungs clear, No respiratory distress Cardiovascular Exam: regular rate/rhythm, normal heart sounds, normal peripheral pulses Gastrointestinal/Abdomen Exam: soft, normal bowel sounds, other (Colostomy in place), No tenderness, No mass Back Exam: normal inspection, normal range of motion, No CVA tenderness, No vertebral tenderness Extremity Exam: normal inspection, normal range of motion, pelvis stable Neurologic Exam: alert, oriented x 3, cooperative, normal mood/affect, nml cerebellar function, nml station & gait, sensation nml, No motor deficits Skin Exam: normal color, warm, dry, No rash Lymphatic Exam: No adenopathy SpO2: 95 - Course Nursing assessment & vital signs reviewed: Yes EKG Interpreted by Me: Sinus Rhythm Rhythm Strip: Normal Sinus Rhythm Ordered Tests: Active Orders 24 hr Category Date Time Status EKG-ER Only STAT Care 04/28/24 14:25 Active CBC W DIFF Stat Lab 04/28/24 14:40 Completed CMP Stat Lab 04/28/24 14:40 Completed CULTURE,URINE Stat Lab 04/28/24 15:25 Received MAGNESIUM Stat Lab 04/28/24 14:40 Completed TROPONIN Stat Lab 04/28/24 14:40 Completed UA W/RFX UR CULTURE Stat Lab 04/28/24 15:25 Completed Medication Summary Generic Name Dose Route Start Last Admin Trade Name Emma PRN Reason Stop Dose Admin Ceftriaxone Sodium 1 gm in 100 mls @ 200 mls/hr 04/28/24 15:53 04/28/24 16:03 Rocephin 1 Gm / 100 Ml Nacl IV 04/28/24 16:22 200 mls/hr STAT ONE 200 mls/hr Administration Discontinued Medications Generic Name Dose Route Start Last Admin Trade Name Emma PRN Reason Stop Dose Admin Sodium Chloride 1,000 mls @ 999 mls/hr 04/28/24 14:25 04/28/24 14:38 Sodium Chloride 0.9% 1000 Ml IV 04/28/24 15:25 999 mls/hr .Q1H1M STA Administration Sodium Chloride Confirm 04/28/24 14:38 Sodium Chloride 0.9% 1000 Ml Administered 04/28/24 14:39 Dose 1,000 mls @ ud .ROUTE .STK-MED ONE Ceftriaxone Sodium Confirm 04/28/24 16:01 Rocephin 1 Gm / 100 Ml Nacl Administered 04/28/24 16:02 Dose 1 gm in 100 mls @ ud IV .STK-MED ONE Lab/Rad Data: Laboratory Result Diagrams 04/28/24 14:40 04/28/24 14:40 Laboratory Results 04/28/24 04/28/24 04/28/24 Range/Units 15:25 14:40 14:40 WBC 7.7 (3.98-10.04) x10^3/uL RBC 4.57 (3.93-5.22) x10^6/uL Hgb 12.6 (11.2-15.7) g/dL Hct 39.1 (34.1-44.9) % MCV 85.6 (79.4-94.8) fL MCH 27.6 (25.6-32.2) pg MCHC 32.2 (32.2-35.5) g/dL RDW 18.1 H (11.7-14.4) % Plt Count 332 (182-369) x10^3/uL MPV 11.2 (9.4-12.3) fL Gran % 56.6 (34.0-71.1) % Immature Gran % (Auto) 0.5 H (0.001-0.429) % Nucleat RBC Rel Count 0.0 (0.00-0.2) % Eos # (Auto) 0.16 (0.04-0.36) x10^3/uL Immature Gran # (Auto) 0.04 H (0.001-0.031) x10^3u/L Absolute Lymphs (auto) 2.30 (1.18-3.74) x10^3/uL Absolute Monos (auto) 0.76 (0.24-0.86) x10^3/uL Absolute Nucleated RBC 0.00 (0.00-0.012) x10^3u/L Lymphocytes % 29.9 (19.3-51.7) % Monocytes % 9.9 (4.7-12.5) % Eosinophils % 2.1 (0.7-5.8) % Basophils % 1.0 (0.1-1.2) % Absolute Granulocytes 4.35 (1.56-6.13) x10^3/uL Basophils # 0.08 (0.01-0.08) x10^3/uL Sodium 141 (135-145) mmol/L Potassium 3.8 (3.5-5.1) mmol/L Chloride 106 (98-107) mmol/L Carbon Dioxide 28 (22-30) mmol/L Anion Gap 11.5 (5-15) MEQ/L BUN 20 H (7-17) mg/dL Creatinine 0.76 (0.52-1.04) mg/dL Estimated GFR 82.7 ML/MIN Glucose 101 (74-106) mg/dL Calcium 8.5 (8.4-10.2) mg/dL Magnesium 2.0 (1.6-2.3) mg/dL Total Bilirubin 0.60 (0.2-1.3) mg/dL AST 21 (14-36) U/L ALT 17 (0-35) U/L Alkaline Phosphatase 72 (38-126) U/L Troponin I < 0.012 (0.000-0.033) ng/mL Serum Total Protein 6.3 (6.3-8.2) g/dL Albumin 3.8 (3.5-5.0) g/dL Urine Color Yellow (Yellow) Urine Appearance Cloudy A (Clear) Urine pH 6.5 (4.6-8.0) Ur Specific [place] 1.020 (1.005-1.030) Urine Protein 30 (Negative) Urine Glucose (UA) Negative (Negative) mg/dL Urine Ketones 15 A (Negative) Urine Blood Small A (Negative) Urine Nitrite Positive A (Negative) Urine Bilirubin Negative (Negative) Urine Urobilinogen 1.0 A (0.2) mg/dL Ur Leukocyte Esterase Large A (Negative) U Hyaline Cast (Auto) NONE SEEN (0-2) /LPF Urine Microscopic RBC 11-20 A (0-5) /HPF Urine Microscopic WBC >100 A (0-5) /HPF Ur Epithelial Cells None Seen (None Seen) /HPF Urine Bacteria Few A (None Seen) /HPF Urine Culture Reflexed YES (NO) - Progress Progress: improved Counseled pt/family regarding: lab results, diagnosis, need for follow-up Medical Desision Making - Independent Historian Additional History obtained from: Family - Diagnostic Testing Diagnostic test were ordered, analyzed, and reviewed by me: Yes - Risk of complications Minimal Risk: Minimal risk of morbidity - Departure Departure Disposition: Home Clinical Impression: Pyelonephritis, Dizziness, Symptomatic bradycardia Condition: Stable Critical Care Time: No Referrals: CORY LONG DO [Primary Care Provider] - Follow up/PCP as directed Instructions: Bradycardia, Urinary Tract Infection, Adult ED, Overview of heart arrhythmias Additional Instructions: Please go and see your hydroblaster as your heart rhythm in ER is showing that your heart rate is slowing down which is probably cause for your dizziness and weakness. You also have a urinary tract infection for which we have given IV antibiotic in ER as well as we have sent oral antibiotic which she had to take it for 7 days to your pharmacy. Discharge/Care Plan THEA JACINTO was seen on 04/28/24 in the Emergency Room. The patient was counseled regarding Diagnosis,Lab results, Imaging studies, need for follow up and when to return to the Emergency Room. Prescriptions given: Discharge Note I have spoken with the patient and/or caregivers. I have explained the patient's condition, diagnosis and treatment plan based on the information available to me at this time. I have answered the patient's and/or caregiver's questions and addressed any concerns. The patient and/or caregivers have as good understanding of the patient's diagnosis, condition and treatment plan as can be expected at this point. The vital signs have been stable. The patient's condition is stable and appropriate for discharge from the emergency department. The patient will pursue further outpatient evaluation with the primary care physician or other designated or consulting physician as outlined in the discharge instructions. The patient and/or caregivers are agreeable to this plan of care and follow-up instructions have been explained in detail. The patient and/or caregivers have received these instruction. The patient/and or caregivers are aware that any significant change in condition or worsening of symptoms should prompt an immediate return to this or the closest emergency department or call 911. THEA JACINTO was seen on 04/28/24 n the Emergency Room. At that time you were treated for an emergent condition, during your visit Laboratory, Radiology and/or other procedures may have been ordered. It is very important that you follow-up with your Primary Care Physician CORY LONG DO within the next 24-48 hours to review your Emergency Room visit and the final results of testing that was ordered. Some test results such as Urine Cultures, Blood Cultures, and other cultures if ordered will not be finalized for 24-48 hours. If you do not have a Primary Care Provider please call the medical records department at [phone] ext [phone] to obtain a copy of your results or you may sign into our patient portal to obtain these results by visiting us @ [email or web address] and completing the following steps: 1. Click on the Patient Portal link 2. Click the Patient Self Enrollment Link to complete the enrollment form and entering your 3. Once the enrollment form is completed you will receive an email with a temporary ID and password at the email address you provided. 4. Next choose a user name and password. Your user name must be at least 4 characters long and your password must be at least 4 characters long. 5. Choose a security question from the list and provide your answer to the question. If you already have signed into the Health Portal you may access your Health Care Information 21/02 by the following steps: 1. Login to our website @ [email or web address] 2. Enter your original user name and password. FAQS The [facility] Health Portal is an online tool that contains your Lab Results, R adiology Reports, Visit History, Discharge Instructions and Health Summary Lab and Radiology Results will not be available for 72 hours on the portal. The Portal is a secure site, passwords are encryted and URLs are re-written so they cannot be copied and pasted. You and authorized family members are the only ones who can access your Portal. Also there is a timeout feature that protects your information if you leave the Portal page open. If you have technical difficulty please use the Contact Us link on the page this will allow you to submit any questions you have regarding the Portal or you may contact the Medical Record Department at [phone] ext [phone]. Prescriptions: Ciprofloxacin [Cipro 500 MG] 500 mg PO BIDAC #14 tablet
[2024-04-28] MEDS: Sodium Chloride 0.9% 1000 ML 1,000 ML IV STA (14:38)
[2024-04-28] MEDS ORDERED: Sodium Chloride 0.9% 1000 ML 1,000 ML ONE (14:38)
[2024-04-28 14:52] LABS: Absolute Neutrophil Ct (ANC) 4.35 x10^3/uL (1.56-6.13); Basophil (Absolute #) 0.08 x10^3/uL (0.01-0.08); Eosinophil % 2.1 % (0.7-5.8); Eosinophil (Absolute #) 0.16 x10^3/uL (0.04-0.36); Hematocrit 39.1 % (34.1-44.9); Hemoglobin 12.6 g/dL (11.2-15.7); IMMATURE GRAN # 0.04 x10^3u/L (0.001-0.031); IMMATURE GRAN % 0.5 % (0.001-0.429); Lymphocytes % 29.9 % (19.3-51.7); Mean Cell Volume 85.6 fL (79.4-94.8); Mean Corpuscular Hemoglobin 27.6 pg (25.6-32.2); Mean Corpuscular Hgb Concent. 32.2 g/dL (32.2-35.5); Mean Platelet Volume 11.2 fL (9.4-12.3); Monocyte (Absolute #) 0.76 x10^3/uL (0.24-0.86); Monocytes % 9.9 % (4.7-12.5); Neutrophil % 56.6 % (34.0-71.1); Platelet Count 332 x10^3/uL (182-369); Red Blood Count 4.57 x10^6/uL (3.93-5.22); Red Cell Distribution Width 18.1 % (11.7-14.4); White Blood Count 7.7 x10^3/uL (3.98-10.04)
[2024-04-28 15:19] LABS: ALBUMIN 3.8 g/dL (3.5-5.0); ALKALINE PHOSPHATASE 72 U/L (38-126); ANION GAP 11.5 MEQ/L (5-15); BLOOD UREA NITROGEN 20 mg/dL (7-17); CHLORIDE 106 mmol/L (98-107); Calcium 8.5 mg/dL (8.4-10.2); Carbon Dioxide 28 mmol/L (22-30); Creatinine 1 0.76 mg/dL (0.52-1.04); EST GLOMERULAR FILTRATION RATE 82.7 ML/MIN; Glucose 101 mg/dL (74-106); Potassium 3.8 mmol/L (3.5-5.1); SGOT/AST 21 U/L (14-36); SGPT/ALT 17 U/L (0-35); SODIUM 141 mmol/L (135-145); TROPONIN < 0.012 ng/mL (0.000-0.033); Total Protein 6.3 g/dL (6.3-8.2)
[2024-04-28 15:36] LABS: Appearance Cloudy (Clear); Bacteria Few /HPF (None Seen); Bilirubin Negative (Negative); Blood Small (Negative); Epithelial Cells None Seen /HPF (None Seen); Glucose, Urine Negative (Negative); Hyaline Casts NONE SEEN /LPF (0-2); Ketones 15 (Negative); Leukocyte Esterase Large (Negative); Nitrite Positive (Negative); Ph 6.5 (4.6-8.0); Protein,Urine Dip 30 (Negative); WBC >100 /HPF (0-5)
[2024-04-28] MEDS ORDERED: ROCEPHIN 1 GM / 100 ML NaCl 1 GM/100 ML IVPB IV ONE (16:01)
[2024-04-28] MEDS: ROCEPHIN 1 GM / 100 ML NaCl 1 GM/100 ML IVPB IV ONE (16:03)
[2024-04-28 16:10] VITALS: BP 138/80; PULSE 60; RESP 23
== END 2024-04-28 17:00 | disposition home or self-care (01) ==
LOC: ED 14:04
DX: N12 Tubulo-interstitial nephritis, not specified as acute or chronic (principal); R42 Dizziness and giddiness; R00.1 Bradycardia, unspecified; R53.1 Weakness; E78.5 Hyperlipidemia, unspecified; I11.0 Hypertensive heart disease with heart failure; I50.9 Heart failure, unspecified; Z79.899 Other long term (current) drug therapy
CPT/HCPCS: 36415; 80053; 81001; 83735; 84484; 85025; 87077; 87086; 87186; 93005; 96365; 99284; J0696

== ENCOUNTER 2024-05-14 09:07 | Inpatient (IN) | payer MEDICARE ==
[2024-05-14] MEDS: ENTEREG 12 MG PO ONE (11:54)
[2024-05-14] MEDS ORDERED: MEFOXIN 2 GM PREMIX** 2 GM/50 ML ML IV ONE (11:58)
[2024-05-14] MEDS ORDERED: Lactated Ringers 1,000 ML IV ONE ×2 (11:58→14:43)
[2024-05-14] MEDS: Lactated Ringers 1,000 ML IV SCH (11:58)
[2024-05-14] MEDS: MEFOXIN 2 GM PREMIX** 2 GM/50 ML ML IV SCH (11:59)
[2024-05-14] MEDS ORDERED: DIPRIVAN 200 MG/20 ML IV ONE (12:24)
[2024-05-14 12:25] LABS: Hematocrit 44.4 % (34.1-44.9); Hemoglobin 14.3 g/dL (11.2-15.7); Mean Cell Volume 86.2 fL (79.4-94.8); Mean Corpuscular Hemoglobin 27.8 pg (25.6-32.2); Mean Corpuscular Hgb Concent. 32.2 g/dL (32.2-35.5); Platelet Count 408 x10^3/uL (182-369); Red Blood Count 5.15 x10^6/uL (3.93-5.22); Red Cell Distribution Width 18.8 % (11.7-14.4); White Blood Count 9.9 x10^3/uL (3.98-10.04)
[2024-05-14] MEDS ORDERED: Decadron 4 MG INJ ONE (12:26)
[2024-05-14] MEDS ORDERED: ROCURONIUM BROMIDE IV ONE ×2 (12:26→14:59)
[2024-05-14] MEDS ORDERED: Zofran 4 MG/2 ML VIAL ONE (12:26)
[2024-05-14] MEDS ORDERED: Astramorph-Pf 5 MG/10 ML ONE (12:26)
[2024-05-14] MEDS ORDERED: Sensorcaine 0.25% 10 ML ONE (12:33)
[2024-05-14 12:36] LABS: ALBUMIN 4.3 g/dL (3.5-5.0); ANION GAP 15.8 MEQ/L (5-15); BILIRUBIN,TOTAL 0.7 mg/dL (0.2-1.3); Calcium 9.2 mg/dL (8.4-10.2); Creatinine 1 0.79 mg/dL (0.52-1.04); EST GLOMERULAR FILTRATION RATE 78.9 ML/MIN; Potassium 3.5 mmol/L (3.5-5.1); Total Protein 7.3 g/dL (6.3-8.2)
[2024-05-14] MEDS ORDERED: OFIRMEV 100 ML IV ONE (12:39)
[2024-05-14] MEDS ORDERED: EXPAREL 133 MG/10 ML VIAL IJ ONE (12:39)
[2024-05-14] MEDS ORDERED: Marcaine 0.5%/Epinephrine 10 ML ONE (12:44)
[2024-05-14 13:02] LABS: ABO TYPING A; Antibody Screen NEGATIVE (NEGATIVE); RH TYPING NEGATIVE
[2024-05-14] MEDS ORDERED: Ketamine HCl 50 MG/ML ONE ×2 (14:12→16:36)
[2024-05-14] MEDS ORDERED: ARZOL Silver Nitrate Applicator TP ONE (14:25)
[2024-05-14] MEDS ORDERED: BRIDION 200MG/2ML IV ONE (15:37)
[2024-05-14 17:19] LABS: Appearance Clear (Clear); Bilirubin Negative (Negative); Blood Small (Negative); Epithelial Cells None Seen /HPF (None Seen); Glucose, Urine Negative (Negative); Ketones 40 (Negative); Leukocyte Esterase Small (Negative); Nitrite Negative (Negative); Protein,Urine Dip Trace (Negative); RBC 21-50 /HPF (0-5); Specific Gravity 1.025 (1.005-1.030); WBC 21-50 /HPF (0-5)
[2024-05-14 17:20] LABS: Bacteria Few /HPF (None Seen); Mucus Moderate /HPF (NEGATIVE)
[2024-05-14] MEDS ORDERED: Zofran 4 MG/2 ML VIAL IV PRN ×2 (17:30→17:32)
[2024-05-14] MEDS ORDERED: Narcan 0.4 MG/ML IV PRN (17:30)
[2024-05-14] MEDS ORDERED: Sodium Chloride 0.9% 10 ML FLUSH Syringe IJ PRN (17:30)
[2024-05-14] MEDS ORDERED: VENTOLIN COMMON CANISTER IH PRN (17:39)
[2024-05-14] MEDS ORDERED: ANTIVERT 25 MG PO SCH (17:45)
[2024-05-14] MEDS: D5W/0.45NS W/ 20mEq KCl 1000 ML 1,000 ML IV SCH (18:04)
[2024-05-14] MEDS: Unasyn 3 GM Vial*** 3 G in Sodium Chloride 100ML MINI-BAG PLUS 100 ML IV SCH (18:04)
[2024-05-14] MEDS: Vitamin B-12 500 MCG PO SCH (18:13)
[2024-05-14] MEDS: Singulair 10 MG PO SCH (18:13)
[2024-05-14] MEDS: Protonix 40MG Tablet PO SCH (18:13)
[2024-05-14] MEDS ORDERED: ANTIVERT 25 MG PO PRN (19:14)
[2024-05-14] MEDS: ZOCOR 20MG PO SCH (21:04)
[2024-05-14] MEDS: Ranexa 500 MG PO SCH (21:04)
[2024-05-14] MEDS: celeBREX 100 MG PO SCH (21:04)
[2024-05-14] MEDS: NEURONTIN PO SCH (21:04)
[2024-05-14] MEDS: BENADRYL 50 MG/ML IV PRN (21:04)
[2024-05-14] MEDS: CLARITIN 10 MG PO PRN (22:48)
[2024-05-15] MEDS: Nubain 10 MG/ML IV PRN (00:01)
[2024-05-15 04:41] LABS: Hematocrit 43.9 % (34.1-44.9); Hemoglobin 13.9 g/dL (11.2-15.7); Mean Corpuscular Hemoglobin 27.9 pg (25.6-32.2); Mean Corpuscular Hgb Concent. 31.7 g/dL (32.2-35.5); Mean Platelet Volume 9.8 fL (9.4-12.3); Platelet Count 367 x10^3/uL (182-369); Red Blood Count 4.99 x10^6/uL (3.93-5.22); Red Cell Distribution Width 18.6 % (11.7-14.4)
[2024-05-15 04:55] LABS: ANION GAP 12.9 MEQ/L (5-15)
[2024-05-15 05:02] LABS: Potassium 4.4 mmol/L (3.5-5.1)
[2024-05-15] MEDS: ECOTRIN 81 MG PO SCH (09:45)
[2024-05-15] MEDS: Toprol-Xl 25MG Tablets PO SCH (09:46)
[2024-05-15] MEDS: SYNTHROID 75 MCG PO SCH (09:46)
--- NOTE | 2024-05-15 10:47 | CONS ---
HISTORY OF PRESENT ILLNESS: Patient has a left end sigmoid colostomy. She additionally has, in fact, some type of either colovaginal or colovesical fistula which is quite annoying to her. She has had evaluation with very minimal colonoscopy. She presents for discontinuation of the GI tract from the associated violated organ and probably sigmoid resection. We did not seriously discuss putting this back together at this same setting. We would see what is there, take care of it, let it heal up. She has already got the diverting ostomy. Let that settle out for 3 months and then decide at that point whether it is prudent to try to put this back together or not. ALLERGIES: NONE. MEDICATIONS: Listed in the chart. PAST SURGICAL HISTORY: She had an emergency exploratory at [facility] by a visiting surgeon about a year ago and she was in extreme shape at that point. She was in the ICU and she really thought she was going to . SOCIAL HISTORY: Moderate smoking. EtOH negative. FAMILY HISTORY: Negative. REVIEW OF SYSTEMS: CARDIOVASCULAR: Minimal hypertension. RESPIRATORY: Moderate COPD. KIDNEYS: Negative. LIVER: Negative. ORTHO/NEURO: Negative. GENERAL: She is mildly obese. PHYSICAL EXAMINATION: GENERAL: She is alert. VITAL SIGNS: Normal. CHEST: Clear. CARDIOVASCULAR: Regular. ABDOMEN: Mildly obese. Left ostomy. IMPRESSION: Almost certainly a fistula to the sigmoid. If the sigmoid is diseased, it needs resected. She already has a diverting ostomy.
[2024-05-15] MEDS: NORCO 7.5/325 MG TAB PO PRN (22:27)
[2024-05-16] MEDS: MORPHINE SULFATE 2 MG INJ IV PRN (07:26)
[2024-05-16 08:02] LABS: Hematocrit 38.4 % (34.1-44.9); Hemoglobin 12.1 g/dL (11.2-15.7); Mean Cell Volume 87.9 fL (79.4-94.8); Mean Corpuscular Hemoglobin 27.7 pg (25.6-32.2); Mean Corpuscular Hgb Concent. 31.5 g/dL (32.2-35.5); Mean Platelet Volume 10.2 fL (9.4-12.3); Platelet Count 323 x10^3/uL (182-369); Red Blood Count 4.37 x10^6/uL (3.93-5.22); Red Cell Distribution Width 18.8 % (11.7-14.4); White Blood Count 16.9 x10^3/uL (3.98-10.04)
[2024-05-16 08:17] LABS: ALBUMIN 3.3 g/dL (3.5-5.0); ANION GAP 10.3 MEQ/L (5-15); BILIRUBIN,TOTAL 0.7 mg/dL (0.2-1.3); Calcium 8.1 mg/dL (8.4-10.2); Creatinine 1 0.67 mg/dL (0.52-1.04); EST GLOMERULAR FILTRATION RATE 92.2 ML/MIN; Potassium 4.2 mmol/L (3.5-5.1)
[2024-05-16] MEDS: VENTOLIN COMMON CANISTER IH PRN (17:37)
[2024-05-16] MEDS ORDERED: NORCO 7.5/325 MG TAB PO PRN (18:27)
[2024-05-16 20:18] VITALS: RESP 18
--- NOTE | 2024-05-17 12:07 | OP ---
SURGERY DATE/TIME: 05/14/2024 [id number] PREOPERATIVE DIAGNOSIS: Colovaginal fistula, markedly symptomatic. POSTOPERATIVE DIAGNOSES: 1) Colovaginal fistula, markedly symptomatic. 2) Extensive sigmoid diverticulitis with colovaginal fistula. PROCEDURE: 1) Formal sigmoid colon resection with stable transection of the rectosigmoid junction. 2) Closure of colovaginal fistula. The colon had been taken off and the vagina was closed with suture closure. SURGEON: Rell La MD DIRECTOR OF OUTPATIENT SERVICES SURGEON: For the entire case, Katelyn La MD. BLOOD LOSS: 100 mL. DRAINS: One. CONDITION: Stable. INDICATIONS: Patient had an emergency procedure about a year ago by an emergency only surgeon. She was apparently unstable and was doing very badly and was felt to have basically a perforated abdomen. She had abdominal exploration. She had left end sigmoid colostomy. She apparently had extensive sigmoid disease, but they did not resect the sigmoid as she was not able to tolerate this. We have subsequently done several followup studies on this individual, and she has a 1 cm fistula between the colon and vagina. There is mention about a bladder fistula, but I am not aware of absolutely having one. Her vaginal fistula is symptomatic, and she has bloody nasty stools coming out of it intermittently. She is scheduled for sigmoid resection with fistula closure. We are not taking the ostomy down today, and she is well aware of this. DESCRIPTION OF PROCEDURE AND FINDINGS: Patient was taken to surgery. General anesthetic. Routine prep and drape. Laryr catheter. Orogastric tube. Lower midline incision was re-entered. There was a fairly substantial parastomal hernia. The blind end of the sigmoid proximally was then identified and picked up. It was taken away from the pelvic sidewall. It was densely stuck. The mesentery was markedly shortened. The mesentery was taken fairly close to the colon. As this was being taken down, it was knuckled into the pelvic sidewall and the back of the vaginal area, just absolutely looped back on itself and concreted in. Going down deeper in the pelvis at the left side and bringing a finger up, there was actually a little free zone right at the bottom over top of the rectum here. This was the correct plane, and there was clearly a spot well between the colon and vagina. This was very carefully broken up. On the colon side, it was about 1 cm. It was marked with a suture. Going down about 2 inches, the transition where the colon was actually reasonably soft and pliable, this was right at the rectosigmoid junction. This was taken with the Contour stapling device, and it fired nicely, sealed nicely. The mesentery had already been taken and was satisfactory. We were well away from the left ureter. We were fairly close to the bladder but seemed to be away from the bladder. The urine was clear. A bowel clamp was stuck up in the vagina and came out this hole in left cornu. Two sutures of 2-0 PDS were placed and tied down. This looked like this buttressed this nicely. The field was irrigated. A 10 TYREE was placed. The rectal staple line stump was satisfactory. Some omentum was left on the right side of the abdominal incision. The parastomal hernia defect, fairly large, was left. Her abdominal wall was not in very good shape. Despite this, it was closed with looped 0 PDS. Subcutaneous tissue irrigated. Skin closed with vertical mattress sutures of 2-0 Prolene. Sterile dressing applied. The oxygen bag reapplied. Patient tolerated the procedure satisfactorily. Yes, there was a finding of a 1 cm colovaginal fistula. There were findings of extensive subacute chronic diverticulitis with focal perforation and fistula. There was no absolute bladder fistula although sometimes these are small and micro in nature. Her urine has remained clear during the case. All findings discussed with the family in the waiting room.
[2024-05-17 12:53] VITALS: BP 167/73; PULSE 74; TEMP 97.3; O2SAT 95
--- NOTE | 2024-06-25 11:11 | DS ---
INITIAL DIAGNOSIS: Colovaginal fistula. 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 PROCEDURE: Sigmoid resection with closure of vaginal fistula. SURGEON: Rell La MD [employer] SURGEON: Katelyn La MD HOSPITAL COURSE: The case went well. The fistula was present. The fistula was closed. A segment of colon was resected. She was well hydrated. She had a bowel prep. Medical meds were restarted. She was advanced slowly on her diet from clear liquids to full liquids to regular. Her incision was healing. She really was doing well. She requests to have discharge on 05/17. Medications per discharge sheet. DISCHARGE INSTRUCTIONS: As you would think for postop major abdominal surgery. It is really not much of anything other than lightly walking around in the house. She is scheduled to return to the office for followup care and given routine instructions.
== END 2024-05-17 14:04 | disposition home health service (06) | DRG 674 ==
LOC: EDSTATUS 09:07 → MED SURG 11:27
PROVIDERS: ADMIT Surgery; ATTEND Surgery
PROC: 0DTN0ZZ Resection of Sigmoid Colon, Open Approach (ICD-10-PCS; principal; 2024-05-14)
PROC: 0WQN0ZZ Repair Female Perineum, Open Approach (ICD-10-PCS; 2024-05-14)
DX: N32.1 Vesicointestinal fistula (principal); K57.32 Diverticulitis of large intestine without perforation or abscess without bleeding; I11.0 Hypertensive heart disease with heart failure; I50.9 Heart failure, unspecified; E03.9 Hypothyroidism, unspecified; J44.9 Chronic obstructive pulmonary disease, unspecified; Z79.899 Other long term (current) drug therapy; Z93.3 Colostomy status
CPT/HCPCS: 36415; 62322; 64488; 76937; 80051; 80053; 81001; 85027; 86850; 86900; 86901; 87086; 88307; 94640; 94660; 94762; 99100; J0295; J0694; J1100; J1200; J2270; J2274; J2300; J2405; J2704; L0625; A9270-GY

== ENCOUNTER 2024-05-22 08:42 | Emergency (ER) | payer MEDICARE ==
[2024-05-22 08:59] VITALS: TEMP 98.6
--- NOTE | 2024-05-22 09:20 | ERPHSYRPT ---
- History of Present Illness Time Seen by Provider: 05/22/24 08:50 Source: patient Exam Limitations: no limitations Patient Subjective Stated Complaint: Surgical incision check. Patient states she has been having increased abdominal pain for a few days. Drainage from incision today; reported as large amount. Triage Nursing Assessment: Patient arrived by ambulance. She is alert and oriented. No SOB. Abdominal binder noted to have a moderate amount of drainage on it. Abdominal binder and dressing removed. Erythemia noted to skin surrounding surgical incision. 13 sutures are intact to surgical area with the incision well approximated with the exception of a small open area to the proximal area of the incision. This open area is oozing light brown drainage. Physician History: 73-year-old female 8 days postop bowel resection presents to our ED as a referral from her home health nurse for wound check. Daughter at bedside reports increased wound drainage over the past couple days. No systemic manifestations of infection. No fever no nausea no vomiting no weakness. Patient otherwise asymptomatic. Patient has been receiving local wound care as ordered per surgeon. Patient currently has a follow-up appointment scheduled for this coming Tuesday. Patient in good spirits conversant well-appearing and in no distress. Daughter at bedside. They voiced no other complaints or concerns at this time. Portions of this note were created with voice recognition technology. There may be grammatical, spelling, punctuation or sound alike errors Timing/Duration: day(s) (2 days) Severity: moderate Modifying Factors: Improves With: nothing Associated Symptoms: denies symptoms Allergies/Adverse Reactions: shrimp Allergy (Intermediate, Verified 05/22/24 08:56) Hives contrast dye Allergy (Intermediate, Uncoded 05/22/24 08:56) Hives Home Medications: Montelukast Sodium 10 mg [Singulair 10 MG] 10 mg PO DAILY 11/08/18 [History] Omeprazole 40 mg PO DAILY 04/22/19 [History] Celecoxib 100 mg [celeBREX 100 MG] 100 mg PO BID 01/15/21 [History] Rosuvastatin Calcium 20 mg PO HS 10/15/21 [History] Albuterol Sulfate 1 puff IH Q4HPRN PRN 08/12/22 [History] Gabapentin [Neurontin ] 300 mg PO BID 08/12/22 [History] Metoprolol Succinate 25 mg Xl* [Toprol-Xl 25MG Tablets] 25 mg PO DAILY 08/12/22 [History] Ranolazine 500 MG [Ranexa 500 MG] 1,000 mg PO BID 08/12/22 [History] Cyanocobalamin (Vitamin B-12) [Vitamin B-12] 1,000 mcg PO DAILY 02/23/24 [History] Hydrocodone/Acetaminophen [Hydrocodone-Acetamin 7.5-325] 1 each PO BIDPRN PRN 0 02/23/24 [History] Aspirin EC 81 mg [Ecotrin 81 mg] 81 mg PO DAILY 04/18/24 [History] Meclizine HCl 25 mg [Antivert 25 mg] 25 mg PO TIDPRN PRN 04/18/24 [History] Levothyroxine Sodium 75 Mcg [Synthroid 75 Mcg] 75 mcg PO DAILY 05/14/24 [History] Hx Tetanus, Diphtheria Vaccination/Date Given: Yes Hx Influenza Vaccination/Date Given: Yes Hx Pneumococcal Vaccination/Date Given: Yes Immunizations Up to Date: Yes Travel Risk - International Travel Have you traveled outside of the country in past 3 weeks: No - Emerging Infectious Disease Are you exhibiting symptoms associated with any current EIDs: Yes Symptoms: Abdominal Pain - Review of Systems Constitutional: No Symptoms, No Fever, No Chills Eyes: No Symptoms Ears, Nose, & Throat: No Symptoms Respiratory: No Symptoms, No Cough, No Dyspnea Cardiac: No Symptoms, No Chest Pain, No Edema, No Syncope Abdominal/Gastrointestinal: No Symptoms, No Abdominal Pain, No Nausea, No Vomiting, No Diarrhea Genitourinary Symptoms: No Symptoms, No Dysuria Musculoskeletal: No Symptoms, No Back Pain, No Neck Pain Skin: No Symptoms, No Rash Neurological: No Symptoms, No Dizziness, No Focal Weakness, No Sensory Changes Psychological: No Symptoms Endocrine: No Symptoms Hematologic/Lymphatic: No Symptoms Immunological/Allergic: No Symptoms All Other Systems: Reviewed and Negative - Past Medical History Pertinent Past Medical History: Yes Neurological History: TIA ENT History: Cataracts Cardiac History: Coronary Artery Disease, High Cholesterol, Hypertension, Other Respiratory History: COPD Endocrine Medical History: Hypothyroidism Musculoskeletal History: Fibromyalgia, Fractures, Osteoarthritis GI Medical History: Diverticulitis, Diverticulosis, Gallbladder Disease, Hernia, Other History: No Pertinent History Psycho-Social History: Anxiety Female Reproductive Disorders: Other Other Medical History: vagina fistula - Past Surgical History Past Surgical History: Yes Neuro Surgical History: No Pertinent History Cardiac: Cardiac Catheterization Respiratory: No Pertinent History Gastrointestinal: Cholecystectomy, Colon Resection Genitourinary: No Pertinent History Musculoskeletal: Joint Replacement Female Surgical History: Hysterectomy Other Surgical History: right total knee replacement, rotator cuff surgery, eye surgery, thyroidectomy 09/11/21, colon resection with colostomy, colonoscopy/vaginoscopy, 1.5 feet of colon removed by Dr. Zacarias and Katelyn La on 05/14/24 Significant Family History: no pertinent family hx - Social History Smoking Status: Never smoker How long have you smoked: 10+ Exposure to second hand smoke: No Alcohol Use: None Drug Use: none Patient Lives Alone: Yes - Social Determinants of Health Will the patient participate in the screening: Yes Do you worry about a steady place to live?: No Do you have any problems with any of the following?: No known problems In the past 12 months,have you had to go without utilities?: No Transportation Issues: No Has anyone in your support network made you feel unsafe?: No Have you or anyone in your house had to go without enough: No - Nursing Vital Signs Nursing Vital Signs: Initial Vital Signs Temperature 98.6 F 05/22/24 08:45 Pulse Rate 72 05/22/24 08:45 Respiratory Rate 24 05/22/24 08:45 Blood Pressure 167/84 05/22/24 08:45 O2 Sat by Pulse Oximetry 98 05/22/24 08:45 Pain Scale Pain Intensity 8 - Physical Exam General Appearance: no apparent distress, alert Eye Exam: PERRL/EOMI, eyes nml inspection Ears, Nose, Throat Exam: normal ENT inspection, TMs normal, pharynx normal, moist mucous membranes Neck Exam: normal inspection, non-tender, supple, full range of motion Respiratory Exam: normal breath sounds, lungs clear, airway intact, No respiratory distress Cardiovascular Exam: regular rate/rhythm, normal heart sounds, normal peripheral pulses Gastrointestinal/Abdomen Exam: soft, normal bowel sounds, No tenderness, No mass Back Exam: normal inspection, normal range of motion, No CVA tenderness, No vertebral tenderness Extremity Exam: normal inspection, normal range of motion, pelvis stable Neurologic Exam: alert, oriented x 3, cooperative, normal mood/affect, sensation nml, No motor deficits Skin Exam: normal color, warm, dry, other (The area immediately adjacent to the surgical wound is red likely hyperemic from dressing adhesive.), No rash Lymphatic Exam: No adenopathy SpO2 Interpretation: normal SpO2: 97 O2 Delivery: Room Air - Course Nursing assessment & vital signs reviewed: Yes Ordered Tests: Active Orders 24 hr Category Date Time Status CBC W DIFF Stat Lab 05/22/24 11:34 Completed CMP Stat Lab 05/22/24 11:34 Completed CULTURE,WOUND Stat Lab 05/22/24 09:16 Ordered Medication Summary Discontinued Medications Generic Name Dose Route Start Last Admin Trade Name Freq PRN Reason Stop Dose Admin Hydrocodone Bitart/Acetaminophen 1 tab 05/22/24 10:26 05/22/24 10:40 Hydrocodone /Apap 7.5/325 Mg 1 Each Tablet PO 05/22/24 10:27 1 tab STAT ONE Administration Piperacillin Sod/Tazobactam 100 mls @ 200 mls/hr 05/22/24 09:13 05/22/24 10:00 Sod 3.375 gm/ Sodium Chloride IV 05/22/24 09:42 200 mls/hr STAT ONE Administration Sodium Chloride Confirm 05/22/24 10:00 Sodium Chloride 100ml Mini-Bag Plus Administered 05/22/24 10:01 Dose 100 mls @ ud IV .STK-MED ONE Piperacillin Sod/Tazobactam Sod Confirm 05/22/24 09:59 Piperacillin/Tazobactam Sodium 3.375 Gm Vial Administered 05/22/24 10:00 Dose 3.375 gm IV .STK-MED ONE Lab/Rad Data: Laboratory Result Diagrams 05/22/24 11:34 05/22/24 11:34 Laboratory Results 05/22/24 05/22/24 Range/Units 11:34 11:34 WBC 10.6 H (3.98-10.04) x10^3/uL RBC 4.47 (3.93-5.22) x10^6/uL Hgb 12.3 (11.2-15.7) g/dL Hct 39.0 (34.1-44.9) % MCV 87.2 (79.4-94.8) fL MCH 27.5 (25.6-32.2) pg MCHC 31.5 L (32.2-35.5) g/dL RDW 18.3 H (11.7-14.4) % Plt Count 436 H (182-369) x10^3/uL MPV 10.0 (9.4-12.3) fL Gran % 67.9 (34.0-71.1) % Immature Gran % (Auto) 0.8 H (0.001-0.429) % Nucleat RBC Rel Count 0.0 (0.00-0.2) % Eos # (Auto) 0.43 H (0.04-0.36) x10^3/uL Immature Gran # (Auto) 0.09 H (0.001-0.031) x10^3u/L Absolute Lymphs (auto) 1.77 (1.18-3.74) x10^3/uL Absolute Monos (auto) 1.05 H (0.24-0.86) x10^3/uL Absolute Nucleated RBC 0.00 (0.00-0.012) x10^3u/L Lymphocytes % 16.7 L (19.3-51.7) % Monocytes % 9.9 (4.7-12.5) % Eosinophils % 4.0 (0.7-5.8) % Basophils % 0.7 (0.1-1.2) % Absolute Granulocytes 7.21 H (1.56-6.13) x10^3/uL Basophils # 0.07 (0.01-0.08) x10^3/uL Sodium 134 L (135-145) mmol/L Potassium 4.1 (3.5-5.1) mmol/L Chloride 104 (98-107) mmol/L Carbon Dioxide 23 (22-30) mmol/L Anion Gap 11.9 (5-15) MEQ/L BUN 13 (7-17) mg/dL Creatinine 0.65 (0.52-1.04) mg/dL Estimated GFR 92.9 ML/MIN Glucose 101 (74-106) mg/dL Calcium 8.7 (8.4-10.2) mg/dL Total Bilirubin 0.70 (0.2-1.3) mg/dL AST 34 (14-36) U/L ALT 28 (0-35) U/L Alkaline Phosphatase 151 H (38-126) U/L Serum Total Protein 6.4 (6.3-8.2) g/dL Albumin 3.3 L (3.5-5.0) g/dL - Progress Progress: improved Progress Note: Spoke to Dr. Rell La. We will obtain basic labs, wound culture and initiate antibiotic therapy. Patient to be discharged with outpatient follow-up as scheduled this coming Tuesday. I spoke to Dr. La at about 9:10 AM. 05/22/24 09:20 73-year-old female presents to our ED approximately 8 days post bowel resection. Patient referred to our ER for wound check. Physical exam reveals a anterior abdominal postsurgical wound with intact sutures. The immediate area around the wound is hyperemic and the location of the dressing adhesive. The drainage is slightly yellow otherwise clear. No blood. Wound culture obtained. Results pending. I spoke to Dr. La as indicated above. Patient will be discharged home for outpatient follow-up. Plan of care discussed with patient. She agrees to follow-up with Dr. La on Tuesday as scheduled. Daughter at bedside states she will be sure patient attends the clinic visit. Patient received a dose of Zosyn in our ED. A prescription for Augmentin forwarded to patient's pharmacy per Dr. La request. Vital stable. Patient voices no other complaints or concerns at this time. Portions of this note were created with voice recognition technology. There may be grammatical, spelling, punctuation or sound alike errors Complexity problem addressed is moderate acute complicated. No critical care time. Complexity data reviewed and analyzed is extensive. Test ordered test reviewed results analyzed and correlated clinically with history and physical exam. Management discussed with patient surgeon Dr. Rell La. Management as per his recommendations. Risk of complication and or risk of morbidity/mortality of patient management is moderate. A prescription for Augmentin forwarded to patient's pharmacy. Vital stable. Time spent to discharge patient is approximately 15 minutes. Plan of care established for shared decision making. No social determinants of health present to impede follow-up. Portions of this note were created with voice recognition technology. There may be grammatical, spelling, punctuation or sound alike errors 05/22/24 09:23 Counseled pt/family regarding: lab results, diagnosis, need for follow-up - Departure Departure Disposition: Home Clinical Impression: Visit for wound check, Wound infection Condition: Stable Critical Care Time: No Referrals: LONG,CORY, DO [Primary Care Provider] - Follow up/PCP as directed Additional Instructions: Discharge/Care Plan THEA JACINTO was seen on 05/22/24 in the Emergency Room. The patient was counseled regarding Diagnosis,Lab results, Imaging studies, need for follow up and when to return to the Emergency Room. Prescriptions given: Discharge Note I have spoken with the patient and/or caregivers. I have explained the patient's condition, diagnosis and treatment plan based on the information available to me at this time. I have answered the patient's and/or caregiver's questions and addressed any concerns. The patient and/or caregivers have as good understanding of the patient's diagnosis, condition and treatment plan as can be expected at this point. The vital signs have been stable. The patient's condition is stable and appropriate for discharge from the emergency department. The patient will pursue further outpatient evaluation with the primary care physician or other designated or consulting physician as outlined in the discharge instructions. The patient and/or caregivers are agreeable to this plan of care and follow-up instructions have been explained in detail. The patient and/or caregivers have received these instruction. The patient/and or caregivers are aware that any significant change in condition or worsening of symptoms s hould prompt an immediate return to this or the closest emergency department or call 911. Prescriptions: Amox Tr/Potass Clav. 875 mg [Augmentin 875-125 Tablet] 875 mg PO BID 7 Days #14 tablet
[2024-05-22] MEDS ORDERED: PIPERACILLIN/TAZOBACTAM IV ONE (09:59)
[2024-05-22] MEDS: PIPERACILLIN/TAZOBACTAM 3.375 GM in Sodium Chloride 100ML MINI-BAG PLUS 100 ML IV ONE (10:00)
[2024-05-22] MEDS ORDERED: Sodium Chloride 100ML MINI-BAG PLUS 100 ML IV ONE (10:00)
[2024-05-22] MEDS: NORCO 7.5/325 MG TAB PO ONE (10:40)
[2024-05-22 11:35] LABS: Absolute Neutrophil Ct (ANC) 7.21 x10^3/uL (1.56-6.13); BASOPHIL % 0.7 % (0.1-1.2); Basophil (Absolute #) 0.07 x10^3/uL (0.01-0.08); Eosinophil (Absolute #) 0.43 x10^3/uL (0.04-0.36); Hemoglobin 12.3 g/dL (11.2-15.7); IMMATURE GRAN # 0.09 x10^3u/L (0.001-0.031); IMMATURE GRAN % 0.8 % (0.001-0.429); Lymphocyte (Absolute #) 1.77 x10^3/uL (1.18-3.74); Lymphocytes % 16.7 % (19.3-51.7); Mean Cell Volume 87.2 fL (79.4-94.8); Mean Corpuscular Hemoglobin 27.5 pg (25.6-32.2); Mean Corpuscular Hgb Concent. 31.5 g/dL (32.2-35.5); Monocyte (Absolute #) 1.05 x10^3/uL (0.24-0.86); Monocytes % 9.9 % (4.7-12.5); Neutrophil % 67.9 % (34.0-71.1); Platelet Count 436 x10^3/uL (182-369); Red Blood Count 4.47 x10^6/uL (3.93-5.22); Red Cell Distribution Width 18.3 % (11.7-14.4); White Blood Count 10.6 x10^3/uL (3.98-10.04)
[2024-05-22 11:50] LABS: ALBUMIN 3.3 g/dL (3.5-5.0); ANION GAP 11.9 MEQ/L (5-15); BILIRUBIN,TOTAL 0.7 mg/dL (0.2-1.3); Calcium 8.7 mg/dL (8.4-10.2); Creatinine 1 0.65 mg/dL (0.52-1.04); EST GLOMERULAR FILTRATION RATE 92.9 ML/MIN; Potassium 4.1 mmol/L (3.5-5.1); Total Protein 6.4 g/dL (6.3-8.2)
[2024-05-22 12:34] VITALS: BP 123/68; PULSE 76; RESP 25; O2SAT 95
== END 2024-05-22 12:37 | disposition home or self-care (01) ==
LOC: ED 08:42
DX: Z48.01 Encounter for change or removal of surgical wound dressing (principal); T81.41XA Infection following a procedure, superficial incisional surgical site, initial encounter; E78.5 Hyperlipidemia, unspecified; I10 Essential (primary) hypertension; Z79.899 Other long term (current) drug therapy
CPT/HCPCS: 36000; 36415; 80053; 85025; 87070; 87077; 87186; 96365; 99284; L0625; A9270-GY

== ENCOUNTER 2024-12-16 09:29 | Emergency (ER) | payer MEDICARE ==
[2024-12-16 09:47] VITALS: TEMP 96.4
[2024-12-16] MEDS ORDERED: Zofran 4 MG/2 ML VIAL ONE (10:00)
[2024-12-16] MEDS ORDERED: BENADRYL 50 MG/ML ONE (10:00)
[2024-12-16] MEDS ORDERED: Sterile H2O 10 ml IJ ONE (10:00)
[2024-12-16] MEDS ORDERED: Pepcid 20 MG VIAL IV ONE (10:00)
[2024-12-16] MEDS ORDERED: Sodium Chloride 0.9% 1000 ML 1,000 ML ONE (10:00)
[2024-12-16] MEDS ORDERED: solu-MEDROL ONE (10:00)
[2024-12-16 10:02] LABS: Absolute Neutrophil Ct (ANC) 2.19 x10^3/uL (1.56-6.13); BASOPHIL % 0.6 % (0.1-1.2); Basophil (Absolute #) 0.03 x10^3/uL (0.01-0.08); Eosinophil % 2.4 % (0.7-5.8); Eosinophil (Absolute #) 0.12 x10^3/uL (0.04-0.36); Hematocrit 45.6 % (34.1-44.9); Hemoglobin 14.8 g/dL (11.2-15.7); IMMATURE GRAN # 0.01 x10^3u/L (0.001-0.031); IMMATURE GRAN % 0.2 % (0.001-0.429); Lymphocyte (Absolute #) 1.89 x10^3/uL (1.18-3.74); Lymphocytes % 37.8 % (19.3-51.7); Mean Cell Volume 81.9 fL (79.4-94.8); Mean Corpuscular Hemoglobin 26.6 pg (25.6-32.2); Mean Corpuscular Hgb Concent. 32.5 g/dL (32.2-35.5); Mean Platelet Volume 10.4 fL (9.4-12.3); Monocyte (Absolute #) 0.76 x10^3/uL (0.24-0.86); Monocytes % 15.2 % (4.7-12.5); Neutrophil % 43.8 % (34.0-71.1); Platelet Count 386 x10^3/uL (182-369); Red Blood Count 5.57 x10^6/uL (3.93-5.22); Red Cell Distribution Width 19.4 % (11.7-14.4)
[2024-12-16] MEDS: Sodium Chloride 0.9% 1000 ML 1,000 ML IV STA (10:04)
[2024-12-16] MEDS: BENADRYL 50 MG/ML IV ONE (10:05)
[2024-12-16] MEDS: solu-MEDROL 125 MG, Sterile H2O 10 ml 2 ML IV ONE (10:05)
[2024-12-16] MEDS: Pepcid 20 MG VIAL IV ONE (10:06)
[2024-12-16] MEDS: Zofran 4 MG/2 ML VIAL IV ONE (10:07)
[2024-12-16 10:10] VITALS: O2SAT 96
[2024-12-16 10:10] LABS: ALBUMIN 4.4 g/dL (3.5-5.0); ANION GAP 14.9 MEQ/L (5-15); BILIRUBIN,TOTAL 0.4 mg/dL (0.2-1.3); Calcium 8.9 mg/dL (8.4-10.2); Creatinine 1 0.77 mg/dL (0.52-1.04); EST GLOMERULAR FILTRATION RATE 80.9 ML/MIN; Potassium 3.7 mmol/L (3.5-5.1); Total Protein 7.3 g/dL (6.3-8.2)
--- NOTE | 2024-12-16 10:10 | ERPHSYRPT ---
- History of Present Illness Time Seen by Provider: 12/16/24 10:06 Source: patient Exam Limitations: no limitations Patient Subjective Stated Complaint: PT. STATES, "IM ALLERGIC TO SHELLFISH AND I ATE SOME SCALLOPS ON TUESDAY NOT KNOWING THEY WERE SHELLFISH AND STARTING TUESDAY NIGHT I'V BEEN VOMITING AND HAVING LOOSE STOOLS. I HAVE A HEADACHE TODAY AND GET LIGHT HEADED WHEN I STAND UP." Triage Nursing Assessment: PT. ARRIVES TO ROOM VIA W/C, TRANSFERS TO BED WITH MINIMAL ASSIST. A&OX4, SKIN P/W/D, RESP. EVEN UNLABORED. LOOSE STOOL PRESENT IN COLOSTOMY BAG. NO EDEMA. ABLE TO MOVE ALL FOUR EXT. Physician History: Patient is 74-year-old female with significant past medical history of hypertensive heart disease coronary artery disease osteoarthritis status post colostomy who knew that she is allergic to shellfish but inadvertently she ate some scallops then started having nausea and vomiting and flushed skin since yesterday. She ate that food on Tuesday. Timing/Duration: yesterday Severity: moderate Associated Symptoms: nausea, vomiting, headaches Allergies/Adverse Reactions: shrimp Allergy (Intermediate, Verified 05/22/24 08:56) Hives contrast dye Allergy (Intermediate, Uncoded 05/22/24 08:56) Hives Home Medications: Montelukast Sodium 10 mg [Singulair 10 MG] 10 mg PO DAILY 11/08/18 [History] Omeprazole 40 mg PO DAILY 04/22/19 [History] Celecoxib 100 mg [celeBREX 100 MG] 100 mg PO BID 01/15/21 [History] Rosuvastatin Calcium 20 mg PO HS 10/15/21 [History] Albuterol Sulfate 1 puff IH Q4HPRN PRN 08/12/22 [History] Gabapentin [Neurontin ] 300 mg PO BID 08/12/22 [History] Metoprolol Succinate 25 mg Xl* [Toprol-Xl 25MG Tablets] 25 mg PO DAILY 08/12/22 [History] Ranolazine 500 MG [Ranexa 500 MG] 1,000 mg PO BID 08/12/22 [History] Cyanocobalamin (Vitamin B-12) [Vitamin B-12] 1,000 mcg PO DAILY 02/23/24 [History] Hydrocodone/Acetaminophen [Hydrocodone-Acetamin 7.5-325] 1 each PO BIDPRN PRN 02/23/24 [History] Aspirin EC 81 mg [Ecotrin 81 mg] 81 mg PO DAILY 04/18/24 [History] Meclizine HCl 25 mg [Antivert 25 mg] 25 mg PO TIDPRN PRN 04/18/24 [History] Levothyroxine Sodium 75 Mcg [Synthroid 75 Mcg] 75 mcg PO DAILY 05/14/24 [History] Hx Tetanus, Diphtheria Vaccination/Date Given: Yes Hx Influenza Vaccination/Date Given: Yes Hx Pneumococcal Vaccination/Date Given: Yes Immunizations Up to Date: Yes Travel Risk - International Travel Have you traveled outside of the country in past 3 weeks: No - Emerging Infectious Disease Are you exhibiting symptoms associated with any current EIDs: No Symptoms: Abdominal Pain - Review of Systems Constitutional: Weakness, No Fever, No Chills Eyes: No Symptoms Ears, Nose, & Throat: No Symptoms Respiratory: No Cough, No Dyspnea Cardiac: No Chest Pain, No Edema, No Syncope Abdominal/Gastrointestinal: Nausea, Vomiting, Diarrhea, No Abdominal Pain Genitourinary Symptoms: No Dysuria Musculoskeletal: No Back Pain, No Neck Pain Skin: No Rash Neurological: No Dizziness, No Focal Weakness, No Sensory Changes Psychological: No Symptoms Endocrine: No Symptoms All Other Systems: Reviewed and Negative - Past Medical History Pertinent Past Medical History: Yes Neurological History: TIA ENT History: Cataracts Cardiac History: Coronary Artery Disease, High Cholesterol, Hypertension, Other Respiratory History: COPD Endocrine Medical History: Hypothyroidism Musculoskeletal History: Fibromyalgia, Fractures, Osteoarthritis GI Medical History: Diverticulitis, Diverticulosis, Gallbladder Disease, Hernia, Other History: No Pertinent History Psycho-Social History: Anxiety Female Reproductive Disorders: Other Other Medical History: vagina fistula - Past Surgical History Past Surgical History: Yes Neuro Surgical History: No Pertinent History Cardiac: Cardiac Catheterization Respiratory: No Pertinent History Gastrointestinal: Cholecystectomy, Colon Resection Genitourinary: No Pertinent History Musculoskeletal: Joint Replacement Female Surgical History: Hysterectomy Other Surgical History: right total knee replacement, rotator cuff surgery, eye surgery, thyroidectomy 09/11/21, colon resection with colostomy, colonoscopy/vaginoscopy, 1.5 feet of colon removed by Dr. Zacarias and Katelyn La on 05/14/24 Significant Family History: no pertinent family hx - Social History Smoking Status: Never smoker How long have you smoked: 10+ Exposure to second hand smoke: No Drug Use: none - Social Determinants of Health Will the patient participate in the screening: Declined to provide - Nursing Vital Signs Nursing Vital Signs: Initial Vital Signs Temperature 96.4 F 12/16/24 09:30 Pulse Rate 77 12/16/24 09:30 Respiratory Rate 26 H 12/16/24 09:30 Blood Pressure 166/94 12/16/24 09:30 O2 Sat by Pulse Oximetry 96 12/16/24 09:30 Pain Scale Pain Intensity 4 - Physical Exam General Appearance: no apparent distress, alert Eye Exam: PERRL/EOMI, eyes nml inspection Ears, Nose, Throat Exam: normal ENT inspection, TMs normal, pharynx normal, moist mucous membranes Neck Exam: normal inspection, non-tender, supple, full range of motion Respiratory Exam: normal breath sounds, lungs clear, No respiratory distress Cardiovascular Exam: regular rate/rhythm, normal heart sounds, normal peripheral pulses Gastrointestinal/Abdomen Exam: soft, normal bowel sounds, other (colostomy bag), No tenderness, No mass Back Exam: normal inspection, normal range of motion, No CVA tenderness, No vertebral tenderness Extremity Exam: normal inspection, normal range of motion, pelvis stable Neurologic Exam: alert, oriented x 3, cooperative, normal mood/affect, nml cerebellar function, nml station & gait, sensation nml, No motor deficits Skin Exam: normal color, warm, dry, No rash Lymphatic Exam: No adenopathy SpO2: 96 - Course Nursing assessment & vital signs reviewed: Yes Ordered Tests: Active Orders 24 hr Category Date Time Status CBC W DIFF Stat Lab 12/16/24 09:30 Completed CMP Stat Lab 12/16/24 09:30 Completed Medication Summary Discontinued Medications Generic Name Dose Route Start Last Admin Trade Name Freq PRN Reason Stop Dose Admin Methylprednisolone Sodium 0 mg 12/16/24 09:47 12/16/24 10:05 Succinate 125 mg/ Sterile IV 12/16/24 09:48 125 mg Water 2 ml STAT ONE Administration Diphenhydramine HCl 25 mg 12/16/24 09:47 12/16/24 10:05 Diphenhydramine Hcl 50 Mg/Ml Vial IV 12/16/24 09:48 25 mg STAT ONE Administration Diphenhydramine HCl Confirm 05/18/25 10:00 Diphenhydramine Hcl 50 Mg/Ml Vial Administered 12/16/24 10:01 Dose 50 mg .ROUTE .STK-MED ONE Famotidine 20 mg 12/16/24 09:47 12/16/24 10:06 Famotidine 20 Mg/1 Vial IV 12/16/24 09:48 20 mg STAT ONE Administration Famotidine Confirm 12/16/24 10:00 Famotidine 20 Mg/1 Vial Administered 12/16/24 10:01 Dose 20 mg IV .STK-MED ONE Sodium Chloride 1,000 mls @ 999 mls/hr 12/16/24 09:47 12/16/24 10:04 Sodium Chloride 0.9% 1000 Ml IV 12/16/24 10:47 999 mls/hr .Q1H1M STA Administration Sodium Chloride Confirm 12/16/24 10:00 Sodium Chloride 0.9% 1000 Ml Administered 12/16/24 10:01 Dose 1,000 mls @ ud .ROUTE .STK-MED ONE Methylprednisolone Sodium Succinate Confirm 12/16/24 10:00 Methylprednis Sod Succ 125 Mg/2 Ml Vial Administered 12/16/24 10:01 Dose 125 mg .ROUTE .STK-MED ONE Ondansetron HCl 4 mg 12/16/24 09:47 12/16/24 10:07 Ondansetron Hcl 4 Mg/2 Ml Vial IV 12/16/24 09:48 4 mg STAT ONE Administration Ondansetron HCl Confirm 12/16/24 10:00 Ondansetron Hcl 4 Mg/2 Ml Vial Administered 12/16/24 10:01 Dose 4 mg .ROUTE .STK-MED ONE Sterile Water Confirm 12/16/24 10:00 Water For Injection,Sterile 10 Ml Vial Administered 12/16/24 10:01 Dose 10 ml IJ .STK-MED ONE Lab/Rad Data: Laboratory Result Diagrams 12/16/24 09:30 12/16/24 09:30 Laboratory Results 12/16/24 12/16/24 Range/Units 09:30 09:30 WBC 5.0 (3.98-10.04) x10^3/uL RBC 5.57 H (3.93-5.22) x10^6/uL Hgb 14.8 (11.2-15.7) g/dL Hct 45.6 H (34.1-44.9) % MCV 81.9 (79.4-94.8) fL MCH 26.6 (25.6-32.2) pg MCHC 32.5 (32.2-35.5) g/dL RDW 19.4 H (11.7-14.4) % Plt Count 386 H (182-369) x10^3/uL MPV 10.4 (9.4-12.3) fL Gran % 43.8 (34.0-71.1) % Immature Gran % (Auto) 0.2 (0.001-0.429) % Nucleat RBC Rel Count 0.0 (0.00-0.2) % Eos # (Auto) 0.12 (0.04-0.36) x10^3/uL Immature Gran # (Auto) 0.01 (0.001-0.031) x10^3u/L Absolute Lymphs (auto) 1.89 (1.18-3.74) x10^3/uL Absolute Monos (auto) 0.76 (0.24-0.86) x10^3/uL Absolute Nucleated RBC 0.00 (0.00-0.012) x10^3u/L Lymphocytes % 37.8 (19.3-51.7) % Monocytes % 15.2 H (4.7-12.5) % Eosinophils % 2.4 (0.7-5.8) % Basophils % 0.6 (0.1-1.2) % Absolute Granulocytes 2.19 (1.56-6.13) x10^3/uL Basophils # 0.03 (0.01-0.08) x10^3/uL Sodium 139 (135-145) mmol/L Potassium 3.7 (3.5-5.1) mmol/L Chloride 104 (98-107) mmol/L Carbon Dioxide 23 (22-30) mmol/L Anion Gap 14.9 (5-15) MEQ/L BUN 14 (7-17) mg/dL Creatinine 0.77 (0.52-1.04) mg/dL Estimated GFR 80.9 ML/MIN Glucose 106 (74-106) mg/dL Calcium 8.9 (8.4-10.2) mg/dL Total Bilirubin 0.40 (0.2-1.3) mg/dL AST 50 H (14-36) U/L ALT 44 H (0-35) U/L Alkaline Phosphatase 91 (38-126) U/L Serum Total Protein 7.3 (6.3-8.2) g/dL Albumin 4.4 (3.5-5.0) g/dL - Progress Progress: improved Counseled pt/family regarding: lab results, diagnosis, need for follow-up Medical Desision Making - Independent Historian Additional History obtained from: Family - Risk of complications Low Risk: Low risk of morbidity from additional dx testing or treatment - Departure Departure Disposition: Home Clinical Impression: Allergic reaction to seafood Condition: Stable Critical Care Time: No Referrals: CORY LONG DO [Primary Care Provider, [facility]] - Follow Up with PCP/3 days Instructions: Food allergy, Allergic reaction - ED discharge instructions Additional Instructions: Discharge/Care Plan THEA JACINTO was seen on 12/16/24 in the Emergency Room. The patient was counseled regarding Diagnosis,Lab results, Imaging studies, need for follow up and when to return to the Emergency Room. Prescriptions given: Discharge Note I have spoken with the patient and/or caregivers. I have explained the patient's condition, diagnosis and treatment plan based on the information available to me at this time. I have answered the patient's and/or caregiver's questions and addressed any concerns. The patient and/or caregivers have as good understanding of the patient's diagnosis, condition and treatment plan as can be expected at this point. The vital signs have been stable. The patient's condition is stable and appropriate for discharge from the emergency department. The patient will pursue further outpatient evaluation with the primary care physician or other designated or consulting physician as outlined in the discharge instructions. The patient and/or caregivers are agreeable to this plan of care and follow-up instructions have been explained in detail. The patient and/or caregivers have received these instruction. The patient/and or caregivers are aware that any significant change in condition or worsening of symptoms should prompt an immediate return to this or the closest emergency department or call 911. THEA JACINTO was seen on 12/16/24 n the Emergency Room. At that time you were treated for an emergent condition, during your visit Laboratory, Radiology and/or other procedures may have been ordered. It is very important that you follow-up with your Primary Care Physician CORY LONG DO within the next 24-48 hours to review your Emergency Room visit and the final results of testing that was ordered. Some test results such as Urine Cultures, Blood Cultures, and other cultures if ordered will not be finalized for 24-48 hours. If you do not have a Primary Care Provider please call the medical records department at [phone] to obtain a copy of your results or you may sign into our patient portal to obtain these results by visiting us @ [email or web address] and completing the following steps: 1. Click on the Patient Portal link 2. Click the Patient Self Enrollment Link to complete the enrollment form and entering your 3. Once the enrollment form is completed you will receive an email with a temporary ID and password at the email address you provided. 4. Next choose a user name and password. Your user name must be at least 4 characters long and your password must be at least 4 characters long. 5. Choose a security question from the list and provide your answer to the question. If you already have signed into the Health Portal you may access your Health Care Information 21/02 by the following steps: 1. Login to our website @ [email or web address] 2. Enter your original user name and password. FAQS The [facility] Health Portal is an online tool that contains your Lab Results, Radiology Reports, Visit History, Discharge Instructions and Health Summary Lab and Radiology Results will not be available for 72 hours on the portal. The Portal is a secure site, passwords are encryted and URLs are re-written so they cannot be copied and pasted. You and authorized family members are the only ones who can access your Portal. Also there is a timeout feature that protects your information if you leave the Portal page open. If you have technical difficulty please use the Contact Us link on the page this will allow you to submit any questions you have regarding the Portal or you may contact the Medical Record Department at [phone]. Prescriptions: Hydroxyzine HCl 25 mg [Atarax 25 mg] 25 mg PO QID #20 tablet Famotidine 20 mg [Pepcid 20 MG] 20 mg PO BID #60 tablet
[2024-12-16 11:10] VITALS: BP 132/62; PULSE 62; RESP 24
== END 2024-12-16 11:20 | disposition home or self-care (01) ==
LOC: ED 09:29
DX: T78.1XXA Other adverse food reactions, not elsewhere classified, initial encounter (principal); R11.2 Nausea with vomiting, unspecified; I11.9 Hypertensive heart disease without heart failure; Z79.899 Other long term (current) drug therapy
CPT/HCPCS: 36415; 80053; 85025; 93041; 96361; 96374; 96375; 99284; J1200; J2405; J2919

== ENCOUNTER 2025-06-12 11:45 | Day surgery (SDC) | payer MEDICARE ==
[2013-04-11 11:13] VITALS: BP 138/88
[2025-06-12] MEDS ORDERED: methylPREDNISolone acetate IM ONE (11:46)
[2025-06-12] MEDS ORDERED: BUPIVACAINE 0.5% VIAL IJ ONE (11:46)
[2025-06-12] MEDS ORDERED: propofoL IV ONE (13:48)
[2025-06-12] MEDS ORDERED: Lactated Ringers 1,000 ML IV ONE (13:58)
--- NOTE | 2025-06-12 16:37 | XRAY ---
Indication: Bilateral SI joint injection. Intraoperative fluoroscopy provided for 22 seconds. 2 digital spot image submitted for interpretation demonstrates posterior needle tips projecting over left and right SI joints. Small amount of contrast injected for needle tip placement. Correlate with intraoperative findings/report. Incidental stimulator lead overlies sacrum.
--- NOTE | 2025-06-12 16:43 | XRAY ---
22 seconds of fluoroscopy was used in surgery for a bilateral sacroiliac joint injection.
== END 2025-06-12 14:25 | disposition home or self-care (01) ==
LOC: SDC-PAIN 11:45
PROVIDERS: ATTEND Psychiatry & Neurology Pain Medicine
DX: M46.1 Sacroiliitis, not elsewhere classified (principal)